=== PATIENT | male | born 1960 | race Caucasian/White ===

== ENCOUNTER 2016-10-15 00:08 | Emergency (ER) | payer MEDICARE ==
--- NOTE | 2016-10-15 01:37 | ED ---
Jay Jay Rodriguez Billy, scribed for Jr Moralez MD on 10/15/16 at 0027 . Substance Abuse/Use - HPI Summary HPI Summary: Patient is a 56 y/o male BIBA to [facility] for evaluation of EtOH intoxication after he was found asleep on the sidewalk today. Here in the ED, patient states that "they made me come in," and that he "only had a few beers." He is unwilling to divulge much more information. - History Of Current Complaint Chief Complaint: EDSubstanceAbuse Stated Complaint: INTOXICATION Time Seen by Provider: 10/15/16 00:14 Hx Obtained From: Patient Onset/Duration of Drug/ETOH Abuse: Hours Ingestion History: Type/Name Of Drug - EtOH, Amount Ingested - "a few beers" Overdose Characteristics: Oral Timing Of Abuse: Binge Use Severity Initially: Moderate Severity Currently: Moderate Character: Stuporous Aggravating Factor(s): Nothing Alleviating Factor(s): Nothing - Allergies/Home Medications Allergies/Adverse Reactions: Allergies Allergy/AdvReac Type Severity Reaction Status Date / Time Penicillins AdvReac Unknown Unknown Verified 01/31/16 13:33 Reaction Details PMH/Surg Hx/FS Hx/Imm Hx Endocrine/Hematology History: Reports: Hx Anticoagulant Therapy - 325MG PO ASPIRIN DAILY, Hx Diabetes, Other Endocrine/Hematological Disorders - obesity Denies: Hx Blood Disorders, Hx Blood Transfusions, Hx Thyroid Disease, Hx Anemia, Hx Unexplained Bleeding Cardiovascular History: Reports: Hx Angina, Hx Congestive Heart Failure, Hx Coronary Artery Disease, Hx Hypercholesterolemia, Hx Hypertension, Hx Myocardial Infarction, Other Cardiovascular Problems/Disorders - cardiac cath w / stents Denies: Hx Pacemaker/ICD, Hx Peripheral Vascular Disease, Hx Syncope, Hx Valvular Heart Disease Respiratory History: Reports: Hx Pulmonary Edema, Hx Sleep Apnea, Other Respiratory Problems/Disorders - CURRENT SMOKER Denies: Hx Asthma, Hx Chronic Obstructive Pulmonary Disease (COPD), Hx Pneumonia GI History: Reports: Other GI Disorders - esophegal ulcers History: Reports: Hx Kidney Infection, Other Problems/Disorders - Prostate CA, TURP in 2011 Denies: Hx Renal Disease Musculoskeletal History: Reports: Hx Back Problems, Other Musculoskeletal History - ACL repair L knee Denies: Hx Arthritis, Hx Osteoporosis Sensory History: Denies: Hx Hearing Aid, Other Sensory Impairments Opthamlomology History: Denies: Other Sensory Impairments Neurological History: Reports: Hx Migraine, Other Neuro Impairments/Disorders - 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 Denies: Hx Dementia, Hx Headaches, Hx Seizures, Hx Transient Ischemic Attacks (TIA) Psychiatric History: Reports: Hx Anxiety, Hx Depression, Hx Community Mental Health Tx, Other Psychiatric Issues/Disorders Denies: Hx Eating Disorder, Hx Panic Disorder, Hx of Violent Episodes Against Others, Hx Substance Abuse - Cancer History Cancer Type, Location and Year: prostate cancer Hx Chemotherapy: No Hx Radiation Therapy: No Hx Palliative Cancer Treatment: No - Surgical History Surgery Procedure, Year, and Place: caridac stents x3 PREV [place], ACL repair, MASTOID AND TUBES IN EARS(SEE CARD FROM 2012 STUDY [facility]) Hx Anesthesia Reactions: No - Immunization History Date of Tetanus Vaccine: Unknown Date of Influenza Vaccine: 2013 Infectious Disease History: No Infectious Disease History: Denies: Hx Hepatitis, Hx Human Immunodeficiency Virus (HIV), Hx Shingles, Hx Tuberculosis, Traveled Outside the [place] in Last 30 Days - Family History Known Family History: Positive: Unknown - PT WAS ADOPTED - Social History Alcohol Use: Weekly Alcohol Amount: 2-3 drinks/day Hx Substance Use: Yes Substance Use Type: Reports: Cocaine, Marijuana Substance Use Comment - Amount & Last Used: p[t reports last use of cocaine and marijuana was several months ago Hx Tobacco Use: Yes Smoking Status (MU): Heavy Every Day Tobacco Smoker Type: Cigarettes Amount Used/How Often: 1 pack/day Length of Time of Smoking/Using Tobacco: 42 years Have You Smoked in the Last Year: Yes Review of Systems Negative: Fever Neurological: Other - EtOH intox All Other Systems Reviewed And Are Negative: Yes Physical Exam Triage Information Reviewed: Yes Vital Signs On Initial Exam: Initial Vitals Temp Pulse Resp BP Pulse Ox 97.6 F 90 20 181/93 97 10/15/16 00:17 10/15/16 00:17 10/15/16 00:17 10/15/16 00:17 10/15/16 00:17 Vital Signs Reviewed: Yes Appearance: Positive: Well-Appearing, No Pain Distress Skin: Positive: Warm Head/Face: Positive: Normal Head/Face Inspection Eyes: Positive: KAY ENT: Positive: Hearing grossly normal Neck: Positive: Supple Respiratory/Lung Sounds: Positive: Breath Sounds Present Cardiovascular: Positive: RRR Abdomen Description: Positive: Nontender, Soft Bowel Sounds: Positive: Present Musculoskeletal: Positive: Strength/ROM Intact Neurological: Positive: Alert, Oriented to Person Place, Time Psychiatric: Positive: Affect/Mood Appropriate - [place] Coma Scale Coma Scale Total: 15 Diagnostics - Vital Signs Vital Signs Temp Pulse Resp BP Pulse Ox 10/15/16 00:17 97.6 F 90 20 181/93 97 - Laboratory Lab Results: Lab Results 10/15/16 Range/Units 00:47 Serum Alcohol 215 H (<10) mg/dL Lab Statement: Any lab studies that have been ordered have been reviewed, and results considered in the medical decision making process. Re-Evaluation - Re-Evaluation First Eval Change: Improved Course/Dx - Diagnoses Provider Diagnoses: Alcohol intoxication Discharge - Discharge Plan Condition: Stable Disposition: HOME Patient Education Materials: Alcohol Intoxication (ED) Referrals: [facility] [place] REFERR[facility] [Outside] The documentation as recorded by the Jay Jay breaux Billy accurately reflects the service I personally performed and the decisions made by me, Jr Moralez MD.
[2016-10-15 05:23] VITALS: BP 173/98
== END 2016-10-15 05:23 | disposition home or self-care (01) ==
LOC: ED 00:08
DX: F10.129 Alcohol abuse with intoxication, unspecified (principal); F17.210 Nicotine dependence, cigarettes, uncomplicated
CPT/HCPCS: 36415; 80320; 99283; G0480

== ENCOUNTER 2017-03-30 22:11 | Emergency (ER) | payer MEDICARE ==
[2017-03-30] MEDS ORDERED: Aspirin Low Dose CHEW TAB* 81 MG PO ONE (22:48)
[2017-03-30] MEDS ORDERED: NS 0.9% 1000 ML* 1,000 ML IV ONE (22:48)
[2017-03-30 23:23] LABS: Hematocrit 51 % (42-52); Hemoglobin 17.6 g/dl (14.0-18.0); Mean Corpuscular HGB Conc 34 g/dl (31-36); Mean Corpuscular Hemoglobin 33 pg (27-31); Mean Corpuscular Volume 97 fL (80-94); Mean Platelet Volume 7 um3 (7.4-10.4); Red Blood Count 5.27 10^6/ul (4.0-5.4); Red Cell Distribution Width 13 % (10.5-15); White Blood Count 9.2 10^3/ul (3.5-10.8)
[2017-03-30 23:38] LABS: ALT 78 U/L (7-52); Albumin 3.7 g/dL (3.2-5.2); Alkaline Phosphatase 81 U/L (34-104); Blood Urea Nitrogen 9 mg/dL (6-24); CO2 Carbon Dioxide 24 mmol/L (22-32); Calcium 9.3 mg/dL (8.6-10.3); Chloride 100 mmol/L (101-111); EGFR African American 138.5 (>60); EGFR Non-African American 107.7 (>60); Globulin 4.2 g/dL (2-4); Glucose 307 mg/dL (70-100); Sodium 132 mmol/L (133-145); Total Protein 7.9 g/dL (6.4-8.9)
[2017-03-30 23:40] LABS: Troponin I 0.01 ng/mL (<0.04)
[2017-03-30 23:41] LABS: Anion Gap 8 mmol/L (2-11)
[2017-03-30] MEDS ORDERED: Albuterol/Ipratropium NEB.SOL* Albuterol 2.5 MG/Ipratropium 0.5 MG 3 ML INH ONE (23:52)
[2017-03-30] MEDS ORDERED: methylPREDNISolone 125 MG* 2 ML VIAL IV ONE (23:53)
[2017-03-30] MEDS ORDERED: Morphine INJ* 4 MG/ML 1 ML SYRINGE IV ONE (23:53)
[2017-03-30] MEDS ORDERED: NS 0.9% 1000 ML* 2,000 ML IV ONE (23:53)
[2017-03-31] MEDS ORDERED: Azithromycin TAB* 250 MG PO ONE (03:02)
[2017-03-31] MEDS ORDERED: Albuterol HFA INHALER* 8 gm MDI INH ONE (03:02)
[2017-03-31] MEDS ORDERED: oxyCODONE/Acetamin 5/325 MG* TAB PO ONE (03:03)
[2017-03-31 03:40] VITALS: BP 165/79
--- NOTE | 2017-03-31 06:48 | ED ---
Igor Rodriguez Rebecca, scribed for Mando Harrington MD on 03/31/17 at 0000 . Respiratory - HPI Summary HPI Summary: Pt is a 56 y/o M BIBA who presents to ED c/o productive cough, SOB and abdominal pain. Though triage notes chest pain, pt denies any chest pain, c/o abdominal pain secondary to coughing. Pain is currently moderate, ranked 5/10. Cough produces yellow sputum. Has been treating pain with ASA and Ibuprofen which is not improved pain. Sx aggravated by laying down, alleviated by nothing. Additionally c/o wheezing, intermittent fever and nasal congestion. Denies any edema or calf pain. No recent sick contact. No recent travel. SHx current smoker. - History of Current Complaint Chief Complaint: EDChestPainROMI Stated Complaint: CHEST PAIN/SOB Time Seen by Provider: 03/30/17 23:29 Hx Obtained From: Patient Onset/Duration: Still Present Current Severity: Moderate Pain Intensity: 5 Character: Wheezing, Cough (Productive) Sputum Color: Yellow Aggravating Factor(s): Other - Laying down Alleviating Factor(s): Nothing Associated Signs and Symptoms: Fever - intermittent, SOB, Wheezing - Allergy/Home Medications Allergies/Adverse Reactions: Allergies Allergy/AdvReac Type Severity Reaction Status Date / Time Penicillins AdvReac Unknown Unknown Verified 01/31/16 13:33 Reaction Details PMH/Surg Hx/FS Hx/Imm Hx Endocrine/Hematology History: Reports: Hx Anticoagulant Therapy - 325MG PO ASPIRIN DAILY, Hx Diabetes, Other Endocrine/Hematological Disorders - obesity Denies: Hx Blood Disorders, Hx Blood Transfusions, Hx Thyroid Disease, Hx Anemia, Hx Unexplained Bleeding Cardiovascular History: Reports: Hx Angina, Hx Congestive Heart Failure, Hx Coronary Artery Disease, Hx Hypercholesterolemia, Hx Hypertension, Hx Myocardial Infarction, Other Cardiovascular Problems/Disorders - cardiac cath w / stents Denies: Hx Pacemaker/ICD, Hx Peripheral Vascular Disease, Hx Syncope, Hx Valvular Heart Disease Respiratory History: Reports: Hx Pulmonary Edema, Hx Sleep Apnea, Other Respiratory Problems/Disorders - CURRENT SMOKER Denies: Hx Asthma, Hx Chronic Obstructive Pulmonary Disease (COPD), Hx Pneumonia GI History: Reports: Other GI Disorders - esophegal ulcers History: Reports: Hx Kidney Infection, Other Problems/Disorders - Prostate CA, TURP in 2011 Denies: Hx Renal Disease Musculoskeletal History: Reports: Hx Back Problems, Other Musculoskeletal History - ACL repair L knee Denies: Hx Arthritis, Hx Osteoporosis Sensory History: Denies: Hx Hearing Aid, Other Sensory Impairments Opthamlomology History: Denies: Other Sensory Impairments Neurological History: Reports: Hx Migraine, Other Neuro Impairments/Disorders - 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 Denies: Hx Dementia, Hx Headaches, Hx Seizures, Hx Transient Ischemic Attacks (TIA) Psychiatric History: Reports: Hx Anxiety, Hx Depression, Hx Community Mental Health Tx, Other Psychiatric Issues/Disorders Denies: Hx Eating Disorder, Hx Panic Disorder, Hx of Violent Episodes Against Others, Hx Substance Abuse - Cancer History Cancer Type, Location and Year: prostate cancer Hx Chemotherapy: No Hx Radiation Therapy: No Hx Palliative Cancer Treatment: No - Surgical History Surgery Procedure, Year, and Place: caridac stents x3 [place]V [place], ACL repair, MASTOID AND TUBES IN EARS(SEE CARD FROM 2012 STUDY [facility]) Hx Anesthesia Reactions: No - Immunization History Date of Tetanus Vaccine: Unknown Date of Influenza Vaccine: 2013 Infectious Disease History: No Infectious Disease History: Denies: Hx Hepatitis, Hx Human Immunodeficiency Virus (HIV), Hx Shingles, Hx Tuberculosis, Traveled Outside the [place] in Last 30 Days - Family History Known Family History: Positive: Unknown - PT WAS ADOPTED - Social History Alcohol Use: Rare Alcohol Amount: 2-3 drinks/day Hx Substance Use: Yes Substance Use Type: Reports: None Substance Use Comment - Amount & Last Used: p[t reports last use of cocaine and marijuana was several months ago Hx Tobacco Use: Yes Smoking Status (MU): Heavy Every Day Tobacco Smoker Type: Cigarettes Amount Used/How Often: 1 pack/day Length of Time of Smoking/Using Tobacco: 42 years Have You Smoked in the Last Year: Yes Review of Systems Positive: Fever - intermittent Positive: Other - Nasal congestion Negative: Chest Pain Positive: Shortness Of Breath, Cough - [rpductive, Other - Wheezing Positive: Abdominal Pain Positive: Other - NEGATIVE: calf pain. Negative: Edema All Other Systems Reviewed And Are Negative: Yes Physical Exam - Summary Physical Exam Summary: The patient is well-nourished in no acute distress and in no acute pain. The skin is warm and dry and skin color reflects adequate perfusion. HEENT: The head is normocephalic and atraumatic. The pupils are equal and reactive. The conjunctivae are clear and without drainage. Nares are patent and without drainage. Mouth reveals moist mucous membranes and the throat is without erythema and exudate. The external ears are intact. The ear canals are patent and without drainage. The tympanic membranes are intact. NO sinus tenderness. Neck is supple with full range of motion and non-tender. There are no carotid bruits. There is no neck vein distension. NO hepatojugular reflex. Respiratory: Chest is non-tender. Decreased air movement with diffuse wheezing. Cardiovascular: Hear is regular rate and rhythm. There is no murmur or rub auscultated. There is no peripheral edema and pulses are symmetrical and equal. Abdomen: The abdomen is soft and non-tender. There are normal bowel sounds heard in all four quadrants and there is no organomegaly palpated. Musculoskeletal: There is no back pain noted. Extremities are non-tender with full range of motion. There is good capillary refill of 2 seconds. There is no peripheral edema or calf tenderness elicited. Neurological: Patient is alert and oriented to person, place and time. The patient has symmetrical motor strength in all four extremities. Psychiatric: The patient has an appropriate affect and does not exhibit any anxiety or depression. Triage Information Reviewed: Yes Vital Signs On Initial Exam: Initial Vitals Temp Pulse Resp BP Pulse Ox 97.8 F 78 14 141/83 94 03/30/17 22:15 03/30/17 22:15 03/30/17 22:15 03/30/17 22:15 03/30/17 22:15 Vital Signs Reviewed: Yes - [place] Coma Scale Coma Scale Total: 15 Diagnostics - Vital Signs Vital Signs Temp Pulse Resp BP Pulse Ox 03/30/17 22:15 97.8 F 78 14 141/83 94 - Laboratory Lab Results: Lab Results 03/30/17 Range/Units 23:12 WBC 9.2 (3.5-10.8) 10^3/ul RBC 5.27 (4.0-5.4) 10^6/ul Hgb 17.6 (14.0-18.0) g/dl Hct 51 (42-52) % MCV 97 H (80-94) fL MCH 33 H (27-31) pg MCHC 34 (31-36) g/dl RDW 13 (10.5-15) % Plt Count 314 (150-450) 10^3/ul MPV 7 L (7.4-10.4) um3 Neut % (Auto) 55.4 (38-83) % Lymph % (Auto) 31.7 (25-47) % [place] % (Auto) 8.7 (1-9) % Eos % (Auto) 2.9 (0-6) % Baso % (Auto) 1.3 (0-2) % Absolute Neuts (auto) 5.1 (1.5-7.7) 10^3/ul Absolute Lymphs (auto) 2.9 (1.0-4.8) 10^3/ul Absolute Monos (auto) 0.8 (0-0.8) 10^3/ul Absolute Eos (auto) 0.3 (0-0.6) 10^3/ul Absolute Basos (auto) 0.1 (0-0.2) 10^3/ul Absolute Nucleated RBC 0.01 10^3/ul Nucleated RBC % 0.1 Result Diagrams: 03/30/17 23:12 03/31/17 00:40 Lab Statement: Any lab studies that have been ordered have been reviewed, and results considered in the medical decision making process. - Radiology CXR Xray Interpretation: No Acute Changes - Cardiomegaly. No infiltrate, no evidence of vascular congestion, no PNA. ASCVD. Prominent aorta. Radiology Interpretation Completed By: ED Physician - EKG 2258 Cardiac Rate: NL - 68 bpm EKG Rhythm: Sinus Rhythm EKG Interpretation: Old anteroir inferior wall VT, T wave inversions in lead 1, aVF and V6. Disposition - Course Assessment/Plan: Pt is a 56 y/o M BIBA who presents to ED c/o productive cough, SOB and abdominal pain. Though triage notes chest pain, pt denies any chest pain , c/o abdominal pain secondary to coughing. Pain is currently moderate, ranked 5/10. Cough produces yellow sputum. Has been treating pain with ASA and Ibuprofen which is not improved pain. Sx aggravated by laying down, alleviated by nothing. Additionally c/o wheezing, intermittent fever and nasal congestion. Denies any edema or calf pain. No recent sick contact. No recent travel. SHx current smoker. CXR reveals no acute findings. EKG is sinus rhythm showing old anterior inferior wall VT and T wave inversions in leads 1, aVF and V6. In the ED course, pt received Ventolin inhaler, Duoneb, ASA, Zithromax, morphine, Solu- Medrol and Percocet 5/325. Pt will be D/C to home with Dx of asthmatic bronchtis , allergies and a follow up appointmet. He understands and agrees. Elevated BP noted and advised to f/u with PCP. - Differential Dx - Cardiopulmonary Differential Diagnoses - Cardiopulmonary: Bronchitis, CAD, Exacerbation Of COPD , Lower Resp Infection - Diagnoses Provider Diagnoses: Asthmatic bronchitis, Chest pain Discharge - Discharge Plan Condition: Stable Disposition: HOME Prescriptions: Azithromycin TAB* [Zithromax TAB (Z-URIEL) 250 mg #6 tabs] 2 tab PO .TODAY, THEN 1 DAILY #1 uriel oxyCODONE/Acetamin 5/325 MG* [Percocet 5/325 TAB*] 1 tab PO Q6H PRN #16 tab MDD 4 PRN Reason: pain predniSONE TAB* [Deltasone TAB*] 60 mg PO DAILY #15 tab Patient Education Materials: Acute Bronchitis (ED) Referrals: [facility] [place] [facility] [Outside] The documentation as recorded by the Igor breaux Rebecca accurately reflects the service I personally performed and the decisions made by me, Mando Harrington MD.
--- NOTE | 2017-03-31 07:43 | RAD ---
INDICATION: Chest pain, pneumonia. COMPARISON: Comparison is made with a prior chest x-ray study from July 17, 2016. TECHNIQUE: A portable view of the chest was obtained. FINDINGS: Cardiac and mediastinal contours appear to be within normal limits. The lungs are hyperinflated and clear. No pleural effusion is seen. IMPRESSION: NO EVIDENCE FOR ACUTE DISEASE.
--- NOTE | 2017-03-31 07:50 | RAD ---
INDICATION: Chest pain. COMPARISON: Comparison is made with a prior study from March 30, 2017. TECHNIQUE: Dual-energy PA and lateral views of the chest were obtained. FINDINGS: The heart is within normal limits in size. Mediastinal and hilar contours appear within normal limits. The lungs appear hyperinflated and clear. No pleural effusion is seen. IMPRESSION: FINDINGS SUGGESTIVE OF COPD, NO EVIDENCE FOR ACUTE FINDING.
== END 2017-03-31 04:12 | disposition home or self-care (01) ==
LOC: ED 22:11
DX: J45.998 Other asthma (principal); R07.9 Chest pain, unspecified; R05 Cough; R50.9 Fever, unspecified; R10.9 Unspecified abdominal pain; R09.81 Nasal congestion; R06.02 Shortness of breath; F17.210 Nicotine dependence, cigarettes, uncomplicated
CPT/HCPCS: 36415; 71010; 71020; 80053; 83605; 83880; 84484; 85025; 87040; 93005; 94640; 99285; A9270-GY; J2270; J2930

== ENCOUNTER 2017-04-06 13:37 | Inpatient (IN) | payer MEDICARE ==
--- NOTE | 2017-04-06 17:24 | RAD ---
INDICATION: Short of breath COMPARISON: March 31, 2017 TECHNIQUE: PA and lateral dual-energy views were obtained. FINDINGS: Bones/Soft Tissues: There are no acute bony findings. Cardiomediastinal: The cardiomediastinal silhouette is normal. Lungs: There are no infiltrates. There is mild hyperinflation. Pleura: There are no pleural effusions. Other: None IMPRESSION: NO ACTIVE DISEASE.
[2017-04-06 17:36] LABS: Hematocrit 54 % (42-52); Mean Corpuscular HGB Conc 34 g/dl (31-36); Mean Corpuscular Hemoglobin 33 pg (27-31); Mean Corpuscular Volume 97 fL (80-94); Mean Platelet Volume 7 um3 (7.4-10.4); Red Blood Count 5.57 10^6/ul (4.0-5.4); Red Cell Distribution Width 13 % (10.5-15); White Blood Count 12.1 10^3/ul (3.5-10.8)
[2017-04-06 17:39] LABS: Comments Flag Yes; Hemoglobin 18.5 g/dl (14.0-18.0)
[2017-04-06 17:51] LABS: Troponin I 0.01 ng/mL (<0.04)
--- NOTE | 2017-04-06 18:00 | UC ---
Cardiac HPI - HPI Summary HPI Summary: Sob / chest pain has been non-adherent with meds for years---seems to be related to taking deep breaths - History of Current Complaint Chief Complaint: EDShortnessOfBreath Stated Complaint: DIFF BREATHING Time Seen by Provider: 04/06/17 17:22 Hx Obtained From: Patient Onset/Duration: Gradual Onset, Lasting Weeks Timing: Constant Initial Severity: Moderate Current Severity: Moderate Pain Intensity: 4 - began as difuse pleurtic pain Chest Pain Location: Mid Sternal - after neb to diffuse chest tightness has resolved and has remaining sternal pain Character: Tightness, Pressure/Squeezing Aggravating: Deep Breaths Alleviating: Nothing Associated Signs & Symptoms: Positive: Chest Pain, SOB - Allergy/Home Medications Allergies/Adverse Reactions: Allergies Allergy/AdvReac Type Severity Reaction Status Date / Time Penicillins AdvReac Unknown Unknown Verified 01/31/16 13:33 Reaction Details Home Medications: Home Medications Aspirin TAB* [Aspirin 325 MG TAB*] 325 mg PO DAILY 04/06/17 [History Confirmed 04/06/17] Ibuprofen [Advil] 800 mg PO BID PRN 04/06/17 [History Confirmed 04/06/17] PMH/Surg Hx/FS Hx/Imm Hx Previously Healthy: No Endocrine History: Diabetes Cardiovascular History: Cardiac Disease, Hypertension, Myocardial Infarction Respiratory History: COPD Other History Of: Anticoagulant Therapy - 325MG PO ASPIRIN DAILY - Surgical History Surgical History: Yes Surgery Procedure, Year, and Place: caridac stents x3 PREV [place], ACL repair, MASTOID AND TUBES IN EARS(SEE CARD FROM 2012 STUDY [facility]) - Family History Known Family History: Positive: Unknown - PT WAS ADOPTED - Social History Occupation: Unemployed, Disabled Lives: With Family Alcohol Use: Rare Alcohol Amount: 2-3 drinks/day Substance Use Type: None Substance Use Comment - Amount & Last Used: p[t reports last use of cocaine and marijuana was several months ago Smoking Status (MU): Heavy Every Day Tobacco Smoker Type: Cigarettes Amount Used/How Often: 1 pack/day Length of Time of Smoking/Using Tobacco: 42 years Have You Smoked in the Last Year: Yes Household Exposure Type: Cigarettes Cessation Counseling: Counseled 3+Min - 10 Min - Immunization History Most Recent Influenza Vaccination: May 2013 Most Recent Tetanus Shot: within 10 years Most Recent Pneumonia Vaccination: 2012 Review of Systems Constitutional: Negative Skin: Negative Eyes: Negative ENT: Negative Respiratory: Shortness Of Breath Cardiovascular: Chest Pain Gastrointestinal: Negative Genitourinary: Negative Motor: Negative Neurovascular: Negative Musculoskeletal: Negative Neurological: Negative Psychological: Negative Is Patient Immunocompromised?: No All Other Systems Reviewed And Are Negative: Yes Physical Exam Triage Information Reviewed: Yes Appearance: No Pain Distress, Ill-Appearing - chronic, Obese Vital Signs: Initial Vital Signs Temp 98.3 F 04/06/17 13:42 Pulse 89 04/06/17 13:42 Resp 19 04/06/17 13:42 BP 174/109 04/06/17 13:42 Pulse Ox 96 04/06/17 13:42 Vital Signs Reviewed: Yes Eye Exam: Normal Eyes: Positive: Conjunctiva Inflamed ENT Exam: Normal ENT: Positive: Normal ENT inspection, Hearing grossly normal, Pharynx normal, TMs normal. Negative: Nasal congestion, Nasal drainage, Tonsillar swelling, Tonsillar exudate, Trismus, Muffled/hoarse voice Dental Exam: Normal Dental: Positive: Gross Decay/Caries @ Neck exam: Normal Neck: Positive: Supple, Nontender, No Lymphadenopathy Respiratory Exam: Normal Respiratory: Positive: No respiratory distress, No accessory muscle use, Decreased breath sounds Cardiovascular Exam: Normal Cardiovascular: Positive: RRR, No Murmur, Pulses Normal, Brisk Capillary Refill Abdominal Exam: Normal Abdomen Description: Positive: Nontender, No Organomegaly, Soft Musculoskeletal Exam: Normal Musculoskeletal: Positive: Strength Intact, ROM Intact, No Edema Neurological Exam: Normal Neurological: Positive: Alert, Muscle Tone Normal Psychological Exam: Normal Skin Exam: Normal Diagnostics - Radiology No standard instances Xray Interpretation: No Acute Changes Radiology Interpretation Completed By: ED Physician - EKG Cardiac Rate: NL Cardiac Rhythm: Sinus: Normal Ectopy: None ST Segment: Non-Specific Re-Evaluation - Re-Evaluation First Eval Change: Improved - increase airmovement and some decrease sob after neb--now c/ o remaining sternal chest pain, no nausea, vomiting or sweating BP remains 196 /91 Second Eval Change: Unchanged - no change in chest pain after ntg and asprin--- - Assessment/Plan Course Of Treatment: Asprin, admit to hospital - Differential Diagnoses - Chest Pain Differential Diagnosis/HQI/PQRI: ACS, Angina - Differential Diagnoses - Hypertension Differential Diagnosis/HQI PQRI: Hypertension, Hypertensive Crisis, Hypertensive Urgency - Clinical Impression Provider Diagnoses: Chest pain, Hypertension, nicotine dependent, - Physician Notifications Discussed Patient Care With: Karin Lugo Instructed by Provider To: Admit As Observation Discharge - Discharge Plan Condition: Good Disposition: ADMITTED TO [facility]
[2017-04-06] MEDS ORDERED: Lisinopril TAB* 10 MG PO ONE (18:13)
[2017-04-06] MEDS ORDERED: Metoprolol Succinate XL TAB* 50 MG PO ONE (18:14)
[2017-04-06] MEDS ORDERED: Albuterol/Ipratropium NEB.SOL* Albuterol 2.5 MG/Ipratropium 0.5 MG 3 ML INH ONE (18:15)
[2017-04-06 19:21] LABS: ALT 71 U/L (7-52); Albumin 3.9 g/dL (3.2-5.2); Alkaline Phosphatase 73 U/L (34-104); BUN/Creatinine Ratio 16.7 (8-20); Blood Urea Nitrogen 14 mg/dL (6-24); CO2 Carbon Dioxide 21 mmol/L (22-32); Calcium 9.3 mg/dL (8.6-10.3); Chloride 102 mmol/L (101-111); EGFR African American 121.6 (>60); EGFR Non-African American 94.5 (>60); Globulin 3.8 g/dL (2-4); Glucose 294 mg/dL (70-100); Sodium 133 mmol/L (133-145); Total Protein 7.7 g/dL (6.4-8.9)
[2017-04-06 19:23] LABS: Anion Gap 10 mmol/L (2-11)
[2017-04-06] MEDS ORDERED: Nitroglycerin TAB 0.4 MG* 0.4 MG TAB SL ONE (19:36)
[2017-04-06] MEDS ORDERED: Aspirin Low Dose CHEW TAB* 81 MG PO ONE (20:18)
[2017-04-06] MEDS ORDERED: Albuterol/Ipratropium NEB.SOL* Albuterol 2.5 MG/Ipratropium 0.5 MG 3 ML INH PRN (20:27)
[2017-04-06] MEDS ORDERED: Albuterol 2.5 MG/3 ML NEB.SOL* (0.083%) INH PRN (20:28)
[2017-04-06] MEDS ORDERED: Nitroglycerin 2% OINT* 1 GM PAK TOPICAL ONE (20:57)
[2017-04-06] MEDS ORDERED: Dextrose 50% Syringe 50 ML* 25 GM/50 ML SYRINGE IV PUSH PRN (21:07)
[2017-04-06 22:08] LABS: Magnesium 1.8 mg/dL (1.9-2.7)
[2017-04-06] MEDS ORDERED: Magnesium Sulfate 2 GM IV* 2 GM/50 ML BAG IVPB ONE (22:17)
[2017-04-06 22:23] LABS: Folate > 20.00 ng/mL (>3.99)
[2017-04-06 22:24] LABS: Vitamin B12 696 pg/mL (180-914)
[2017-04-06] MEDS: ceFUROXime TAB(*) 250 MG PO SCH (22:24)
[2017-04-06] MEDS: Heparin VIAL(*) 5000 UNITS/ML VIAL (FIVE THOUSAND) SUBCUT SCH (22:25)
[2017-04-06] MEDS: guaiFENesin ER TAB 600 MG PO SCH (22:25)
--- NOTE | 2017-04-07 02:05 | HP ---
MEDICINE HISTORY AND PHYSICAL: DATE OF ADMISSION: 04/06/17 PROVIDER: Eugene Penaloza NP ATTENDING PHYSICIAN: Dr. Fortino Mckenzie * (as dictated by Eugene Penaloza NP ). PRIMARY CARE PROVIDER: None. CHIEF COMPLAINT: Chest pain. HISTORY OF PRESENT ILLNESS: This is a 56-year-old male patient, who presents today with concerns for chest pain and shortness of breath. The patient was previously seen here in the emergency room on 03/30/17 with complaint of productive cough, shortness of breath, and abdominal pain. At that time, it was felt that he had bronchitis and COPD exacerbation and was given azithromycin , Percocet, and prednisone to treat the exacerbation. The patient states that he finished all of his medications and notes no acute change. He continues to endorse productive cough of green sputum as well as persistent postnasal drainage and rhinorrhea up until today. This morning, he reports he woke up and felt that his sinusitis was getting better, but then it was noted that he felt suddenly very stuffy and felt he could not breathe. He reported chest tightness and came to the ER for further evaluation. The patient received nebulizer treatment as well as aspirin and he states that his breathing felt better, but his chest tightness persisted. He reports sternal chest pain that extends across his chest, does not radiate to his neck, jaw, back, or arms. He rates the pain currently at 8/10 and feels as if the pain is similar to when he had his [place] previously and had stents placement. He also reports subjective fevers at home as well as cough that wake him up at night. He denies any headache currently or dizziness. Of note, here in the ER, the patient has had elevated blood pressure, the highest 207/110. In my review of old medical records, I have noted that the patient has been here previously secondary to chest pain complaints and was noted noncompliance to medications. The patient was last here in June of 2016, where he presented with chest pain. It was evaluated with stress test and echocardiogram. At that time, he had a Cardiology consult with Dr. Miquel Carrillo , who recommended medical management given the patient's history of medication nonadherence. Per the patient, he never followed up with Dr. Carrillo or any primary care doctor. He has no primary care doctor. He never filled his medications. He has not taken any medications. The only medication that he endorses taking is full-dose aspirin 325 mg and ibuprofen. The patient did have a chest x-ray here in the ER, which shows no active disease. His EKG shows sinus rhythm with nonspecific ST changes and left ventricular hypertrophy. His first troponin here in the ER was 0.01. PAST MEDICAL HISTORY: Includes: 1. Hypertension. 2. History of polysubstance abuse, specifically cocaine. 3. The patient states that he has not used cocaine or marijuana times several months. 4. History of coronary artery disease, status post stenting x2 in the right coronary artery territory in 2013. 5. History of medication not adherence and noncompliance. 6. Type 2 diabetes, not on medication. 7. Dyslipidemia. 8. History of esophageal ulcer. 9. Obstructive sleep apnea, does not use CPAP. 10. Depression. 11. Anxiety. 12. History of reconstructive left knee surgery, the patient is on chronic disability secondary to knee issues. HOME MEDICATIONS: Again, the patient is only on aspirin 325 mg and p.r.n. ibuprofen, which he takes on a daily basis. ALLERGIES: Include PENICILLIN. FAMILY HISTORY: Unobtainable. The patient is adopted. SOCIAL HISTORY: The patient reports smoking a pack per day and has a 42-year history of smoking. He reports he drinks 1 or 2 beers or mixed drinks on a daily basis. He denies any marijuana, cocaine, or other illicit drug use stating that he has not used in several months. He is . His ex- __ ___ Eleanor Navarro is his surrogate decision maker. REVIEW OF SYSTEMS: As per HPI. All pertinent positives and negatives are included in the HPI. All others not mentioned are negative. All 14 systems were reviewed. PHYSICAL EXAMINATION GENERAL: This is a pleasant, 56-year-old male patient, who is sitting up in the ED stretcher, in no acute distress. VITAL SIGNS: Temperature 97.6, heart rate 88, respiratory rate 18, blood pressure 178/94, and O2 saturation is 100% on room air. HEENT: Head is atraumatic and normocephalic. Face is symmetrical. Pupils are equal, round, and reactive to light. The patient has somewhat dry oral mucosa. NECK: Supple. No lymphadenopathy appreciated. No JVD noted. LUNGS: Clear to auscultation, but diminished throughout. HEART: S1 and S2 heart sounds. Regular rate and rhythm. No murmurs, rubs, or gallops. The patient has no peripheral edema. Distal pulses are 2+ and equal. ABDOMEN: Soft, nontender, nondistended. Bowel sounds are present times all four quadrants. MUSCULOSKELETAL: There is no clubbing or cyanosis. The patient moves all extremities. Appears to have full range of motion. NEUROLOGIC: Cranial nerves II through XII are grossly intact. The patient moves all extremities. No focal deficits noted. PSYCH: He is alert and oriented x3. Affect is appropriate. SKIN: Limited to assessment, but appears warm dry and grossly intact. DIAGNOSTIC STUDIES/LAB DATA: CBC: WBC 12.1, hemoglobin 18.5, hematocrit 54, MCV 97, platelet count 260. CMP: Sodium 133, potassium 3.7, chloride 102, carbon dioxide 21, BUN 14, creatinine 0.84, glucose 294, lactic acid 0.8, calcium 9.3. Total bilirubin 0.9, AST 74, ALT 71, alk phos 73. Troponin 0.01. BNP 153. Albumin 3.9. Chest x-ray and EKG as per above. Old medical records were reviewed. ASSESSMENT AND PLAN: This is a 56-year-old male patient with a history significant for coronary artery disease, diabetes, hypertension, hyperlipidemia , and status post percutaneous coronary intervention as well as history of medication noncompliance, who presents today with concern for chest pain and persistent sinusitis. He will be admitted as observation patient through the telemetry floor. The plans are as follows. 1. Chest pain. We will continue to monitor the patient on telemetry, repeat his troponins. If he continues to have negative troponins, we will have the patient undergo a pharmacological stress test tomorrow morning. He is unable to perform an exercise stress test secondary to his chronic knee issues. The patient's pain seems pretty localized to his chest. So, I have low suspicion for dissection; however, CT angiogram of the chest, abdomen, and pelvis to evaluate for aneurysm and pulmonary embolism could be considered if the pain changes or the patient continues with tachycardia or pleuritic chest pain. I think that his hypertension and chest pain are mostly secondary to medication nonadherence and chronic disease. I also will be checking the patient for an echocardiogram to evaluate the patient's ejection fraction with systolic function. 2. Hypertension. The patient received lisinopril and metoprolol XL here in the ER. In reviewing the records it appeared that while the patient was discharged back in June, but has never actually been filled. I have gone ahead and restarted the metoprolol XL as well as the lisinopril here for the patient to continue. Additionally for his chest pain and for the hypertension, the patient is ordered a half inch of nitro paste. I have discussed with the patient the importance of not utilizing ibuprofen as that contributes to his hypertension, which the patient verbalized understanding of. 3. Complaint of persistent sinusitis. Start the patient on Flonase and cefuroxime x10 days. 4. History of hyperlipidemia. We will recheck a fasting lipid profile in the morning, resume, and reinitiate the patient's atorvastatin. 5. Type 2 diabetes. The patient has a random glucose of 294. We will check a hemoglobin A1c. The patient is ordered lispro sliding scale insulin to start. I have also requested a fraud representative to see the patient here in the hospital as he is likely not going to follow up with him as an outpatient at this point in time. 6. History of esophageal ulcer. I will put the patient on omeprazole. 7. History of depression and anxiety. The patient is not on any chronic medications. 8. FEN: The patient is ordered a heart-healthy diet. No caffeine. He will be n.p.o. in the morning. 9. DVT prophylaxis. Subcu heparin. TIME SPENT: Time spent on this admission was approximately 60 minutes, more than half the time was spent [id number] with the patient obtaining history and physical, performing the physical examination, and reviewing the plan of care. Plan of care was also reviewed with my attending, Dr. Mckenzie, who is in agreement. EUGENE PENALOZA, SARBJIT [id number]/[facility] #: [id number] JODIE
[2017-04-07 02:07] LABS: Benzodiazepine Urine Screen None Detected (None Detect)
[2017-04-07] MEDS: Insulin LISPRO* 1 UNITS UNIT SUBCUT SCH ×5 (06:19→21:23)
[2017-04-07] MEDS: Heparin VIAL(*) 5000 UNITS/ML VIAL (FIVE THOUSAND) SUBCUT SCH ×3 (06:19→21:33)
[2017-04-07] MEDS ORDERED: Insulin LISPRO* 1 UNITS UNIT SUBCUT SCH (07:30)
[2017-04-07] MEDS: Acetaminophen TAB* 325 MG PO PRN ×2 (08:48→16:56)
[2017-04-07] MEDS: Aspirin Low Dose CHEW TAB* 81 MG PO SCH (08:48)
[2017-04-07] MEDS: ceFUROXime TAB(*) 250 MG PO SCH ×2 (08:48→21:32)
[2017-04-07] MEDS: guaiFENesin ER TAB 600 MG PO SCH ×2 (08:48→21:32)
[2017-04-07] MEDS ORDERED: Regadenoson* 0.4 MG/5 ML SYRINGE ONE (09:22)
[2017-04-07] MEDS ORDERED: Aminophylline IV* 25 MG/ML 10 ML VIAL ONE (09:22)
[2017-04-07] MEDS: Metoprolol Succinate XL TAB* 50 MG PO SCH (10:35)
[2017-04-07] MEDS: Lisinopril TAB* 10 MG PO SCH (10:38)
[2017-04-07] MEDS: Fluticasone NASAL SPRAY 50MCG* 16 gm SPRAY BTL BOTH NARES SCH (10:38)
--- NOTE | 2017-04-07 11:04 | ECHO ---
Patient: UTE PANG [facility] Rec#: [id number] : 1960 Date: 04/07/2017 Age: 56y Height: 162.6 cm / 64.0 in Weight: 99.3 kg / 218.9 lbs Sex: M BSA: 2 Room#: [facility] Admit Date#: 04/06/2017 Type: Inpatient Referring: Karin Lugo Reading: Jersey Saldana MD Tetryl Blender Operator: Mckenna Green RN RDCS Transthoracic Echocardiogram Indication: Chest pain, SOB BP: 154/78 HR: 53 Rhythm: Bradycardia Findings History: CAD, PCI to RCA in 2012, HTN, DM, HLD, FINESSE, obesity, polysubstance abuse including cocaine, medication noncompliance Technical Comments: The study quality is fair. The study is technically limited due to patient body habitus. The study is technically limited due to the patient's smoking history. Completed at 0900. Left Ventricle: The left ventricular chamber size is normal. Mild to moderate concentric left ventricular hypertrophy is observed. There is global hypokinesis of the left ventricle with minor regional variation.There appears to be more pronounced posterior and posterolatral and inferior hypokinesis. There is mild to moderately decreased left ventricular systolic function. The estimated ejection fraction is 40-45%. There is an E to A reversal in the mitral valve flow pattern suggestive of diastolic dysfunction. The basal inferoseptal, mid anterolateral, mid inferolateral, mid inferior, and apical lateral wall segments are hypokinetic (score 2). Overall wallmotion score index is 1.31 Left Atrium: The left atrial chamber size is normal. Right Ventricle: The right ventricle wall thickness is mildly increased. The right ventricular cavity size is normal. The right ventricular global systolic function is low normal. Right Atrium: The right atrium is mildly dilated. Aortic Valve: The aortic valve is trileaflet. The aortic valve leaflets are mildly thickened. There is mild aortic regurgitation. There is no evidence of aortic stenosis. The measured aortic regurgitation pressure half-time is 622 msec. Mitral Valve: Moderate mitral annular calcification present.especially posteriorly. The mitral valve leaflets are mildly thickened. There is trace to mild mitral regurgitation. There is no evidence of mitral stenosis. Tricuspid Valve: The tricuspid valve leaflets are normal. There is trace tricuspid regurgitation. Unable to estimate the right ventricular systolic pressure. Pulmonic Valve: The pulmonic valve structure is not well visualized. There is a trace pulmonic regurgitation. There is no pulmonic stenosis. Pericardium: There is no significant pericardial effusion. A pericardial fat pad is visualized. Aorta: There is no dilatation of the ascending aorta. There is no dilatation of the aortic arch. There is no dilation of the aortic root. Pulmonary Artery: The main pulmonary artery is not well visualized. Venous: The inferior vena cava is dilated. There is an approximate 50% respiratory change in the inferior vena cava dimension. Conclusions The study is technically limited due to the patient's smoking history. Completed at 0900. Mild to moderate concentric left ventricular hypertrophy is observed. There is global hypokinesis of the left ventricle with minor regional variation. There appears to be more pronounced posterior and posterolatral and inferior hypokinesis. There is mild to moderately decreased left ventricular systolic function. The estimated ejection fraction is 40-45%. There is an E to A reversal in the mitral valve flow pattern suggestive of diastolic dysfunction. The right ventricle wall thickness is mildly increased. The right ventricular global systolic function is low normal. The aortic valve leaflets are mildly thickened. There is mild aortic regurgitation. There is trace to mild mitral regurgitation. Moderate mitral annular calcification present. There is trace tricuspid regurgitation. Compared to 06/2016, there appears to be more pronounced inferior posterior lateral hypokinesis. Measurements Name Value Normal Range RVDdMajor (2D) 3.1 cm (2.2 - 4.4) RAd ISD 4CH 5.1 cm (3.4 - 4.9) RA (A4C)W 3.7 cm (2.9 - 4.6) IVSd (2D) 1.3 cm (0.6 - 1) LVPWd (2D) 1.3 cm (0.6 - 1) LVIDd (2D) 4.4 cm (3.6 - 5.4) LVIDs (2D) 3.8 cm - LV FS (2D) 14 % (25 - 45) Aortic Annulus 2.2 cm (1.4 - 2.6) Ao root diameter (2D) 3 cm (2.1 - 3.5) Ascending Ao 3.2 cm (2.1 - 3.4) Aortic arch 2.4 cm (1.8 - 3.4) LA dimension (AP) 2D 3.8 cm (2.3 - 3.8) LAd ISD 4CH 5.1 cm (2.9 - 5.3) LA ISD 4CH W 4.3 cm (2.5 - 4.5) Name Value Normal Range LA ESV SP 4CH (A/L) 52 ml - LA ESV SP 2CH (A/L) 67 ml - LA ESV BP (A/L) 59 ml - LA ESV BP (A/L) index 29.2 ml/m2 - LA ESV SP 4CH (MOD) 48 ml - LA ESV SP 2CH (MOD) 62 ml - Name Value Normal Range MV E-wave Vmax 0.84 m/sec - MV deceleration time 285 msec - MV A-wave Vmax 1.1 m/sec - MV E:A ratio 0.75 ratio - LV septal e' Vmax 0.05 m/sec - LV lateral e' Vmax 0.04 m/sec - LV E:e' septal ratio 16.8 ratio - LV E:e' lateral ratio 21 ratio - Name Value Normal Range AV Vmax 1.5 m/sec - AV VTI 34.5 cm - AV peak gradient 9.5 mmHg - AV mean gradient 6 mmHg - LVOT Vmax 1.1 m/sec - LVOT VTI 26.4 cm - LVOT mean gradient 3.1 mmHg - AR PHT 622 msec - KALIA Vmax 0.54 m/sec - Name Value Normal Range IVC diameter 2.2 cm - Name Value Normal Range PV Vmax 0.82 m/sec - Wallmotion BAS Normal BA Normal BAL Normal MIKI Normal BI Normal BIS Hypokinetic MAS Normal MA Normal MAL Hypokinetic MIL Hypokinetic DC Hypokinetic MIS Normal Normal AA Normal AL Hypokinetic AI Normal APEX Normal
--- NOTE | 2017-04-07 11:10 | RAD ---
HISTORY: Chest pain, previous [place], diabetes, hypertension, hyperlipidemia, obesity, tobacco use, history of angioplasty. COMPARISONS: July 18, 2016 TECHNIQUE: A 1 day stress/rest myocardial perfusion study was performed, with pharmacologic stress. The stress portion was monitored by Dr. Singh. Gated SPECT imaging was performed, with CT-based attenuation correction DOSE: Stress: Technetium 99m tetrofosmin, 25.05 millicuries, injected at 9:35 AM on April 07, 2017 Rest: Technetium 99m tetrofosmin, 10.6 millicuries, injected at 7:27 AM on April 07, 2017 Pharmacologic agent: Lexiscan FINDINGS: CARDIAC MONITORING: No EKG evidence of ischemia with stress EF: 40 % TID: 0.99 MOTION: There is diffuse hypokinesia PERFUSION: There is patchy reversible hypoperfusion of the anterior wall and inferior wall towards the apex OTHER: None IMPRESSION: DECREASED EJECTION FRACTION. PATCHY REVERSIBLE HYPOPERFUSION OF THE DISTAL ANTERIOR WALL AND INFERIOR WALL SUGGESTIVE OF ISCHEMIA ASSESSMENT: INTERMEDIATE RISK. Based on imaging criteria from ACC/AHA 2002. Guideline Update for the Management of Patient's with Chronic Stable Angina, table 23. Noninvasive Risk Stratification.
[2017-04-07] MEDS ORDERED: Insulin GLARGINE(*) 1 UNITS UNIT SUBCUT SCH (13:00)
--- NOTE | 2017-04-07 13:06 | PN ---
Subjective Date of Service: 04/07/17 Interval History: This is a 56 yo gentleman with poorly controlled HTN, DM and HLD with a h/o medical non-compliance who presents with c/o CP. He was severely hypertensive in the ER. Trop was neg and EKG benign. He underwent stress test and echo this am. BP better controlled overnight. He presented with similar complaints ~10 months ago. Stress testing and echo at that time were essentially normal. Patient was prescribed antihypertensive medications at that time and given information on appropriate follow up, none of which he was complaint with. He cites monetary barriers to compliance. Objective Active Medications: Acetaminophen (Tylenol Tab*) 975 mg PO Q8H PRN PRN Reason: FEVER/PAIN Last Admin: 04/07/17 08:48 Dose: 975 mg Albuterol (Ventolin 2.5 Mg/3 Ml Neb.Fifi*) 2.5 mg INH Q2H PRN PRN Reason: SOB/WHEEZING Albuterol/Ipratropium (Duoneb (Albuterol 2.5 Mg/Ipratropium 0.5 Mg)) 1 neb INH Q4H PRN PRN Reason: SOB/WHEEZING Aspirin (Aspirin Low Dose Tab*) 81 mg PO DAILY [facility] Last Admin: 04/07/17 08:48 Dose: 81 mg Atorvastatin Calcium (Lipitor*) 40 mg PO 1700 [facility] Cefuroxime Axetil (Ceftin Tab(*)) 250 mg PO BID [facility] Stop: 04/16/17 09:01 Last Admin: 04/07/17 08:48 Dose: 250 mg Dextrose (D50w Syringe 50 Ml*) 12.5 gm IV PUSH .FOR FS < 60 - SS PRN PRN Reason: FS < 60 Fluticasone Propionate (Flonase Nasal [place] 50mcg*) 2 spray BOTH NARES DAILY [facility] Last Admin: 04/07/17 10:38 Dose: 2 spray Guaifenesin (Mucinex*) 1,200 mg PO BID [facility] Last Admin: 04/07/17 08:48 Dose: 1,200 mg Heparin Sodium (Porcine) (Heparin Vial(*)) 5,000 units SUBCUT Q8HR [facility] Last Admin: 04/07/17 12:49 Dose: 5,000 units Insulin Glargine (Lantus(*)) 15 units SUBCUT Q24H [facility] Last Admin: 04/07/17 13:00 Dose: 15 units Insulin Human Lispro (Humalog*) 0 units SUBCUT Q4H [facility] PRN Reason: Protocol Last Admin: 04/07/17 12:48 Dose: 15 unit Lisinopril (Prinivil Tab*) 10 mg PO DAILY [facility] Last Admin: 04/07/17 10:38 Dose: 10 mg Metoprolol Succinate (Toprol Xl Tab*) 50 mg PO DAILY [facility] Last Admin: 04/07/17 10:35 Dose: 50 mg Vital Signs: Temp Pulse Resp BP Pulse Ox 97.5 F 56 18 154/96 100 04/07/17 07:25 04/07/17 07:25 04/07/17 07:25 04/07/17 07:25 04/07/17 07:25 Oxygen Devices in Use Now: None Appearance: Well appearing middle aged gentleman in NAD Respiratory: Symmetrical Chest Expansion and Respiratory Effort, Clear to Auscultation Cardiovascular: NL Sounds; No Murmurs; No JVD, RRR Abdominal: NL Sounds; No Tenderness; No Distention Extremities: No Edema Skin: No Rash or Ulcers Neurological: Alert and Oriented x 3 Result Diagrams: 04/06/17 17:26 04/06/17 19:50 Diagnostic Imaging: Stress test - area of reversible ischemia along distal anterior wall, EF 40% Echo - global hypokinesis with some wall motion changes most notable at lateral and inferior weber with EF 40-45% which is different when compared to 06/2016 Assess/Plan/Problems-Billing Assessment: This is a 56 yo male with untreated DM, HTN and HLD who presents with c/o CP. - Patient Problems (1) Chest pain Comment: Asx overnight Trop neg No EKG changes Stress test shows area of reversible ischemia and new WMA on echo Patient is stable and asx at this time Requested cardiology consult for possible cardiac catherterization (2) Sinusitis Comment: sinus c/os No response to prior use of azithromycin Started on Ceftin and Flonase nasal spray (3) Hypertension Comment: sBP >200mmHg at admission Non-compliant with use of home antihypertensives Good response to metoprolol and lisinopril (4) Dyslipidemia Comment: LDL 84 mg/dl Atorvastatin started (5) CAD (coronary artery disease) Comment: Cardiac cath 2012 with stents to RCA and 2nd diagonal branches Poor medical compliance (6) DNR (do not resuscitate) (7) DVT prophylaxis Status and Disposition: Observation, pending cardiology consultation.
[2017-04-07] MEDS ORDERED: Nitroglycerin 0.2 MG/HR PATCH* (5 MG) TRANSDERM SCH (17:00)
[2017-04-07] MEDS ORDERED: Atorvastatin* 40 MG TAB PO SCH (17:00)
[2017-04-07] MEDS ORDERED: Morphine INJ* 2 MG/ML 1 ML SYRINGE (TWO MG - NEW SYRINGE VERSION) IV PRN (18:23)
[2017-04-07] MEDS ORDERED: Zolpidem TAB* 5 MG PO PRN (20:32)
--- NOTE | 2017-04-08 00:23 | CONS ---
CC: Dr. Hathaway CARDIOLOGY CONSULTATION: DATE OF CONSULT: 04/07/17 REASON FOR EVALUATION: Chest pain, abnormal echo, abnormal stress test. CONSULTING PROVIDER: TITO Peguero HISTORY OF PRESENT ILLNESS: This is a 56-year-old gentleman who has a history of coronary artery disease dating back to 2012 when he underwent stent placement by Dr. Fatima. At that time, his cath revealed double vessel disease involving branches, the second diagonal and the right posterior descending, left main was stable. The LAD large caliber, D2 was completely occluded, circumflex was large caliber and gave rise to a large high first obtuse marginal branch, ramus branch, right coronary artery was large caliber dominant vessel, its mid section that was a 30% plaque distally gave rise to a small to moderate PDA, which does have 2 lesions at 70% and 90%. A 2.5 x 16 mm Promus element plus stent was deployed. The anterior end of the diagonal branch was treated, apparently had two overlapping 2.5 x 16 and 2.5 x 8 Promus element stents and it was felt it could be considered at a later date for the PDA intervention versus medical therapy. He apparently had a stress test in June 2016. At that time, he had a nuclear stress test. Unfortunately, I cannot find the report of the nuclear scan. The reports from June 2016 revealed dilated left ventricle with global hypokinesis, mild to moderately decreased left ventricle function at 44%. No stress induced ischemia or infarct , intermediate risk. He also had a stress test in February 2013, which revealed small to moderate size ischemia of the inferior wall. The patient reports he was in his usual state of health about a month ago. He was limited by left knee discomfort due to osteoarthritis. He only walks about 8 to 10 minutes before he stops because of knee pain. He developed cough productive of green sputum, which was foul smelling about a month ago; but 2 weeks ago, he was in the ER and was given antibiotics, but because of an episode of worsening shortness of breath yesterday associated with chest pressure, he came to the ER. His troponins have been negative. However, his EKG from yesterday afternoon revealed sinus rhythm with possible LVH and QRS widening, poor R-wave progression and possible old inferior ME. EKG from today showed more prominent T-wave inversions anterolaterally. EKG from June 2016 also showed sinus bradycardia with anterolateral T-wave inversions, old inferior ME and poor R-wave progression. The patient was treated with antibiotics and nitroglycerin. He states he thinks he has had some improvement in his pain, he states it is still there and it lasts for hours at a time. Sometimes, a cough will make it worse, but it has not changed in character. No associated shortness of breath or gas or diaphoresis, does not change with eating. He has a history of hypertension and diabetes. He smokes tobacco 1 pack per day. He has been noncompliant with medications due to social and financial issues. PAST MEDICAL HISTORY: Includes coronary artery disease, status post stenting in 2013 as above, hypertension, diabetes, tobacco use 1 pack per day, osteoarthritis of the knees, obesity. He has a history of polysubstance abuse, specifically cocaine. He had not used cocaine or marijuana for several months. He has hyperlipidemia, esophageal ulcer in the past. Obstructive sleep apnea , does not use CPAP. Depression, anxiety. PAST SURGICAL HISTORY: Includes ear surgeries as a child, reconstructive left knee surgery. MEDICATIONS: At home, he only takes aspirin and ibuprofen. INPATIENT MEDICATIONS: As an inpatient, his medications include: 1. Acetaminophen. 2. Ventolin. 3. Albuterol. 4. Aspirin 81 mg a day. 5. Atorvastatin 40 mg a day. 6. Ceftin 250 b.i.d. 7. Insulin. 8. Lisinopril 10 mg a day. 9. Metoprolol 50 mg a day. ALLERGIES: Include PENICILLIN. 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 He used to work at [employer]. FAMILY HISTORY: He was adopted, there is no family history to obtain. REVIEW OF SYSTEMS: Review of systems x10 was negative except as above. CODE STATUS: The patient has requested do not resuscitate status because of his chronic medical problems and his concerns about his quality of life. PHYSICAL EXAM: He is a well-developed, well-nourished gentleman, obese, in no apparent distress. Blood pressure 152/77, temperature is 98, heart rate of 59, O2 sats 100% on room air. Of note, his blood pressure was 174/109 when he was admitted. No significant JVD. Cardiac Exam: S1, S2 with no murmurs, gallops, or rubs. Chest was clear. No CVAT. Abdomen: Obese. Bowel sounds present and nontender. Femoral pulses are intact without bruits. Distal pulses intact. No edema. Motor strength 5/5 bilaterally. Deep tendon reflexes 2/4. Alert and oriented x3. DIAGNOSTIC STUDIES/LAB DATA: Include a white count of 12.1, hematocrit of 54, platelet count of 260. Urine screen positive for cannabinoids. Troponin x3 was 0.01. Cholesterol 174, HDL 40, triglycerides 252. Chest x-ray, no active disease. Echocardiogram from today revealed mild to moderate LVH, global hypokinesis with minor regional variation, more pronounced posterolateral and inferior hypokinesis, mild to moderately decreased LV systolic function, EF of 40% to 45%, low normal RV function, mild aortic leaflet thickening, mild AI, trace to mild MR, trace TR. Compared to June of 2016, there appeared to be more pronounced inferior, posterolateral hypokinesis and EF was 40% to 45% this time, it was felt to be higher last time at 50% to 55%, I believe. IMPRESSION: My impression is that Mr. Navarro has chest pain of unclear etiology. His troponins have been negative despite hours of chest pain and there are some elements that make it sound like it might be musculoskeletal. Certainly, there is a risk for recurrent ischemia and for ischemia on the basis of his revascularized PDA. He has also been noncompliant with lifestyle modifications without control of his blood pressure, diabetes or cholesterol and he has also continued to smoke. His LV dysfunction could in fact be due to his chronic elevated blood pressures. I did discuss the findings with the patient. At this point, I have recommended that we continue medical therapy with beta-blockers, statins, and possible nitrates and lisinopril. Would continue aspirin. We will check another troponin and EKG tomorrow given the nonspecific EKG changes. If he continues to have symptoms suggestive of ischemia, we could consider catheterization. He is a DNR. He has been willing to reverse his DNR for catheterization if necessary. II am hoping that we will be able to manage him medically if he is compliant with medical treatment. I did explain to him the importance of tobacco cessation and taking his medications to improve his symptoms and his prognosis. [id number]/[facility] #: [id number] JODIE
[2017-04-08] MEDS: Insulin LISPRO* 1 UNITS UNIT SUBCUT SCH ×3 (01:10→09:01)
[2017-04-08] MEDS ORDERED: Nitro Patch/OINT Remove PATCH OFF SCH ×2 (06:00→07:00)
[2017-04-08] MEDS: Heparin VIAL(*) 5000 UNITS/ML VIAL (FIVE THOUSAND) SUBCUT SCH (06:11)
[2017-04-08 09:00] VITALS: BP 142/87
[2017-04-08] MEDS: guaiFENesin ER TAB 600 MG PO SCH (09:00)
[2017-04-08] MEDS: Lisinopril TAB* 10 MG PO SCH (09:00)
[2017-04-08] MEDS: Aspirin Low Dose CHEW TAB* 81 MG PO SCH (09:01)
[2017-04-08] MEDS: ceFUROXime TAB(*) 250 MG PO SCH (09:01)
[2017-04-08] MEDS: Metoprolol Succinate XL TAB* 50 MG PO SCH (09:15)
[2017-04-08] MEDS: Fluticasone NASAL SPRAY 50MCG* 16 gm SPRAY BTL BOTH NARES SCH (12:48)
--- NOTE | 2017-04-09 02:47 | DS ---
CC: Public Policy Manager, Dr. Hathaway DISCHARGE SUMMARY: DATE OF ADMISSION: 04/06/17 DATE OF DISCHARGE: 04/08/17 PRIMARY CARE PHYSICIAN: The patient has no primary care provider at this time but will be arranged. DISCHARGE DIAGNOSES: 1. Chest pain, acute coronary syndrome ruled out. 2. Noncompliance. 3. Uncontrolled hypertension secondary to the above. 4. Sinusitis. SECONDARY DIAGNOSES: 1. Hypertension. 2. History of polysubstance abuse, including cocaine. 3. Coronary artery disease, status post stent x2. 4. Type 2 diabetes. 5. Hyperlipidemia. 6. History of esophageal ulcer. 7. Obstructive sleep apnea, not compliant with CPAP. 8. Depression. 9. Anxiety. 10. Obesity with a BMI of 37. 11. Tobacco abuse. MEDICATION LIST: 1. Albuterol HFA two puffs inhale q.6h. p.r.n. shortness of breath. 2. Aspirin 81 mg p.o. daily. 3. Atorvastatin 40 mg p.o. daily. 4. Ceftin 250 mg p.o. b.i.d. for 5 more days. 5. Guaifenesin ER 1200 mg p.o. b.i.d. 6. Ibuprofen 800 mg p.o. b.i.d. p.r.n. pain. 7. Lisinopril 10 mg p.o. daily. 8. Metformin 500 mg p.o. b.i.d. 9. Metoprolol succinate 25 mg p.o. daily. 10. Nitroglycerin patch 0.2 mg p.o. at bedtime, remove in the morning. HOSPITAL COURSE: Mr. Navarro is a 56-year-old male with a past medical history as stated above that p resented to the emergency room with complaints of chest pain. 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 On admission, he was taking only aspirin and ibuprofen. He had complaints of ches t pain and chest tightness associated with nasal congestion, persistent postnasal drainage. For mor e details about his presentation, I refer you to his history and physical. Of note, in the emergency room, the patient was found to have a blood pressure of 207/110. He was admitted to the telemetry floor for further evaluation. Serial troponins were negative and h is EKG showed some T-wave inversions in the lateral leads perhaps a little changed from his prior EK G from 2016. The patient underwent a transthoracic echocardiogram that showed [id number] concentric LVH wit h global hypokinesis of the left ventricle with minor regional variation. There appears to be more pronounced posterior and posterolateral and inferior hypokinesis. Ejection fraction is 40% to 45%. Compared to June 2016, there appears to be more pronounced inferior posterior lateral hypokines is. The patient underwent a nuclear medicine stress test, and it showed decreased ejection fraction of 40% with patchy reversible hyperperfusion of the distal anterior wall and inferior wall suggesti ve of ischemia. The patient was seen in consultation by Cardiology (Dr. Saldana) and his impression is that Mr. Navarro presented with chest pain of unclear etiology. Troponins have been negative despite hours of chest pain, and there are some elements that make it sound like it could be musculoskeletal. Certainly, there is a risk for recurrent ischemia and for ischemia on the basis of his revascularized PDA. The patient has also been noncompliant with lifestyle modifications without control of his blood pressu re, diabetes, or cholesterol and he has also continued to smoke. Dr. Saldana felt that his LV dysfun ction could in fact be due to his chronic elevated blood pressure. His recommendation was to contin ue medical therapy with beta blockers, statins, nitrates, lisinopril, and aspirin. If he continues to have symptoms suggestive of ischemia, he would consider catheterization. With that regimen the patient has significant improvement of his symptoms. His blood pressure is co ntrolled at 140/80. He had resolution of his chest pain and overall feels much improved. He was seen in followup by Cardiology (Dr. Saldana) and he felt that the patient was stable for disch arge as long as he becomes compliant with medications. I had a long conversation with the patient and I explained that I think his symptoms were probably s econdary to his noncompliance and especially his uncontrolled hypertension. The patient verbalized understanding and states that he will take his medications. At this point, he does not have a prima ry care provider but this will be arranged and he was encouraged to resume his follow up with Cardio logy. He was educated about symptoms that should prompt his return to the emergency room and that c an also cause his or permanent sequelae. Considering all his comorbidities and his diabetes, the patient was also referred to the [facility] for healthy living. At this point, he states that he is not inclined to quit smoking as he has " a lot on his plate." He was educated about the risks of continued smoking including but not limited to progression of heart disease, lung disease, cancer, and . He understands. The patient was also diagnosed with sinusitis and he was started on Ceftin with symptomatic improvem ent. He is medically stable to be discharged home today and arrangements will be made for him to follow u p with my new primary care provider, and he was advised to schedule an appointment to resume follow up with Dr. Hathaway. The patient was educated about the importance of compliance and he understands that if he does not t mac his medications, if he does not stop smoking, and if he does not follow the diet recommended, he will have symptoms again that will end up prompting his return to the hospital. The patient has a history of polysubstance abuse, but he states that he has not used cocaine for mon. His urine toxicology on admission was positive for cannabinoids. His was interested in i nformation about drug rehab, but the patient states that he is not interested in it at this point. He was advised about resources in the community that he could search for, if in the future he decide s that rehab is the way he wants to proceed. He was advised to continue to avoid drugs, especially cocaine specially but not only cocaine. PHYSICAL EXAMINATION: Vital Signs: Temperature 97.8, heart rate is 68, respiratory rate is 16, oxy gen saturation is 96% on room air, blood pressure 142/87. General: The patient is obese, middle-ag ed male, sitting up in bed in no acute distress. CVS: Normal S1 and S2. Regular rate and rhythm. Chest: Breath sounds heard bilaterally with no added sounds. Neuro: He is alert and oriented x3, able to move all 4 extremities. DIET: Heart-healthy consistent carb diet. ACTIVITY: As tolerated. DISPOSITION: To home. STATUS WHILE IN THE HOSPITAL: Inpatient. Please keep in mind this is a summarized version of this patient's hospital stay. If you need more i nformation, please feel free to call me at [phone] or please obtain the full medical records. TIME SPENT: Approximately 45 minutes was spent to complete the discharge. [id number]/[facility] #: [id number]
== END 2017-04-08 12:40 | disposition home or self-care (01) | DRG 313 ==
LOC: ED 13:37 → MEDTELE 20:29 → OBSVTOIN 04-08 07:27
PROVIDERS: ADMIT Hospitalist; ATTEND Internal Medicine
PROC: 4A12XM4 Monitoring of Cardiac Stress, External Approach (ICD-10-PCS; principal; 2017-04-07)
DX: R07.9 Chest pain, unspecified (principal); I25.2 Old myocardial infarction; I42.9 Cardiomyopathy, unspecified; J32.9 Chronic sinusitis, unspecified; I10 Essential (primary) hypertension; E11.9 Type 2 diabetes mellitus without complications; F32.9 Major depressive disorder, single episode, unspecified; Z95.5 Presence of coronary angioplasty implant and graft; Z91.14 Patient's other noncompliance with medication regimen; I25.10 Atherosclerotic heart disease of native coronary artery without angina pectoris; E78.5 Hyperlipidemia, unspecified; G47.33 Obstructive sleep apnea (adult) (pediatric); F41.9 Anxiety disorder, unspecified; Z88.0 Allergy status to penicillin; F17.200 Nicotine dependence, unspecified, uncomplicated; Z66 Do not resuscitate; M17.0 Bilateral primary osteoarthritis of knee; E66.9 Obesity, unspecified; Z68.37 Body mass index [BMI] 37.0-37.9, adult; Z79.82 Long term (current) use of aspirin; Z79.84 Long term (current) use of oral hypoglycemic drugs
CPT/HCPCS: 36415; 71020; 78452; 80053; 80061; 80307; 82607; 82746; 83036; 83605; 83735; 83880; 84484; 85025; 93005; 93017; 93306; 94640; A9270-GY; A9502; G0378; J0280; J1644; J2785; J3475

== ENCOUNTER 2017-05-12 09:30 | Emergency (ER) | payer MEDICARE ==
[2017-05-12] MEDS ORDERED: Labetalol IV* 5 MG/ML 20 ML VIAL IV PUSH ONE (10:17)
--- NOTE | 2017-05-12 10:43 | RAD ---
Indication: Negative for chest pain or shortness of breath. Elevated blood pressure. Comparison: April 06, 2017 Technique: Upright AP 1020 hours Report: Elevated lung volumes and mild prominence of interstitial markings. No pulmonary infiltrate, focal pulmonary lesion, pleural effusion, pneumothorax. Negative for cardiomegaly. Unremarkable central pulmonary vasculature. Mildly tortuous thoracic aorta without significant interval change accounting for positional rightward rotation on the current exam. IMPRESSION: 1. Stigmata of obstructive lung disease. No acute pulmonary or cardiac process evident. 2. Unchanged mildly tortuous thoracic aorta.
[2017-05-12 10:48] LABS: Hematocrit 46 % (42-52); Hemoglobin 16.1 g/dl (14.0-18.0); Mean Corpuscular HGB Conc 35 g/dl (31-36); Mean Corpuscular Hemoglobin 33 pg (27-31); Mean Corpuscular Volume 93 fL (80-94); Mean Platelet Volume 7 um3 (7.4-10.4); Red Blood Count 4.94 10^6/ul (4.0-5.4); Red Cell Distribution Width 12 % (10.5-15); White Blood Count 8.3 10^3/ul (3.5-10.8)
[2017-05-12 11:04] LABS: Albumin 3.8 g/dL (3.2-5.2); BUN/Creatinine Ratio 17.5 (8-20); Calcium 9.5 mg/dL (8.6-10.3); EGFR African American 128.6 (>60); Globulin 3.8 g/dL (2-4); Magnesium 1.9 mg/dL (1.9-2.7); Potassium 4.2 mmol/L (3.5-5.0); Total Bilirubin 0.6 mg/dL (0.2-1.0); Total Protein 7.6 g/dL (6.4-8.9)
[2017-05-12 11:43] LABS: TSH (Thyroid Stimulating Horm) 2.17 mcIU/mL (0.34-5.60)
[2017-05-12 11:56] LABS: Urine Bacteria Absent (Absent); Urine Bilirubin Negative (Negative); Urine Glucose 3+(>=500 mg/dL) (Negative); Urine Nitrite Negative (Negative); Urine Sperm Present (Absent)
[2017-05-12] MEDS ORDERED: Hydrochlorothiazide TAB* 25 MG PO ONE (12:39)
[2017-05-12] MEDS ORDERED: Lisinopril TAB* 10 MG PO ONE (12:39)
[2017-05-12 14:28] VITALS: BP 130/88
--- NOTE | 2017-05-14 08:09 | ED ---
Poncho Rodriguez Angela scribed for Jd Casey MD on 05/12/17 at 1016 . Hypertension - HPI Summary HPI Summary: This pt is a 56 y/o male presenting to [facility] after being referred by his PCP for hypertension. Pt reports he was last seen in the ED about a month ago for hypertension and was given anti-hypertensive medications. Today, pt states he went to his PCP's office today for blood pressure medications but was told to come to the ED. He denies chest pain, SOB, headache, diplopia, abd pain. Blood pressure in the ED manually is 218/116. PMHx includes diabetes, HTN. - History of Current Complaint Chief Complaint: EDGeneral Stated Complaint: HIGH BP Time Seen by Provider: 05/12/17 10:10 Hx Obtained From: Patient Onset/Duration: Atraumatic, Still Present Timing: Lasting Hours Aggravating Factor(s): Nothing Alleviating Factor(s): Nothing Associated Signs & Symptoms: Negative - Pt is asymptomatic - Allergies/Home Medications Allergies/Adverse Reactions: Allergies Allergy/AdvReac Type Severity Reaction Status Date / Time Penicillins AdvReac Unknown Unknown Verified 05/12/17 10:19 Reaction Details Home Medications: Home Medications Aspirin TAB* [Aspirin 325 MG TAB*] 1 tab PO .QOD 05/12/17 [History Confirmed ] PMH/Surg Hx/FS Hx/Imm Hx Endocrine/Hematology History: Reports: Hx Anticoagulant Therapy - 325MG PO ASPIRIN DAILY, Hx Diabetes, Other Endocrine/Hematological Disorders - obesity Denies: Hx Blood Disorders, Hx Blood Transfusions, Hx Thyroid Disease, Hx Anemia, Hx Unexplained Bleeding Cardiovascular History: Reports: Hx Angina, Hx Congestive Heart Failure, Hx Coronary Artery Disease, Hx Hypercholesterolemia, Hx Hypertension, Hx Myocardial Infarction, Other Cardiovascular Problems/Disorders - cardiac cath w / stents Denies: Hx Pacemaker/ICD, Hx Peripheral Vascular Disease, Hx Syncope, Hx Valvular Heart Disease Respiratory History: Reports: Hx Pulmonary Edema, Hx Sleep Apnea, Other Respiratory Problems/Disorders - CURRENT SMOKER Denies: Hx Asthma, Hx Chronic Obstructive Pulmonary Disease (COPD), Hx Pneumonia GI History: Reports: Other GI Disorders - esophegal ulcers History: Reports: Hx Kidney Infection, Other Problems/Disorders - Prostate CA, TURP in 2011 Denies: Hx Renal Disease Musculoskeletal History: Reports: Hx Back Problems, Other Musculoskeletal History - ACL repair L knee Denies: Hx Arthritis, Hx Osteoporosis Sensory History: Denies: Hx Contacts or Glasses, Hx Hearing Aid, Other Sensory Impairments Opthamlomology History: Denies: Hx Contacts or Glasses, Other Sensory Impairments Neurological History: Reports: Hx Migraine, Other Neuro Impairments/Disorders - 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 Denies: Hx Dementia, Hx Headaches, Hx Seizures, Hx Transient Ischemic Attacks (TIA) Psychiatric History: Reports: Hx Anxiety, Hx Depression, Hx Community Mental Health Tx, Other Psychiatric Issues/Disorders Denies: Hx Eating Disorder, Hx Panic Disorder, Hx of Violent Episodes Against Others, Hx Substance Abuse - Cancer History Cancer Type, Location and Year: prostate cancer Hx Chemotherapy: No Hx Radiation Therapy: No Hx Palliative Cancer Treatment: No - Surgical History Surgery Procedure, Year, and Place: caridac stents x3 PREV [place], ACL repair, MASTOID AND TUBES IN EARS(SEE CARD FROM 2012 STUDY [facility]) Hx Anesthesia Reactions: No - Immunization History Date of Tetanus Vaccine: Unknown Date of Influenza Vaccine: 2013 Infectious Disease History: No Infectious Disease History: Denies: Hx Hepatitis, Hx Human Immunodeficiency Virus (HIV), Hx Shingles, Hx Tuberculosis, Traveled Outside the [place] in Last 30 Days - Family History Known Family History: Positive: Unknown - PT WAS ADOPTED - Social History Alcohol Use: Rare Alcohol Amount: 2-3 drinks/day Hx Substance Use: Yes Substance Use Type: Reports: None Substance Use Comment - Amount & Last Used: p[t reports last use of cocaine and marijuana was several months ago Hx Tobacco Use: Yes Smoking Status (MU): Heavy Every Day Tobacco Smoker Type: Cigarettes Amount Used/How Often: 1 pack/day Length of Time of Smoking/Using Tobacco: 42 years Have You Smoked in the Last Year: Yes Review of Systems Negative: Fever, Chills Negative: Diplopia ENT: Negative Negative: Chest Pain Negative: Shortness Of Breath Negative: Abdominal Pain Genitourinary: Negative Negative: Headache All Other Systems Reviewed And Are Negative: Yes Physical Exam - Summary Physical Exam Summary: VITAL SIGNS: Reviewed. GENERAL: Patient is a well-developed and nourished male who is lying comfortable in the stretcher. Patient is not in any acute respiratory distress. HEAD AND FACE: No signs of trauma. No ecchymosis, hematomas or skull depressions. No sinus tenderness. EYES: PERRLA, EOMI x 2, No injected conjunctiva, no nystagmus. EARS: Hearing grossly intact. Ear canals and tympanic membranes are within normal limits. MOUTH: Oropharynx within normal limits. NECK: Supple, trachea is midline, no adenopathy, no JVD, no carotid bruit, no c- spine tenderness, neck with full ROM. CHEST: Symmetric, no tenderness at palpation LUNGS: Clear to auscultation bilaterally. No wheezing or crackles. CVS: Regular rate and rhythm, S1 and S2 present, no murmurs or gallops appreciated. ABDOMEN: Soft, non-tender. No signs of distention. No rebound no guarding, and no masses palpated. Bowel sounds are normal. EXTREMITIES: FROM in all major joints, no edema, no cyanosis or clubbing. NEURO: Alert and oriented x 3. No acute neurological deficits. Speech is normal and follows commands. SKIN: Dry and warm Triage Information Reviewed: Yes Vital Signs On Initial Exam: Initial Vitals Temp Pulse Resp BP Pulse Ox 97.4 F 72 20 232/91 98 05/12/17 09:52 05/12/17 09:52 05/12/17 09:52 05/12/17 09:52 05/12/17 09:52 Vital Signs Reviewed: Yes Diagnostics - Vital Signs Vital Signs Temp Pulse Resp BP Pulse Ox 05/12/17 09:52 97.4 F 72 20 232/91 98 - Laboratory Lab Results: Lab Results 05/12/17 05/12/17 05/12/17 Range/Units 10:32 10:32 10:32 WBC 8.3 (3.5-10.8) 10^3/ul RBC 4.94 (4.0-5.4) 10^6/ul Hgb 16.1 (14.0-18.0) g/dl Hct 46 (42-52) % MCV 93 (80-94) fL MCH 33 H (27-31) pg MCHC 35 (31-36) g/dl RDW 12 (10.5-15) % Plt Count 267 (150-450) 10^3/ul MPV 7 L (7.4-10.4) um3 Neut % (Auto) 53.7 (38-83) % Lymph % (Auto) 35.6 (25-47) % [place] % (Auto) 8.3 (1-9) % Eos % (Auto) 1.6 (0-6) % Baso % (Auto) 0.8 (0-2) % Absolute Neuts (auto) 4.5 (1.5-7.7) 10^3/ul Absolute Lymphs (auto) 3.0 (1.0-4.8) 10^3/ul Absolute Monos (auto) 0.7 (0-0.8) 10^3/ul Absolute Eos (auto) 0.1 (0-0.6) 10^3/ul Absolute Basos (auto) 0.1 (0-0.2) 10^3/ul Absolute Nucleated RBC 0.01 10^3/ul Nucleated RBC % 0.1 Sodium 131 L (133-145) mmol/L Potassium 4.2 (3.5-5.0) mmol/L Chloride 102 (101-111) mmol/L Carbon Dioxide 24 (22-32) mmol/L Anion Gap 5 (2-11) mmol/L BUN 14 (6-24) mg/dL Creatinine 0.80 (0.67-1.17) mg/dL Est GFR ( Amer) 128.6 (>60) Est GFR (Non-Af Amer) 100.0 (>60) BUN/Creatinine Ratio 17.5 (8-20) Glucose 208 H (70-100) mg/dL Calcium 9.5 (8.6-10.3) mg/dL Magnesium 1.9 (1.9-2.7) mg/dL Total Bilirubin 0.60 (0.2-1.0) mg/dL AST 72 H (13-39) U/L ALT 81 H (7-52) U/L Alkaline Phosphatase 96 (34-104) U/L Total Creatine Kinase 28 (10-223) U/L Troponin I 0.00 (<0.04) ng/mL B-Natriuretic Peptide 80 ( - 100) pg/mL Total Protein 7.6 (6.4-8.9) g/dL Albumin 3.8 (3.2-5.2) g/dL Globulin 3.8 (2-4) g/dL Albumin/Globulin Ratio 1.0 (1-3) TSH 2.17 (0.34-5.60) mcIU/mL Urine Color Urine Appearance Urine pH (5-9) Ur Specific [place] (1.010-1.030) Urine Protein (Negative) Urine Ketones (Negative) Urine Blood (Negative) Urine Nitrate (Negative) Urine Bilirubin (Negative) Urine Urobilinogen (Negative) Ur Leukocyte Esterase (Negative) Urine WBC (Auto) (Absent) Urine RBC (Auto) (Absent) Urine Bacteria (Absent) Urine Sperm (Absent) Urine Glucose (Negative) 05/12/17 Range/Units 11:29 WBC (3.5-10.8) 10^3/ul RBC (4.0-5.4) 10^6/ul Hgb (14.0-18.0) g/dl Hct (42-52) % MCV (80-94) fL MCH (27-31) pg MCHC (31-36) g/dl RDW (10.5-15) % Plt Count (150-450) 10^3/ul MPV (7.4-10.4) um3 Neut % (Auto) (38-83) % Lymph % (Auto) (25-47) % [place] % (Auto) (1-9) % Eos % (Auto) (0-6) % Baso % (Auto) (0-2) % Absolute Neuts (auto) (1.5-7.7) 10^3/ul Absolute Lymphs (auto) (1.0-4.8) 10^3/ul Absolute Monos (auto) (0-0.8) 10^3/ul Absolute Eos (auto) (0-0.6) 10^3/ul Absolute Basos (auto) (0-0.2) 10^3/ul Absolute Nucleated RBC 10^3/ul Nucleated RBC % Sodium (133-145) mmol/L Potassium (3.5-5.0) mmol/L Chloride (101-111) mmol/L Carbon Dioxide (22-32) mmol/L Anion Gap (2-11) mmol/L BUN (6-24) mg/dL Creatinine (0.67-1.17) mg/dL Est GFR ( Amer) (>60) Est GFR (Non-Af Amer) (>60) BUN/Creatinine Ratio (8-20) Glucose (70-100) mg/dL Calcium (8.6-10.3) mg/dL Magnesium (1.9-2.7) mg/dL Total Bilirubin (0.2-1.0) mg/dL AST (13-39) U/L ALT (7-52) U/L Alkaline Phosphatase (34-104) U/L Total Creatine Kinase (10-223) U/L Troponin I (<0.04) ng/mL B-Natriuretic Peptide ( - 100) pg/mL Total Protein (6.4-8.9) g/dL Albumin (3.2-5.2) g/dL Globulin (2-4) g/dL Albumin/Globulin Ratio (1-3) TSH (0.34-5.60) mcIU/mL Urine Color Yellow Urine Appearance Clear Urine pH 6.0 (5-9) Ur Specific [place] 1.022 (1.010-1.030) Urine Protein 2+(100 mg/dl) H (Negative) Urine Ketones Negative (Negative) Urine Blood Negative (Negative) Urine Nitrate Negative (Negative) Urine Bilirubin Negative (Negative) Urine Urobilinogen Negative (Negative) Ur Leukocyte Esterase Negative (Negative) Urine WBC (Auto) Trace(0-5/hpf) (Absent) Urine RBC (Auto) Trace(0-2/hpf) (Absent) Urine Bacteria Absent (Absent) Urine Sperm Present H (Absent) Urine Glucose 3+(>=500 mg/dl) H (Negative) Result Diagrams: 05/12/17 10:32 05/12/17 10:32 Lab Statement: Any lab studies that have been ordered have been reviewed, and results considered in the medical decision making process. - Radiology Chest XR Xray Interpretation: Positive (See Comments) - IMPRESSION: 1. Stigmata of obstructive lung disease. No acute pulmonary or cardiac process evident. 2. Unchanged mildly tortuous thoracic aorta. ED physician has reviewed this radiology report and agrees. Radiology Interpretation Completed By: Radiologist - EKG 1058 Cardiac Rate: NL - 61 bpm EKG Rhythm: Sinus Rhythm EKG Comparison: No Significant Change - to prior EKG in 04/08/17. Hypertension Course/Dx - Course Assessment/Plan: This pt is a 56 y/o male presenting to [facility] after being referred by his PCP for hypertension. Pt reports he was last seen in the ED about a month ago for hypertension and was given anti-hypertensive medications. Today, pt states he went to his PCP's office today for blood pressure medications but was told to come to the ED. He denies chest pain, SOB, headache , diplopia, abd pain. Blood pressure in the ED manually is 218/116. PMHx includes diabetes, HTN. Test results without any significant abnormalities except glucose of 208, AST of 72, ALT of 81. In the ED course the pt was given Labetalol and his hypertension improved to 130/88. Pt was given a prescription for lisinopri. Pt will be discharged with follow up from his PCP. - Diagnoses Differential Diagnosis/HQI PQRI: Hypertension, Hypertensive Crisis, Hypertensive Urgency Provider Diagnoses: Hypertension Discharge - Discharge Plan Condition: Stable Disposition: HOME Prescriptions: Lisinopril/HCTZ 05/04.5(NF) [Zestoretic /.5(NF)] 1 tab PO DAILY #30 tab Patient Education Materials: Hypertension (ED) Referrals: Zion Cosme MD [Primary Care Provider] - Additional Instructions: Please follow up with your primary care provider. The documentation as recorded by the Poncho breaux Angela accurately reflects the service I personally performed and the decisions made by , Jd Casey MD.
== END 2017-05-12 14:28 | disposition home or self-care (01) ==
LOC: ED 09:30
DX: I10 Essential (primary) hypertension (principal)
CPT/HCPCS: 36415; 71010; 80053; 81003; 81015; 82550; 83735; 83880; 84443; 84484; 85025; 93005; 96374; 99285; A9270-GY

== ENCOUNTER 2018-03-16 08:43 | Observation (INO) | payer MEDICARE ==
[2018-03-16 09:48] LABS: ABS Basophils 0.1 10^3/ul (0-0.2); ABS Eosinophils 0 10^3/ul (0-0.6); ABS Lymphocytes 1.8 10^3/ul (1.0-4.8); ABS Neutrophils 9.4 10^3/ul (1.5-7.7); ABS Nucleated RBC 0 10^3/ul; Eosinophil % 0.1 % (0-6); Hematocrit 50 % (42-52); Hemoglobin 17.1 g/dl (14.0-18.0); Lymphocyte % 14.6 % (25-47); Mean Corpuscular HGB Conc 35 g/dl (31-36); Mean Corpuscular Hemoglobin 32 pg (27-31); Mean Corpuscular Volume 93 fL (80-94); Mean Platelet Volume 7.5 um3 (7.4-10.4); Nucleated Red Blood Cells % 0.1; Platelet Count 332 10^3/ul (150-450); Red Blood Count 5.31 10^6/ul (4.00-5.40); Red Cell Distribution Width 14 % (10.5-15); White Blood Count 12.2 10^3/ul (3.5-10.8)
--- NOTE | 2018-03-16 09:54 | RAD ---
INDICATION: Chest pain COMPARISON: June 03, 2017 TECHNIQUE: An AP portable view obtained at 0938 hours is submitted. FINDINGS: Bones/Soft Tissues: There are no acute bony findings. Cardiomediastinal: The cardiomediastinal silhouette is normal. Lungs: There are no infiltrates. Pleura: There are no pleural effusions. Other: None IMPRESSION: NO ACTIVE DISEASE.
[2018-03-16 10:05] LABS: EGFR Non-African American 75.3 (>60)
[2018-03-16] MEDS ORDERED: Albuterol/Ipratropium NEB.SOL* Albuterol 2.5 MG/Ipratropium 0.5 MG 3 ML INH ONE (10:23)
[2018-03-16] MEDS ORDERED: Metoclopramide IV* 5 MG/ML 2 ML VIAL IV ONE (10:24)
[2018-03-16] MEDS ORDERED: NS 0.9% 1000 ML* 1,000 ML IV ONE (10:24)
[2018-03-16] MEDS ORDERED: Ketorolac INJ* 30 MG/ML 1 ML VIAL IV PUSH ONE (10:25)
--- NOTE | 2018-03-16 11:08 | ED ---
HPI Chest Pain - HPI Summary HPI Summary: Patient is a 57 y/o M w/ c/o chest pain, nausea, abdominal pain, and vomiting for past four days. He reports pain started at chest and slowly progressed downwards towards abdominal region. In the room, he describes pain as diffuse across frontal region. Pain is rated 8/10 and pain is described as constant and "crushing". Last episode of vomiting was this morning while driving to ED and no blood is reported to have been in vomit. He notes he has not taken any medication nor had a bowel movement recently as he cannot keep anything down. Patient states he has been passing gas. On triage, nothing is noted to aggravate /alleviate Sx. Patient reports the presence of cardiac stents and notes Dr. Hathaway is his ticket writer. He denies PSHx of abdominal surgery, Hx of bowel blockages. He still has gallbladder. Allergy to Penicillin reported. Drinks alcohol regularly. - History of Current Complaint Chief Complaint: EDChestPainROMI Time Seen by Provider: 03/16/18 09:04 Hx Obtained From: Patient Onset/Duration: Started Days Ago - Sx onset 4 days ago, Still Present Timing: Constant Current Severity: Severe Pain Intensity: 8 Pain Scale Used: 0-10 Numeric - in room, rated 8/10 Chest Pain Location: Diffuse Chest Pain Radiates: Yes Chest Pain Radiates To:: Other - abdominal region Character: Crushing Aggravating Factor(s): Nothing Alleviating Factor(s): Nothing Associated Signs and Symptoms: Positive: Chest Pain, Nausea, Abdominal Pain, Vomiting - Additional Pertinent History Primary Care Physician: [id number] - Allergy/Home Medications Allergies/Adverse Reactions: Allergies Allergy/AdvReac Type Severity Reaction Status Date / Time Penicillins Allergy Unknown Unknown Verified 03/16/18 08:50 Reaction Details PMH/Surg Hx/FS Hx/Imm Hx Endocrine/Hematology History: Reports: Hx Anticoagulant Therapy - 325MG PO ASPIRIN DAILY, Hx Diabetes, Other Endocrine/Hematological Disorders - obesity Denies: Hx Blood Disorders, Hx Blood Transfusions, Hx Thyroid Disease, Hx Anemia, Hx Unexplained Bleeding Cardiovascular History: Reports: Hx Angina, Hx Congestive Heart Failure, Hx Coronary Artery Disease, Hx Hypercholesterolemia, Hx Hypertension, Hx Myocardial Infarction, Other Cardiovascular Problems/Disorders - cardiac cath w / stents Denies: Hx Pacemaker/ICD, Hx Peripheral Vascular Disease, Hx Syncope, Hx Valvular Heart Disease Respiratory History: Reports: Hx Pulmonary Edema, Hx Sleep Apnea, Other Respiratory Problems/Disorders - CURRENT SMOKER Denies: Hx Asthma, Hx Chronic Obstructive Pulmonary Disease (COPD), Hx Pneumonia GI History: Reports: Other GI Disorders - esophegal ulcers History: Reports: Hx Kidney Infection, Other Problems/Disorders - Prostate CA, TURP in 2012 Denies: Hx Renal Disease Musculoskeletal History: Reports: Hx Back Problems, Other Musculoskeletal History - ACL repair L knee Denies: Hx Arthritis, Hx Osteoporosis Sensory History: Denies: Hx Contacts or Glasses, Hx Hearing Aid, Other Sensory Impairments Opthamlomology History: Denies: Hx Contacts or Glasses, Other Sensory Impairments Neurological History: Reports: Hx Migraine, Other Neuro Impairments/Disorders - 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 Denies: Hx Dementia, Hx Headaches, Hx Seizures, Hx Transient Ischemic Attacks (TIA) Psychiatric History: Reports: Hx Anxiety, Hx Depression, Hx Community Mental Health Tx, Other Psychiatric Issues/Disorders Denies: Hx Eating Disorder, Hx Panic Disorder, Hx of Violent Episodes Against Others, Hx Substance Abuse - Cancer History Cancer Type, Location and Year: prostate cancer Hx Chemotherapy: No Hx Radiation Therapy: No Hx Palliative Cancer Treatment: No - Surgical History Surgery Procedure, Year, and Place: caridac stents x3 PREV [place], ACL repair, MASTOID AND TUBES IN EARS(SEE CARD FROM 2012 STUDY [facility]) Hx Anesthesia Reactions: No - Immunization History Date of Tetanus Vaccine: Unknown Date of Influenza Vaccine: 2013 Infectious Disease History: No Infectious Disease History: Denies: Hx Hepatitis, Hx Human Immunodeficiency Virus (HIV), Hx Shingles, Hx Tuberculosis, Traveled Outside the [place] in Last 30 Days - Family History Known Family History: Positive: Unknown - PT WAS ADOPTED - Social History Alcohol Use: Rare Alcohol Amount: 2-3 drinks/day Hx Substance Use: Yes Substance Use Type: Reports: None Substance Use Comment - Amount & Last Used: p[t reports last use of cocaine and marijuana was several months ago Hx Tobacco Use: Yes Smoking Status (MU): Heavy Every Day Tobacco Smoker Type: Cigarettes Amount Used/How Often: 1 pack/day Length of Time of Smoking/Using Tobacco: 42 years Have You Smoked in the Last Year: Yes Review of Systems Positive: Chest Pain Positive: Abdominal Pain, Vomiting, Nausea All Other Systems Reviewed And Are Negative: Yes Physical Exam - Summary Physical Exam Summary: GENERAL: Patient is a well developed and nourished male who is lying comfortable in the stretcher. Patient is not in any acute respiratory distress. HEAD AND FACE: Normocephalic EYES: PERRLA, EOMI x 2. EARS: Hearing grossly intact. MOUTH: Oropharynx within normal limits. NECK: Supple, trachea is midline, no adenopathy, no JVD, no carotid bruit. CHEST: Symmetric, no tenderness at palpation LUNGS: Wheezes are noted at the anterior of lungs, decreased breath sounds at the posterior. No other abnormal findings noted. CVS: Regular rate and rhythm, S1 and S2 present, no murmurs or gallops appreciated. ABDOMEN: Soft, non-tender. Bowel sounds are normal. No abdominal abnormal pulsations. EXTREMITIES: Full ROM in all major joints, no edema, no cyanosis or clubbing. NEURO: Alert and oriented x 3. No acute neurological deficits. Speech is normal and follows commands. SKIN: Dry and warm Triage Information Reviewed: Yes Vital Signs On Initial Exam: Initial Vitals Temp Pulse Resp BP Pulse Ox 98.5 F 100 16 154/106 98 03/16/18 08:45 03/16/18 08:45 03/16/18 08:45 03/16/18 08:45 03/16/18 08:45 Vital Signs Reviewed: Yes Diagnostics - Vital Signs Vital Signs Temp Pulse Resp BP Pulse Ox 03/16/18 09:28 95 95 03/16/18 08:45 98.5 F 100 16 154/106 98 - Laboratory Lab Results: Lab Results 03/16/18 03/16/18 03/16/18 Range/Units 09:35 09:35 09:35 WBC 12.2 H (3.5-10.8) 10^3/ul RBC 5.31 (4.00-5.40) 10^6/ul Hgb 17.1 (14.0-18.0) g/dl Hct 50 (42-52) % MCV 93 (80-94) fL MCH 32 H (27-31) pg MCHC 35 (31-36) g/dl RDW 14 (10.5-15) % Plt Count 332 (150-450) 10^3/ul MPV 7.5 (7.4-10.4) um3 Neut % (Auto) 76.5 (38-83) % Lymph % (Auto) 14.6 L (25-47) % Newton % (Auto) 8.2 H (0-7) % Eos % (Auto) 0.1 (0-6) % Baso % (Auto) 0.6 (0-2) % Absolute Neuts (auto) 9.4 H (1.5-7.7) 10^3/ul Absolute Lymphs (auto) 1.8 (1.0-4.8) 10^3/ul Absolute Monos (auto) 1.0 H (0-0.8) 10^3/ul Absolute Eos (auto) 0 (0-0.6) 10^3/ul Absolute Basos (auto) 0.1 (0-0.2) 10^3/ul Absolute Nucleated RBC 0 10^3/ul Nucleated RBC % 0.1 APTT (26.0-36.3) seconds Sodium 132 L (135-145) mmol/L Potassium 4.2 (3.5-5.0) mmol/L Chloride 98 L (101-111) mmol/L Carbon Dioxide 24 (22-32) mmol/L Anion Gap 10 (2-11) mmol/L BUN 18 (6-24) mg/dL Creatinine 1.02 (0.67-1.17) mg/dL Est GFR ( Amer) 91.1 (>60) Est GFR (Non-Af Amer) 75.3 (>60) BUN/Creatinine Ratio 17.6 (8-20) Glucose 433 H (70-100) mg/dL Lactic Acid 1.3 (0.5-2.0) mmol/L Calcium 9.6 (8.6-10.3) mg/dL Magnesium 1.9 (1.9-2.7) mg/dL Total Bilirubin 0.60 (0.2-1.0) mg/dL AST 50 H (13-39) U/L ALT 56 H (7-52) U/L Alkaline Phosphatase 101 (34-104) U/L Troponin I 0.03 (<0.04) ng/mL B-Natriuretic Peptide ( - 100) pg/mL Total Protein 8.1 (6.4-8.9) g/dL Albumin 4.1 (3.2-5.2) g/dL Globulin 4.0 (2-4) g/dL Albumin/Globulin Ratio 1.0 (1-3) 03/16/18 03/16/18 Range/Units 09:35 09:35 WBC (3.5-10.8) 10^3/ul RBC (4.00-5.40) 10^6/ul Hgb (14.0-18.0) g/dl Hct (42-52) % MCV (80-94) fL MCH (27-31) pg MCHC (31-36) g/dl RDW (10.5-15) % Plt Count (150-450) 10^3/ul MPV (7.4-10.4) um3 Neut % (Auto) (38-83) % Lymph % (Auto) (25-47) % Newton % (Auto) (0-7) % Eos % (Auto) (0-6) % Baso % (Auto) (0-2) % Absolute Neuts (auto) (1.5-7.7) 10^3/ul Absolute Lymphs (auto) (1.0-4.8) 10^3/ul Absolute Monos (auto) (0-0.8) 10^3/ul Absolute Eos (auto) (0-0.6) 10^3/ul Absolute Basos (auto) (0-0.2) 10^3/ul Absolute Nucleated RBC 10^3/ul Nucleated RBC % APTT 31.5 (26.0-36.3) seconds Sodium (135-145) mmol/L Potassium (3.5-5.0) mmol/L Chloride (101-111) mmol/L Carbon Dioxide (22-32) mmol/L Anion Gap (2-11) mmol/L BUN (6-24) mg/dL Creatinine (0.67-1.17) mg/dL Est GFR ( Amer) (>60) Est GFR (Non-Af Amer) (>60) BUN/Creatinine Ratio (8-20) Glucose (70-100) mg/dL Lactic Acid (0.5-2.0) mmol/L Calcium (8.6-10.3) mg/dL Magnesium (1.9-2.7) mg/dL Total Bilirubin (0.2-1.0) mg/dL AST (13-39) U/L ALT (7-52) U/L Alkaline Phosphatase (34-104) U/L Troponin I (<0.04) ng/mL B-Natriuretic Peptide 100 ( - 100) pg/mL Total Protein (6.4-8.9) g/dL Albumin (3.2-5.2) g/dL Globulin (2-4) g/dL Albumin/Globulin Ratio (1-3) Result Diagrams: 03/16/18 09:35 03/17/18 04:47 Lab Statement: Any lab studies that have been ordered have been reviewed, and results considered in the medical decision making process. - Radiology CXR Xray Interpretation: No Acute Changes Radiology Interpretation Completed By: Radiologist - No active disease. This report was reviewed by ED physician. - CT CT Head/Abdomen/Pelvis CT Interpretation: Positive (See Comments) CT Interpretation Completed By: Radiologist - Cholelithiasis without evidence of biliary duct dilatation. No abnormal masses or fluid collections are noted. No evidence of bowel obstruction is noted. This report was reviewed by ED physician. Cortical cysts are noted in the kidneys. Tiny nonobstructing calculi is noted in both kidneys. No significant change is noted since July 12, 2016. - Ultrasound No standard instances Ultrasound Interpretation: Positive (See Comments) Ultrasound Interpretation Completed By: Radiologist - Abdomen US: Cholelithiasis without biliary duct dilatation. This report was reviewed ED physician. - EKG 0925 Cardiac Rate: NL - rate of 94 BPM. EKG Rhythm: Sinus Rhythm EKG Interpretation: LVH, Q waves in inferior+anterior leads, inverted T-waves in lat leads EKG Comparison: No Significant Change - similar to EKG from 06/03/2017 Re-Evaluation - Re-Evaluation First Eval Re-Evaluation Time: 12:15 Comment: Patient requested more pain medication. Dr. Huitron discussed need for pain medication. Pain medication will not be given presently, waiting on CT results. Second Eval Re-Evaluation Time: 14:06 Comment: Patient states abdominal pain is resolved but is still experiencing chest pain. Discussed admission of patient. Patient is agreeable with plan for admission to [facility] for further workup. Chest Pain Course/Dx - Course Assessment/Plan: Patient is a 57 y/o M w/ c/o chest pain, nausea, abdominal pain , and vomiting for past four days. He reports pain started at chest and slowly progressed downwards towards abdominal region. In the room, he describes pain as diffuse across frontal region. Pain is rated 8/10 and pain is described as constant and "crushing". Last episode of vomiting was this morning while driving to ED and no blood is reported to have been in vomit. He notes he has not taken any medication nor had a bowel movement recently as he cannot keep anything down. Patient states he has been passing gas. Patient reports the presence of cardiac stents and notes Dr. Hathaway is his ticket writer. He denies PSHx of abdominal surgery, Hx of bowel blockages. He still has gallbladder. Drinks alcohol regularly. Wheezes are noted at the anterior of lungs, decreased breath sounds at the posterior. No other abnormal findings noted. No other abnormal findings on physical exam. CXR was normal. CT Head/Abd/Pel impressions are as follows: Cholelithiasis without evidence of biliary duct dilatation. No abnormal masses or fluid collections are noted. No evidence of bowel obstruction is noted. This report was reviewed by ED physician. Cortical cysts are noted in the kidneys. Tiny nonobstructing calculi is noted in both kidneys. No significant change is noted since July 12, 2016. Abdomen US showed cholelithiasis without biliary duct dilatation. EKG showed NSR 94 BPM, LVH, Q waves in inferior+anterior leads, inverted T-waves in lat leads, similar to EKG from 06/03/2017. During ED course, patient was given fluids, Zofran 4 mg IV ONCE ONE, nitroglycerin tab 0.4 mg SL ONCE ONE, morphine 5 mg IV ED ONCE ONE, Reglan 10 mg IV ED ONCE ONE, Lisinopril 10 mg PO ED ONCE ONE, Toradol 30 mg IV PUSH ED ONCE ONE, Lovenox 90 mg SUBCUT ED ONCE ONE, Aspirin 324 mg PO ED ONCE ONE, albuterol 1 neb INH ED ONCE ONE. UA showed urine glucose 3+(>=500 mg/ dl), urine RBC 1+(3-5/hpf), trace urine WBC, urine blood 1+, urine ketones 1+, urine protein 3+, urine specific gravity 1.043. Labs showed 100 BNP, glucose 433 , lactic acid 1.3, WBC 12.2, sodium 132, chloride 98. First trop was .03, second was .04. At 14:06, patient states abdominal pain has resolved, but notes chest pain is still present. Patients case was discussed with Dr. Suárez at 14: 09. She agrees to accept patient for admission to [facility]. Patient is agreeable with this plan. Patient was diagnosed with chest pain and gallstones. - Diagnoses Provider Diagnoses: Chest pain, Gallstones - Provider Notifications Discussed Care Of Patient With: Deanne Suárez Time Discussed With Above Provider: 14:09 Instructed by Provider To: Other - Dr. Suárez was consulted at 14:09 on patient' s case. Dr. Suárez agrees to accept patient for admission to [facility] for further workup Discharge - Sign-Out/Discharge Documenting (check all that apply): Patient Departure - admit - Discharge Plan Condition: Good Disposition: ADMITTED TO [facility] - Billing Disposition and Condition Condition: GOOD Disposition: Admitted to [facility] - Attestation Statements Document Initiated by Filipe: Yes Documenting Scribe: Jarek Ordoenz Provider For Whom Filipe is Documenting (Include Credential): Rony Huitron M.D. Scribe Attestation: Jarek Rodriguez, scribed for Rony Huitron M.D. on 03/17/18 at 1736. Scribe Documentation Reviewed: Yes Provider Attestation: The documentation as recorded by the Jarek breaux accurately reflects the service I personally performed and the decisions made by Rony salazar M.D.
[2018-03-16] MEDS ORDERED: Iodixanol* (CONTRAST) 320 MG/ML 100 ML SDV IV ONE (11:34)
--- NOTE | 2018-03-16 12:38 | RAD ---
Indication: Chest and abdomen pain. Contrast: Administered 121.0 ml of VISAPAQUE 320 mg/ml. CT of the chest, abdomen and pelvis was performed after oral and IV contrast administration. Coronal and sagittal reconstructed images were obtained. Inferior thyroid lobes are unremarkable. No mediastinal or hilar adenopathy is noted. The heart demonstrates no pericardial effusion. There is no mediastinal or hilar adenopathy. The trachea and major bronchi appear patent. The lung carcamo demonstrate no evidence of alveolar consolidation. No pleural fluid is identified. Axilla demonstrates no evidence of abnormal adenopathy. The liver is normal in size. No focal lesions or intrahepatic duct dilatation is noted. The gallbladder demonstrates high density material in the dependent portion of the gallbladder consistent with cholelithiasis. No pericholecystic fluid or wall thickening is noted. The spleen is normal in size. The pancreas demonstrates no mass or pancreatic duct dilatation. Common duct is not dilated. No adrenal masses are noted. The kidneys demonstrate symmetric nephrograms. Cortical cysts are noted in both kidneys. Tiny nonobstructing calculi are noted in both kidneys. No retroperitoneal lymphadenopathy is noted. No dilated loops of bowel are noted. The urinary bladder is unremarkable. CT of the pelvis demonstrates no retroperitoneal or pelvic lymphadenopathy. Urinary bladder is unremarkable. No hernias are noted. The prostate and seminal vesicles are unremarkable. IMPRESSION: Cholelithiasis without evidence of biliary duct dilatation. No abnormal masses or fluid collections are noted. No evidence of bowel obstruction is noted. Cortical cysts are noted in the kidneys. Tiny nonobstructing calculi is noted in both kidneys. No significant change is noted since July 12, 2016.
[2018-03-16 13:05] LABS: Urine Appearance Clear; Urine Blood 1+ (Negative); Urine Color Yellow; Urine Ketones 1+ (Negative); Urine Protein 3+(>=500 mg/dL) (Negative); Urine Red Blood Cell 1+(3-5/hpf) (Absent); Urine Specific Gravity 1.043 (1.010-1.030); Urine Urobilinogen Negative (Negative); Urine White Blood Cell Trace(0-5/hpf) (Absent)
[2018-03-16] MEDS ORDERED: Morphine VIAL* 10 MG/ML 1 ML VIAL IV ONE (13:12)
[2018-03-16] MEDS ORDERED: Ondansetron INJ* 2 MG/ML VIAL IV ONE (13:13)
--- NOTE | 2018-03-16 14:00 | RAD ---
Indication: Cholecystectomy. Real-time sonography of the right upper quadrant was performed. The liver is normal in size. No focal lesions or intrahepatic duct dilatation is noted. The gallbladder demonstrates multiple echogenic foci in the dependent portion consistent with cholelithiasis. No pericholecystic fluid or wall thickening is noted. The right kidney measures 12.2 x 4.9 x 5.7 cm with no hydronephrosis. The pancreas head, neck and proximal body demonstrate no mass or pancreatic duct dilatation. Aorta and inferior vena cava are unremarkable. IMPRESSION: Cholelithiasis without biliary duct dilatation.
[2018-03-16] MEDS ORDERED: Nitroglycerin TAB 0.4 MG* 0.4 MG TAB SL ONE (14:06)
[2018-03-16] MEDS ORDERED: Aspirin 81 mg CHEW TAB* 81 MG TAB.CHEW PO ONE (14:06)
[2018-03-16] MEDS ORDERED: Enoxaparin(*) 100 MG/ML SYR SUBCUT ONE (14:20)
[2018-03-16] MEDS ORDERED: PROCHLORPERAZINE INJ 5 MG/ML 2 ML VIAL IV PRN (14:45)
[2018-03-16] MEDS ORDERED: hydrALAZINE IV* 20 MG/ML VIAL IV SLOW PU PRN (14:45)
[2018-03-16] MEDS ORDERED: Lisinopril TAB* 10 MG PO ONE (14:45)
[2018-03-16] MEDS ORDERED: Insulin GLARGINE(*) 1 UNITS UNIT SUBCUT SCH (15:00)
[2018-03-16] MEDS: Sucralfate TAB* 1 GM PO SCH (16:47)
[2018-03-16] MEDS: Pantoprazole IV* 40 MG IV SCH (16:48)
[2018-03-16] MEDS ORDERED: Atorvastatin* 40 MG TAB PO SCH (17:00)
--- NOTE | 2018-03-16 17:53 | HP ---
CC: Dr. Cosme; Dr. Hathaway HISTORY AND PHYSICAL: DATE OF ADMISSION: 03/16/18 TIME OF EVALUATION: 2:30 p.m. PRIMARY CARE PROVIDER: Dr. Cosme VALVE SETTER: Dr. Hathaway CHIEF COMPLAINT: Vomiting. HISTORY OF PRESENT ILLNESS: Mr. Navarro is a 57-year-old male with past medical history of hypertensio n, polysubstance abuse, coronary artery disease, type 2 diabetes, hyperlipidemia, esophageal ulcer, o bstructive sleep apnea, depression, anxiety, obesity, tobacco abuse, noncompliance that presents to [facility] emergency room with complaints of chest pain. The patient was last admitted to [facility] on March 2007 with chest pain and uncontrolled hypertension. At that point in time, he was discharged on multiple medications to follow up with primary care pro vider. The patient states that he has not followed with anyone and stopped taking his medications be cause he felt he was doing well. He states that 4 days ago he started to have nausea followed by multiple episodes of vomiting. He st ates that he was not able to keep anything down. This was followed by episodes of retrosternal chest pain, 5/10 intensity with no radiation. He denies shortness of breath. The pain has no relationship with exercise. He states that he is able to walk around and go up a flight of stairs with no sympto ms. He denies fever, chills, urinary complaints, or cough. PAST MEDICAL HISTORY: 1. Hypertension. 2. History of polysubstance abuse including cocaine. 3. Coronary artery disease status post stents x2. 4. Type 2 diabetes. 5. Hyperlipidemia. 6. History of esophageal ulcer. 7. Obstructive sleep apnea noncompliant with CPAP. 8. Depression. 9. Anxiety. 10. Obesity with BMI of 32. 11. Tobacco abuse. 12. Noncompliance. MEDICATIONS: The patient states that he is takin. Aspirin. 2. Ibuprofen [id number] as needed. ALLERGIES: PENICILLIN. The patient has known reaction. FAMILY HISTORY: The patient is adopted. SOCIAL HISTORY: The patient has [id number] history of smoking. He states that now he has cut down to half a pack a day. He drinks 1 to 2 beers a day. He states that he has not used any "heavy drug s" in a while and now he just smokes marijuana every now and then. Surrogate decision maker is his w sal, Eleanor Navarro, phone number is [phone]. REVIEW OF SYSTEMS: A 14-point review of systems was performed and all the pertinent negative and pos itive findings are in the HPI. PHYSICAL EXAMINATION GENERAL: The patient is an obese gentleman, sitting up on the ED stretcher, in no acute distress. VITAL SIGNS: Temperature 98.5, heart rate is 93, respiratory rate 16, oxygen saturation is 97% on ro om air, blood pressure is 203/109. CHEST: Breath sounds present bilaterally with no added sounds. CVS: Normal S1 and S2. Regular rate and rhythm. ABDOMEN: Obese, soft, nontender. No guarding. No rebound. Bowel sounds are present. EXTREMITIES: No edema. NEUROLOGIC: He is alert and oriented x3. Able to move all 4 extremities. LABORATORY AND IMAGING DATA: The patient had a CBC that showed WBC of 12.2, hemoglobin of 17.1, hem atocrit of 50, platelets of 332 with 76% neutrophils. APTT was 31.5. Chemistry: Sodium is 132, pot assium 4.2, chloride 99, bicarb 24, BUN of 18, creatinine of 1.02, glucose of 133, lactic acid of 1.3 , calcium 9.6, magnesium 1.9. LFTs showed total bilirubin of 0.6, AST of 50, ALT of 56, alk phos of 101. First troponin was 0.03, second troponin 0.04. BNP is 100. Urinalysis showed 3+ protein, 1+ ketones, 1+ blood, 1+ rbc's, and 3+ glucose. EKG done 03/16/18 at 9 :25 a.m. shows sinus rhythm at 94 beats per minute with criteria for LVH and widening of the QRS sugg estive of left anterior fascicular block. No significant change when compared to his prior EKG from May,. Chest x-ray shows no active disease. CT of the chest, abdomen, and pelvis showed cholelithiasis with out evidence of biliary duct dilatation. No abnormal masses or fluid collections. No evidence of sp wel obstruction. Tiny nonobstructing calculi noted in both kidneys. No significant changes noted. This is the same from 2016. Abdominal ultrasound showed cholelithiasis without biliary duct dilatation. There is no pericholecys tic fluid or wall thickening. ASSESSMENT AND PLAN: Mr. Navarro is a 57-year-old male with multiple medical problems including hypert ension, type 2 diabetes, coronary artery disease status post stent, polysubstance abuse, hyperlipidem ia, esophageal ulcer, obstructive sleep apnea, obesity, tobacco abuse, noncompliant who presents to [facility] emergency room with complaints of multiple episodes of nausea and vomiting and also chest pain. 1. Chest pain, rule out acute coronary syndrome. I suspect the patient's chest pain is likely GI in nature associated with multiple episodes of nausea and vomiting, likely emetogenic esophagitis. The patient has known history of an esophageal ulcer in the past. I am going to start him on Protonix a nd Carafate and monitor his symptoms. Although I think the pain is GI in nature, the patient does leong ve significant risk factors for coronary artery disease and already has known coronary artery disease status post 2 stents. He will be monitor in telemetry. I am going to check serial troponins and he will be on aspirin, metoprolol, and atorvastatin as he was supposed to be as outpatient. I suspect the patient has diabetic gastroparesis secondary to his chronically uncontrolled diabetes. Looking b ack at his records the patient's A1c are usually higher than 10 at least since 2010. 2. Uncontrolled hypertension, secondary to noncompliance. This is likely playing a role on his ches t pain also. I am going to start him back on lisinopril and metoprolol and monitor his blood pressur e. 3. Type 2 diabetes, uncontrolled at this time due to noncompliance. The patient will be started on Lantus and lispro sliding scale and then we will make adjustments to his medications to decide what m edications he should be discharged on. 4. Hyperlipidemia. We will check fasting lipid profile and continue atorvastatin. 5. DVT prophylaxis. The patient has a score of 2 on a DVT Prophylaxis Risk Assessment Guide and he will be started on subcutaneous heparin. 6. Code status. Full. TIME SPENT: Approximately 50 minutes were spent with the patient interview, medical records review, physical examination to complete this admission, more than half of this time was spent [id number] w ith the patient and coordination of care. [id number]/[facility] #: [id number]
[2018-03-16] MEDS: Metoprolol Succinate XL TAB* 25 MG PO SCH (18:13)
[2018-03-16] MEDS: Acetaminophen TAB* 325 MG PO PRN (18:14)
[2018-03-16] MEDS: Insulin LISPRO* 1 UNITS UNIT SUBCUT SCH ×3 (18:15→21:23)
[2018-03-16] MEDS: NS 0.9% 1000 ML* 1,000 ML IV SCH (20:48)
[2018-03-16] MEDS: oxyCODONE/Acetamin 5/325 MG* TAB PO PRN (21:12)
[2018-03-16] MEDS: Heparin VIAL(*) 5000 UNITS/ML VIAL (FIVE THOUSAND) SUBCUT SCH (21:22)
[2018-03-16] MEDS ORDERED: Morphine INJ* 2 MG/ML 1 ML SYRINGE (TWO MG - NEW SYRINGE VERSION) IV ONE (23:34)
[2018-03-17 05:26] LABS: EGFR Non-African American 73.6 (>60)
[2018-03-17] MEDS: Heparin VIAL(*) 5000 UNITS/ML VIAL (FIVE THOUSAND) SUBCUT SCH (05:57)
[2018-03-17] MEDS: oxyCODONE/Acetamin 5/325 MG* TAB PO PRN (06:35)
[2018-03-17] MEDS: NS 0.9% 1000 ML* 1,000 ML IV SCH (07:11)
[2018-03-17 08:44] VITALS: BP 146/86
[2018-03-17] MEDS: Acetaminophen TAB* 325 MG PO PRN (08:51)
[2018-03-17] MEDS: Metoprolol Succinate XL TAB* 25 MG PO SCH (08:52)
[2018-03-17] MEDS: Sucralfate TAB* 1 GM PO SCH ×2 (08:52→11:37)
[2018-03-17] MEDS: Pantoprazole IV* 40 MG IV SCH (08:53)
[2018-03-17] MEDS ORDERED: Lisinopril TAB* 10 MG PO SCH (09:00)
[2018-03-17] MEDS ORDERED: Aspirin EC TAB* 81 MG TAB.EC PO SCH (09:00)
[2018-03-17] MEDS ORDERED: CMC:Glimepiride (NF) 2 MG TAB PO SCH (09:00)
[2018-03-17] MEDS ORDERED: Omeprazole CAP* 20 MG PO SCH (09:00)
--- NOTE | 2018-03-17 09:02 | PN ---
Progress Note - Progress Note Date of Service: 03/17/18 Note: Discharge Progress Note Primary Diagnosis: chest pain due to esophagitis Secondary Diagnoses: coronary artery disease s/p stenting in past type 2 diabetes w/ proteinuria hypertension FINESSE not using CPAP polysubstance abuse including cocaine tobacco abuse depression cholelithiasis Consultations: none Procedures: none Pertinent lab/radiology testing: Laboratory Tests 03/16/18 03/16/18 03/16/18 09:35 09:35 13:18 WBC 12.2 H Neut % (Auto) 76.5 Lymph % (Auto) 14.6 L [place] % (Auto) 8.2 H Glucose 433 H POC Glucose (mg/dL) AST 50 H ALT 56 H Troponin I 0.03 0.04 H* 03/16/18 03/16/18 03/16/18 16:30 17:04 19:59 WBC Neut % (Auto) Lymph % (Auto) [place] % (Auto) Glucose POC Glucose (mg/dL) 296 H 223 H AST ALT Troponin I 0.04 H* 03/17/18 07:32 WBC Neut % (Auto) Lymph % (Auto) [place] % (Auto) Glucose POC Glucose (mg/dL) 158 H AST ALT Troponin I CT abdo/pelvis: gallstones, no bile duct obstruction, bilat mild nephrolithiasis Tests pending upon discharge: Hemoglobin A1c Physical exam on discharge: Selected Entries 03/17/18 03/17/18 03:50 07:14 Temperature 36.7 C 36.7 C Pulse Rate 61 63 Respiratory 20 16 Rate Blood Pressure 136/66 146/86 (mmHg) O2 Sat by Pulse 97 99 Oximetry Alert, no distress Lungs: scattered wheezes Heart: RRR, no murmur Abdo: soft, tender epigastric Disposition: home, follow-up with [facility]
[2018-03-17] MEDS: Insulin LISPRO* 1 UNITS UNIT SUBCUT SCH ×4 (09:35→11:37)
[2018-03-17] MEDS ORDERED: metFORMIN* 850 MG TAB PO SCH (17:00)
--- NOTE | 2018-03-18 00:10 | DS ---
CC: Dr. Gail Day, [facility] * DISCHARGE SUMMARY: DATE OF ADMISSION: 03/16/18 DATE OF DISCHARGE: 03/17/18 PRIMARY DIAGNOSIS: Chest pain due to esophagitis. SECONDARY DIAGNOSES: 1. Coronary artery disease, status post stents x2 in the past. 2. Type 2 diabetes with significant proteinuria. 3. Hypertension. 4. Obstructive sleep apnea, noncompliant with CPAP. 5. History of polysubstance abuse including cocaine abuse. 6. Tobacco abuse. 7. Depression. 8. Cholelithiasis. MEDICATIONS ON DISCHARGE: 1. Acetaminophen 650 mg p.o. q.6 hours p.r.n. pain. 2. Aspirin 81 mg p.o. q. day. 3. Atorvastatin 10 mg p.o. q.p.m. 4. Glimepiride 2 mg p.o. b.i.d. 5. Lisinopril 10 mg p.o. q. day. 6. Metformin 850 mg p.o. b.i.d. 7. Toprol-XL 25 mg p.o. q. day. 8. Omeprazole 20 mg p.o. b.i.d. 9. Ondansetron 4 mg p.o. q.6 hours p.r.n. nausea. 10. Sucralfate 1 g tab p.o. before each meal 3 times a day. (The patient was given a 5-day supply of all these medications from the inpatient pharmacy due to lack of insurance coverage). HOSPITAL COURSE: The patient was admitted with chest pain that did not radiate to his neck or arms and was not exertional. He also had significant episodes of vomiting and nausea for 4 days prior to admission. The concern was for esophagitis and reflux versus coronary artery disease with angina. The chest x- ray taken on admission showed no active disease. CT of the chest, abdomen, and pelvis on admission showed no particular lung abnormality. There are gallstones in the gallbladder, but no pericholecystic fluid or bile duct dilatation. There are no other significant findings on abdominal pelvis CT other than some small non- obstructing calculi in both kidneys. Ultrasound of the gallbladder was also obtained which confirmed the diagnosis of cholelithiasis without any biliary duct dilatation. The patient's initial white cell count was 12.2. Sodium was 132, glucose 433, AST and ALT were 50 and 56 respectively. Initial troponin was 0.03; it missy to 0.04 on 2 occasions. The patient continued to have chest pain during the 24-hour hospital stay and it was worsened by eating and relieved by belching and probably relieved by Carafate. The patient's repeat sodium on the day of discharge was 136 and his elevated glucose was treated with sliding scale insulin and Lantus, which brought the blood sugars down to reasonable range of 158 on discharge. The patient overall has several medical problems for which he has sought no care and had no treatment in the last year or two. He requires after discharge a followup with Gastroenterology to have endoscopy to assess for esophageal or gastric ulcers, esophageal stricture or scarring or hiatal hernia. He also should reconnect with his customer resolution specialist, who appears to be Dr. Saldana, who last saw him in March of last year. The patient should also restart medications for diabetes and he was sent home on a combination of metformin and glimepiride , which should be affordable if he has no insurance. The patient should have an outpatient stress test, but he did not have acute coronary syndrome during this hospital stay and does not require inpatient stress testing or cardiac cath. DISPOSITION: To home. ACTIVITY: Should be as tolerated. DIET: Should be diabetic and low salt and low cholesterol. DISPOSITION: To [facility] and he has been given this information and the [facility] has been notified and will schedule an appointment within the next week. [id number]/CPS #: [id number] JODIE
== END 2018-03-17 11:20 | disposition home or self-care (01) ==
LOC: ED 08:43 → MEDTELE 14:31
PROVIDERS: ADMIT Internal Medicine; ATTEND Internal Medicine
DX: K20.9 Esophagitis, unspecified (principal); R07.9 Chest pain, unspecified; I25.10 Atherosclerotic heart disease of native coronary artery without angina pectoris; E11.9 Type 2 diabetes mellitus without complications; I10 Essential (primary) hypertension; G47.33 Obstructive sleep apnea (adult) (pediatric); F19.10 Other psychoactive substance abuse, uncomplicated; F32.9 Major depressive disorder, single episode, unspecified; F17.210 Nicotine dependence, cigarettes, uncomplicated; Z79.82 Long term (current) use of aspirin; Z79.899 Other long term (current) drug therapy; Z79.84 Long term (current) use of oral hypoglycemic drugs; Z88.0 Allergy status to penicillin; Z95.5 Presence of coronary angioplasty implant and graft; I51.7 Cardiomegaly; I25.2 Old myocardial infarction
CPT/HCPCS: 36415; 71045; 71260; 74177; 76705; 80053; 80061; 81003; 81015; 83036; 83605; 83735; 83880; 84484; 85025; 85730; 87086; 93005; 96361; 96372; 96374; 96375; 96376; 99283; A9270-GY; G0378; J1644; J1650; J1885; J2270; J2405; J2765

== ENCOUNTER → 2018-03-17 17:45 | Emergency (ER) | payer SELFPAY ==
[~2018-03-17 17:45] MED LIST: Al Hydrox/Mg Hydrox/Simet LIQ* 30 ML UDC PO ONE; Lidocaine 2% VISCOUS* 15 ML UDC PO ONE
--- NOTE | 2018-03-17 18:06 | UC ---
Psychiatric Complaint HPI - History Of Current Complaint Chief Complaint: EDMentalHealth Stated Complaint: MHE Time Seen by Provider: 03/17/18 18:02 - Allergies/Home Medications Allergies/Adverse Reactions: Allergies Allergy/AdvReac Type Severity Reaction Status Date / Time Penicillins Allergy Unknown Unknown Verified 03/17/18 18:03 Reaction Details PMH/Surg Hx/FS Hx/Imm Hx Other History Of: Anticoagulant Therapy - 325MG PO ASPIRIN DAILY - Surgical History Surgical History: Yes Surgery Procedure, Year, and Place: caridac stents x3 PREV [place], ACL repair, MASTOID AND TUBES IN EARS(SEE CARD FROM 2012 STUDY [facility]) - Family History Known Family History: Positive: Unknown - PT WAS ADOPTED - Social History Alcohol Use: Rare Alcohol Amount: 2-3 drinks/day Substance Use Type: None Substance Use Comment - Amount & Last Used: p[t reports last use of cocaine and marijuana was several months ago Smoking Status (MU): Heavy Every Day Tobacco Smoker Type: Cigarettes Amount Used/How Often: 1 pack/day Length of Time of Smoking/Using Tobacco: 42 years Have You Smoked in the Last Year: Yes Household Exposure Type: Cigarettes - Immunization History Most Recent Influenza Vaccination: May 2013 Most Recent Tetanus Shot: within 10 years Most Recent Pneumonia Vaccination: 2012 Physical Exam Vital Signs: Initial Vital Signs Temp 98 F 03/17/18 17:59 Pulse 73 03/17/18 17:59 Resp 18 03/17/18 17:59 BP 194/115 03/17/18 17:59 Pulse Ox 96 03/17/18 17:59 Discharge - Discharge Plan Referrals: No Primary Care Phys,NOPCP [Primary Care Provider] - - Attestation Statements Document Initiated by Scribe: Yes
--- NOTE | 2018-03-17 19:25 | ED ---
Psychiatric Complaint - HPI Summary HPI Summary: This patient is a 57 year old M presenting to [facility] with SI. He denies a current plan. Denies history of suicidal gestures. Denies HI, visual and auditory hallucinations. He reports recent stress about living situation. Patient was admitted last night and discharged this morning with medication for his DM. He states his previous symptoms of epigastirc burning has returned. Previous pysch admissions. - History Of Current Complaint Chief Complaint: EDMentalHealth Time Seen by Provider: 03/17/18 18:02 Hx Obtained From: Patient Onset/Duration: Lasting Hours Timing: Constant Character: Depressed Aggravating Factor(s): Recent Stress Alleviating Factor(s): Nothing Associated Signs And Symptoms: Positive: Negative Related History: Positive For: Prior Psychiatric Issues Has Suicidal: Reports: Thoughts. Denies: With A Plan Has Homicidal: Denies: Thoughts, With A Plan - Allergies/Home Medications Allergies/Adverse Reactions: Allergies Allergy/AdvReac Type Severity Reaction Status Date / Time Penicillins Allergy Unknown Unknown Verified 03/17/18 18:03 Reaction Details PMH/Surg Hx/FS Hx/Imm Hx Endocrine/Hematology History: Reports: Hx Anticoagulant Therapy - 325MG PO ASPIRIN DAILY, Hx Diabetes, Other Endocrine/Hematological Disorders - obesity Denies: Hx Blood Disorders, Hx Blood Transfusions, Hx Thyroid Disease, Hx Anemia, Hx Unexplained Bleeding Cardiovascular History: Reports: Hx Angina, Hx Congestive Heart Failure, Hx Coronary Artery Disease, Hx Hypercholesterolemia, Hx Hypertension, Hx Myocardial Infarction, Other Cardiovascular Problems/Disorders - cardiac cath w / stents Denies: Hx Pacemaker/ICD, Hx Peripheral Vascular Disease, Hx Syncope, Hx Valvular Heart Disease Respiratory History: Reports: Hx Pulmonary Edema, Hx Sleep Apnea, Other Respiratory Problems/Disorders - CURRENT SMOKER Denies: Hx Asthma, Hx Chronic Obstructive Pulmonary Disease (COPD), Hx Pneumonia GI History: Reports: Other GI Disorders - esophegal ulcers History: Reports: Hx Kidney Infection, Other Problems/Disorders - Prostate CA, TURP in 2011 Denies: Hx Renal Disease Musculoskeletal History: Reports: Hx Back Problems, Other Musculoskeletal History - ACL repair L knee Denies: Hx Arthritis, Hx Osteoporosis Sensory History: Denies: Hx Contacts or Glasses, Hx Hearing Aid, Other Sensory Impairments Opthamlomology History: Denies: Hx Contacts or Glasses, Other Sensory Impairments Neurological History: Reports: Hx Migraine, Other Neuro Impairments/Disorders - 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 Denies: Hx Dementia, Hx Headaches, Hx Seizures, Hx Transient Ischemic Attacks (TIA) Psychiatric History: Reports: Hx Anxiety, Hx Depression, Hx Community Mental Health Tx, Other Psychiatric Issues/Disorders Denies: Hx Eating Disorder, Hx Panic Disorder, Hx of Violent Episodes Against Others, Hx Substance Abuse - Cancer History Cancer Type, Location and Year: prostate cancer Hx Chemotherapy: No Hx Radiation Therapy: No Hx Palliative Cancer Treatment: No - Surgical History Surgery Procedure, Year, and Place: caridac stents x3 PREV [place], ACL repair, MASTOID AND TUBES IN EARS(SEE CARD FROM 2012 STUDY [facility]) Hx Anesthesia Reactions: No - Immunization History Date of Tetanus Vaccine: Unknown Date of Influenza Vaccine: 2013 Infectious Disease History: No Infectious Disease History: Denies: Hx Hepatitis, Hx Human Immunodeficiency Virus (HIV), Hx Shingles, Hx Tuberculosis, Traveled Outside the [place] in Last 30 Days - Family History Known Family History: Positive: Unknown - PT WAS ADOPTED - Social History Alcohol Use: Rare Alcohol Amount: 2-3 drinks/day Hx Substance Use: Yes Substance Use Type: Reports: Prescribed Substance Use Comment - Amount & Last Used: p[t reports last use of cocaine and marijuana was several months ago Hx Tobacco Use: Yes Smoking Status (MU): Heavy Every Day Tobacco Smoker Type: Cigarettes Amount Used/How Often: 1 pack/day Length of Time of Smoking/Using Tobacco: 42 years Have You Smoked in the Last Year: Yes Review of Systems Negative: Fever Positive: Depressed All Other Systems Reviewed And Are Negative: Yes Physical Exam - Summary Physical Exam Summary: GENERAL: Patient is a well developed and nourished male who is lying comfortable in the stretcher. Patient is not in any acute respiratory distress. HEAD AND FACE: Normocephalic EYES: PERRLA, EOMI x 2. EARS: Hearing grossly intact. MOUTH: Oropharynx within normal limits. NECK: Supple, trachea is midline, no adenopathy, no JVD, no carotid bruit. CHEST: Symmetric, no tenderness at palpation LUNGS: Clear to auscultation bilaterally. No wheezing or crackles. CVS: Regular rate and rhythm, S1 and S2 present, no murmurs or gallops appreciated. ABDOMEN: Soft, non-tender. Bowel sounds are normal. No abdominal abnormal pulsations. EXTREMITIES: Full ROM in all major joints, no edema, no cyanosis or clubbing. NEURO: Alert and oriented x 3. No acute neurological deficits. Speech is normal and follows commands. SKIN: Dry and warm Triage Information Reviewed: Yes Vital Signs On Initial Exam: Initial Vitals Temp Pulse Resp BP Pulse Ox 98 F 73 18 194/115 96 03/17/18 17:59 03/17/18 17:59 03/17/18 17:59 03/17/18 17:59 03/17/18 17:59 Vital Signs Reviewed: Yes Diagnostics - Vital Signs Vital Signs Temp Pulse Resp BP Pulse Ox 03/17/18 17:59 98 F 73 18 194/115 96 - Laboratory Result Diagrams: 03/17/18 20:02 03/17/18 20:02 Lab Statement: Any lab studies that have been ordered have been reviewed, and results considered in the medical decision making process. - EKG 1855 Cardiac Rate: NL - 70 BPM EKG Rhythm: Sinus Rhythm EKG Interpretation: occasional PVCs, LVH, old inferior and anterior infarct EKG Comparison: No Significant Change - from 03/16/18 Course/Dx - Course Course Of Treatment: 57 y/o M presents with SI. Patient was admitted last night and discharged this morning. An EKG is obtained and lab work is ordered. Patient is given vicous lidocaine and Maalox. Patient will be signed out to Dr. Chaidez awaiting mental health clearance and mental health evaluation. - Differential Dx/Clinical Impression Provider Diagnosis: Suicidal ideation Discharge - Sign-Out/Discharge Documenting (check all that apply): Sign-Out Patient Signing out patient TO: Devyn Chaidez - [facility] - Discharge Plan Patient Education Materials: Anxiety (ED) Referrals: DSS,TC [Other] No Primary Care Phys,NOPCP [Primary Care Provider] - - Attestation Statements Document Initiated by Scribe: Yes Documenting Scribe: Linda Reddy Provider For Whom Scribe is Documenting (Include Credential): Rony Huitron MD Scribe Attestation: Linda Rodriguez, scribed for Rony Huitron MD on 03/19/18 at 1044. Scribe Documentation Reviewed: Yes Provider Attestation: The documentation as recorded by the scribe, Linda Reddy accurately reflects the service I personally performed and the decisions made by me, Rony Huitron MD
[2018-03-17 20:09] LABS: ABS Basophils 0.2 10^3/ul (0-0.2); ABS Eosinophils 0.2 10^3/ul (0-0.6); ABS Lymphocytes 4.7 10^3/ul (1.0-4.8); ABS Nucleated RBC 0 10^3/ul; Eosinophil % 1.9 % (0-6); Hematocrit 44 % (42-52); Hemoglobin 15.3 g/dl (14.0-18.0); Lymphocyte % 38.9 % (25-47); Mean Corpuscular HGB Conc 35 g/dl (31-36); Mean Corpuscular Hemoglobin 33 pg (27-31); Mean Corpuscular Volume 93 fL (80-94); Nucleated Red Blood Cells % 0.1; Platelet Count 285 10^3/ul (150-450); Red Cell Distribution Width 14 % (10.5-15)
[2018-03-17 20:28] LABS: EGFR Non-African American 85.9 (>60)
[2018-03-18 00:44] VITALS: BP 175/85
== END | disposition home or self-care (01) ==
LOC: ED 17:45
DX: R45.851 Suicidal ideations (principal); F32.9 Major depressive disorder, single episode, unspecified; F17.210 Nicotine dependence, cigarettes, uncomplicated
CPT/HCPCS: 36415; 80053; 80320; 80329; 84443; 84484; 85025; 93005; 99284; A9270-GY; G0480

== ENCOUNTER 2018-04-04 17:46 | Emergency (ER) | payer MEDICARE ==
[2018-04-04 19:28] LABS: ABS Basophils 0.1 10^3/ul (0-0.2); ABS Eosinophils 0.4 10^3/ul (0-0.6); ABS Lymphocytes 3.9 10^3/ul (1.0-4.8); ABS Monocytes 0.9 10^3/ul (0-0.8); ABS Neutrophils 5.3 10^3/ul (1.5-7.7); ABS Nucleated RBC 0 10^3/ul; Eosinophil % 3.9 % (0-6); Hematocrit 42 % (42-52); Hemoglobin 14.8 g/dl (14.0-18.0); Lymphocyte % 36.7 % (25-47); Mean Corpuscular HGB Conc 35 g/dl (31-36); Mean Corpuscular Hemoglobin 33 pg (27-31); Mean Corpuscular Volume 94 fL (80-94); Mean Platelet Volume 6.5 um3 (7.4-10.4); Nucleated Red Blood Cells % 0.1; Platelet Count 323 10^3/ul (150-450); Red Cell Distribution Width 14 % (10.5-15); White Blood Count 10.5 10^3/ul (3.5-10.8)
[2018-04-04] MEDS ORDERED: Iodixanol* (CONTRAST) 320 MG/ML 100 ML SDV IV ONE (23:36)
--- NOTE | 2018-04-05 00:24 | RAD ---
EXAM: CT Head Without Intravenous Contrast CLINICAL HISTORY: 57 years old, male; Signs and symptoms; Dizziness; Additional info: New onset imbalance issues TECHNIQUE: Axial computed tomography images of the head/brain without intravenous contrast. All CT scans at this facility use at least one of these dose optimization techniques: automated exposure control; mA and/or kV adjustment per patient size (includes targeted exams where dose is matched to clinical indication); or iterative reconstruction. COMPARISON: BRAIN WO CT BRAIN WO 06/30/2015 6:52 PM FINDINGS: Brain: There is stable age-related diffuse cerebral volume loss and chronic microvascular ischemic disease. No hemorrhage. Ventricles: Unremarkable. No ventriculomegaly. Bones/joints: Unremarkable. No acute fracture. Soft tissues: Stable metallic foreign bodies in the right temporal scalp. Sinuses: Unremarkable as visualized. No acute sinusitis. Mastoid air cells: Stable likely postoperative changes of partial right mastoidectomy. IMPRESSION: 1. There is stable age-related diffuse cerebral volume loss and chronic microvascular ischemic disease. 2. Stable likely postoperative changes of partial right mastoidectomy. 3. No acute intracranial pathology.
--- NOTE | 2018-04-05 00:46 | RAD ---
EXAM: CT Abdomen and Pelvis With Intravenous Contrast CLINICAL HISTORY: 57 years old, male; Signs and symptoms; Bloating and constipation; Additional info: Rlq pain TECHNIQUE: Axial computed tomography images of the abdomen and pelvis with intravenous contrast. All CT scans at this facility use at least one of these dose optimization techniques: automated exposure control; mA and/or kV adjustment per patient size (includes targeted exams where dose is matched to clinical indication); or iterative reconstruction. Coronal and sagittal reformatted images were created and reviewed. CONTRAST: 128 mL of VISI administered intravenously. COMPARISON: A/P WO CT ABD/PEL W/O 06/03/2017 3:36 PM FINDINGS: Lung bases: There is bibasilar atelectatic change or scarring. ABDOMEN: Liver: Unremarkable. No mass. Gallbladder and bile ducts: Stable cholelithiasis without pericholecystic inflammatory change. No ductal dilation. Pancreas: Unremarkable. No mass. No ductal dilation. Spleen: Stable calcified splenic granuloma. Adrenals: Unremarkable. No mass. Kidneys and ureters: Stable punctate nonobstructive bilateral nephrolithiasis. Stable 13 mm left renal cyst. Stomach and bowel: Unremarkable. No obstruction. No mucosal thickening. PELVIS: Appendix: The appendix is unremarkable. The appendix is seen best on axial image 56 of series 2. Bladder: Unremarkable. No mass. Reproductive: Unremarkable as visualized. ABDOMEN and PELVIS: Intraperitoneal space: Unremarkable. No free air. No significant fluid collection. Bones/joints: No acute fracture. No dislocation. Soft tissues: Unremarkable. Vasculature: Stable atherosclerotic aortic and iliac and femoral artery calcifications. No abdominal aortic aneurysm. Lymph nodes: Unremarkable. No enlarged lymph nodes. IMPRESSION: 1. Stable cholelithiasis without pericholecystic inflammatory change. 2. The appendix is unremarkable. 3. Stable punctate nonobstructive bilateral nephrolithiasis. 4. No other acute CT pathology of the abdomen or pelvis.
[2018-04-05] MEDS ORDERED: Ketorolac INJ* 30 MG/ML 1 ML VIAL IV ONE (00:53)
[2018-04-05] MEDS ORDERED: Ketorolac INJ* 30 MG/ML 1 ML VIAL ONE (00:56)
--- NOTE | 2018-04-05 01:14 | ED ---
Abdominal Pain/Male - HPI Summary HPI Summary: Patient complains of no bowel movement for 1.5 months, and associated abdominal cramping, nausea. Also complains of imbalance with standing x years, worse over the past week. Denies MCKNIGHT, neck stiffness, focal deficits, vision change, dizziness, fever, cough, sore throat, CP, SOB, V/D, change in urine. Medical history is HTN, DM, GERD, HDL, vertigo. Abdominal/pelvic surgical history is none. Is a smoker. Patient states history of hypertension but has not taken hypertension meds for at least 2 months. Patient has no PCP, was given hypertension meds on prior visit to ED. - History of Current Complaint Chief Complaint: EDGeneral Stated Complaint: CONSTIPATED/DIZZY Time Seen by Provider: 04/04/18 21:23 Hx Obtained From: Patient Onset/Duration: Gradual Onset Timing: Intermittent Severity Initially: Moderate Severity Currently: Moderate Pain Intensity: 8 Pain Scale Used: 0-10 Numeric Location: Epigastric, Umbilical Radiates: No Character: Cramping Aggravating Factor(s): Nothing Alleviating Factor(s): Nothing Associated Signs And Symptoms: Positive: Nausea - Allergies/Home Medications Allergies/Adverse Reactions: Allergies Allergy/AdvReac Type Severity Reaction Status Date / Time Penicillins Allergy Unknown Unknown Verified 03/29/18 19:47 Reaction Details PMH/Surg Hx/FS Hx/Imm Hx Endocrine/Hematology History: Reports: Hx Anticoagulant Therapy - 325MG PO ASPIRIN DAILY, Hx Diabetes, Other Endocrine/Hematological Disorders - obesity Denies: Hx Blood Disorders, Hx Blood Transfusions, Hx Thyroid Disease, Hx Anemia, Hx Unexplained Bleeding Cardiovascular History: Reports: Hx Angina, Hx Congestive Heart Failure, Hx Coronary Artery Disease, Hx Hypercholesterolemia, Hx Hypertension - does not take meds d/t cost, Hx Myocardial Infarction, Other Cardiovascular Problems/ Disorders - cardiac cath w/ stents Denies: Hx Pacemaker/ICD, Hx Peripheral Vascular Disease, Hx Syncope, Hx Valvular Heart Disease Respiratory History: Reports: Hx Pulmonary Edema, Hx Sleep Apnea, Other Respiratory Problems/Disorders - CURRENT SMOKER Denies: Hx Asthma, Hx Chronic Obstructive Pulmonary Disease (COPD), Hx Pneumonia GI History: Reports: Other GI Disorders - esophegal ulcers History: Reports: Hx Kidney Infection, Other Problems/Disorders - Prostate CA, TURP in 2011 Denies: Hx Renal Disease Musculoskeletal History: Reports: Hx Back Problems, Other Musculoskeletal History - ACL repair L knee Denies: Hx Arthritis, Hx Osteoporosis Sensory History: Denies: Hx Contacts or Glasses, Hx Hearing Aid, Other Sensory Impairments Opthamlomology History: Denies: Hx Contacts or Glasses, Other Sensory Impairments Neurological History: Reports: Hx Migraine, Other Neuro Impairments/Disorders - 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 Denies: Hx Dementia, Hx Headaches, Hx Seizures, Hx Transient Ischemic Attacks (TIA) Psychiatric History: Reports: Hx Anxiety, Hx Depression, Hx Community Mental Health Tx, Other Psychiatric Issues/Disorders Denies: Hx Eating Disorder, Hx Panic Disorder, Hx of Violent Episodes Against Others, Hx Substance Abuse - Cancer History Cancer Type, Location and Year: prostate cancer Hx Chemotherapy: No Hx Radiation Therapy: No Hx Palliative Cancer Treatment: No - Surgical History Surgery Procedure, Year, and Place: caridac stents x3 PREV [place], ACL repair, MASTOID AND TUBES IN EARS(SEE CARD FROM 2012 STUDY [facility]) Hx Anesthesia Reactions: No - Immunization History Date of Tetanus Vaccine: Unknown Date of Influenza Vaccine: 2013 Infectious Disease History: No Infectious Disease History: Denies: Hx Hepatitis, Hx Human Immunodeficiency Virus (HIV), Hx Shingles, Hx Tuberculosis, Traveled Outside the [place] in Last 30 Days - Family History Known Family History: Positive: Unknown - PT WAS ADOPTED - Social History Alcohol Use: Rare Alcohol Amount: 2-3 drinks/day Hx Substance Use: Yes Substance Use Type: Reports: Prescribed Substance Use Comment - Amount & Last Used: p[t reports last use of cocaine and marijuana was several months ago Hx Tobacco Use: Yes Smoking Status (MU): Current Every Day Smoker Type: Cigarettes Amount Used/How Often: 1 pack/day Length of Time of Smoking/Using Tobacco: 42 years Have You Smoked in the Last Year: Yes Review of Systems Constitutional: Negative Eyes: Negative ENT: Negative Cardiovascular: Negative Respiratory: Negative Positive: Abdominal Pain, Nausea Genitourinary: Negative Musculoskeletal: Negative Skin: Negative Neurological: Other Psychological: Normal All Other Systems Reviewed And Are Negative: Yes Physical Exam - Summary Physical Exam Summary: patient states mild discomfort with palpation of abdomen diffusely Triage Information Reviewed: Yes Vital Signs On Initial Exam: Initial Vitals Temp Pulse Resp BP Pulse Ox 99.1 F 89 16 210/97 97 04/04/18 17:51 04/04/18 17:51 04/04/18 17:51 04/04/18 17:51 04/04/18 17:51 Vital Signs Reviewed: Yes Appearance: Positive: Well-Appearing Skin: Positive: Warm Head/Face: Positive: Normal Head/Face Inspection Eyes: Positive: Normal Neck: Positive: Supple Respiratory/Lung Sounds: Positive: Clear to Auscultation Cardiovascular: Positive: Normal Abdomen Description: Positive: Nontender Musculoskeletal: Positive: Normal Neurological: Positive: Normal Psychiatric: Positive: Normal AVPU Assessment: Alert - Frederica Coma Scale Best Eye Response: 4 - Spontaneous Best Motor Response: 6 - Obeys Commands Best Verbal Response: 5 - Oriented Coma Scale Total: 15 Diagnostics - Vital Signs Vital Signs Temp Pulse Resp BP Pulse Ox 04/04/18 19:53 97.8 F 82 18 208/98 98 04/04/18 17:51 99.1 F 89 16 210/97 97 - Laboratory Lab Results: Lab Results 04/04/18 04/04/18 Range/Units 19:19 22:11 WBC 10.5 (3.5-10.8) 10^3/ul RBC 4.50 (4.00-5.40) 10^6/ul Hgb 14.8 (14.0-18.0) g/dl Hct 42 (42-52) % MCV 94 (80-94) fL MCH 33 H (27-31) pg MCHC 35 (31-36) g/dl RDW 14 (10.5-15) % Plt Count 323 (150-450) 10^3/ul MPV 6.5 L (7.4-10.4) um3 Neut % (Auto) 50.0 (38-83) % Lymph % (Auto) 36.7 (25-47) % Johnston % (Auto) 8.9 H (0-7) % Eos % (Auto) 3.9 (0-6) % Baso % (Auto) 0.5 (0-2) % Absolute Neuts (auto) 5.3 (1.5-7.7) 10^3/ul Absolute Lymphs (auto) 3.9 (1.0-4.8) 10^3/ul Absolute Monos (auto) 0.9 H (0-0.8) 10^3/ul Absolute Eos (auto) 0.4 (0-0.6) 10^3/ul Absolute Basos (auto) 0.1 (0-0.2) 10^3/ul Absolute Nucleated RBC 0 10^3/ul Nucleated RBC % 0.1 Sodium 142 (135-145) mmol/L Potassium 3.8 (3.5-5.0) mmol/L Chloride 108 (101-111) mmol/L Carbon Dioxide 25 (22-32) mmol/L Anion Gap 9 (2-11) mmol/L BUN 18 (6-24) mg/dL Creatinine 1.00 (0.67-1.17) mg/dL Est GFR ( Amer) 93.2 (>60) Est GFR (Non-Af Amer) 77.0 (>60) BUN/Creatinine Ratio 18.0 (8-20) Glucose 172 H (70-100) mg/dL Calcium 9.0 (8.6-10.3) mg/dL Total Bilirubin 0.30 (0.2-1.0) mg/dL AST 100 H (13-39) U/L ALT 109 H (7-52) U/L Alkaline Phosphatase 71 (34-104) U/L C-Reactive Protein < 1.00 (<8.01) mg/L Total Protein 7.3 (6.4-8.9) g/dL Albumin 3.8 (3.2-5.2) g/dL Globulin 3.5 (2-4) g/dL Albumin/Globulin Ratio 1.1 (1-3) Result Diagrams: 04/04/18 19:19 04/04/18 22:11 Lab Statement: Any lab studies that have been ordered have been reviewed, and results considered in the medical decision making process. - Radiology kub Xray Interpretation: Positive (See Comments) - Stool burden Radiology Interpretation Completed By: ED Physician - CT ab/pel CT Interpretation: No Acute Changes CT Interpretation Completed By: Radiologist brain CT Interpretation: No Acute Changes CT Interpretation Completed By: Radiologist Abdominal Pain Fem Course/Dx - Course Course Of Treatment: Patient complains of no bowel movement for 1.5 months, and associated abdominal cramping, nausea. Also complains of imbalance with standing x years, worse over the past week. Denies MCKNIGHT, neck stiffness, focal deficits, vision change, dizziness, fever, cough, sore throat, CP, SOB, V/D, change in urine. Medical history is HTN, DM, GERD, HDL, vertigo. Abdominal/ pelvic surgical history is none. Is a smoker. Physical exam: patient states mild discomfort with palpation of abdomen diffusely. Neuro exam normal. Patient ambulates normally shortly after standing. Vital signs normal. Labs unremarkable. CT brain negative. CT abdomen and pelvis negative. KUB positive for stool burden. Patient has frequent enemas at home which she has used before. Prefers to use enemas at home. Patient was hypertensive. Given lisinopril 10 mg by mouth here in the ED and Rx for same. Follow-up with primary care, or [facility] [place]. - Diagnoses Provider Diagnoses: Constipation, Hypertension Discharge - Sign-Out/Discharge Documenting (check all that apply): Patient Departure - Discharge Plan Condition: Stable Disposition: HOME Prescriptions: Lisinopril 10 mg PO DAILY 30 Days #30 tablet Patient Education Materials: Constipation (ED), Hypertension (ED) Referrals: No Primary Care Phys,NOPCP [Primary Care Provider] - [facility] [Outside] Additional Instructions: Follow-up with primary care for evaluation of hypertension and constipation. Return to the ED for any new or worsening symptoms - Billing Disposition and Condition Condition: STABLE Disposition: Home
[2018-04-05] MEDS ORDERED: Lisinopril TAB* 10 MG PO ONE (01:19)
[2018-04-05 01:29] VITALS: BP 178/88
--- NOTE | 2018-04-05 07:48 | RAD ---
HISTORY: constipation COMPARISONS: November 04, 2011 VIEWS: Frontal views of the abdomen. FINDINGS: BOWEL: There is a nonobstructive bowel gas pattern. There is a large amount of stool within the colon. CALCULI: There are no abnormal calculi. BONES AND SOFT TISSUES: Mild degenerative changes are noted. OTHER FINDINGS: The lung bases are clear. There is no subphrenic gas. IMPRESSION: NONOBSTRUCTIVE BOWEL GAS PATTERN. LARGE AMOUNT OF STOOL THROUGHOUT THE COLON. R1
== END 2018-04-05 01:28 | disposition home or self-care (01) ==
LOC: ED 17:46
DX: K59.00 Constipation, unspecified (principal); I10 Essential (primary) hypertension; R11.0 Nausea; Z88.0 Allergy status to penicillin; R10.9 Unspecified abdominal pain; F17.210 Nicotine dependence, cigarettes, uncomplicated; Z79.01 Long term (current) use of anticoagulants
CPT/HCPCS: 36415; 70450; 74018; 74177; 80053; 85025; 86140; 96374; 96375; 99284; A9270-GY; J1885; Q9967

== ENCOUNTER → 2018-04-27 08:39 | Emergency (ER) | payer MEDICARE ==
[2018-04-27 09:42] VITALS: BP 168/90
--- NOTE | 2018-04-27 11:44 | ED ---
Lower Extremity - HPI Summary HPI Summary: Patient is a 57-year-old male with a history of left meniscal knee tear with repair several years ago presenting to the ED with left knee swelling after standing for long periods of time on concrete yesterday. He states the knee intermittently will cause him pain, but usually does not swell. He denies any ecchymosis, warmth or erythema to the area. He remains ambulatory, but with this mild amount of pain. He states he has been taking Tylenol and ibuprofen since yesterday, with minimal relief. He has not iced the area at this time. He denies any known trauma. - History of Current Complaint Chief Complaint: EDExtremityLower Stated Complaint: LT KNEE PAIN Time Seen by Provider: 04/27/18 08:53 Hx Obtained From: Patient Mechanism Of Injury: Unknown Onset of Pain: Hours, Days Onset/Duration: Days Severity Initially: Moderate Severity Currently: Moderate Pain Intensity: 8 Pain Scale Used: 0-10 Numeric Timing: Constant Location: Is Discrete @ - left knee pain Character Of Pain: Aching Associated Signs And Symptoms: Positive: Swelling, Knee Pain. Negative: Redness , Bruising, Weakness Aggravating Factor(s): Standing, Ambulation Alleviating Factor(s): Rest Able to Bear Weight: Yes - Risk Factors Gout Risk Factors: Age Over 40, Male DVT Risk Factors: Negative Septic Arthritis Risk Factor: Negative - Allergies/Home Medications Allergies/Adverse Reactions: Allergies Allergy/AdvReac Type Severity Reaction Status Date / Time Penicillins Allergy Unknown Unknown Verified 04/27/18 08:45 Reaction Details PMH/Surg Hx/FS Hx/Imm Hx Previously Healthy: Yes Endocrine/Hematology History: Reports: Hx Anticoagulant Therapy - 325MG PO ASPIRIN DAILY, Hx Diabetes, Other Endocrine/Hematological Disorders - obesity Denies: Hx Blood Disorders, Hx Blood Transfusions, Hx Thyroid Disease, Hx Anemia, Hx Unexplained Bleeding Cardiovascular History: Reports: Hx Angina, Hx Congestive Heart Failure, Hx Coronary Artery Disease, Hx Hypercholesterolemia, Hx Hypertension - does not take meds d/t cost, Hx Myocardial Infarction, Other Cardiovascular Problems/ Disorders - cardiac cath w/ stents Denies: Hx Pacemaker/ICD, Hx Peripheral Vascular Disease, Hx Syncope, Hx Valvular Heart Disease Respiratory History: Reports: Hx Pulmonary Edema, Hx Sleep Apnea, Other Respiratory Problems/Disorders - CURRENT SMOKER Denies: Hx Asthma, Hx Chronic Obstructive Pulmonary Disease (COPD), Hx Pneumonia GI History: Reports: Other GI Disorders - esophegal ulcers History: Reports: Hx Kidney Infection, Other Problems/Disorders - Prostate CA, TURP in 2012 Denies: Hx Renal Disease Musculoskeletal History: Reports: Hx Back Problems, Other Musculoskeletal History - ACL repair L knee Denies: Hx Arthritis, Hx Osteoporosis Sensory History: Denies: Hx Contacts or Glasses, Hx Hearing Aid, Other Sensory Impairments Opthamlomology History: Denies: Hx Contacts or Glasses, Other Sensory Impairments Neurological History: Reports: Hx Migraine, Other Neuro Impairments/Disorders - 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 Denies: Hx Dementia, Hx Headaches, Hx Seizures, Hx Transient Ischemic Attacks (TIA) Psychiatric History: Reports: Hx Anxiety, Hx Depression, Hx Community Mental Health Tx, Other Psychiatric Issues/Disorders Denies: Hx Eating Disorder, Hx Panic Disorder, Hx of Violent Episodes Against Others, Hx Substance Abuse - Cancer History Cancer Type, Location and Year: prostate cancer Hx Chemotherapy: No Hx Radiation Therapy: No Hx Palliative Cancer Treatment: No - Surgical History Surgery Procedure, Year, and Place: caridac stents x3 PREV [place], ACL repair, MASTOID AND TUBES IN EARS(SEE CARD FROM 2012 STUDY [facility]) Hx Anesthesia Reactions: No - Immunization History Date of Tetanus Vaccine: Unknown Date of Influenza Vaccine: 2013 Hx Pertussis Vaccination: No Immunizations Up to Date: Yes Infectious Disease History: No Infectious Disease History: Denies: Hx Hepatitis, Hx Human Immunodeficiency Virus (HIV), Hx Shingles, Hx Tuberculosis, Traveled Outside the [place] in Last 30 Days - Family History Known Family History: Positive: Unknown - PT WAS ADOPTED - Social History Occupation: Unemployed Lives: Alone Alcohol Use: Rare Alcohol Amount: 2-3 drinks/day Hx Substance Use: Yes Substance Use Type: Reports: Prescribed Substance Use Comment - Amount & Last Used: p[t reports last use of cocaine and marijuana was several months ago Hx Tobacco Use: Yes Smoking Status (MU): Current Every Day Smoker Type: Cigarettes Amount Used/How Often: 1 pack/day Length of Time of Smoking/Using Tobacco: 42 years Have You Smoked in the Last Year: Yes Review of Systems Negative: Fever, Chills, Skin Diaphoresis Negative: Palpitations, Chest Pain Negative: Shortness Of Breath, Cough Genitourinary: Negative Positive: no symptoms reported, see HPI Positive: Arthralgia - left knee pain Negative: Rash, Bruising Neurological: Negative All Other Systems Reviewed And Are Negative: Yes Physical Exam Triage Information Reviewed: Yes Vital Signs On Initial Exam: Initial Vitals Temp Pulse Resp BP Pulse Ox 97.7 F 86 16 202/98 99 04/27/18 08:41 04/27/18 08:41 04/27/18 08:41 04/27/18 08:41 04/27/18 08:41 Vital Signs Reviewed: Yes Appearance: Positive: Well-Appearing, Well-Nourished Skin: Positive: Warm, Skin Color Reflects Adequate Perfusion, Other - No erythema or ecchymosis is noted Head/Face: Positive: Normal Head/Face Inspection Eyes: Positive: EOMI, KAY, Conjunctiva Clear Neck: Positive: Supple, No Lymphadenopathy Respiratory/Lung Sounds: Positive: Clear to Auscultation, Breath Sounds Present Cardiovascular: Positive: RRR, Pulses are Symmetrical in both Upper and Lower Extremities Musculoskeletal: Positive: Pain @ - left knee pain; able to flex and extend but with a mild amount of pain. Neurological: Positive: Speech Normal Psychiatric: Positive: Normal, Affect/Mood Appropriate AVPU Assessment: Alert Diagnostics - Vital Signs Vital Signs Temp Pulse Resp BP Pulse Ox 04/27/18 09:41 97.7 F 86 16 168/90 99 04/27/18 08:41 97.7 F 86 16 202/98 99 - Laboratory Lab Statement: Any lab studies that have been ordered have been reviewed, and results considered in the medical decision making process. Lower Extremity Course/Dx - Course Course Of Treatment: Patient is evaluated for left knee pain and effusion. On physical examination, there is swelling noted to the left suprapatellar region of the knee which is mild to moderate. No ecchymosis, erythema or warmth to the area. No streaking. No pain to the hip or to the ankle. Patient remains ambulatory. He has been taking ibuprofen with mild relief. X-ray not obtained as there was no trauma and likely nothing will show on x-ray except for a suprapatellar effusion. Due to mild to moderate amount of effusion, joint aspiration did not appear to be necessary at this time. He is given orthopedic follow-up, Angelo wrapped and is given a short course of steroids as well as encouraged ibuprofen, ice and rest. He is okay with this plan and discharg and will follow-up with orthopedics if symptoms persist or worsen. - Diagnoses Differential Diagnosis/HQI/PQRI: Positive: Bursitis, Contusion, Gout, Sprain, Strain Provider Diagnoses: Suprapatellar effusion of knee Discharge - Sign-Out/Discharge Documenting (check all that apply): Patient Departure - Discharge Plan Condition: Stable Disposition: HOME Prescriptions: traMADol TAB* [Ultram*] 50 mg PO Q8H PRN #12 tab MDD 3 PRN Reason: Pain Patient Education Materials: Swollen Knee Joint (ED) Referrals: No Primary Care Phys,NOPCP [Primary Care Provider] - Nabeel Brannon MD [Medical Doctor] - Additional Instructions: Please follow up with orthopedics Keep the knee angelo wrapped Ibuprofen 600mg four times daily x 5 days - do not exceed 5 days Continue with tramadol as needed for discomfort If you develop redness, worsening swelling or fevers - return to the ED - Billing Disposition and Condition Condition: STABLE Disposition: Home
== END | disposition home or self-care (01) ==
LOC: ED 08:39
DX: M25.462 Effusion, left knee (principal); M25.562 Pain in left knee; Z88.0 Allergy status to penicillin; F17.210 Nicotine dependence, cigarettes, uncomplicated; Z79.82 Long term (current) use of aspirin; I11.0 Hypertensive heart disease with heart failure; I50.9 Heart failure, unspecified; I25.10 Atherosclerotic heart disease of native coronary artery without angina pectoris; E78.00 Pure hypercholesterolemia, unspecified; J81.1 Chronic pulmonary edema; Z85.46 Personal history of malignant neoplasm of prostate
CPT/HCPCS: 99282

== ENCOUNTER 2018-04-29 15:54 | Emergency (ER) | payer MEDICARE ==
--- NOTE | 2018-04-29 16:41 | ED ---
Lower Extremity - HPI Summary HPI Summary: Patient is a 57 y/o M w/ c/o left knee pain and edema. Pain is reported to have started 4 days ago. He was seen at [facility] two days ago for this issue. Patient reports that pain and edema had resolved after treatment initially but has since returned. He rates the pain 10/10 in the room and characterizes pain as throbbing. Warmness at his left knee is noted as well. Pain radiates down to his left foot. Numbness and tingling are denied. No injury reported. Patient reports has been "walking" and "living on" concrete for the past thirteen days. He has been taking aspirin, ibuprofen and Rx pain killer with no relief. No recent tick bites or going outdoors is reported. On triage, nothing is noted to aggravate/alleviate Sx. Home medications and allergies are reviewed. - History of Current Complaint Chief Complaint: EDExtremityLower Stated Complaint: LT KNEE ISSUE Time Seen by Provider: 04/29/18 16:19 Hx Obtained From: Patient Mechanism Of Injury: Other - denies injury Onset of Pain: Days - 4 days ago Onset/Duration: Days - 4 days ago Severity Currently: Severe - 10/10 Pain Intensity: 10 Pain Scale Used: 0-10 Numeric - 10/10 Timing: Constant, Lasting Days - 4 days Location: Is Discrete @ - left knee Character Of Pain: Throbbing Associated Signs And Symptoms: Positive: Swelling, Knee Pain, Other - POSITIVE: warmness at knee NEGATIVE: numbness/tingling Aggravating Factor(s): Nothing Alleviating Factor(s): Nothing - Allergies/Home Medications Allergies/Adverse Reactions: Allergies Allergy/AdvReac Type Severity Reaction Status Date / Time Penicillins Allergy Unknown Unknown Verified 04/29/18 16:01 Reaction Details PMH/Surg Hx/FS Hx/Imm Hx Endocrine/Hematology History: Reports: Hx Anticoagulant Therapy - 325MG PO ASPIRIN DAILY, Hx Diabetes, Other Endocrine/Hematological Disorders - obesity Denies: Hx Blood Disorders, Hx Blood Transfusions, Hx Thyroid Disease, Hx Anemia, Hx Unexplained Bleeding Cardiovascular History: Reports: Hx Angina, Hx Congestive Heart Failure, Hx Coronary Artery Disease, Hx Hypercholesterolemia, Hx Hypertension - does not take meds d/t cost, Hx Myocardial Infarction, Other Cardiovascular Problems/ Disorders - cardiac cath w/ stents Denies: Hx Pacemaker/ICD, Hx Peripheral Vascular Disease, Hx Syncope, Hx Valvular Heart Disease Respiratory History: Reports: Hx Pulmonary Edema, Hx Sleep Apnea, Other Respiratory Problems/Disorders - CURRENT SMOKER Denies: Hx Asthma, Hx Chronic Obstructive Pulmonary Disease (COPD), Hx Pneumonia GI History: Reports: Other GI Disorders - esophegal ulcers History: Reports: Hx Kidney Infection, Other Problems/Disorders - Prostate CA, TURP in 2012 Denies: Hx Renal Disease Musculoskeletal History: Reports: Hx Back Problems, Other Musculoskeletal History - ACL repair L knee Denies: Hx Arthritis, Hx Osteoporosis Sensory History: Denies: Hx Contacts or Glasses, Other Sensory Impairments Opthamlomology History: Denies: Hx Contacts or Glasses, Other Sensory Impairments Neurological History: Reports: Hx Migraine, Other Neuro Impairments/Disorders - 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 Denies: Hx Dementia, Hx Headaches, Hx Seizures, Hx Transient Ischemic Attacks (TIA) Psychiatric History: Reports: Hx Anxiety, Hx Depression, Hx Community Mental Health Tx, Other Psychiatric Issues/Disorders Denies: Hx Eating Disorder, Hx Panic Disorder, Hx of Violent Episodes Against Others, Hx Substance Abuse - Cancer History Cancer Type, Location and Year: prostate cancer Hx Chemotherapy: No Hx Radiation Therapy: No Hx Palliative Cancer Treatment: No - Surgical History Surgery Procedure, Year, and Place: caridac stents x3 PREV [place], ACL repair, MASTOID AND TUBES IN EARS(SEE CARD FROM 2012 STUDY [facility]) Hx Anesthesia Reactions: No - Immunization History Date of Tetanus Vaccine: Unknown Date of Influenza Vaccine: 2013 Infectious Disease History: No Infectious Disease History: Denies: Hx Hepatitis, Hx Human Immunodeficiency Virus (HIV), Hx Shingles, Hx Tuberculosis, Traveled Outside the [place] in Last 30 Days - Family History Known Family History: Positive: Unknown - PT WAS ADOPTED - Social History Alcohol Use: Rare Alcohol Amount: 2-3 drinks/day Hx Substance Use: Yes Substance Use Type: Reports: Prescribed Substance Use Comment - Amount & Last Used: p[t reports last use of cocaine and marijuana was several months ago Hx Tobacco Use: Yes Smoking Status (MU): Heavy Every Day Tobacco Smoker Type: Cigarettes Amount Used/How Often: 1 pack/day Length of Time of Smoking/Using Tobacco: 42 years Have You Smoked in the Last Year: Yes Review of Systems Positive: Edema - left knee , Other - left knee pain, warmness Neurological: Other - NEGATIVE: tingling Negative: Numbness All Other Systems Reviewed And Are Negative: Yes Physical Exam - Summary Physical Exam Summary: Appearance: Well appearing, no pain distress Skin: warm, dry, reflects adequate perfusion Head/face: normal Eyes: EOMI, KAY ENT: mucous membranes moist Neck: supple, non-tender Respiratory: CTA, breath sounds present Cardiovascular: RRR, pulses symmetrical Abdomen: non-tender, soft Bowel Sounds: present Musculoskeletal: strength/ROM intact; effusion of the left knee; edema at left knee; some warmness at this area is noted Neuro: normal, sensory motor intact, A&Ox3 Triage Information Reviewed: Yes Vital Signs On Initial Exam: Initial Vitals Temp Pulse Resp BP Pulse Ox 97.5 F 86 16 193/92 97 04/29/18 16:01 04/29/18 16:01 04/29/18 16:01 04/29/18 16:01 04/29/18 16:01 Vital Signs Reviewed: Yes Diagnostics - Vital Signs Vital Signs Temp Pulse Resp BP Pulse Ox 04/29/18 16:01 97.5 F 86 16 193/92 97 - Laboratory Lab Statement: Any lab studies that have been ordered have been reviewed, and results considered in the medical decision making process. - Radiology left knee x-ray Xray Interpretation: No Acute Changes Radiology Interpretation Completed By: Radiologist - IMPRESSION: #. Advanced osteoarthritis. Associated joint effusion and loose bodies. #. Postsurgical change of anterior cruciate ligament repair. This report was reviewed by ed physician. Re-Evaluation - Re-Evaluation First Eval Re-Evaluation Time: 17:00 Comment: arthrocentesis of left knee performed; 15 cc of yellow fluid was collected. Second Eval Re-Evaluation Time: 18:50 Comment: Discussed results of labs and tests with patient. He will be discharged to home. Follow up treatment was discussed as well. Lower Extremity Course/Dx - Course Course Of Treatment: Patient with chronic osteoarthritis and postsurgical knee. His effusion was tapped here in the ER and there is no crystal seen in the WBC was only 1555. Gram stain was negative. He was treated as likely flare of osteoarthritis. He is referred to ortho and was placed in an Angelo wrap. He was started on Mobic here. - Diagnoses Differential Diagnosis/HQI/PQRI: Positive: Other - Gout, osteoarthritis, septic arthritis, Lyme arthritis Provider Diagnoses: Effusion, left knee, Osteoarthritis Discharge - Sign-Out/Discharge Documenting (check all that apply): Patient Departure - discharge - Discharge Plan Condition: Stable Disposition: HOME Prescriptions: Meloxicam(NF) [Mobic(NF)] 7.5 mg PO DAILY #30 tab Patient Education Materials: Osteoarthritis (ED) Referrals: Estelita Wyatt MD [Medical Doctor] - Additional Instructions: Angelo wrap, ice, range of motion exercises. Call first thing in the morning to schedule follow-up with orthopedist. Call to follow up with your doctor. Return if worse, fever, new symptoms or other concerns as discussed. - Billing Disposition and Condition Condition: STABLE Disposition: Home - Attestation Statements Document Initiated by Altheaibe: Yes Documenting Scribe: Jarek Ordonez Provider For Whom Filipe is Documenting (Include Credential): Santana Villarreal MD Scribe Attestation: Jarek Rodriguez , scribed for Santana Villarreal MD on 04/30/18 at 0902. Scribe Documentation Reviewed: Yes Provider Attestation: The documentation as recorded by the Jarek breaux accurately reflects the service I personally performed and the decisions made by me, Santana Villarreal MD
[2018-04-29] MEDS ORDERED: Bupivacaine 0.5% SDV PF* 30ML VIAL INJ ONE (16:54)
[2018-04-29] MEDS ORDERED: Bupivacaine 0.5% W/EPI SDV* 30 ML VIAL ONE (16:56)
--- NOTE | 2018-04-29 17:01 | RAD ---
Indication: LEFT knee pain, swelling, limited range of motion. Comparison: No relevant prior exams available on the [facility] PACS for comparison. Technique: LEFT knee: AP, crosstable lateral views. Report: Postsurgical change of anterior cruciate ligament repair. Osteoarthritis with severe medial joint compartment joint space loss. There is also significant osteoarthritis at the lateral joint compartment and patellofemoral joint. Joint effusion with osseous loose bodies at the superior joint recess. Larger loose body at the posterior joint recess. Negative for fracture or malalignment. Unremarkable soft tissue contours. IMPRESSION: #. Advanced osteoarthritis. Associated joint effusion and loose bodies. #. Postsurgical change of anterior cruciate ligament repair.
[2018-04-29] MEDS ORDERED: CMCS:Meloxicam(NF) 7.5 MG TAB PO SCH (18:00)
[2018-04-29 19:04] VITALS: BP 172/84
[2018-05-01 23:56] LABS: Lyme Disease Source SYNOVIAL
== END 2018-04-29 19:03 | disposition home or self-care (01) ==
LOC: ED 15:54
DX: M25.462 Effusion, left knee (principal); M19.90 Unspecified osteoarthritis, unspecified site; M25.562 Pain in left knee; R60.9 Edema, unspecified; Z79.01 Long term (current) use of anticoagulants; F17.210 Nicotine dependence, cigarettes, uncomplicated
CPT/HCPCS: 36415; 87070; 87205; 87476; 87640; 87641; 87798; 89051; 89060; 96374; 99282

== ENCOUNTER 2018-05-12 15:43 | Emergency (ER) | payer MEDICARE ==
[2018-05-12] MEDS ORDERED: oxyCODONE/Acetamin 5/325 MG* TAB PO ONE (16:07)
[2018-05-12] MEDS ORDERED: Triamcinolone Acetonide* 40 MG/ML 1 ML VIAL INTRAARTIC ONE (16:07)
--- NOTE | 2018-05-12 16:39 | ED ---
Lower Extremity - HPI Summary HPI Summary: Pt is 57 y/o M who presents to ED c/o chronic left knee pain which returned 4 days ago. He has seen orthopedic surgeon, Dr. Wyatt, and will be having a knee replacement in the future. Pt has been taking aspirin and ibuprofen for pain management, but the pain has become too severe, which led him to come to the ED. Rates his pain 5/10 in severity at triage. Denies fever. PMHx of osteoarthritis. - History of Current Complaint Chief Complaint: EDExtremityLower Stated Complaint: LT KNEE PAIN Time Seen by Provider: 05/12/18 16:01 Hx Obtained From: Patient Mechanism Of Injury: Other - Chronic osteoarthritis Onset/Duration: Days Severity Currently: Moderate Pain Intensity: 5 Pain Scale Used: 0-10 Numeric Location: Is Discrete @ - left knee Associated Signs And Symptoms: Negative: Fever Alleviating Factor(s): Nothing - Allergies/Home Medications Allergies/Adverse Reactions: Allergies Allergy/AdvReac Type Severity Reaction Status Date / Time Penicillins Allergy Unknown Unknown Verified 04/29/18 16:01 Reaction Details PMH/Surg Hx/FS Hx/Imm Hx Endocrine/Hematology History: Reports: Hx Anticoagulant Therapy - 325MG PO ASPIRIN DAILY, Hx Diabetes, Other Endocrine/Hematological Disorders - obesity Denies: Hx Blood Disorders, Hx Blood Transfusions, Hx Thyroid Disease, Hx Anemia, Hx Unexplained Bleeding Cardiovascular History: Reports: Hx Angina, Hx Congestive Heart Failure, Hx Coronary Artery Disease, Hx Hypercholesterolemia, Hx Hypertension - does not take meds d/t cost, Hx Myocardial Infarction, Other Cardiovascular Problems/ Disorders - cardiac cath w/ stents Denies: Hx Pacemaker/ICD, Hx Peripheral Vascular Disease, Hx Syncope, Hx Valvular Heart Disease Respiratory History: Reports: Hx Pulmonary Edema, Hx Sleep Apnea, Other Respiratory Problems/Disorders - CURRENT SMOKER Denies: Hx Asthma, Hx Chronic Obstructive Pulmonary Disease (COPD), Hx Pneumonia GI History: Reports: Other GI Disorders - esophegal ulcers History: Reports: Hx Kidney Infection, Other Problems/Disorders - Prostate CA, TURP in 2011 Denies: Hx Renal Disease Musculoskeletal History: Reports: Hx Back Problems, Other Musculoskeletal History - ACL repair L knee Denies: Hx Arthritis, Hx Osteoporosis Sensory History: Denies: Hx Contacts or Glasses, Other Sensory Impairments Opthamlomology History: Denies: Hx Contacts or Glasses, Other Sensory Impairments Neurological History: Reports: Hx Migraine, Other Neuro Impairments/Disorders - 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 Denies: Hx Dementia, Hx Headaches, Hx Seizures, Hx Transient Ischemic Attacks (TIA) Psychiatric History: Reports: Hx Anxiety, Hx Depression, Hx Community Mental Health Tx, Other Psychiatric Issues/Disorders Denies: Hx Eating Disorder, Hx Panic Disorder, Hx of Violent Episodes Against Others, Hx Substance Abuse - Cancer History Cancer Type, Location and Year: prostate cancer Hx Chemotherapy: No Hx Radiation Therapy: No Hx Palliative Cancer Treatment: No - Surgical History Surgery Procedure, Year, and Place: caridac stents x3 PREV [place], ACL repair, MASTOID AND TUBES IN EARS(SEE CARD FROM 2012 STUDY [facility]) Hx Anesthesia Reactions: No - Immunization History Date of Tetanus Vaccine: Unknown Date of Influenza Vaccine: 2013 Infectious Disease History: No Infectious Disease History: Denies: Hx Hepatitis, Hx Human Immunodeficiency Virus (HIV), Hx Shingles, Hx Tuberculosis, Traveled Outside the [place] in Last 30 Days - Family History Known Family History: Positive: Unknown - PT WAS ADOPTED - Social History Alcohol Use: Rare Alcohol Amount: 2-3 drinks/day Hx Substance Use: Yes Substance Use Type: Reports: Prescribed Substance Use Comment - Amount & Last Used: p[t reports last use of cocaine and marijuana was several months ago Hx Tobacco Use: Yes Smoking Status (MU): Heavy Every Day Tobacco Smoker Type: Cigarettes Amount Used/How Often: 1 pack/day Length of Time of Smoking/Using Tobacco: 42 years Have You Smoked in the Last Year: Yes Review of Systems Negative: Fever Positive: Arthralgia - left knee All Other Systems Reviewed And Are Negative: Yes Physical Exam - Summary Physical Exam Summary: Appearance: Well appearing, no pain distress Skin: warm, dry, reflects adequate perfusion Head/face: normal Eyes: EOMI, KAY ENT: mucous membranes moist Neck: supple, non-tender Respiratory: occasional wheeze in chest, breath sounds present Cardiovascular: RRR, pulses symmetrical Abdomen: non-tender, soft Bowel Sounds: present Musculoskeletal: normal, strength/ROM intact Neuro: normal, sensory motor intact, A&Ox3 Triage Information Reviewed: Yes Vital Signs On Initial Exam: Initial Vitals Temp Pulse Resp BP Pulse Ox 97.5 F 83 17 215/89 98 05/12/18 15:45 05/12/18 15:45 05/12/18 15:45 05/12/18 15:45 05/12/18 15:45 Vital Signs Reviewed: Yes Procedures - Procedure Summary Procedure Summary: Left knee injection Reason: Pain, chronic osteoarthritis Description: The patient was verbally consented. He has not had any steroids in the past. The left lateral knee was cleansed extensively with alcohol. A single puncture was used to enter the that synovial space and a total of 40 mg of Kenalog was injected along with 1 cc of 2% lidocaine. This provided quick relief. He tolerated this well without complication. The knee was wrapped with an Angelo wrap. Diagnostics - Vital Signs Vital Signs Temp Pulse Resp BP Pulse Ox 05/12/18 15:45 97.5 F 83 17 215/89 98 - Laboratory Lab Statement: Any lab studies that have been ordered have been reviewed, and results considered in the medical decision making process. Lower Extremity Course/Dx - Course Course Of Treatment: Chronic osteoarthritis last seen by me with a joint tap being done. This was not consistent for sepsis or gouty arthritis. He is due to have his left knee replaced shortly by Dr. Wyatt. The knee was injected with Kenalog here and he will be placed on Celebrex. - Diagnoses Provider Diagnoses: Chronic knee pain, Osteoarthritis Discharge - Sign-Out/Discharge Documenting (check all that apply): Patient Departure - Discharge - Discharge Plan Condition: Improved Disposition: HOME Prescriptions: celeCOXIB CAP* [CeleBREX CAP*] 200 mg PO DAILY #30 cap Patient Education Materials: Osteoarthritis (ED) Referrals: Estelita Wyatt MD [Medical Doctor] - Additional Instructions: Ice, elevate, Angelo wrap for comfort. Follow-up with orthopedist as scheduled. Return if worse, new symptoms or other concerns. - Billing Disposition and Condition Condition: IMPROVED Disposition: Home - Attestation Statements Document Initiated by Scribe: Yes Documenting Scribe: Martir Hernandez Provider For Whom Altheaibkandis is Documenting (Include Credential): Dr. Santana Villarreal MD Scribe Attestation: Martir Rodriguez scribed for Dr. Santana Villarreal MD on 05/12/18 at 1740. Scribe Documentation Reviewed: Yes Provider Attestation: The documentation as recorded by the scribMartir marquis accurately reflects the service I personally performed and the decisions made by me, Dr. Santana Villarreal MD
[2018-05-12 17:28] VITALS: BP 203/90
== END 2018-05-12 17:15 | disposition home or self-care (01) ==
LOC: ED 15:43
DX: M25.562 Pain in left knee (principal); M17.12 Unilateral primary osteoarthritis, left knee; Z88.0 Allergy status to penicillin; Z79.82 Long term (current) use of aspirin; Z95.5 Presence of coronary angioplasty implant and graft; F17.210 Nicotine dependence, cigarettes, uncomplicated
CPT/HCPCS: 99282; A9270-GY; J3301

== ENCOUNTER 2018-07-27 11:09 | Emergency (ER) | payer MEDICARE ==
--- NOTE | 2018-07-27 11:57 | ED ---
Throat Pain/Nasal Congestion - HPI Summary HPI Summary: Patient is a 57 y/o M presenting to ED with complaints of right ear infection advancing to sinus infection over the past month. He reports dizziness as well. Fevers are denied. Patient reports he is scheduled for cardiac bypass with [employer]. He claims that he does not have PCP despite having multiple health complications. On triage, pain is rated 4/10, nothing is noted to aggravate/alleviate Sx. Home medications, allergies, and nurses note reviewed. - History of Current Complaint Chief Complaint: EDEarPain Time Seen by Provider: 07/27/18 11:39 Hx Obtained From: Patient Onset/Duration: Lasting Weeks, Still Present Severity: Moderate - 4/10 Associated Signs And Symptoms: Positive: Sinus Discomfort Cough: None - Allergies/Home Medications Allergies/Adverse Reactions: Allergies Allergy/AdvReac Type Severity Reaction Status Date / Time Penicillins Allergy Unknown Unknown Verified 07/27/18 11:57 Reaction Details PMH/Surg Hx/FS Hx/Imm Hx Endocrine/Hematology History: Reports: Hx Anticoagulant Therapy - 325MG PO ASPIRIN DAILY, Hx Diabetes, Other Endocrine/Hematological Disorders - obesity Denies: Hx Blood Disorders, Hx Blood Transfusions, Hx Thyroid Disease, Hx Anemia, Hx Unexplained Bleeding Cardiovascular History: Reports: Hx Angina, Hx Congestive Heart Failure, Hx Coronary Artery Disease, Hx Hypercholesterolemia, Hx Hypertension - does not take meds d/t cost, Hx Myocardial Infarction, Other Cardiovascular Problems/ Disorders - cardiac cath w/ stents Denies: Hx Pacemaker/ICD, Hx Peripheral Vascular Disease, Hx Syncope, Hx Valvular Heart Disease Respiratory History: Reports: Hx Pulmonary Edema, Hx Sleep Apnea, Other Respiratory Problems/Disorders - CURRENT SMOKER Denies: Hx Asthma, Hx Chronic Obstructive Pulmonary Disease (COPD), Hx Pneumonia GI History: Reports: Other GI Disorders - esophegal ulcers History: Reports: Hx Kidney Infection, Other Problems/Disorders - Prostate CA, TURP in 2011 Denies: Hx Renal Disease Musculoskeletal History: Reports: Hx Back Problems, Other Musculoskeletal History - ACL repair L knee Denies: Hx Arthritis, Hx Osteoporosis Sensory History: Denies: Hx Contacts or Glasses, Other Sensory Impairments Opthamlomology History: Denies: Hx Contacts or Glasses, Other Sensory Impairments Neurological History: Reports: Hx Migraine, Other Neuro Impairments/Disorders - 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 Denies: Hx Dementia, Hx Headaches, Hx Seizures, Hx Transient Ischemic Attacks (TIA) Psychiatric History: Reports: Hx Anxiety, Hx Depression, Hx Community Mental Health Tx, Other Psychiatric Issues/Disorders Denies: Hx Eating Disorder, Hx Panic Disorder, Hx of Violent Episodes Against Others, Hx Substance Abuse - Cancer History Cancer Type, Location and Year: prostate cancer Hx Chemotherapy: No Hx Radiation Therapy: No Hx Palliative Cancer Treatment: No - Surgical History Surgery Procedure, Year, and Place: caridac stents x3 PREV [place], ACL repair, MASTOID AND TUBES IN EARS(SEE CARD FROM 2012 STUDY [facility]) Hx Anesthesia Reactions: No - Immunization History Date of Tetanus Vaccine: Unknown Date of Influenza Vaccine: 2013 Infectious Disease History: No Infectious Disease History: Denies: Hx Hepatitis, Hx Human Immunodeficiency Virus (HIV), Hx Shingles, Hx Tuberculosis, Traveled Outside the [place] in Last 30 Days - Family History Known Family History: Positive: Unknown - PT WAS ADOPTED - Social History Alcohol Use: Rare Alcohol Amount: 2-3 drinks/day Hx Substance Use: Yes Substance Use Type: Reports: Prescribed Substance Use Comment - Amount & Last Used: p[t reports last use of cocaine and marijuana was several months ago Hx Tobacco Use: Yes Smoking Status (MU): Heavy Every Day Tobacco Smoker Type: Cigarettes Amount Used/How Often: 1 pack/day Length of Time of Smoking/Using Tobacco: 42 years Have You Smoked in the Last Year: Yes Review of Systems Negative: Fever ENT: Other - POSITIVE - SINUS DISCOMFORT Positive: Ear Ache Neurological: Other - POSITIVE - DIZZINESS All Other Systems Reviewed And Are Negative: Yes Physical Exam - Summary Physical Exam Summary: Appearance: Well appearing, no pain distress Skin: warm, dry, reflects adequate perfusion Head/face: normal Eyes: EOMI, KAY ENT: mucous membranes moist; scarring on TMs bilaterally, serous effusions, otherwise normal. Neck: supple, non-tender Respiratory: CTA, breath sounds present Cardiovascular: RRR, pulses symmetrical Abdomen: non-tender, soft Bowel Sounds: present Musculoskeletal: normal, strength/ROM intact Neuro: normal, sensory motor intact, A&Ox3 Triage Information Reviewed: Yes Vital Signs On Initial Exam: Initial Vitals Temp Pulse Resp BP Pulse Ox 97.9 F 73 15 204/100 100 07/27/18 11:10 07/27/18 11:10 07/27/18 11:10 07/27/18 11:10 07/27/18 11:10 Vital Signs Reviewed: Yes Diagnostics - Vital Signs Vital Signs Temp Pulse Resp BP Pulse Ox 07/27/18 11:10 97.9 F 73 15 204/100 100 - Laboratory Lab Statement: Any lab studies that have been ordered have been reviewed, and results considered in the medical decision making process. EENT Course/Dx - Course Course Of Treatment: Nurse's notes reviewed. Patient is well-known to us. Prescribed antibiotics and will have him follow-up with [facility]. - Differential Diagnoses Differential Diagnoses: Other - Otitis media, otitis externa, malignant otitis externa, serous otitis - Diagnoses Provider Diagnoses: Otitis media, chronic serous Discharge - Sign-Out/Discharge Documenting (check all that apply): Patient Departure - discharge - Discharge Plan Condition: Improved Disposition: HOME Prescriptions: Azithromyxin SACHA (NF) [Z-Sacha (Zithromax) 250 mg tabs #6] 2 tab PO .TODAY, THEN 1 DAILY #6 tab Guaifenesin/Pseudo 600/60(NF) [Mucinex D 600/60 (NF)] 1 tab PO BID #10 tab Patient Education Materials: Serous Otitis Media (ED) Referrals: [facility] [Outside] [facility] [Outside] No Primary Care Phys,NOPCP [Primary Care Provider] - Additional Instructions: Call the [facility] today for prompt follow-up. Primary care referral has been given to you. If you do still have a primary care follow-up with them. Return if worse, fever, new symptoms or other concerns. - Billing Disposition and Condition Condition: IMPROVED Disposition: Home - Attestation Statements Document Initiated by Filipe: Yes Documenting Scribe: MT MOHAN Provider For Whom Filipe is Documenting (Include Credential): EDGARD JOHNSON MD Scribe Attestation: IMT , scribed for EDGARD JOHNSON MD on 07/27/18 at 1308. Scribe Documentation Reviewed: Yes Provider Attestation: The documentation as recorded by the MT breaux accurately reflects the service I personally performed and the decisions made by me, EDGARD JOHNSON MD Status of Scribe Document: Viewed
[2018-07-27 12:08] VITALS: BP 165/89
== END 2018-07-27 12:07 | disposition home or self-care (01) ==
LOC: ED 11:09
DX: H66.91 Otitis media, unspecified, right ear (principal); H65.20 Chronic serous otitis media, unspecified ear
CPT/HCPCS: 99282

== ENCOUNTER 2019-01-05 15:45 | Inpatient (IN) | payer MEDICARE ==
[2019-01-05 16:11] LABS: ABS Basophils 0.1 10^3/ul (0-0.2); ABS Eosinophils 0.2 10^3/ul (0-0.6); ABS Lymphocytes 2.9 10^3/ul (1.0-4.8); ABS Monocytes 0.7 10^3/ul (0-0.8); ABS Neutrophils 5.5 10^3/ul (1.5-7.7); Eosinophil % 2.2 %; Hematocrit 46 % (42-52); Hemoglobin 15.7 g/dL (14.0-18.0); Lymphocyte % 30.7 %; Mean Corpuscular HGB Conc 34 g/dL (31-36); Mean Corpuscular Hemoglobin 31 pg (27-31); Mean Corpuscular Volume 92 fL (80-94); Mean Platelet Volume 7.4 fL (7.4-10.4); Nucleated Red Blood Cells % 0.1; Platelet Count 329 10^3/uL (150-450); Red Blood Count 5.04 10^6 /uL (4.18-5.48); Red Cell Distribution Width 13 % (10-15); White Blood Count 9.4 10^3/uL (3.5-10.8)
[2019-01-05 16:17] LABS: INR 0.97 (0.82-1.09)
[2019-01-05] MEDS ORDERED: Aspirin 81 mg CHEW TAB* 81 MG TAB.CHEW PO ONE (16:21)
[2019-01-05 16:26] LABS: ALT 26 U/L (7-52); AST 34 U/L (13-39); Albumin 3.9 g/dL (3.2-5.2); Albumin/Globulin Ratio 1.1 (1-3); Alkaline Phosphatase 85 U/L (34-104); Anion Gap 7 mmol/L (2-11); BUN/Creatinine Ratio 15.7 (8-20); Blood Urea Nitrogen 16 mg/dL (6-24); CO2 Carbon Dioxide 24 mmol/L (22-32); Calcium 9.1 mg/dL (8.6-10.3); Chloride 105 mmol/L (101-111); EGFR African American 90.8 (>60); Globulin 3.5 g/dL (2-4); Glucose 316 mg/dL (70-100); Potassium 3.9 mmol/L (3.5-5.0); Sodium 136 mmol/L (135-145); Total Protein 7.4 g/dL (6.4-8.9)
[2019-01-05] MEDS ORDERED: Albuterol/Ipratropium NEB.SOL* Albuterol 2.5 MG/Ipratropium 0.5 MG 3 ML INH ONE (16:27)
[2019-01-05] MEDS ORDERED: methylPREDNISolone 125 MG* 2 ML VIAL IV ONE (16:27)
[2019-01-05 16:28] LABS: Troponin I 0.01 ng/mL (<0.04)
--- NOTE | 2019-01-05 16:28 | ED ---
HPI Chest Pain - HPI Summary HPI Summary: The patient is a 58 y/o M presenting to [facility] with a chief complaint of sudden onset diffuse CP, generalized weakness, and intermittent episodes of numbness of the lower extremities starting 3 days ago. His symptoms additionally include SOB and occasional cough. He denies fever. His current pain is rated 8/10 in severity. Hx of DM, CHF, CAD, HLD, HTN, SD, PE, kidney infection, back problems , migraines. Current smoker, rare EtOH, occasional substance use. - History of Current Complaint Chief Complaint: EDChestPainROMI Time Seen by Provider: 01/05/19 16:20 Hx Obtained From: Patient Onset/Duration: Started Days Ago - three, Still Present Timing: Intermittent Initial Severity: Moderate Current Severity: Severe Pain Intensity: 8 Pain Scale Used: 0-10 Numeric Chest Pain Location: Diffuse Chest Pain Radiates: No Character: Heaviness Aggravating Factor(s): Nothing Alleviating Factor(s): Nothing Associated Signs and Symptoms: Positive: Chest Pain, Numbness - BLE, Weakness - generalized, Shortness of Breath. Negative: Fever - Additional Pertinent History Primary Care Physician: [id number] - Allergy/Home Medications Allergies/Adverse Reactions: Allergies Allergy/AdvReac Type Severity Reaction Status Date / Time Penicillins Allergy Unknown Unknown Verified 01/05/19 15:54 Reaction Details PMH/Surg Hx/FS Hx/Imm Hx Endocrine/Hematology History: Reports: Hx Anticoagulant Therapy - 325MG PO ASPIRIN DAILY, Hx Diabetes, Other Endocrine/Hematological Disorders - obesity Denies: Hx Blood Disorders, Hx Blood Transfusions, Hx Thyroid Disease, Hx Anemia, Hx Unexplained Bleeding Cardiovascular History: Reports: Hx Angina, Hx Congestive Heart Failure, Hx Coronary Artery Disease, Hx Hypercholesterolemia, Hx Hypertension - does not take meds d/t cost, Hx Myocardial Infarction, Other Cardiovascular Problems/ Disorders - cardiac cath w/ stents Denies: Hx Pacemaker/ICD, Hx Peripheral Vascular Disease, Hx Syncope, Hx Valvular Heart Disease Respiratory History: Reports: Hx Pulmonary Edema, Hx Sleep Apnea, Other Respiratory Problems/Disorders - CURRENT SMOKER Denies: Hx Asthma, Hx Chronic Obstructive Pulmonary Disease (COPD), Hx Pneumonia GI History: Reports: Other GI Disorders - esophegal ulcers History: Reports: Hx Kidney Infection, Other Problems/Disorders - Prostate CA, TURP in 2011 Denies: Hx Renal Disease Musculoskeletal History: Reports: Hx Back Problems, Other Musculoskeletal History - ACL repair L knee Denies: Hx Arthritis, Hx Osteoporosis Sensory History: Denies: Hx Contacts or Glasses, Other Sensory Impairments Opthamlomology History: Denies: Hx Contacts or Glasses, Other Sensory Impairments Neurological History: Reports: Hx Migraine, Other Neuro Impairments/Disorders - 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 Denies: Hx Dementia, Hx Headaches, Hx Seizures, Hx Transient Ischemic Attacks (TIA) Psychiatric History: Reports: Hx Anxiety, Hx Depression, Hx Community Mental Health Tx, Other Psychiatric Issues/Disorders Denies: Hx Eating Disorder, Hx Panic Disorder, Hx of Violent Episodes Against Others, Hx Substance Abuse - Cancer History Cancer Type, Location and Year: prostate cancer Hx Chemotherapy: No Hx Radiation Therapy: No Hx Palliative Cancer Treatment: No - Surgical History Surgery Procedure, Year, and Place: caridac stents x3 PREV [place], ACL repair, MASTOID AND TUBES IN EARS(SEE CARD FROM 2012 STUDY [facility]) Hx Anesthesia Reactions: No - Immunization History Date of Tetanus Vaccine: Unknown Date of Influenza Vaccine: 2013 Infectious Disease History: No Infectious Disease History: Denies: Hx Hepatitis, Hx Human Immunodeficiency Virus (HIV), Hx Shingles, Hx Tuberculosis, Traveled Outside the [place] in Last 30 Days - Family History Known Family History: Positive: Unknown - PT WAS ADOPTED - Social History Alcohol Use: Rare Alcohol Amount: 2-3 drinks/day Hx Substance Use: Yes Substance Use Type: Reports: Prescribed Substance Use Comment - Amount & Last Used: p[t reports last use of cocaine and marijuana was several months ago Hx Tobacco Use: Yes Smoking Status (MU): Heavy Every Day Tobacco Smoker Type: Cigarettes Amount Used/How Often: 1 pack/day Length of Time of Smoking/Using Tobacco: 42 years Have You Smoked in the Last Year: Yes Review of Systems Negative: Fever Positive: Chest Pain Positive: Shortness Of Breath, Cough Positive: Weakness - generalized, Numbness - from waist down All Other Systems Reviewed And Are Negative: Yes Physical Exam - Summary Physical Exam Summary: VITAL SIGNS: Reviewed. GENERAL: Patient is a well-developed and nourished male who is lying comfortable in the stretcher but appears to be tired and fatigued. Patient is not in any acute respiratory distress. HEAD AND FACE: No signs of trauma. No ecchymosis, hematomas or skull depressions. No sinus tenderness. EYES: PERRLA, EOMI x 2, No injected conjunctiva, no nystagmus. No photophobia. EARS: Hearing grossly intact. Ear canals and tympanic membranes are within normal limits. MOUTH: Dry oral mucosa but oropharynx is otherwise within normal limits. NECK: Supple, trachea is midline, no adenopathy, no JVD, no carotid bruit, no c- spine tenderness, neck with full ROM. No meningeal signs, no Kernig's or brudzinskis signs. CHEST: Symmetric, no tenderness at palpation LUNGS: Bilateral crackles and wheezing. CVS: Regular rate and rhythm, S1 and S2 present, no murmurs or gallops appreciated. ABDOMEN: Soft, non-tender. No signs of distention. No rebound no guarding, and no masses palpated. Bowel sounds are normal. EXTREMITIES: FROM in all major joints, no edema, no cyanosis or clubbing. NEURO: Alert and oriented x 3. Diffuse weakness Speech is normal and follows commands. SKIN: Dry and warm. GCS: 15. Triage Information Reviewed: Yes Vital Signs On Initial Exam: Initial Vitals Temp Pulse Resp BP Pulse Ox 98.2 F 98 20 217/109 95 01/05/19 15:51 01/05/19 15:51 01/05/19 15:51 01/05/19 15:51 01/05/19 15:51 Vital Signs Reviewed: Yes - Bora Coma Scale Best Eye Response: 4 - Spontaneous Best Motor Response: 6 - Obeys Commands Best Verbal Response: 5 - Oriented Coma Scale Total: 15 Diagnostics - Vital Signs Vital Signs Temp Pulse Resp BP Pulse Ox 01/05/19 15:51 98.2 F 98 20 217/109 95 - Laboratory Lab Results: Lab Results 01/05/19 01/05/19 Range/Units 15:59 15:59 WBC 9.4 (3.5-10.8) 10^3/uL RBC 5.04 (4.18-5.48) 10^6 /uL Hgb 15.7 (14.0-18.0) g/dL Hct 46 (42-52) % MCV 92 (80-94) fL MCH 31 (27-31) pg MCHC 34 (31-36) g/dL RDW 13 (10-15) % Plt Count 329 (150-450) 10^3/uL MPV 7.4 (7.4-10.4) fL Neut % (Auto) 58.2 % Lymph % (Auto) 30.7 % [place] % (Auto) 7.7 % Eos % (Auto) 2.2 % Baso % (Auto) 1.2 % Absolute Neuts (auto) 5.5 (1.5-7.7) 10^3/ul Absolute Lymphs (auto) 2.9 (1.0-4.8) 10^3/ul Absolute Monos (auto) 0.7 (0-0.8) 10^3/ul Absolute Eos (auto) 0.2 (0-0.6) 10^3/ul Absolute Basos (auto) 0.1 (0-0.2) 10^3/ul Absolute Nucleated RBC 0.0 10^3/ul Nucleated RBC % 0.1 INR (Anticoag Therapy) 0.97 (0.82-1.09) Result Diagrams: 01/06/19 07:08 01/06/19 07:08 Lab Statement: Any lab studies that have been ordered have been reviewed, and results considered in the medical decision making process. - Radiology CXR Radiology Interpretation Completed By: Radiologist Summary of Radiographic Findings: Hyperinflation, consistent with COPD. No active cardiopulmonary disease. ED physician has reviewed this radiology report. - CT Brain CT CT Interpretation Completed By: Radiologist Summary of CT Findings: No acute intracranial pathology. Chronic small vessel ischemic change. ED physician has reviewed this radiology report. - EKG 1550 Cardiac Rate: NL - 92 BPM EKG Rhythm: Sinus Rhythm EKG Comparison: No Significant Change - Similar to previous EKG taken on 2018. Summary of EKG Findings: No ST elevations. Re-Evaluation - Re-Evaluation First Eval Re-Evaluation Time: 17:30 Comment: The patient's CP has increased. We will administer more medication. Third Eval Re-Evaluation Time: 18:00 Comment: I discussed the results with the patient and admission to [facility] [place]. Chest Pain Course/Dx - Course Assessment/Plan: The patient is a 58 y/o M presenting to [facility] with a chief complaint of sudden onset diffuse CP, generalized weakness, and intermittent episodes of numbness of the lower extremities starting 3 days ago. His symptoms additionally include SOB and occasional cough. He denies fever. His current pain is rated 8/10 in severity. Hx of DM, CHF, CAD, HLD, HTN, SD, PE, kidney infection, back problems, migraines. Current smoker, rare EtOH, occasional substance use. Blood test results without any significant abnormalities except for glucose of 216. Troponin of 0.00. EKG is a normal sinus rhythm without any ST elevations similar to previous EKG done on 09/11. Chest x-ray impression: Hyperinflation, consistent with COPD. No active cardiopulmonary disease. Head CT impression: No acute interconnected pathology. Chronic small vessel ischemic changes. In the ED course, the patient was given DuoNeb and Solu-Medrol since the patient has difficult wheezing. Patient also was given labetalol since the blood pressure was increased to 220/119. The patient continues to have chest pain, therefore, the patient was given nitroglycerin and he already had aspirin. Because the blood pressure was still elevated, I ordered hydralazine. I discussed my physical exam findings and test results with Dr. Lyn from the hospitalist services, and he agrees to admit patient to his services. Patient is hemodynamically stable alert and oriented x 3. - Diagnoses Provider Diagnoses: Hypertensive urgency, Chest pain - Provider Notifications Discussed Care Of Patient With: Jose Lyn - hospitalist Time Discussed With Above Provider: 17:48 Instructed by Provider To: Other - I discussed the patient's case with Dr. Lyn , and he accepts the patient for admission. - Critical Care Time Critical Care Time: 30-74 min Discharge - Sign-Out/Discharge Documenting (check all that apply): Patient Departure - Patient is accepted for admission by Dr. Lyn. Patient Received Moderate/Deep Sedation with Procedure: No - Discharge Plan Condition: Stable Disposition: ADMITTED TO [facility] - Billing Disposition and Condition Condition: STABLE Disposition: Admitted to [facility] - Attestation Statements Document Initiated by Scribe: Yes Documenting Scribe: Jackie Poole Provider For Whom Filipe is Documenting (Include Credential): Dr. Jd Casey MD Scribe Attestation: Jackie Rodriguez, scribed for Dr. Jd Casey MD on 01/06/19 at 1756. Scribe Documentation Reviewed: Yes Provider Attestation: The documentation as recorded by the Jackie breaux accurately reflects the service I personally performed and the decisions made by me, Dr. Jd Casey MD Status of Scribe Document: Viewed
[2019-01-05] MEDS ORDERED: Labetalol IV* 5 MG/ML 20 ML VIAL IV PUSH ONE (16:35)
[2019-01-05 16:40] LABS: C Reactive Protein < 1.00 mg/L (<8.01)
[2019-01-05 16:45] LABS: CKMB ng/mL 1.9 ng/mL (0.6-6.3)
[2019-01-05 16:59] LABS: TSH (Thyroid Stimulating Horm) 2.57 mcIU/mL (0.34-5.60)
[2019-01-05] MEDS ORDERED: Nitroglycerin TAB 0.4 MG* 0.4 MG TAB SL ONE (17:40)
[2019-01-05] MEDS ORDERED: hydrALAZINE IV* 20 MG/ML VIAL IV SLOW PU ONE ×2 (17:41→17:45)
[2019-01-05] MEDS: Nitroglycerin TAB 0.4 MG* 0.4 MG TAB SL ONE ×2 (17:55→18:19)
[2019-01-05] MEDS ORDERED: Atorvastatin* 40 MG TAB PO ONE (18:58)
[2019-01-05] MEDS ORDERED: Nitro 2% OINT* (Nitroglycerin) 1 INCH/PAK PAK TOPICAL ONE (19:09)
[2019-01-05] MEDS ORDERED: Dextrose 50% Syringe 50 ML* 25 GM/50 ML SYRINGE IV PUSH PRN (19:09)
[2019-01-05] MEDS ORDERED: Heparin DRIP 25,000 UNITS(*) 25,000 UNITS/500 ML BAG IV SCH (19:15)
[2019-01-05] MEDS: Metoprolol Tartrate TAB* 25 MG PO SCH ×2 (19:15→23:55)
[2019-01-05 19:55] LABS: Activated Partial Thrombo Time 34.8 seconds (26.0-38.0)
[2019-01-05] MEDS ORDERED: Spiriva HANDIHALER DEVICE (NF) 1 EACH DEVICE INH SCH (20:00)
[2019-01-05] MEDS ORDERED: Heparin VIAL(*) 5000 UNITS/ML VIAL (FIVE THOUSAND) IV SCH (20:00)
[2019-01-05] MEDS: Tiotropium CAPSULE (NF) 1 CAP/18 MCG CAP.INH INH SCH (20:44)
[2019-01-05] MEDS: Nicotine PATCH 14 MG/24 HR* PATCH TRANSDERM SCH (21:16)
[2019-01-05] MEDS: Insulin LISPRO* 1 UNITS UNIT SUBCUT SCH (21:17)
[2019-01-05] MEDS: traZODone TAB* 50 MG TAB PO SCH (23:55)
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
[2019-01-06] MEDS: Metoprolol Tartrate TAB* 25 MG PO SCH ×3 (05:53→17:42)
[2019-01-06 07:22] LABS: ABS Basophils 0.1 10^3/ul (0-0.2); ABS Lymphocytes 1.8 10^3/ul (1.0-4.8); ABS Monocytes 0.3 10^3/ul (0-0.8); ABS Neutrophils 8.6 10^3/ul (1.5-7.7); Hematocrit 44 % (42-52); Hemoglobin 15.3 g/dL (14.0-18.0); Lymphocyte % 16.5 %; Mean Corpuscular HGB Conc 34 g/dL (31-36); Mean Corpuscular Hemoglobin 32 pg (27-31); Mean Corpuscular Volume 92 fL (80-94); Mean Platelet Volume 7.6 fL (7.4-10.4); Platelet Count 300 10^3/uL (150-450); Red Blood Count 4.85 10^6 /uL (4.18-5.48); Red Cell Distribution Width 13 % (10-15); White Blood Count 10.7 10^3/uL (3.5-10.8)
[2019-01-06 07:45] LABS: BUN/Creatinine Ratio 21.2 (8-20); Calcium 8.9 mg/dL (8.6-10.3); EGFR African American 88.8 (>60); EGFR Non-African American 73.4 (>60); HDL Cholesterol 44.1 mg/dL; Potassium 4.5 mmol/L (3.5-5.0)
[2019-01-06] MEDS: Tiotropium CAPSULE (NF) 1 CAP/18 MCG CAP.INH INH SCH (08:06)
[2019-01-06] MEDS: Insulin LISPRO* 1 UNITS UNIT SUBCUT SCH ×4 (08:43→22:45)
[2019-01-06] MEDS: Insulin GLARGINE(*) 1 UNITS UNIT SUBCUT SCH ×2 (08:44→17:42)
[2019-01-06] MEDS: Aspirin 81 mg CHEW TAB* 81 MG TAB.CHEW PO SCH (09:21)
[2019-01-06] MEDS: Nicotine PATCH 14 MG/24 HR* PATCH TRANSDERM SCH (09:21)
[2019-01-06] MEDS: Mometasone/Formoter 200/5 MDI INH SCH ×2 (09:34→19:36)
--- NOTE | 2019-01-06 10:45 | PN ---
Subjective Date of Service: 01/06/19 Interval History: His crushing chest pain resolved sometime after getting to the floor (while on new BB, heparin gtt and nitro ointment). He is frankly a poor historian about it. Pain in his left hand near the heparin IV gtt that woke him up. No f/c/n/v/d/c. No abdominal pain. was restarted on diet. MOLST form signed: DNR/DNI Objective Active Medications: Aspirin (Aspirin 81 Mg Chew Tab*) 81 mg PO DAILY [facility] Last Admin: 01/06/19 09:21 Dose: 81 mg Device (Tiotropium Inhaler Device*) 1 each INH .USE w/ SPIRIVA CAPS [facility] Dextrose (D50w Syringe 50 Ml*) 12.5 gm IV PUSH .FOR FS < 60 - SS PRN PRN Reason: FS < 60 Heparin Sodium (Porcine) (Heparin Vial(*)) 0 units IV .PER PROTOCOL [facility] Last Admin: 01/05/19 21:19 Dose: 4,000 units Insulin Glargine (Lantus(*)) 10 units SUBCUT Q12H [facility] Last Admin: 01/06/19 08:44 Dose: 10 units Insulin Human Lispro (Humalog*) 0 units SUBCUT ACHS [facility]; Protocol Last Admin: 01/06/19 08:43 Dose: 10 units Metoprolol Tartrate (Lopressor Tab*) 25 mg PO Q6HR [facility] Last Admin: 01/06/19 05:53 Dose: 25 mg Mometasone Furoate/Formoterol Fumar (Dulera 200/5 Mdi*) 2 puff INH BID [facility] Last Admin: 01/06/19 09:34 Dose: Not Given Nicotine (Nicotine Patch 14 Mg/24 Hr*) 1 patch TRANSDERM DAILY [facility] Last Admin: 01/06/19 09:21 Dose: 1 patch Pharmacy Profile Note (Nicotine Patch Removal Note*) 1 note PATCH OFF 2100 [facility] Tiotropium [place] (Spiriva Cap.Inh*) 1 cap INH DAILY [facility] Last Admin: 01/06/19 08:06 Dose: 1 cap Trazodone HCl (Desyrel Tab*) 50 mg PO BEDTIME [facility] Last Admin: 01/05/19 23:55 Dose: 50 mg Vital Signs - 8 hr 01/06/19 01/06/19 01/06/19 03:32 06:00 08:05 Temperature 97.4 F Pulse Rate 64 67 64 Respiratory 20 18 Rate Blood Pressure 132/59 142/83 (mmHg) O2 Sat by Pulse 95 96 Oximetry Oxygen Devices in Use Now: None Appearance: NAD Eyes: No Scleral Icterus Ears/Nose/Mouth/Throat: NL Teeth, Lips, Gums Neck: NL Appearance and Movements; NL JVP Respiratory: - - expiratory wheezing. no rhonchi or rales. Cardiovascular: NL Sounds; No Murmurs; No JVD, RRR Abdominal: NL Sounds; No Tenderness; No Distention Extremities: No Edema Skin: No Rash or Ulcers Neurological: Alert and Oriented x 3, - - possible slight right nasolabial fold droop. atleast 4+ in b/l LE. 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 perhaps slight dysarthria. Nutrition: Taking PO's Result Diagrams: 01/06/19 07:08 01/06/19 07:08 Additional Lab and Data: Laboratory Results - last 24 hr 01/05/19 01/05/19 01/05/19 15:59 15:59 15:59 WBC 9.4 RBC 5.04 Hgb 15.7 Hct 46 MCV 92 MCH 31 MCHC 34 RDW 13 Plt Count 329 MPV 7.4 Neut % (Auto) 58.2 Lymph % (Auto) 30.7 [place] % (Auto) 7.7 Eos % (Auto) 2.2 Baso % (Auto) 1.2 Absolute Neuts (auto) 5.5 Absolute Lymphs (auto) 2.9 Absolute Monos (auto) 0.7 Absolute Eos (auto) 0.2 Absolute Basos (auto) 0.1 Absolute Nucleated RBC 0.0 Nucleated RBC % 0.1 INR (Anticoag Therapy) 0.97 APTT 34.8 D-Dimer, Quantitative < 200 Sodium 136 Potassium 3.9 Chloride 105 Carbon Dioxide 24 Anion Gap 7 BUN 16 Creatinine 1.02 Est GFR ( Amer) 90.8 Est GFR (Non-Af Amer) 75.0 BUN/Creatinine Ratio 15.7 Glucose 316 H POC Glucose (mg/dL) Hemoglobin A1c Calcium 9.1 Total Bilirubin 0.40 AST 34 ALT 26 Alkaline Phosphatase 85 CK-MB (CK-2) 1.9 Troponin I 0.01 C-Reactive Protein < 1.00 B-Natriuretic Peptide Total Protein 7.4 Albumin 3.9 Globulin 3.5 Albumin/Globulin Ratio 1.1 Triglycerides Cholesterol LDL Cholesterol HDL Cholesterol TSH 2.57 01/05/19 01/05/19 01/05/19 15:59 19:02 19:02 WBC RBC Hgb Hct MCV MCH MCHC RDW Plt Count MPV Neut % (Auto) Lymph % (Auto) [place] % (Auto) Eos % (Auto) Baso % (Auto) Absolute Neuts (auto) Absolute Lymphs (auto) Absolute Monos (auto) Absolute Eos (auto) Absolute Basos (auto) Absolute Nucleated RBC Nucleated RBC % INR (Anticoag Therapy) APTT D-Dimer, Quantitative Sodium Potassium Chloride Carbon Dioxide Anion Gap BUN Creatinine Est GFR ( Amer) Est GFR (Non-Af Amer) BUN/Creatinine Ratio Glucose POC Glucose (mg/dL) Hemoglobin A1c 8.8 H Calcium Total Bilirubin AST ALT Alkaline Phosphatase CK-MB (CK-2) Troponin I 0.01 C-Reactive Protein B-Natriuretic Peptide 112 H Total Protein Albumin Globulin Albumin/Globulin Ratio Triglycerides Cholesterol LDL Cholesterol HDL Cholesterol TSH 01/05/19 01/05/19 01/06/19 20:46 22:41 00:56 WBC RBC Hgb Hct MCV MCH MCHC RDW Plt Count MPV Neut % (Auto) Lymph % (Auto) [place] % (Auto) Eos % (Auto) Baso % (Auto) Absolute Neuts (auto) Absolute Lymphs (auto) Absolute Monos (auto) Absolute Eos (auto) Absolute Basos (auto) Absolute Nucleated RBC Nucleated RBC % INR (Anticoag Therapy) APTT 80.6 H D-Dimer, Quantitative Sodium Potassium Chloride Carbon Dioxide Anion Gap BUN Creatinine Est GFR ( Amer) Est GFR (Non-Af Amer) BUN/Creatinine Ratio Glucose POC Glucose (mg/dL) 305 H Hemoglobin A1c Calcium Total Bilirubin AST ALT Alkaline Phosphatase CK-MB (CK-2) Troponin I 0.00 C-Reactive Protein B-Natriuretic Peptide Total Protein Albumin Globulin Albumin/Globulin Ratio Triglycerides Cholesterol LDL Cholesterol HDL Cholesterol TSH 01/06/19 01/06/19 01/06/19 07:08 07:08 07:08 WBC 10.7 RBC 4.85 Hgb 15.3 Hct 44 MCV 92 MCH 32 H MCHC 34 RDW 13 Plt Count 300 MPV 7.6 Neut % (Auto) 80.0 Lymph % (Auto) 16.5 [place] % (Auto) 2.6 Eos % (Auto) 0.0 Baso % (Auto) 0.9 Absolute Neuts (auto) 8.6 H Absolute Lymphs (auto) 1.8 Absolute Monos (auto) 0.3 Absolute Eos (auto) 0.0 Absolute Basos (auto) 0.1 Absolute Nucleated RBC 0.0 Nucleated RBC % 0.0 INR (Anticoag Therapy) APTT 67.3 H D-Dimer, Quantitative Sodium 132 L Potassium 4.5 Chloride 102 Carbon Dioxide 23 Anion Gap 7 BUN 22 Creatinine 1.04 Est GFR ( Amer) 88.8 Est GFR (Non-Af Amer) 73.4 BUN/Creatinine Ratio 21.2 H Glucose 393 H POC Glucose (mg/dL) Hemoglobin A1c Calcium 8.9 Total Bilirubin AST ALT Alkaline Phosphatase CK-MB (CK-2) Troponin I C-Reactive Protein B-Natriuretic Peptide Total Protein Albumin Globulin Albumin/Globulin Ratio Triglycerides 80 Cholesterol 187 LDL Cholesterol 127 HDL Cholesterol 44.1 TSH Assess/Plan/Problems-Billing Assessment: 58 yo male PMH CAD (RCA, 2nd diag), current smoker, PTSD, severe depression worse after his passed Jun 2018, medication noncompliance, presenting with 1 week of progressive gait instabiliy, multiple falls (to buttock) and then in ED crushing 9/10 chest pain resolved on BB, nitro paste and heparin gtt. - Patient Problems (1) Chest pain Current Visit: No Status: Acute Priority: High Onset Date: 10/09/14 Code (s): R07.9 - CHEST PAIN, UNSPECIFIED SNOMED Code(s): 98004202 Comment: Complaint of 9/10 crushing chest pain substernally radiating to the right. Troponins negative and EKG on admission with old infarction inferiorly and anteriorly. f/u repeat EKG today (ordered for AM but not yet done) chest pain resolved on BB (metoprolol 25mg po q6), nitro paste and heparin gtt. ECHO ordered, may need nuclear stress test stopping heparin gtt for now, had some pain near infusion site. atorvastatin 80mg aspirin 81mg (2) Major depression Current Visit: Yes Status: Acute Code(s): F32.9 - MAJOR DEPRESSIVE DISORDER , SINGLE EPISODE, UNSPECIFIED SNOMED Code(s): 961045122 Comment: Psych consulted. passive but not active wish effecting his medication compliance He had been trialed on Paroxetine in Apr or May 2018 and then Celexa Aug 2018 but stopped taking/did not refill (3) Gait instability Current Visit: Yes Status: Acute Code(s): R26.81 - UNSTEADINESS ON FEET SNOMED Code(s): 760182327 Comment: has felt like his legs bilaterally from hips down are "asleep" but not numb. Has fallen on buttocks a few times. CTH with chronic small vessel ischemic changes. MRI Brain and MRI Lumbar spine ordered on admission, still pending. Given perhaps some slight dyarthria and nasolabial fold droop on right this AM have consulted Dr. Argueta who will evaluate the patient and recommended CTA of head and neck for now. PT ordered (pt no longer on bed rest for the chest pain) (4) CAD (coronary artery disease) Current Visit: No Status: Acute Code(s): I25.10 - ATHSCL HEART DISEASE OF [place] CORONARY ARTERY W/O ANG PCTRS SNOMED Code(s): 78584229 Comment: Cardiac cath 2012 with stents to RCA and 2nd diagonal branches Poor medical compliance plan as above. (5) Diabetes Current Visit: No Status: Acute Code(s): E11.9 - TYPE 2 DIABETES MELLITUS WITHOUT COMPLICATIONS SNOMED Code(s): 32617261 Comment: BG 300s, not compliant with any meds at home. Adding A1C add lantus 10U now. SSI, poc qachs (6) Hypertension Current Visit: No Status: Acute Priority: High Onset Date: 10/09/14 Code (s): I10 - ESSENTIAL (PRIMARY) HYPERTENSION SNOMED Code(s): 99752750 Comment: sBP >200mmHg at admission Non-compliant with use of home antihypertensives Good response to metoprolol (7) Tobacco abuse Current Visit: No Status: Acute Code(s): Z72.0 - TOBACCO USE SNOMED Code(s ): 389920645 Comment: Continue Nicotine patch. has wheezing so will add spiriva and dulera. (8) Dyslipidemia Current Visit: No Status: Chronic Priority: High Code(s): E78.5 - HYPERLIPIDEMIA, UNSPECIFIED SNOMED Code(s): 372594481 Comment: LDL 127, HDL 44 Atorvastatin started (9) DNR (do not resuscitate) Current Visit: No Status: Acute Comment: MOLST updated. Status and Disposition: medicine inpatient.
[2019-01-06] MEDS ORDERED: Iodixanol* (CONTRAST) 320 MG/ML 100 ML SDV IV ONE (11:43)
[2019-01-06] MEDS: Cyanocobalamin TAB* 500 MCG PO SCH (12:40)
[2019-01-06 15:01] LABS: Urine Benzodiazepine Screen None Detected (None Detect); Urine Opiates Screen None Detected (None Detect)
[2019-01-06] MEDS: Nicotine* 2MG (FRUIT FLAVOR) GUM PO PRN ×2 (16:29→17:43)
--- NOTE | 2019-01-06 17:48 | CONSULT ---
Identification - Patient Identification Reason for Psychiatric Consultation: Suicidal Ideation -: Patient is a 58 year old, M admitted on 01/05/19. - MHU Identification Employment Status: Unemployed Hx Psychiatric Hospitalization: Yes Arrived to Hospital Via: Ambulatory History - Objective HPI: This 58 y/o male with h/o at least 4 prior psychiatric admissions is currently on the medical floor due to acute chest pain and appears to treated appropriately. A psychiatric consult was requested due to his passive wish as he is unwilling to get help for his cardiac problems and wants to a DNAR. His reasoning for refusing help doesn't make any logical sense. 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 More over he stopped taking all his medical meds. for multiple life threatening physical health conditions including CAD, HTN, DM and hyperlipidemia and so on. In other words he is passively suicidal despite a logical explanation of risk, benefits and alternatives. At the time of evaluation there was no evidence of mood, thoughts or perceptual disturbances and he was cognitively intact. Hence, at this time he lacks mental capacity to make an informed and logical medical decision as he is acting on his suicidal instinct. Exam Appearance: Well Developed/Nourished Hygiene: Normal Grooming: Well Kept Psychomotor Activities: Normal Exhibits Abnormal Movement: No Attitude and Relatedness: Appropriate Eye Contact: Good - Speech Quality: Unpressured Latencies: Normal Quantity: Appropriate Patient's Decription of Mood: "Great" Observed Affect: Non-labile Patient's Thought Process: Coherent, Goal Directed Thought Content: Yes Passive Wish, No Suicidal Planning, No Homicidal Ideation, No Paranoid Ideation Experiencing Hallucinations: No, Sensorium is Clear Type of Hallucinations: Visual: No, Auditory: No, Command: No Level of Consciousness: Alert Orientation: Yes Intact, Yes Orientated to Time, Yes Orientated to Place, Yes Orientated to Person Impulse Control: Intact Insight and Judgement: Impaired Impression - Impression Merits Inpatient Hospitalization: Yes Plan - Treatment Plan Medications: Current Medications Aspirin (Aspirin 81 Mg Chew Tab*) 81 mg PO DAILY [facility] Last Admin: 01/06/19 09:21 Dose: 81 mg Cyanocobalamin (Vitamin B12 Tab*) 1,000 mcg PO DAILY [facility] Last Admin: 01/06/19 12:40 Dose: 1,000 mcg Device (Tiotropium Inhaler Device*) 1 each INH .USE w/ SPIRIVA CAPS [facility] Dextrose (D50w Syringe 50 Ml*) 12.5 gm IV PUSH .FOR FS < 60 - SS PRN PRN Reason: FS < 60 Heparin Sodium (Porcine) (Heparin Vial(*)) 0 units IV .PER PROTOCOL [facility] Last Admin: 01/05/19 21:19 Dose: 4,000 units Insulin Glargine (Lantus(*)) 10 units SUBCUT Q12H [facility] Last Admin: 01/06/19 08:44 Dose: 10 units Insulin Human Lispro (Humalog*) 0 units SUBCUT ACHS [facility]; Protocol Last Admin: 01/06/19 12:39 Dose: 4 units Metoprolol Tartrate (Lopressor Tab*) 25 mg PO Q6HR [facility] Last Admin: 01/06/19 12:40 Dose: 25 mg Mometasone Furoate/Formoterol Fumar (Dulera 200/5 Mdi*) 2 puff INH BID [facility] Last Admin: 01/06/19 09:34 Dose: Not Given Nicotine (Nicotine Patch 14 Mg/24 Hr*) 1 patch TRANSDERM DAILY [facility] Last Admin: 01/06/19 09:21 Dose: 1 patch Nicotine Polacrilex (Nicotine Gum*) 2 mg PO Q2H PRN PRN Reason: CRAVING Last Admin: 01/06/19 16:29 Dose: 2 mg Pharmacy Profile Note (Nicotine Patch Removal Note*) 1 note PATCH OFF 2100 [facility] Tiotropium [place] (Spiriva Cap.Inh*) 1 cap INH DAILY [facility] Last Admin: 01/06/19 08:06 Dose: 1 cap Trazodone HCl (Desyrel Tab*) 50 mg PO BEDTIME [facility] Last Admin: 01/05/19 23:55 Dose: 50 mg - Discharge Plan Discharge Plan: Inpatient Hospitalization - Transfer to [facility] after medical clearence.
[2019-01-06] MEDS: Nicotine Patch Removal NOTE PATCH OFF SCH (22:19)
[2019-01-06] MEDS: traZODone TAB* 50 MG TAB PO SCH (22:19)
[2019-01-07] MEDS: Metoprolol Tartrate TAB* 25 MG PO SCH ×4 (00:19→22:43)
[2019-01-07] MEDS ORDERED: Metoprolol Tartrate TAB* 25 MG PO SCH (06:00)
[2019-01-07 07:26] LABS: BUN/Creatinine Ratio 25.2 (8-20); Calcium 8.9 mg/dL (8.6-10.3); EGFR African American 85.9 (>60); Potassium 4.1 mmol/L (3.5-5.0)
[2019-01-07 08:06] LABS: ABS Eosinophils 0.2 10^3/ul (0-0.6); ABS Lymphocytes 4.7 10^3/ul (1.0-4.8); ABS Monocytes 0.7 10^3/ul (0-0.8); ABS Neutrophils 5.3 10^3/ul (1.5-7.7); Eosinophil % 1.6 %; Hematocrit 45 % (42-52); Hemoglobin 15.4 g/dL (14.0-18.0); Lymphocyte % 43.2 %; Mean Corpuscular HGB Conc 34 g/dL (31-36); Mean Corpuscular Hemoglobin 32 pg (27-31); Mean Corpuscular Volume 93 fL (80-94); Nucleated Red Blood Cells % 0.1; Platelet Count 287 10^3/uL (150-450); Red Blood Count 4.83 10^6 /uL (4.18-5.48); Red Cell Distribution Width 13 % (10-15); White Blood Count 10.9 10^3/uL (3.5-10.8)
[2019-01-07] MEDS: Mometasone/Formoter 200/5 MDI INH SCH ×2 (08:17→20:19)
[2019-01-07] MEDS: Tiotropium CAPSULE (NF) 1 CAP/18 MCG CAP.INH INH SCH (08:17)
[2019-01-07] MEDS: Insulin LISPRO* 1 UNITS UNIT SUBCUT SCH ×4 (11:41→20:51)
[2019-01-07] MEDS: Cyanocobalamin TAB* 500 MCG PO SCH (11:48)
[2019-01-07] MEDS: Aspirin 81 mg CHEW TAB* 81 MG TAB.CHEW PO SCH (11:48)
[2019-01-07] MEDS: Nicotine PATCH 14 MG/24 HR* PATCH TRANSDERM SCH (11:48)
[2019-01-07] MEDS ORDERED: Regadenoson* 0.4 MG/5 ML SYRINGE ONE (12:26)
--- NOTE | 2019-01-07 13:25 | ECHO ---
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 SOB. TIA. History: Coronary artery disease. Risk factors: Current tobacco use. Hypertension. Diabetes mellitus. Dyslipidemia. Labs, prior tests, procedures, and surgery: Catheterization. There was a stenosis which was treated with a stent. Conclusions Summary: 1. Left ventricle: The cavity size is normal. Wall thickness is mildly to moderately increased. Systolic function is moderately reduced. The estimated ejection fraction is 35-40%. Moderate diffuse hypokinesis. 2. Atrial septum: A PFO is not demonstrated by color Doppler or agitated saline contrast. 3. Mitral valve: There is trivial regurgitation. 4. Aortic valve: There is mild regurgitation. 5. Tricuspid valve: There is no significant regurgitation. 6. Pericardium, extracardiac: There is no significant pericardial effusion. 7. Compared to study of 04/07/17, the left ventricle function is slightly lower. Valve structures are the same. Study data: Transthoracic echocardiogram. Procedure: Transthoracic echocardiography was performed. Image quality was fair. The study was technically limited due to Smoking history. A bubble study was performed. Images 1 and 2. Complete 2D, spectral Doppler, and color flow Doppler. Location: Bedside. Patient status: Inpatient. Patient room number: 449 01. Rhythm: Bradycardia. Findings Left ventricle: The cavity size is normal. Wall thickness is mildly to moderately increased. Systolic function is moderately reduced. The estimated ejection fraction is 35-40%. Moderate diffuse hypokinesis. Doppler parameters are consistent with abnormal left ventricular relaxation (grade 1 diastolic dysfunction). Right ventricle: The cavity size is normal. Systolic function is normal. Left atrium: The atrium is moderately to severely dilated. Right atrium: The atrium is normal in size. Atrial septum: A PFO is not demonstrated by color Doppler or agitated saline contrast. Mitral valve: The annulus is mildly to moderately calcified. The leaflets are normal thickness. There is no evidence of stenosis. There is trivial regurgitation. Aortic valve: The valve is trileaflet. The leaflets are mildly thickened. There is no evidence of stenosis. There is mild regurgitation. Tricuspid valve: The leaflets are normal thickness. There is no evidence of stenosis. There is no significant regurgitation. Pulmonic valve: Not well visualized. There is no significant regurgitation. Aorta: Aortic root: The aortic root is appears normal. Ascending aorta: The ascending aorta is poorly visualized. Aortic arch: The aortic arch is mildly dilated. Pericardium: There is no significant pericardial effusion. Pulmonary arteries: Not well visualized. Systolic pressure can not be accurately estimated. Systemic veins: Inferior vena cava: The vessel is dilated. The respirophasic diameter changes are in the normal range (>= 50%). Measurements Left ventricle Value Ref Aortic valve continued Value Ref RACHEL, LAX 5.2 cm 4.2 - 5.8 Peak v, S 1.47 m/sec ---- ESD, LAX 3.9 cm 2.5 - 4.0 VTI, S 30.9 cm ---- FS, LAX 25 % 25 - 43 Mean grad, S 5.0 mm Hg ---- PW, ED, LAX (H) 1.5 cm 0.6 - 1.0 Peak grad, S 9.0 mm Hg ---- EF (L) 49 % 52 - 72 E', lat regina, TDI (L) 4.4 cm/sec >=10.0 Mitral valve Value Re f E/e', lat regina, 19 Peak E 0.84 m/sec ---- TDI Peak A 1.1 m/sec ---- E', med regina, TDI (L) 5.5 cm/sec >=7.0 Decel time 216 ms -- -- E/e', med regina, 15 PHT 141 ms ---- TDI Mean grad, D 2.0 mm Hg ---- E', avg, TDI 5.0 cm/sec Peak grad, D 4.0 mm Hg ---- E/e', avg, TDI (H) 17 <=14 Peak E/A ratio 0.8 -- -- MVA, PHT 1.6 cm^2 ---- LVOT Value Ref Peak wilmer, S 0.94 m/sec Pulmonic valve Value Ref Mean grad, S 2 mm Hg Peak v, S 0.76 m/sec ---- Peak grad, S 2.0 mm Hg ---- Ventricular septum Value Ref IVS, ED (H) 1.3 cm 0.6 - 1.0 Aortic root Value Ref Root diam 3.0 cm <4.0 Right ventricle Value Ref RACHEL, LAX 2.0 cm Aortic arch Value Ref RACHEL minor ax, A4C 2.3 cm 1.9 - 3.5 Arch diam 3.8 cm ---- mid Decending aorta Value Ref Left atrium Value Ref Onur peak wilmer 0.49 m/sec ---- AP dim, ES (H) 4.10 cm 3.00 - 4.00 Inferior vena cava Value Ref ML dim, A4C 4.4 cm Diam 2.4 cm ---- SI dim, A4C 6.1 cm Vol/bsa, ES, A/L (H) 49 ml/m^2 16 - 34 Pulmonary veins Value Ref Peak v, S 0.42 m/sec ---- Right atrium Value Ref Peak v, D 0.31 m/sec ---- SI dim, ES 4.9 cm 3.4 - 5.3 Peak S/D ratio 1.4 ---- ML dim, ES, A4C 4.3 cm 2.6 - 4.4 A rev duration 121 ms ---- Estimated RAP 3 mm Hg Aortic valve Value Ref Regina diam, ED 2.1 cm Legend: (L) and (H) michell values outside specified reference range. Prepared and electronically signed by Eugene Mayers MD 01/07/2019 13:24
[2019-01-07] MEDS ORDERED: Lisinopril TAB* 10 MG PO SCH (14:00)
[2019-01-07] MEDS: Insulin GLARGINE(*) 1 UNITS UNIT SUBCUT SCH ×2 (14:37→20:51)
--- NOTE | 2019-01-07 15:13 | CONS ---
NEUROLOGY CONSULTATION: DATE OF CONSULT: 01/07/19 REFERRING PROVIDER: Jose Lyn MD. LOCATION: He is an inpatient, room 449. CHIEF COMPLAINT: Left leg weakness, falling. HISTORY OF PRESENT ILLNESS: Jr Navarro is a 58-year-old man who was admitted with generalized weakness and gait instability on 01/05/19. He says he was going to have a left total knee replacement last year, but his and he gave up all medical care. He says that his left knee and also his left hip will hurt when he is on it for very long. His leg will buckle and he will fall. He sometimes feels like the leg tico at the knee without necessarily any increasing pain. He feels his right leg is fine. He does not feel there is any numbness or weakness in his arms. He notes a little bit of numbness in his feet, but no pain. He does have poorly controlled diabetes. Because of the leg pain, he does not walk much. Sometimes, he uses a walker or a cane at home. PAST MEDICAL HISTORY: Notable for severe depression since his last June, former alcohol abuse, posttraumatic stress disorder, hypertension, coronary artery disease with stenting, hyperlipidemia. When he was admitted, he was only taking ibuprofen as needed and aspirin. MEDICATIONS: Current medications consist of: 1. Vitamin B12 1000 mcg p.o. daily. 2. Aspirin 81 mg p.o. daily. 3. Spiriva inhaler daily. 4. Heparin subcutaneous 5000 units q. 8. 5. Sliding scale insulin. 6. Lisinopril 10 mg p.o. daily. 7. Metoprolol 25 mg p.o. t.i.d. 8. Dulera inhaler. 9. Nicotine patch. 10. Trazodone 50 mg p.o. q.h.s. FAMILY HISTORY: Family history is that he is adopted and does not know his biological family. SOCIAL HISTORY: He has been smoking a pack of cigarettes per day up to admission. He drinks a beer about every other week. He has a prior history of alcohol abuse and cocaine use. 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 He gets short of breath with little exertion. He has had recurrent chest pain. REVIEW OF SYSTEMS: Notable for poor sleep. He has been gaining weight. He does not follow his blood sugars at home. He has been hospitalized for depression before. PHYSICAL EXAMINATION: He is morbidly obese. Temperature most recently 97.3, blood pressure 152/82, heart rate 52 and regular, respiratory rate is 18, and oxygen saturation is 99% on room air. Heart tones are normal. I do not hear any murmurs. Carotid pulses are poorly felt, but there are no bruits auscultated. Oral mucosa is moist and atraumatic. Neurological Exam: Pupils react equally to light from 3.5 down to 2.5 mm. Eye movements are normal. Visual carcamo are full to confrontation. Facial musculature is symmetric. Facial sensation to light touch is symmetric. On sensory exam, there is intact pin discrimination to light touch in upper and lower extremities distally. There is mildly diminished vibratory sense in the toes. Reflexes are intact and symmetric in knees and ankles. Plantar responses are flexor bilaterally. Strength is normal in the right leg proximally and distally. There is pain with calf strength about the left knee. There is less than full extension at the left knee. Gait is with a limp. He does ambulate independently. I do not really see any back kneeing. He is alert, oriented, and cooperative. He seems to be a reasonably good historian. Language is fluent. DIAGNOSTIC STUDIES/LAB DATA: Laboratory data includes a CBC with a slightly elevated white blood cell count yesterday at 10.9. Chemistries notable for sodium of 134 yesterday, glucose 236, hemoglobin A1c on 01/05/19 of 8.8%. The rest of the chemistry profile is fairly unremarkable. Vitamin B12 level on was 267, TSH normal at 2.57. IMPRESSION: My impression is Mr. Navarro's falls and leg weakness are probably secondary to his degenerative knee arthritis and subsequent diffuse atrophy. He does not show any long tract signs and his reflexes are intact in the lower extremities. He has a mild sensory loss in his feet probably from diabetes, but I do not think that is why his leg gives out. I recommend consideration of orthopedic consultation. I will check a CPK, but his symptoms do not suggest a primary myopathy. [id number]/[facility] #: [id number] [facility]
[2019-01-07] MEDS ORDERED: Gadoteridol* (CONTRAST) 279.3 MG/ML 10 ML IV ONE (16:26)
--- NOTE | 2019-01-07 16:29 | PN ---
Subjective Interval History: no acute events overnight, afebrile some mild chronic chest discomfort. nuc scan was high risk (due to EF reduction) but only a small area of lateral wall reversible ischemia walked with walker and seemed more steady on feet but with intermittent discomfort in left knee/buckling. MRIs pending for this afternoon. Objective Active Medications: Aspirin (Aspirin 81 Mg Chew Tab*) 81 mg PO DAILY [facility] Last Admin: 01/07/19 11:48 Dose: 81 mg Cyanocobalamin (Vitamin B12 Tab*) 1,000 mcg PO DAILY [facility] Last Admin: 01/07/19 11:48 Dose: 1,000 mcg Device (Tiotropium Inhaler Device*) 1 each INH .USE w/ SPIRIVA CAPS [facility] Dextrose (D50w Syringe 50 Ml*) 12.5 gm IV PUSH .FOR FS < 60 - SS PRN PRN Reason: FS < 60 Gadoteridol (Prohance* (Contrast)) 20 ml IV ONCE ONE Stop: 01/07/19 16:27 Heparin Sodium (Porcine) (Heparin Vial(*)) 0 units IV .PER PROTOCOL [facility] Last Admin: 01/05/19 21:19 Dose: 4,000 units Insulin Glargine (Lantus(*)) 5 units SUBCUT Q12H [facility] Last Admin: 01/07/19 14:37 Dose: 5 unit Insulin Human Lispro (Humalog*) 0 units SUBCUT ACHS [facility]; Protocol Last Admin: 01/07/19 14:37 Dose: 2 units Lisinopril (Prinivil Tab*) 10 mg PO DAILY [facility] Last Admin: 01/07/19 14:36 Dose: 10 mg Metoprolol Tartrate (Lopressor Tab*) 25 mg PO 0600,1400,2200 [facility] Last Admin: 01/07/19 14:36 Dose: 25 mg Mometasone Furoate/Formoterol Fumar (Dulera 200/5 Mdi*) 2 puff INH BID [facility] Last Admin: 01/07/19 08:17 Dose: Not Given Nicotine (Nicotine Patch 14 Mg/24 Hr*) 1 patch TRANSDERM DAILY [facility] Last Admin: 01/07/19 11:48 Dose: 1 patch Nicotine Polacrilex (Nicotine Gum*) 2 mg PO Q2H PRN PRN Reason: CRAVING Last Admin: 01/06/19 17:43 Dose: 2 mg Pharmacy Profile Note (Nicotine Patch Removal Note*) 1 note PATCH OFF 2100 [facility] Last Admin: 01/06/19 22:19 Dose: 1 note Tiotropium [place] (Spiriva Cap.Inh*) 1 cap INH DAILY [facility] Last Admin: 01/07/19 08:17 Dose: Not Given Trazodone HCl (Desyrel Tab*) 50 mg PO BEDTIME [facility] Last Admin: 01/06/19 22:19 Dose: 50 mg Vital Signs - 8 hr 01/07/19 01/07/19 01/07/19 10:25 11:17 14:35 Temperature 97.3 F 97.8 F Pulse Rate 52 51 Respiratory 14 19 Rate Blood Pressure 152/82 166/82 144/82 (mmHg) O2 Sat by Pulse 98 Oximetry Oxygen Devices in Use Now: None Appearance: NAD Eyes: No Scleral Icterus Ears/Nose/Mouth/Throat: NL Teeth, Lips, Gums Neck: NL Appearance and Movements; NL JVP Respiratory: Symmetrical Chest Expansion and Respiratory Effort, Clear to Auscultation, - Cardiovascular: NL Sounds; No Murmurs; No JVD, RRR Abdominal: NL Sounds; No Tenderness; No Distention Extremities: No Edema Skin: No Rash or Ulcers, No Nodules or Sclerosis Neurological: Alert and Oriented x 3, - - no dysarthria or nasolabial fold droop today. CNII-XII intact, still reduced hip flexion 4- on left even when not painful. Nutrition: Taking PO's Result Diagrams: 01/07/19 06:42 01/07/19 06:42 Additional Lab and Data: Laboratory Results - last 24 hr 01/07/19 01/07/19 01/07/19 06:42 06:42 06:42 WBC 10.9 H RBC 4.83 Hgb 15.4 Hct 45 MCV 93 MCH 32 H MCHC 34 RDW 13 Plt Count 287 MPV 8.0 Neut % (Auto) 48.3 Lymph % (Auto) 43.2 [place] % (Auto) 6.5 Eos % (Auto) 1.6 Baso % (Auto) 0.4 Absolute Neuts (auto) 5.3 Absolute Lymphs (auto) 4.7 Absolute Monos (auto) 0.7 Absolute Eos (auto) 0.2 Absolute Basos (auto) 0.0 Absolute Nucleated RBC 0.0 Nucleated RBC % 0.1 APTT 32.1 Sodium 134 L Potassium 4.1 Chloride 104 Carbon Dioxide 24 Anion Gap 6 BUN 27 H Creatinine 1.07 Est GFR ( Amer) 85.9 Est GFR (Non-Af Amer) 71.0 BUN/Creatinine Ratio 25.2 H Glucose 236 H POC Glucose (mg/dL) Calcium 8.9 01/07/19 01/07/19 01/07/19 07:19 11:52 18:08 WBC RBC Hgb Hct MCV MCH MCHC RDW Plt Count MPV Neut % (Auto) Lymph % (Auto) [place] % (Auto) Eos % (Auto) Baso % (Auto) Absolute Neuts (auto) Absolute Lymphs (auto) Absolute Monos (auto) Absolute Eos (auto) Absolute Basos (auto) Absolute Nucleated RBC Nucleated RBC % APTT Sodium Potassium Chloride Carbon Dioxide Anion Gap BUN Creatinine Est GFR ( Amer) Est GFR (Non-Af Amer) BUN/Creatinine Ratio Glucose POC Glucose (mg/dL) 224 H 179 H 147 H Calcium 01/07/19 19:56 WBC RBC Hgb Hct MCV MCH MCHC RDW Plt Count MPV Neut % (Auto) Lymph % (Auto) [place] % (Auto) Eos % (Auto) Baso % (Auto) Absolute Neuts (auto) Absolute Lymphs (auto) Absolute Monos (auto) Absolute Eos (auto) Absolute Basos (auto) Absolute Nucleated RBC Nucleated RBC % APTT Sodium Potassium Chloride Carbon Dioxide Anion Gap BUN Creatinine Est GFR ( Amer) Est GFR (Non-Af Amer) BUN/Creatinine Ratio Glucose POC Glucose (mg/dL) 202 H Calcium Assess/Plan/Problems-Billing Assessment: 58 yo male PMH CAD (RCA, 2nd diag), current smoker, PTSD, severe depression worse after his passed Jun 2018 resulting in medication noncompliance, presenting with 1 week of progressive gait instabiliy, multiple falls (to buttock) and then in ED crushing 9/10 chest pain resolved on BB, nitro paste and heparin gtt. ACS ruled out. Nuc stress with small area of lateral wall reversible ischemia. MRI Brain with acute lacunar infarct right cerebellar lobe , medial to left ventricle. Additional small acute/subacute infarcts in right chantal and cerebellum. Suggestion of embolic source. ~70% stenosis in right ICA. moderate stenosis of left vertebral artery v4 segment. - Patient Problems (1) Chest pain Current Visit: No Status: Acute Priority: High Onset Date: 10/09/14 Code (s): R07.9 - CHEST PAIN, UNSPECIFIED SNOMED Code(s): 29249224 Comment: In ED had complaint of 9/10 crushing chest pain substernally radiating to the right. Troponins were negative and EKG on admission with old infarction inferiorly and anteriorly. f/u repeat EKG stable. chest pain resolved on metoprolol 25mg po q6, nitro paste (off) and heparin gtt (now off). ECHO with EF 35-40% somewhat reduced from prior. Nuclear stress test deemed high risk mostly for EF reduction. Small area of lateral wall reversible ischemia that corrects on attenuation studies. Appreaciate Dr. Mayers recs. continue high intensity statin: atorvastatin 80mg (s/p one dose in ED) continue aspirin 81mg (2) Major depression Current Visit: Yes Status: Acute Code(s): F32.9 - MAJOR DEPRESSIVE DISORDER , SINGLE EPISODE, UNSPECIFIED SNOMED Code(s): 599702236 Comment: Appreciate Psych consulted. passive but not active wish effecting his medication compliance He had been trialed on Paroxetine in Apr or May 2018 and then Celexa Aug 2018 but stopped taking/did not refill. Once stable medically would benefit from U admission. Planned trial of Wellbutrin 150mg and remeron 15mg per Dr. Martin plan (3) Gait instability Current Visit: Yes Status: Acute Code(s): R26.81 - UNSTEADINESS ON FEET SNOMED Code(s): 102593868 Comment: has felt like his legs bilaterally from hips down are "asleep" but not numb. Has fallen on buttocks a few times. CTH with chronic small vessel ischemic changes. MRI Brain showing multiple areas of acute lacunar or acute to subacute small CVAs with embolic source suspicion. No PFO was seen on ECHO, does have long segment of 70% R ICA stenosis that may be stuttering? left vertebral artery v4 stenosis. Appreciate Neurology recs. Continue aspirin. some hemosiderin on MRI, consider repeat CTH (4) CAD (coronary artery disease) Current Visit: No Status: Acute Code(s): I25.10 - ATHSCL HEART DISEASE OF [place] CORONARY ARTERY W/O ANG PCTRS SNOMED Code(s): 63683615 Comment: Cardiac cath 2012 with stents to RCA and 2nd diagonal branches Poor medical compliance plan as above. (5) Diabetes Current Visit: No Status: Acute Code(s): E11.9 - TYPE 2 DIABETES MELLITUS WITHOUT COMPLICATIONS SNOMED Code(s): 49391763 Comment: BG 200s, not compliant with any meds at home. A1c 8.8% Lantus 10U q12 -> 5U q12 while npo for study -> will start 20U qam tomorrow. SSI, poc qachs (6) Hypertension Current Visit: No Status: Acute Priority: High Onset Date: 10/09/14 Code (s): I10 - ESSENTIAL (PRIMARY) HYPERTENSION SNOMED Code(s): 64590626 Comment: sBP >200mmHg at admission Non-compliant with use of home antihypertensives Good response to metoprolol lisinopril 10mg added given CHF (7) Tobacco abuse Current Visit: No Status: Acute Code(s): Z72.0 - TOBACCO USE SNOMED Code(s ): 303560364 Comment: Continue Nicotine patch and gum continue spiriva and dulera.(these are new) (8) Dyslipidemia Current Visit: No Status: Chronic Priority: High Code(s): E78.5 - HYPERLIPIDEMIA, UNSPECIFIED SNOMED Code(s): 642124636 Comment: LDL 127, HDL 44 Atorvastatin restarted, high intensity (9) DNR (do not resuscitate) Current Visit: No Status: Acute Comment: MOLST updated. Status and Disposition: medicine inpatient.
[2019-01-07] MEDS ORDERED: Lorazepam PYXIS KEY PRN (16:39)
[2019-01-07] MEDS ORDERED: LORazepam INJ* 2 MG/ML 1 ML VIAL IV PUSH ONE (16:39)
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
--- NOTE | 2019-01-07 18:01 | CONS ---
CARDIOLOGY CONSULTATION: DATE OF CONSULT: 01/07/19 DICTATION ENDS HERE [id number]/CPS #: [id number] JODIE
--- NOTE | 2019-01-07 18:27 | CONS ---
CC: Dr. Saldana * CARDIOLOGY CONSULTATION: DATE OF CONSULT: 01/07/19 INDICATION FOR CONSULTATION: Leg pain, coronary artery disease. HISTORY OF PRESENT ILLNESS: The patient is a 58-year-old gentleman with a history of hypertension, coronary artery disease, sleep apnea, depression, who came to the emergency room because he had severe pain in his lower extremities and he was having difficulty with ambulation. The patient reported that he was having a "stuttering gait." The patient was in the emergency room when he was sitting up in bed to get a chest x-ray. At that time, he started having chest pain, he described it as a crushing nature of this chest pain, it was centered under his sternum and radiated to his right axilla. The patient was admitted to the hospital ruled out for a myocardial infarction and underwent a stress test today. I personally reviewed the images from the stress test with Dr. Jose Lyn. Images demonstrate normal perfusion throughout the myocardium, no evidence of ischemia or infarction on the attenuated corrected images. On the non- corrected images, there is a fixed defect in the inferior wall with some mild ischemia to his lateral wall. Again, his attenuation corrected images are completely normal. His TID is normal at 1.15. The patient did have an echocardiogram which demonstrated moderately reduced LV systolic function, ejection fraction of 35% to 40%. No significant valvular disease. Compared to an echocardiogram in 2017, his ejection fraction is slightly lower, the valvular issues are essentially the same. The patient has had no further chest pain overnight. He has been taking his medications appropriately. As an outpatient, the patient may have not been taking his medications appropriately. Again, he has been very depressed since his and has been neglecting his overall care. PAST MEDICAL HISTORY: Significant for coronary artery disease, hypertension, depression. OUTPATIENT MEDICATIONS: 1. Aspirin 81 mg a day. 2. Atorvastatin 40 mg a day. 3. Glimepiride 2 mg b.i.d. 4. Metformin 850 mg twice a day. 5. Metoprolol succinate 25 mg a day. 6. Omeprazole 20 mg b.i.d. 7. Sucralfate 1 g after meals. 8. Lisinopril 10 mg a day. 9. Meloxicam 7.5 mg daily. ALLERGIES: PENICILLIN. FAMILY HISTORY: Unknown, he is adopted. SOCIAL HISTORY: He is currently a one pack a day smoker. He drinks 1 to 2 beers per week. He has a history of cocaine use. REVIEW OF SYSTEMS: Negative for fevers and chills. Negative for changes in bowel or bladder habits. Negative for change in weight. Positive for weakness in the left lower extremity and change in gait. Other 12-point review is unremarkable. PHYSICAL EXAM: Height is 5 feet 4 inches, weight 217 pounds. Temperature 97.8 , heart rate is 51, blood pressure 166/82, respiratory rate is 19, oxygen saturation 98% on room air. Sclerae anicteric. Oropharynx is pink without erythema. Carotids are 2+ without bruits. JVD is normal. Thyroid is normal. Cardiac Exam: S1, S2 without any murmurs, rubs, or gallops. Lungs have severely decreased breath sounds. There is minimal rhonchi. There are no rales on exam. There is no dullness to percussion. Abdomen is soft, nontender , and nondistended with normoactive bowel sounds. Extremities show no edema. He has 2+ pulses throughout. The patient is awake, alert, and oriented. He moves all 4 extremities equally. DIAGNOSTIC STUDIES/LAB DATA: CBC within normal limits. Chemistries within normal limits. BUN 27, creatinine 1.07. Troponins are negative x3. TSH 2.57. IMPRESSION: This is a 58-year-old gentleman with a history of coronary artery disease, history of 2 stents to his diagonal vessel off of his LAD back in 2012. At that time, he had a 90% stenosis to his distal PDA. The patient comes into the hospital because of weakness and while he was in the emergency room, he had chest pain. The patient ruled out for a myocardial infarction. His cardiac evaluation is essentially unremarkable except for the moderately decreased LV systolic function. Overall, I think his decrease in his LV function is due to med noncompliance and hypertension. I do not see anything on the nuclear images that would suggest a high risk study. PLAN/RECOMMENDATIONS: At this point, my recommendation is that the patient restart all of his current medications. The patient will follow up with Dr. Saldana for his ongoing cardiac care and blood pressure control. I did talk to the patient about smoking cessation. At this point, he is not interested in discussing that. Case was discussed with Dr. Jose Lyn. [id number]/CPS #: [id number] JODIE
[2019-01-07] MEDS ORDERED: Acetaminophen TAB* 325 MG PO PRN (20:33)
[2019-01-07] MEDS ORDERED: Ibuprofen TAB* 600 MG PO PRN (20:33)
[2019-01-07] MEDS ORDERED: hydrOXYzine HCL TAB* 10 MG PO PRN (20:46)
[2019-01-07] MEDS: traZODone TAB* 50 MG TAB PO SCH (20:52)
--- NOTE | 2019-01-07 22:11 | CONS ---
ORTHOPEDIC CONSULTATION NOTE: DATE OF CONSULT: 01/07/19 Thank you for this orthopedic consultation. CHIEF COMPLAINT: Left knee pain. HISTORY OF PRESENT ILLNESS: Mr. Navarro is a 58-year-old gentleman who was admitted on 01/05/19, with generalized weakness and gait instability. He has had multiple falls. He has been worked up by Neurology, Cardiology, as well as psychiatric team. I am contacted by Dr. Lyn for management of his left knee arthritis. The patient did see me as an outpatient at some point and was scheduled for total knee arthroplasty, but did cancel this. Today the patient reports 8/10 left knee pain made worse with ambulating one block and stair climbing. PAST MEDICAL HISTORY: 1. Coronary artery disease. 2. Hypertension. 3. Severe depression. 4. Obstructive sleep apnea. 5. PTSD. 6. Former alcohol and cocaine abuse. 7. Anxiety. 8. Usb-iwajsmr-eocxrqdwh poorly controlled type 2 diabetes. 9. Esophageal ulcer. 10. Current tobacco use. 11. Mild obesity. 12. Medical noncompliance. PAST SURGICAL HISTORY: 1. Left knee ACL reconstruction. 2. Cardiac stent x2. 3. CABG. CURRENT MEDICATIONS: 1. Aspirin 325 mg p.o. daily. 2. Ibuprofen 200 mg p.r.n. for pain. ALLERGIES: PENICILLIN. FAMILY HISTORY: Unknown. He was adopted. SOCIAL HISTORY: The patient lives alone. His unexpectedly in June. He has a daughter, Sudha Haas, in [place] and son, Jr, in [place]. Smokes 1 pack of cigarettes per day. One beer every other week. History of cocaine and alcohol abuse. Normally, the patient is an independent ambulator and ambulates with a cane. REVIEW OF SYSTEMS: Fourteen systems reviewed with the patient today. Positive for left knee pain, some imbalance, lower extremity weakness, recurrent falls. The patient otherwise reports review of systems is negative or not relevant. PHYSICAL EXAM: General: The patient is a well-nourished male, in no apparent distress. Alert and oriented x3, pleasant mood and appropriate affect. Vitals : Temperature 97.8, pulse of 51, blood pressure 166/82. Left lower extremity: The patient's skin is intact. No abrasions or open wounds. No palpable masses or lymph nodes. Multiple scars around the knee. Moderate effusion. Tenderness along the medial joint line. 10 to 120 degrees of flexion. No varus /valgus instability. Distally, no edema, varicosities, or hyperreflexia. 5/5 ankle dorsiflexion and plantar flexion strength. Full sensation to light touch in the ulnar nerve distributions and 2+ palpable DP pulses. DIAGNOSTIC STUDIES/LAB DATA: Laboratory values from today show white blood cells 10.9, hematocrit 45, platelets 287. INR 0.97. Sodium 134, potassium 4.1 , chloride 104. CT of the brain: Chronic small vessel ischemic changes. Chest x-ray: COPD. EKG: Normal sinus rhythm. No evidence of new infarct. No ST elevation or depression. X-ray of the left knee obtained today shows significant tricompartmental arthritic changes, prior ACL reconstruction, metal screw in the femur and tibia. ASSESSMENT AND PLAN: Mr. Navarro is a 58-year-old male with severe depression, admitted on 01/05/19, with lower extremity weakness and gait instability. He had chest pain at the time of admission and was worked up by Cardiac while in the hospital this week. I am consulted for orthopedic care of his left knee. In the past, we had him scheduled for total knee arthroplasty. Today, the patient reports to me that he would like to go ahead with surgery while he is in the hospital currently. I explained to him that this is an outpatient procedure only to be pursued after he has complete resolution of his current symptoms. He has been admitted to the [facility] for severe depression and should be treated fully before we consider any kind of major elective surgery. This was explained to him in an empathetic manner. He understands and expresses his understanding. He was given my card and will call my office after he is discharged from the [facility]. He should be activities as tolerated, work on quadriceps strengthening exercises. He should have a cane or rolling walker if needed. Tylenol or ibuprofen p.r.n. for analgesia. Today, I offered him a steroid injection, but he declined. Thank you for this orthopedic consultation. Please call me with any questions or if you need me to follow him further while in the hospital. [id number]/[facility] #: [id number] MTDDione
[2019-01-07] MEDS: Nicotine Patch Removal NOTE PATCH OFF SCH (22:23)
--- NOTE | 2019-01-07 22:51 | PN ---
Hospitalist Progress Note Date of Service: 01/07/19 Regarding acute imaging: -MRI done that shows new Lacunar infarct, discussed with Dr Argueta, keep on Asa , no addition, is not on statin, will start one given his sig CAD hx and known DM -Hold on repeat CT scan with known hemosiderin deposition -No additional medical changes at this time
[2019-01-08 07:05] LABS: ABS Basophils 0.1 10^3/ul (0-0.2); ABS Eosinophils 0.2 10^3/ul (0-0.6); ABS Lymphocytes 3.6 10^3/ul (1.0-4.8); ABS Monocytes 0.7 10^3/ul (0-0.8); ABS Neutrophils 4.1 10^3/ul (1.5-7.7); Eosinophil % 2.6 %; Hematocrit 46 % (42-52); Hemoglobin 15.9 g/dL (14.0-18.0); Lymphocyte % 41.6 %; Mean Corpuscular HGB Conc 35 g/dL (31-36); Mean Corpuscular Hemoglobin 32 pg (27-31); Mean Corpuscular Volume 93 fL (80-94); Mean Platelet Volume 7.7 fL (7.4-10.4); Nucleated Red Blood Cells % 0.1; Platelet Count 273 10^3/uL (150-450); Red Blood Count 4.91 10^6 /uL (4.18-5.48); Red Cell Distribution Width 13 % (10-15); White Blood Count 8.7 10^3/uL (3.5-10.8)
[2019-01-08 07:21] LABS: BUN/Creatinine Ratio 27.8 (8-20); EGFR African American 96.2 (>60); EGFR Non-African American 79.5 (>60); Potassium 4.4 mmol/L (3.5-5.0)
[2019-01-08] MEDS: Metoprolol Tartrate TAB* 25 MG PO SCH (07:38)
[2019-01-08] MEDS: Tiotropium CAPSULE (NF) 1 CAP/18 MCG CAP.INH INH SCH (08:00)
[2019-01-08] MEDS ORDERED: Insulin GLARGINE(*) 1 UNITS UNIT SUBCUT SCH (08:00)
[2019-01-08] MEDS: Mometasone/Formoter 200/5 MDI INH SCH (08:03)
[2019-01-08 09:31] VITALS: BP 152/73
--- NOTE | 2019-01-08 15:53 | DS ---
CC: Dr. Lyn* DISCHARGE SUMMARY: DATE OF ADMISSION: 01/05/19 DATE OF ELOPEMENT: 01/08/19 This is an AMA discharge where the provider was unable to see the patient prior to him eloping. PRINCIPAL DIAGNOSES: 1. 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 2. Chest pain of unclear nature, but likely noncardiac. 3. Severe depression and severe lack of self-care. DISCHARGE MEDICATIONS: Given to the patient at the time of elopement: None, as the patient left before he could be seen. HOSPITAL COURSE: Mr. Navarro is a 58-year-old male who was admitted on 01/05/19 with complaints of weakness with ambulation, gait instability, and chest pain. He was ruled out for an acute coronary syndrome with serial troponins and EKGs. He underwent a nuclear stress test, which was read by the radiologist as being positive; however, upon review by Dr. Mayers from Cardiology, the reversible change corrected on attenuation images. It was recommended that the patient be resumed on his medication regimen that was previously prescribed though he had not been taking over the last several months. In terms of the severe depression, the patient was evaluated by Psychiatry. They had hoped that the patient would be willing to be admitted to the [facility] on a voluntary basis; however, the patient eloped on the morning of 01/08/19. The police were called and the patient has been since brought back to the emergency room. In terms of the gait instability and weakness, the patient was seen in consultation by Dr. Argueta who felt that much of his problems may have been orthopedic in nature; however, it was recommended to obtain a CTA of the head and neck and a brain MRI. The CTA of the head and neck revealed a long segment stenosis of the right internal carotid artery proximally measuring up to 70%. There was moderate stenosis of the V4 segment of the left vertebral artery. MRI of the brain revealed small foci of restricted diffusion identified within the right cerebellar lobe and medial to the atrium of the left lateral ventricle with involvement of the left hippocampus posteriorly. These findings are consistent with acute lacunar infarcts. Additional small acute/subacute lacunar infarcts are visualized within the cerebral white matter and right posterior chantal. Due to the distribution of the disease, embolic disease is considered. There are foci of magnetic susceptibility, hemosiderin noted. There is no acute hemorrhage visualized on the prior head CT. There is focal loss of a normal flow void centrally within the distal left vertebral artery. This is suggestive of decreased flow. This can be further evaluated by CTA or MRA. There are chronic lacunar infarcts identified within the bilateral arzola radiata and basal ganglia. There is a small focus of chronic ischemic changes visualized with left thalamus. Additional chronic lacunar infarcts and significant gliosis are visualized within the chantal. There are multiple additional foci of FLAIR hyperintensity within the cerebral white matter most significant in the periventricular regions. In a patient this age, this likely represents chronic small vessel ischemic disease, demyelination however is within the differential. There are also 2 tiny foci of enhancement within the left thalamus without significant mass effect. Followup MRI with and without contrast is recommended. Again, the patient eloped without being able to be informed of the results of his brain MRI. The patient is ultimately going to be readmitted to the medical service now that he has been brought back to the emergency room by the police. The patient also had an MRI of his lumbar spine due to the gait instability and weakness. This revealed mild edema is visualized within the bone adjacent to the endplates at T11-T12 with minimal disk edema. These findings are new compared to the prior study. This is likely reactive degenerative disk disease , although diskitis/osteomyelitis cannot be excluded. Degenerative changes are visualized from L3-4 through L5-S1. There is moderate progressive narrowing of the thecal sac and narrowing of both lateral recesses visualized at L4-5. Neural foraminal narrowing is identified from L3-4 through L5-S1. There is a new subcentimeter focus of enhancement in the region of the ligamentum flavum on the right side of L4- 5, this is likely secondary to facet arthropathy. Further recommendations and treatment will be made upon the patient's readmission. FOLLOWUP CONCERNS: The patient eloped the hospital without being seen by a provider and has subsequently been brought back to the emergency room by the police. TIME SPENT: 20 minutes was spent on the discharge of this patient. [id number]/[facility] #: [id number] JODIE
[2019-01-08] MEDS ORDERED: Atorvastatin* 40 MG TAB PO SCH (17:00)
[2019-01-08] MEDS ORDERED: Atorvastatin* 80 MG TAB PO SCH (17:00)
== END 2019-01-18 12:30 | disposition left against medical advice (07) | DRG 65 ==
LOC: ED 15:45 → MEDTELE 18:58 → UNDOADMIN 18:58 → UNDODISIN 01-08 09:35
PROVIDERS: ADMIT Internal Medicine; ATTEND Hospitalist
DX: I63.443 Cerebral infarction due to embolism of bilateral cerebellar arteries (principal); F33.2 Major depressive disorder, recurrent severe without psychotic features; R53.1 Weakness; I10 Essential (primary) hypertension; I25.10 Atherosclerotic heart disease of native coronary artery without angina pectoris; E11.9 Type 2 diabetes mellitus without complications; Z66 Do not resuscitate; E78.5 Hyperlipidemia, unspecified; G47.33 Obstructive sleep apnea (adult) (pediatric); F41.9 Anxiety disorder, unspecified; F43.10 Post-traumatic stress disorder, unspecified; F17.210 Nicotine dependence, cigarettes, uncomplicated; R26.81 Unsteadiness on feet; M17.12 Unilateral primary osteoarthritis, left knee; E66.01 Morbid (severe) obesity due to excess calories; M25.562 Pain in left knee; F10.21 Alcohol dependence, in remission; R07.89 Other chest pain; F12.21 Cannabis dependence, in remission; Z95.5 Presence of coronary angioplasty implant and graft; Z95.1 Presence of aortocoronary bypass graft; Z79.82 Long term (current) use of aspirin; Z79.84 Long term (current) use of oral hypoglycemic drugs; Z79.1 Long term (current) use of non-steroidal anti-inflammatories (NSAID); Z88.0 Allergy status to penicillin; Z68.37 Body mass index [BMI] 37.0-37.9, adult; Z91.14 Patient's other noncompliance with medication regimen; Z91.19 Patient's noncompliance with other medical treatment and regimen
CPT/HCPCS: 33285; 36415; 70450; 70496; 70498; 70553; 71046; 72158; 78452; 80048; 80053; 80061; 80307; 80320; 82550; 82553; 82607; 83036; 83735; 83880; 84100; 84443; 84484; 85025; 85379; 85610; 85652; 85730; 86140; 87040; 90853; 93005; 93017; 93306; 93312; 93325; 94640; 99156; 99157; 99222; 99231; 99238; 99283; 99284; A9270-GY; A9502; A9579; C1764; G0480; G8978-GP-CI; G8978-GP-CJ; G8979-GP-CI; G8980-GP-CI; J0360; J1200; J1644; J1650; J2060; J2250; J2310; J2785; J2930; J3010; Q9967

== ENCOUNTER 2019-01-08 11:04 | Inpatient (IN) | payer MEDICARE ==
--- NOTE | 2019-01-08 11:33 | ED ---
Psychiatric Complaint - HPI Summary HPI Summary: Patient is a 58-year-old male who comes in by way of police, 941 after elopement this morning around 9 AM from the fourth floor cardiac. He denies any SI or HI. Denies any CP or SOB. According to records, patient was to be discharged to the [facility] after medical clearance. As of this morning, patient was not medically cleared. - History Of Current Complaint Chief Complaint: EDMentalHealth Time Seen by Provider: 01/08/19 11:17 Hx Obtained From: Patient Onset/Duration: Sudden Onset Timing: Constant Severity Initially: Moderate Severity Currently: Moderate Aggravating Factor(s): Nothing Alleviating Factor(s): Nothing Associated Signs And Symptoms: Positive: Negative - Allergies/Home Medications Allergies/Adverse Reactions: Allergies Allergy/AdvReac Type Severity Reaction Status Date / Time Penicillins Allergy Unknown Unknown Verified 01/08/19 11:07 Reaction Details PMH/Surg Hx/FS Hx/Imm Hx Previously Healthy: No - recent lacunar infarct Endocrine/Hematology History: Reports: Hx Anticoagulant Therapy - 325MG PO ASPIRIN DAILY, Hx Diabetes, Other Endocrine/Hematological Disorders - obesity Denies: Hx Blood Disorders, Hx Blood Transfusions, Hx Thyroid Disease, Hx Anemia, Hx Unexplained Bleeding Cardiovascular History: Reports: Hx Angina, Hx Congestive Heart Failure, Hx Coronary Artery Disease, Hx Hypercholesterolemia, Hx Hypertension - does not take meds d/t cost, Hx Myocardial Infarction, Other Cardiovascular Problems/ Disorders - cardiac cath w/ stents Denies: Hx Pacemaker/ICD, Hx Peripheral Vascular Disease, Hx Syncope, Hx Valvular Heart Disease Respiratory History: Reports: Hx Pulmonary Edema, Hx Sleep Apnea, Other Respiratory Problems/Disorders - CURRENT SMOKER Denies: Hx Asthma, Hx Chronic Obstructive Pulmonary Disease (COPD), Hx Pneumonia GI History: Reports: Other GI Disorders - esophegal ulcers History: Reports: Hx Kidney Infection, Other Problems/Disorders - Prostate CA, TURP in 2011 Denies: Hx Renal Disease Musculoskeletal History: Reports: Hx Back Problems, Other Musculoskeletal History - ACL repair L knee Denies: Hx Arthritis, Hx Osteoporosis Sensory History: Denies: Hx Contacts or Glasses, Hx Hearing Aid, Other Sensory Impairments Opthamlomology History: Denies: Hx Contacts or Glasses, Other Sensory Impairments Neurological History: Reports: Hx Migraine, Other Neuro Impairments/Disorders - 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 Denies: Hx Dementia, Hx Headaches, Hx Seizures, Hx Transient Ischemic Attacks (TIA) Psychiatric History: Reports: Hx Anxiety, Hx Depression, Hx Community Mental Health Tx, Other Psychiatric Issues/Disorders Denies: Hx Eating Disorder, Hx Panic Disorder, Hx of Violent Episodes Against Others, Hx Substance Abuse - Cancer History Cancer Type, Location and Year: prostate cancer Hx Chemotherapy: No Hx Radiation Therapy: No Hx Palliative Cancer Treatment: No - Surgical History Surgery Procedure, Year, and Place: multiple tubes placed in ears. left knee scope. cardiac stents Hx Anesthesia Reactions: No - Immunization History Date of Tetanus Vaccine: Unknown Date of Influenza Vaccine: 2013 Hx Pertussis Vaccination: No Immunizations Up to Date: Yes Infectious Disease History: No Infectious Disease History: Denies: Hx Hepatitis, Hx Human Immunodeficiency Virus (HIV), Hx Shingles, Hx Tuberculosis, Traveled Outside the [place] in Last 30 Days - Family History Known Family History: Positive: Unknown - PT WAS ADOPTED - Social History Occupation: Unemployed Lives: With Family Alcohol Use: Rare Alcohol Amount: 2-3 drinks/day Hx Substance Use: Yes Substance Use Type: Reports: Prescribed Substance Use Comment - Amount & Last Used: p[t reports last use of cocaine and marijuana was several months ago Hx Tobacco Use: Yes Smoking Status (MU): Heavy Every Day Tobacco Smoker Type: Cigarettes Amount Used/How Often: 1 pack/day Length of Time of Smoking/Using Tobacco: 42 years Have You Smoked in the Last Year: Yes Review of Systems Constitutional: Negative Negative: Fever, Chills, Fatigue, Skin Diaphoresis Negative: Palpitations, Chest Pain Negative: Shortness Of Breath, Cough Genitourinary: Negative Positive: no symptoms reported, see HPI Negative: Arthralgia, Myalgia Skin: Negative Neurological: Negative All Other Systems Reviewed And Are Negative: Yes Physical Exam Vital Signs On Initial Exam: Initial Vitals Temp Pulse Resp BP Pulse Ox 98.2 F 58 16 189/87 97 01/08/19 11:07 01/08/19 11:07 01/08/19 11:07 01/08/19 11:07 01/08/19 11:07 Diagnostics - Vital Signs Vital Signs Temp Pulse Resp BP Pulse Ox 01/08/19 11:07 98.2 F 58 16 189/87 97 - Laboratory Result Diagrams: 01/10/19 05:13 01/10/19 05:13 Lab Statement: Any lab studies that have been ordered have been reviewed, and results considered in the medical decision making process. Course/Dx - Course Course Of Treatment: Patient is evaluated as a 941. Patient denies any symptoms. He stopped denies any SI or HI. He was elopement from fourth floor telemetry this morning at around 9 AM. He states he did not want to be here anymore, and no one was telling him how long he had to stay. He was unsure if he needed to be seen by mental health, however he denies any SI or HI. He does admit to stating at one point "I do not wish to be here anymore." And he states that is the reason they wanted to have an evaluation for him. Police picked him up at his home at around 10:45 AM. Discussed with hospitalist who agreest to admit and acquire neuro consult. - Differential Dx/Clinical Impression Differential Diagnosis/HQI/PQRI: Positive: Suicidal Ideation Provider Diagnosis: Depression, Suicide gesture Discharge - Sign-Out/Discharge Documenting (check all that apply): Patient Departure All imaging exams completed and their final reports reviewed: No Patient Received Moderate/Deep Sedation with Procedure: No - Discharge Plan Condition: Improved Disposition: ADMITTED TO [facility] - Billing Disposition and Condition Condition: IMPROVED Disposition: Admitted to [facility]
[2019-01-08 12:10] LABS: ABS Basophils 0.1 10^3/ul (0-0.2); ABS Eosinophils 0.1 10^3/ul (0-0.6); ABS Lymphocytes 2.6 10^3/ul (1.0-4.8); ABS Monocytes 0.8 10^3/ul (0-0.8); Eosinophil % 1.5 %; Hematocrit 45 % (42-52); Hemoglobin 15.6 g/dL (14.0-18.0); Lymphocyte % 30.4 %; Mean Corpuscular HGB Conc 34 g/dL (31-36); Mean Corpuscular Hemoglobin 31 pg (27-31); Mean Corpuscular Volume 92 fL (80-94); Mean Platelet Volume 7.6 fL (7.4-10.4); Nucleated Red Blood Cells % 0.1; Platelet Count 302 10^3/uL (150-450); Red Blood Count 4.96 10^6 /uL (4.18-5.48); Red Cell Distribution Width 13 % (10-15); White Blood Count 8.6 10^3/uL (3.5-10.8)
[2019-01-08 12:32] LABS: Troponin I 0.01 ng/mL (<0.04)
[2019-01-08 12:47] LABS: Alcohol < 10 mg/dL (<10)
[2019-01-08] MEDS ORDERED: Mirtazapine TAB* 15 MG PO PRN (14:12)
[2019-01-08] MEDS ORDERED: Nicotine* 2MG (FRUIT FLAVOR) GUM PO PRN (14:16)
[2019-01-08] MEDS ORDERED: Lidocaine 1% INJ* 10 MG/ML 30 ML SDV ONE (14:40)
[2019-01-08] MEDS ORDERED: hydrALAZINE IV* 20 MG/ML VIAL IV SLOW PU PRN (14:42)
[2019-01-08 14:56] LABS: Urine Benzodiazepine Screen None Detected (None Detect); Urine Opiates Screen None Detected (None Detect)
--- NOTE | 2019-01-08 16:10 | CARD ---
CC: Dr. Qi Alexis; Dr. Wagoner EVENT MONITOR IMPLANTATION: DATE OF PROCEDURE: 01/08/19 PROCEDURE: Event monitor implantation. INDICATION: Multiple embolic events, rule out occult atrial fibrillation. The patient is a 58-year-old gentleman who was recently in the hospital. I did a cardiac consultatio n at that time. His cardiac workup was essentially benign. He does have some mild cardiomyopathy. He is on appropriate medications. The patient was seen by neurology and a CAT scan was suggestive of multiple infarcts possibly due to a thromboembolic event. Event monitor implantation was recommende d for manager long term care cardiac monitoring. DESCRIPTION OF PROCEDURE: The patient was brought to the procedure room. His anterior chest was pre pped and draped in the usual fashion. A 1% lidocaine was used for local anesthesia. The event monit or was injected subcutaneously. The patient tolerated the procedure well with no complications. The event monitor is a [employer] LINQ, serial number [id number]. The R-wave sensitivity of 0.37 mill ivolts. The patient will be seen in follow up by Dr. Alexis. [id number]/[facility] #: [id number]
--- NOTE | 2019-01-08 16:44 | HP ---
CC: Dr. Lyn* HISTORY AND PHYSICAL: DATE OF ADMISSION: 01/08/19 PRIMARY CARE PROVIDER: Dr. Lyn. CHIEF COMPLAINT: The patient eloped acute hospitalization and brought back to the emergency room by police. HISTORY OF PRESENT ILLNESS: Mr. Navarro is a 58-year-old male who was hospitalized at [facility] from 01/05/19 through 01/08/19 until he eloped from the hospital. The patient was being treated for probable noncardiac chest pain. He was seen by Cardiology during the hospitalization and felt to have a normal stress test. He was also being evaluated and treated for severe depression and severe lack of self care with passive suicidality. The plan was to have the patient admitted to the MHU; however, he eloped from the hospital. Because of this, the police were contacted and the patient was brought back to the emergency room. Additionally, the patient had complained of gait instability and weakness in his legs during his first hospitalization. He was seen in consultation by Dr. Argueta who ultimately recommended some imaging. MRI of the brain revealed multiple acute and subacute lacunar infarcts scattered throughout both cerebral hemispheres. Because of the need to continue to work up the acute CVA, the patient is going to be readmitted to the hospital on the medical service for evaluation and treatment of the previously identified acute lacunar infarcts. PAST MEDICAL HISTORY: 1. Hypertension. 2. Coronary artery disease, status post CABG with 2 stents. 3. Type 2 diabetes - poorly controlled with hemoglobin A1c of 8.8% on 01/05/19. 4. Hyperlipidemia. 5. History of esophageal ulcer. 6. Obstructive sleep apnea noncompliant with CPAP. 7. Anxiety/depression/PTSD. 8. Former abuse of alcohol and cocaine. 9. Ongoing tobacco abuse. 10. Medication noncompliance. MEDICATIONS: Prior to the last hospitalization were aspirin and ibuprofen. The patient has subsequently been receiving Lipitor, metoprolol, and lisinopril during his prior hospitalization. New medication list will be reconciled upon patient's formal discharge from the hospital. ALLERGIES: PENICILLIN. FAMILY HISTORY: Unknown as he is adopted. SOCIAL HISTORY: The patient has a 43-pack year history of smoking. He currently smokes 1 pack per day. He reportedly drinks 1 beer every other week. He previously used cocaine and drunk heavily, though this is subsided. The patient's , Eleanor, unexpectedly in June 2018. He has had a difficult time since then. REVIEW OF SYSTEMS: A complete 11-system review of systems is obtained. Pertinent positives and negatives are as per HPI. PHYSICAL EXAMINATION GENERAL: The patient is a well-developed middle age male seen sitting in the chair in the emergency room, in no acute distress. VITAL SIGNS: Blood pressure 186/97, pulse 59, respirations 19, temperature 98.2 , O2 sat 95% on room air. HEENT: Pupils are equal and round. Extraocular muscles are intact. Oropharynx is clear. Oral mucosa is moist. The patient's dentition is in poor repair. There is no submandibular, cervical, or supraclavicular adenopathy. PULMONARY: Lungs are clear to auscultation bilaterally. CARDIAC: Normal S1, S2. Heart rate is bradycardic, but regular. There is no lower extremity edema. ABDOMEN: Bowel sounds present. Abdomen is soft, nontender, nondistended. MUSCULOSKELETAL: There is no cyanosis or clubbing of the digits. There is full active range of motion of all 4 extremities. SKIN: Warm and dry. There are no rashes. NEURO: Cranial nerves II through XII are grossly intact. Sensation is intact to light touch throughout. Strength is 5/5 and symmetric in both upper and lower extremities bilaterally. PSYCH: The patient is alert. He is oriented to x3. He has somewhat of a flat affect and appears to be passively suicidal. DIAGNOSTIC STUDIES/LAB DATA: WBC 8.6, hemoglobin 15.6, hematocrit 45, platelets 302. Troponin 0.01. Serum alcohol less than 10. ASSESSMENT AND PLAN: Mr. Navarro is a 58-year-old male who had been hospitalized from 01/05/19 through 01/08/19, when he suddenly eloped from the hospital and was brought back to the emergency room via police and now is being readmitted for continued evaluation and treatment of acute embolic cerebrovascular accident noted on MRI of the brain last evening. 1. Acute probable embolic cerebrovascular accident involving both cerebral hemispheres. At this point, the patient needs continued workup for these identified acute cerebrovascular accident. The patient was seen in the emergency room by Dr. Wagoner. He does recommend obtaining blood cultures to rule out bacteremia, possible endocarditis as an embolic source. The patient had a transthoracic echocardiogram obtained on 01/05/19 that revealed a low ejection fraction of 35% to 40% with moderate diffuse hypokinesis. No patent foramen ovale was identified. Dr. Wagoner has also recommended obtaining a implantable loop recorder. I spoke with Dr. Mayers who believed that he can insert this in the next 1 hour or so. The patient will be readmitted to the medical floor and resumed on aspirin and Lipitor, additionally Plavix 75 mg p.o. daily will be added at the recommendation of Dr. Wagoner. It seems unlikely that the internal carotid artery stenosis is the source of the embolic disease as it is so wide spread on MRI of the brain. It is felt that this is more likely from a cardiac source. Neuro checks will be ordered every 6 hours. The patient was previously seen by physical therapy on 01/07/19. He was noted to need minimum assistance x1 with a rolling walker and gait belt. His ambulation was limited secondary to fatigue and left hip pain. Physical therapy evaluation will be reordered. The patient does not have any occupational therapy or speech needs and therefore these therapy evaluations will not be ordered at this time. 2. Coronary artery disease. The patient will continue on aspirin and Plavix as above. Additionally, he was receiving metoprolol tartrate 25 mg 3 times a daily, I am going to change this to metoprolol succinate 25 mg once daily and we can increase this if his heart rate will allow. 3. Hypertension. The patient's blood pressure currently is quite elevated. He did not receive his medications prior to eloping this morning. He will have p.r.n. hydralazine for systolic blood pressures greater than 170. He can also receive his lisinopril and metoprolol. 4. Depression. The patient will be placed on a one-to-one to prevent elopement of this hospitalization. It was previously recommended the patient be started on Wellbutrin XL 150 mg daily and Remeron 15 mg at bedtime and these have been ordered. Psychiatry is aware that the patient is being readmitted and will continue to follow. 5. Deep vein thrombosis prophylaxis. According to the adult thrombosis prophylaxis risk factor assessment guide, the patient has a total risk factor score of 7 making him the highest risk. Lovenox 40 mg subcutaneous daily will be ordered as deep vein thrombosis prophylaxis. 6. Code status is full. TIME SPENT: Sixty five minutes was spent readmitting this patient, reviewing prior hospitalization records. [id number]/[facility] #: [id number] JODIE
[2019-01-08] MEDS: Clopidogrel TAB* 75 MG PO SCH (16:53)
--- NOTE | 2019-01-08 17:02 | CONS ---
CC: Dr. Argueta* CONSULTATION REPORT: DATE OF CONSULT: 01/08/19. PATIENT OF: Dr. Lewis. HISTORY OF PRESENT ILLNESS: This is a 58-year-old man, who I am asked to see in consultation in the emergency room who was recently hospitalized for left leg weakness and left the hospital and then he was brought back after leaving yesterday. Dr. Lewis consulted to me to see if he needs to be readmitted to the medical site since his workup is completed or be admitted to the psych floor for significant depression. This 58-year-old man who has had generalized weakness and gait instability and left knee replacement that was done last year. He has also had significant depression. He notes that the leg is better now than it had been when he presented a few days ago and he can walk. He has had some numbness in his feet. He denies any IV drug use. Dr. Argueta found that he walks with a limp without any knee buckling with less than full extension at the left knee. Dr. Argueta thought that this leg weakness is secondary to arthritis and did not think there was an underlying neurological problem. He had, following this, an MRI scan and CTA as below. He denies any other focal numbness or weakness or prior history of stroke. He has a history of severe depression since his and a past history of alcohol abuse, posttraumatic stress disorder, hypertension, coronary artery disease with stenting, hyperlipidemia. He was only taking aspirin, but was supposed to be on trazodone, metoprolol, lisinopril , insulin sliding scale, Spiriva, but is not taking any of these things. He is also on vitamin B12. He has been smoking a pack of cigarettes per day up to admission and drinks beer every other week. He denies any current drug use. He is adopted and does not know his biological family. He has been gaining weight, does not follow blood sugars and he has had prior hospitalizations for depression. PHYSICAL EXAM: On exam, temperature 98.2, pulse 59, respirations 19, blood pressure 186/97. He is alert and oriented. Normal speech and comprehension. Cranial nerves II through XII were intact. Fundi benign. Motor exam revealed normal tone and strength. He was able to walk, but was unsteady on his feet. He notes that this has been a chronic problem. Reflexes are trace to 1 with downgoing toes. He had decreased sensation in the feet. Chest: Clear. Cardiovascular: Regular rate and rhythm. Abdomen: Soft with positive bowel sounds. DIAGNOSTIC STUDIES/LAB DATA: A review of his MRI scan did show significant white matter disease and what appeared to be a small stroke in multiple vascular distributions including in his right cerebellum, left lateral ventricle and there may have been a small hemosiderin deposit. There is tiny foci enhancement in his left thalamus. His CTA showed significant vascular disease mainly in a right internal carotid artery up to 70% and moderate stenosis in the left vertebral. Labs include normal CBC, negative troponin, cannabinoids presumptively positive. Rest of the drug screen and alcohol were negative. Recent chemistries include glucose 152, BUN of 27. CMP, CPK was normal. BNP was elevated at 112. LDL was 127. B12 was 267, TSH 2.57. He has had a negative source of clot on his echo this prior hospitalization. I discussed this with Dr. Lewis that he appears on his MRI scan to have multiple acute strokes, so it is possible that it is from his extensive vacular disease, but it will be unlikely to have so much stroke of recent onset from atherosclerotic disease and it raises the possibility of cardioembolic. We are having Dr. Mayers take a look and probably put a loop recorder in to rule out atrial fibrillation. We are sending off 3 sets of blood cultures to make sure that he does not have a septic source given his history of drug use, although he denies any drug abuse at all. I also recommended that he be admitted to sort things out a little bit further to the medical floor before he goes to psych floor. With his extensive vascular disease, it is possible that his findings on MRI scan are all from the vascular disease, but I am concerned that this is not the case. Now we are putting him on aspirin and Plavix because of the significant vascular disease and the new significant stroke. He is at high risk for having further stroke. Given his old hemosiderin deposit, it is possible that he could have bleeding as well, but the risk of stroke is high obviously. After we sort things out further, we may be switching him to anticoagulation. It is not clear whether his leg weakness is secondary to stroke or not, but it has improved, particularly by his history and therefore, it is possible that it could be related, but it is not clear at all. The other concern is I think he may have a diabetic neuropathy given imbalance on his exam, which the pattern is more suggestive of the neuropathy rather than a small cerebellar stroke that was seen on MRI scan. He did reach for the things usually with either hand. Thank you for sharing his case. [id number]/[facility] #: [id number] JODIE
[2019-01-08] MEDS: Enoxaparin(*) 40 MG/0.4 ML SYR SUBCUT SCH (20:23)
[2019-01-08] MEDS: Mirtazapine TAB* 15 MG PO SCH (20:23)
[2019-01-08] MEDS: Lisinopril TAB* 10 MG PO SCH (20:46)
[2019-01-08] MEDS: Metoprolol Succinate XL TAB* 25 MG PO SCH (20:46)
[2019-01-08] MEDS ORDERED: Atorvastatin* 80 MG TAB PO ONE (21:00)
[2019-01-08] MEDS: Melatonin 3 MG TAB PO PRN (21:05)
[2019-01-08] MEDS: Acetaminophen TAB* 325 MG PO PRN (21:05)
[2019-01-09] MEDS: Nicotine PATCH 21 MG/24 HR* PATCH TRANSDERM SCH (09:10)
[2019-01-09] MEDS: Metoprolol Succinate XL TAB* 25 MG PO SCH (09:12)
[2019-01-09] MEDS: Aspirin EC TAB* 81 MG TAB.EC PO SCH (09:12)
[2019-01-09] MEDS: Lisinopril TAB* 10 MG PO SCH (09:12)
[2019-01-09] MEDS: Clopidogrel TAB* 75 MG PO SCH (09:12)
[2019-01-09] MEDS: Acetaminophen TAB* 325 MG PO PRN (09:26)
[2019-01-09] MEDS: BuPROPion XL* 150 MG TAB.XL PO SCH (09:29)
--- NOTE | 2019-01-09 14:14 | PN ---
Subjective Date of Service: 01/09/19 Interval History: Patient seen this morning still complaining of pain and knee pain. Neurology consult appreciated. S/p Loop recorder implant given his MRI brain finding of infarct. Still depressed on 1:1. Past Medical History: Unchanged from Admission Objective Active Medications: Acetaminophen (Tylenol Tab*) 650 mg PO Q6H PRN PRN Reason: HEADACHE/PAIN Last Admin: 01/09/19 09:26 Dose: 650 mg Aspirin (Aspirin Ec Tab*) 81 mg PO DAILY [facility] Last Admin: 01/09/19 09:12 Dose: 81 mg Bupropion HCl (Wellbutrin Xl *) 150 mg PO DAILY [facility] Last Admin: 01/09/19 09:29 Dose: 150 mg Clopidogrel Bisulfate (Plavix Tab*) 75 mg PO DAILY [facility] Last Admin: 01/09/19 09:12 Dose: 75 mg Enoxaparin Sodium (Lovenox(*)) 40 mg SUBCUT Q24H [facility] Last Admin: 01/08/19 20:23 Dose: 40 mg Hydralazine HCl (Apresoline Iv*) 10 mg IV SLOW PU Q6H PRN PRN Reason: SBP>170 Last Admin: 01/08/19 18:36 Dose: 10 mg Lisinopril (Prinivil Tab*) 10 mg PO DAILY [facility] Last Admin: 01/09/19 09:12 Dose: 10 mg Melatonin (Melatonin) 3 mg PO BEDTIME PRN PRN Reason: SLEEP Last Admin: 01/08/19 21:05 Dose: 3 mg Metoprolol Succinate (Toprol Xl Tab*) 25 mg PO DAILY [facility] Last Admin: 01/09/19 09:12 Dose: 25 mg Mirtazapine (Remeron Tab*) 15 mg PO BEDTIME [facility] Last Admin: 01/08/19 20:23 Dose: 15 mg Nicotine (Nicotine Patch 21 Mg/24 Hr*) 1 patch TRANSDERM DAILY@0800 [facility] Last Admin: 01/09/19 09:10 Dose: 1 patch Nicotine Polacrilex (Nicotine Gum*) 2 mg PO Q2H PRN PRN Reason: CRAVING Pharmacy Profile Note (Nicotine Patch Removal Note*) 1 note PATCH OFF 2100 [facility] Vital Signs - 8 hr 01/09/19 01/09/19 01/09/19 07:36 08:00 11:23 Temperature 98 F 98 F Pulse Rate 54 51 Respiratory 16 16 16 Rate Blood Pressure 139/66 151/73 (mmHg) O2 Sat by Pulse 100 99 Oximetry Oxygen Devices in Use Now: None Appearance: awake, flat affect. no acute events Eyes: No Scleral Icterus, PERRLA, - - EOMI Ears/Nose/Mouth/Throat: NL Teeth, Lips, Gums, Mucous Membranes Moist Neck: NL Appearance and Movements; NL JVP, Trachea Midline Respiratory: Symmetrical Chest Expansion and Respiratory Effort, Clear to Auscultation Cardiovascular: NL Sounds; No Murmurs; No JVD, No Edema, - Abdominal: NL Sounds; No Tenderness; No Distention, No Hepatosplenomegaly Extremities: No Edema Neurological: Alert and Oriented x 3, NL Muscle Strength and Tone Result Diagrams: 01/08/19 11:55 Assess/Plan/Problems-Billing Assessment: 58 y/o male presented to ER on 01/05/19 for reccurent fall and weakness, chest pain and shortness of breath. He was admitted to the medical service for evaluations and expressed suicidal ideations at that time. He was seen by psych and was cleared from suicidal threats and on 01/08/19 the patient was missing from his room. We was brought back under 9.39 and psych reconsulted. Currently he is under involuntary stay on the medical service until he is medically cleared at which time he will be trasferred to inpatient psych floor. His intial work up so far revealed: 1. MRI brain 01/07/19 reveals acute infarct both right and left hemisphere and chantal. 2. MRI Lumbar spine 01/07/19 revealed T11-T12 disc edema new finding suggestive of diskitis but could not rule out osteomyelitis DJD L3-L4 through L5-S1, progressive narrowing of the thecal sac and of both lateral recesses of L4-L5 . Neural foraminal narrowing from L3-L4 through L5-S1. Subcentimeter focus of enhancement in the region of the ligamentous flavum on the right side at L4-L5 3. Nuclear stress test 01/07/19 shows reversible ischemia of the lateral wall 4. CTA head and neck 01/05/19 reveals long segment stenosis of the right internal carotid artery proximally measuring up to 70% stenosis, moderate stenosis of the V4 segment of the left vertebral artery. Chronic small vessel ischemic changes 5. Echo 01/05/19 reveal EF 35%-40% no PFO 6. Cardiology consult 01/07/[address] Mayers and did not recommend further work and recommended to resume his previous cardiac meds 7. Orthopedic consult 01/08/19 for his left knee pain, recommeded LTA arthroplast electively once discharge on outpatient basis. He was offered steroid injections but he declined 8. Neurology consult 01/08/[address] Wagoner and the MRI brain reviewed. he Recommended Loop recorder, BC x 2, aspirin and plavix - Patient Problems (1) CVA (cerebral vascular accident) Current Visit: Yes Status: Acute Code(s): I63.9 - CEREBRAL INFARCTION, UNSPECIFIED SNOMED Code(s): 738444462 Comment: - He felt like his legs bilaterally from hips down are "asleep" s/p fallen - CT Head shows chronic small vessel ischemic changes. - MRI Brain showing multiple areas of acute lacunar or acute to subacute small CVAs with embolic source suspicion. No PFO was seen on ECHO, does have long segment of 70% R ICA stenosis that may be stuttering? left vertebral artery v4 stenosis. - Appreciate Neurology recs. Continue aspirin. added plavix. BC ordered, SERGE to rule out clots or vegetations. repeat MRI on monday as per neurology input. Discussed case with Dr Wagoner (2) Gait instability Current Visit: No Status: Acute Code(s): R26.81 - UNSTEADINESS ON FEET SNOMED Code(s): 741396366 Comment: - He felt like his legs bilaterally from hips down are "asleep" s/p fallen - CT Head shows chronic small vessel ischemic changes. - MRI Brain showing multiple areas of acute lacunar or acute to subacute small CVAs with embolic source suspicion. No PFO was seen on ECHO, does have long segment of 70% R ICA stenosis that may be stuttering? left vertebral artery v4 stenosis. - Appreciate Neurology recs. Continue aspirin. added plavix. BC ordered, SERGE to rule out clots or vegetations. repeat MRI on monday as per neurology input. Discussed case with Dr Wagoner (3) CAD (coronary artery disease) Current Visit: No Status: Acute Code(s): I25.10 - ATHSCL HEART DISEASE OF [place] CORONARY ARTERY W/O ANG PCTRS SNOMED Code(s): 05246704 Comment: - s/p Cardiac cath 2012 with stents to RCA and 2nd diagonal branches - Poor medical compliance - Nuclear stress test 01/07/19 shows reversible ischemia of the lateral wall artery - Echo 01/05/19 reveal EF 35%-40% no PFO - Seen by Cardiology consult 01/07/[address] Mayers and did not recommend further work and recommended to resume his previous cardiac meds - Loop recorder placed 01/09/19 given his acute and subacute infarct on his Brain MRI - Resumed his lopressor 25 mg daily and now on aspirin 81 mg and plavix 75 mg daily given his new acute and subacute CVA. Will add lipitor 80mg HS (4) Chest pain Current Visit: No Status: Acute Priority: High Onset Date: 10/09/14 Code (s): R07.9 - CHEST PAIN, UNSPECIFIED SNOMED Code(s): 78784146 Comment: - In ED had complaint of 9/10 crushing chest pain substernally radiating to the right. - Troponins were negative and EKG on admission with old infarction inferiorly and anteriorly. f/u repeat EKG stable. - Nuclear stress test 01/07/19 shows reversible ischemia of the lateral wall - Echo 01/05/19 reveal EF 35%-40% no PFO - Cardiology consult 01/07/[address] Mayers did not recommend further work and recommended to resume his previous cardiac meds - continue aspirin 81mg, plavix 75 mg and lopressor 25 mg daily. Will add lipitor 80 mg HS (5) Diabetes Current Visit: No Status: Acute Code(s): E11.9 - TYPE 2 DIABETES MELLITUS WITHOUT COMPLICATIONS SNOMED Code(s): 35610274 Comment: - not compliant with any meds at home. - A1c 8.8% - I will resume Lantus 8 units and start sliding scale with coverage qachs (6) Hypertension Current Visit: No Status: Acute Priority: High Onset Date: 10/09/14 Code (s): I10 - ESSENTIAL (PRIMARY) HYPERTENSION SNOMED Code(s): 80248657 Comment: - SBP >200mmHg at admission secondary to Non-compliant with use of home antihypertensives - Good response to metoprolol 25 mg daily and lisinopril 10 mg daily. Will allow permissive hypertension between 140-160 is ok (7) Major depression Current Visit: No Status: Acute Code(s): F32.9 - MAJOR DEPRESSIVE DISORDER, SINGLE EPISODE, UNSPECIFIED SNOMED Code(s): 931815495 Comment: - Appreciate Psych consulted. - He was on Paroxetine in Apr or May 2018 and then Celexa Aug 2018 but stopped taking/did not refill. - given his suicical ideation he is on 1:1 until he is transferred to [facility] admission. - Started trial of Wellbutrin 150mg and remeron 15mg per Dr. Martin plan (8) Dyslipidemia Current Visit: No Status: Chronic Priority: High Code(s): E78.5 - HYPERLIPIDEMIA, UNSPECIFIED SNOMED Code(s): 173919443 Comment: - LDL 127, HDL 44 - Atorvastatin 80 mg restarted, high intensity (9) History of obstructive sleep apnea Current Visit: No Status: Chronic Priority: Medium Code(s): G47.33 - OBSTRUCTIVE SLEEP APNEA (ADULT) (PEDIATRIC) SNOMED Code(s): 491543111 Comment: non compliant with CPAP (10) DVT prophylaxis Current Visit: No Status: Acute Priority: Medium Onset Date: 10/09/14 Code(s): [id number] - SNOMED Code(s): 027522679 Comment: - Lovenox 40 mh SQ daily
[2019-01-09] MEDS ORDERED: Dextrose 50% Syringe 50 ML* 25 GM/50 ML SYRINGE IV PUSH PRN (14:58)
--- NOTE | 2019-01-09 15:26 | PN ---
NEUROLOGICAL FOLLOWUP: DATE OF SERVICE: PATIENT OF: HISTORY: This is the neurological followup on this 58-year-old man who on MRI scan of his head had multiple recent small strokes in more than one vascular distribution. He has no complaints at this point. He remains somewhat depressed. His medications include his baby aspirin, his one-a-day Plavix 75 mg a day, Wellbutrin 150 daily, Lovenox subcu, lisinopril 10 mg daily, Toprol 25 mg daily, Remeron 15 mg at bedtime, nicotine patch transdermally. Temperature 98, pulse 51, respirations 16, blood pressure 151/73. He is alert and oriented to exam with speech comprehension. Cranial nerves II through XII were intact. Motor exam revealed normal tone and strength. Sensation is intact to light touch. Chest: Clear. Cardiovascular: Regular rate and rhythm. Abdomen: Soft with positive bowel sounds. He has had no further blood test. He has had a loop recorder electrode placed. Blood cultures were pending. I discussed with Jr and his hospitalist that he could either have a stroke from an embolic source as this is in more than one vascular distribution, but he has extensive vascular disease and it is possible that his vascular disease has caused his stroke. It perhaps is less likely, but it is not entirely clear , which possibility actually happened. He had a small bit of hemosiderin on his MRI scan, so there is probably an old TRAIN ENGINEER bleed before we anticoagulated and it would be good to try to be more sure that it is a cardiac source; therefore, we are getting a transesophageal echo looking for clots. We have run a loop recorder and will be repeating an MRI scan early next week to see if there is an interval change. If he is having more strokes, then there would be pressure to switch him to anticoagulation or if there is a clot on his echo or obviously if he has atrial fib documented. He has a history of sleep apnea, it is not being treated now. This should be treated when he goes home, especially since sleep deprivation or insufficient sleep can cause or exacerbate depression , there is also a cardiovascular risk factor. Thank you for sharing his case. [id number]/[facility] #: [id number] JODIE
--- NOTE | 2019-01-09 16:16 | CONSULT ---
Identification - Patient Identification Reason for Psychiatric Consultation: Suicidal Ideation -: Patient is a 58 year old, M admitted on 01/08/19. - MHU Identification Employment Status: Disabled Hx Psychiatric Hospitalization: Yes History - Objective HPI: Jr is seen for follow up one day after eloping and then being returned to the hospital by police. Please see my dictated consultation from January 07 for further history and information. Today, Jr continues to present with depressed mood and constricted affect. He reports that he was surprised by the findings of acute-appearing brain tissue pathology on his MRI and is willing to undergo treatment and evaluation for that. He is tolerating his newly initiated antidepressant therapies well and denies side effects. He is strongly denying SI and would prefer not to go to the [facility] following medical clearance but it is explained to him that we need to make sure that his depressive condition is better controlled before allowing him to leave. Exam Appearance: Obese Hygiene: Normal Grooming: Fairly Well Kept Psychomotor Activities: Abnormal-Decreased Exhibits Abnormal Movement: No Attitude and Relatedness: Cooperative Eye Contact: Good - Speech Quality: Unpressured Latencies: Normal Quantity: Appropriate Patient's Decription of Mood: "Sad" Observed Affect: Constricted Affect Consistent with: Dysphoria Patient's Thought Process: Coherent Thought Content: No Passive Wish, No Suicidal Planning, No Homicidal Ideation, No Paranoid Ideation Experiencing Hallucinations: No, Sensorium is Clear Type of Hallucinations: Visual: No, Auditory: No, Command: No Level of Consciousness: Alert Orientation: Yes Intact, Yes Orientated to Time, Yes Orientated to Place, Yes Orientated to Person Impulse Control: Poor Insight and Judgement: Impaired Impression - Impression Clinical Impression: 58 y.o. , white male with a history of major depression and previous substance misuse (alcohol, cocaine, opioids, cannabis) and multiple medical comorbidities who is admitted to the Hospitalist service for treatment and evaluation of chest pain, subsequently discovered to have acute-appearing brain lesions; suffering from depression and passive SI. Inpatient DSM-V Dx: F33.2 Merits Inpatient Hospitalization: Yes [facility]: Problem List - Patient Problems (1) MDD (major depressive disorder), recurrent episode, severe Current Visit: Yes Status: Acute Priority: High Code(s): F33.2 - MAJOR DEPRESSV DISORDER, RECURRENT SEVERE W/O PSYCH FEATURES SNOMED Code(s): 234550854556 Plan - Treatment Plan Treatment Plan: We have started trials of bupropion XL 150mg PO qam and mirtazapine 15mg PO qhs. The patient will remain on a 1:1 as he has proven himself to be a flight risk. Transfer to [facility] s/p medical clearance. Patient will be on 9.39 involuntary legal status. Psychiatry will continue to follow. Continued Medication Management: Start Medication Medications: Current Medications Acetaminophen (Tylenol Tab*) 650 mg PO Q6H PRN PRN Reason: HEADACHE/PAIN Last Admin: 01/09/19 09:26 Dose: 650 mg Aspirin (Aspirin Ec Tab*) 81 mg PO DAILY [facility] Last Admin: 01/09/19 09:12 Dose: 81 mg Atorvastatin Calcium (Lipitor*) 80 mg PO 2100 [facility] Bupropion HCl (Wellbutrin Xl *) 150 mg PO DAILY [facility] Last Admin: 01/09/19 09:29 Dose: 150 mg Clopidogrel Bisulfate (Plavix Tab*) 75 mg PO DAILY [facility] Last Admin: 01/09/19 09:12 Dose: 75 mg Dextrose (D50w Syringe 50 Ml*) 12.5 gm IV PUSH .FOR FS < 60 - SS PRN PRN Reason: FS < 60 Enoxaparin Sodium (Lovenox(*)) 40 mg SUBCUT Q24H [facility] Last Admin: 01/08/19 20:23 Dose: 40 mg Hydralazine HCl (Apresoline Iv*) 10 mg IV SLOW PU Q6H PRN PRN Reason: SBP>170 Last Admin: 01/08/19 18:36 Dose: 10 mg Insulin Glargine (Lantus(*)) 8 units SUBCUT Q24H [facility] Insulin Human Lispro (Humalog*) 0 units SUBCUT ACHS [facility]; Protocol Lisinopril (Prinivil Tab*) 10 mg PO DAILY [facility] Last Admin: 01/09/19 09:12 Dose: 10 mg Melatonin (Melatonin) 3 mg PO BEDTIME PRN PRN Reason: SLEEP Last Admin: 01/08/19 21:05 Dose: 3 mg Metoprolol Succinate (Toprol Xl Tab*) 25 mg PO DAILY [facility] Last Admin: 01/09/19 09:12 Dose: 25 mg Mirtazapine (Remeron Tab*) 15 mg PO BEDTIME [facility] Last Admin: 01/08/19 20:23 Dose: 15 mg Nicotine (Nicotine Patch 21 Mg/24 Hr*) 1 patch TRANSDERM DAILY@0800 [facility] Last Admin: 01/09/19 09:10 Dose: 1 patch Nicotine Polacrilex (Nicotine Gum*) 2 mg PO Q2H PRN PRN Reason: CRAVING Pharmacy Profile Note (Nicotine Patch Removal Note*) 1 note PATCH OFF 2100 [facility] - Discharge Plan Discharge Plan: Inpatient Hospitalization
[2019-01-09] MEDS: Insulin GLARGINE(*) 1 UNITS UNIT SUBCUT SCH (17:55)
[2019-01-09] MEDS: Insulin LISPRO* 1 UNITS UNIT SUBCUT SCH ×2 (17:55→19:52)
[2019-01-09] MEDS: Enoxaparin(*) 40 MG/0.4 ML SYR SUBCUT SCH (19:53)
[2019-01-09] MEDS: Atorvastatin* 80 MG TAB PO SCH (19:54)
[2019-01-09] MEDS: Mirtazapine TAB* 15 MG PO SCH (19:54)
[2019-01-09] MEDS: Melatonin 3 MG TAB PO PRN (19:54)
[2019-01-09] MEDS: Nicotine Patch Removal NOTE PATCH OFF SCH (20:19)
[2019-01-10 05:53] LABS: ABS Basophils 0.1 10^3/ul (0-0.2); ABS Eosinophils 0.3 10^3/ul (0-0.6); ABS Lymphocytes 3.4 10^3/ul (1.0-4.8); ABS Neutrophils 5.1 10^3/ul (1.5-7.7); Eosinophil % 2.9 %; Hematocrit 48 % (42-52); Hemoglobin 16.4 g/dL (14.0-18.0); Lymphocyte % 34.9 %; Mean Corpuscular HGB Conc 34 g/dL (31-36); Mean Corpuscular Hemoglobin 32 pg (27-31); Mean Corpuscular Volume 93 fL (80-94); Mean Platelet Volume 7.8 fL (7.4-10.4); Platelet Count 291 10^3/uL (150-450); Red Cell Distribution Width 13 % (10-15); White Blood Count 9.9 10^3/uL (3.5-10.8)
[2019-01-10 06:20] LABS: Anion Gap 6 mmol/L (2-11); BUN/Creatinine Ratio 22.5 (8-20); Blood Urea Nitrogen 25 mg/dL (6-24); C Reactive Protein < 1.00 mg/L (<8.01); CO2 Carbon Dioxide 24 mmol/L (22-32); Calcium 9.1 mg/dL (8.6-10.3); Chloride 106 mmol/L (101-111); EGFR African American 82.3 (>60); Glucose 182 mg/dL (70-100); Magnesium 2.1 mg/dL (1.9-2.7); Phosphorus 4.2 mg/dL (2.5-5.0); Potassium 4.3 mmol/L (3.5-5.0); Sodium 136 mmol/L (135-145)
[2019-01-10] MEDS ORDERED: fentaNYL* 50 MCG/ML 2 ML VIAL (100 MCG VIAL) ONE (09:04)
[2019-01-10] MEDS ORDERED: Naloxone* 0.4 MG/ML 1 ML VIAL ONE (09:04)
[2019-01-10] MEDS ORDERED: Midazolam* 1 MG/ML 5 ML VIAL (5 MG) ONE ×2 (09:04→09:05)
[2019-01-10] MEDS ORDERED: Flumazenil* 0.1 MG/ML 5 ML MDV ONE (09:05)
[2019-01-10] MEDS ORDERED: Lidocaine 2% VISCOUS* 15 ML UDC ONE (09:05)
[2019-01-10] MEDS ORDERED: diPHENhydraMINE IV* 50 MG/ML 1 ml VIAL (BENADRYL) ONE (09:20)
[2019-01-10 09:34] LABS: Erythrocyte Sed Rate 2 mm/Hr (0-19)
--- NOTE | 2019-01-10 11:15 | TEE ---
*[facility]* [place] [address] Fax #: [phone] Transesophageal Echocardiogram Patient: Jr Navarro Height: 64 in / P 162.6 cm : 1960 Weight: 210.6 lb / Study Date: 01/10/2019 95.7 kg Age: 58 BP: 171 / 95 Gender: M BMI/BSA: 36.2 kg/m^2 HR: 63 bpm / 2 m^2 *Quality Systems Engineer: * Nydia Mcguire [facility] *Referring Physician: * Kirk MartinReading Physician: * Miquel Carrillo MD Indications: CVA. History: Coronary artery disease. Functional status: Not following treatment plan for sleep apnea. Risk factors: Current tobacco use. Hypertension. Diabetes mellitus. Obese. Dyslipidemia. Former ETOH and cocaine abuse, esophageal ulcer. Labs, prior tests, procedures, and surgery: Catheterization. There was a stenosis which was treated with a stent. Conclusions Summary: 1. Left ventricle: There is concentric hypertrophy. Systolic function is mildly to moderately reduced by visual assessment. Diffuse hypokinesis with regional variations. 2. Left atrium: The atrium is moderately to severely dilated. There is no evidence of a thrombus in the atrial cavity or appendage. 3. Atrial septum: A PFO is not demonstrated by color Doppler or agitated saline contrast. 4. Aortic valve: There is mild to moderate regurgitation. 5. Aorta: There is mild to moderate intimal plaque visualized in the Transverse Aorta. There is mild intimal plaque visualized in the descending thoracic aorta. 6. There is no echocardiogram evidence of endocarditis. Recommendations: No prior SERGE's available for comparison at time of interpretation. Study data: Diagnostic Transesophageal Echocardiogram Consent: The risks and benefits of the procedure, including alternatives were discussed with the patient and/or their health care safety representative and written informed consent was obtained. Procedure: Initial setup: The patient was brought to the laboratory in the fasting state.Intravenous access was obtained. Surface ECG leads, heart rate, heart rhythm, blood pressure measurements, pulse oximetric signals, and mainstream end-tidal CO2 tracings were monitored throughout the procedure. Sedation. Moderate sedation was administered by nursing staff. History and physical as well as labs were reviewed. An oral bite block was inserted for protection of oral dentition. The patient was placed in the left lateral decubitus position. Topical anesthesia was obtained using viscous lidocaine. A transesophageal probe was inserted by the attending warehouse associate. without difficultyTransesophageal echocardiography was performed, image quality was good, and all standard views were attempted within the limitations of patient tolerance and safety. Multiple 2D, color flow Doppler and spectral Doppler images were obtained. The transesophageal probe was removed. A bubble study was performed. Image 72. Location: Procedure room. Patient status: Inpatient. Patient room number: 433. Study completion: The patient tolerated the procedure well. There were no complications. Administered medications: Midazolam, 7mg. Fentanyl, 75mcg. Benedryl, for a total dose of 25mg, IV. Findings Left ventricle: The cavity size is normal. There is concentric hypertrophy. Systolic function is mildly to moderately reduced by visual assessment. Diffuse hypokinesis with regional variations. There is no evidence of a thrombus. Doppler parameters are consistent with abnormal left ventricular relaxation (grade 1 diastolic dysfunction). Right ventricle: The cavity size is normal. Systolic function is normal. Left atrium: The atrium is moderately to severely dilated. Emptying velocity is normal. There is no evidence of a thrombus in the atrial cavity or appendage. Right atrium: The atrium is normal in size. There is no evidence of a thrombus in the atrial cavity or appendage. Atrial septum: No defect or patent foramen ovale is identified. A PFO is not demonstrated by color Doppler or agitated saline contrast. Mitral valve: The leaflets are mildly thickened. There is no evidence of stenosis. There is trace regurgitation. Aortic valve: The leaflets are mildly thickened. There is no evidence of stenosis. There is mild to moderate regurgitation. Tricuspid valve: There is no evidence of stenosis. There is physiologic regurgitation. Pulmonic valve: There is no evidence of stenosis. There is trace regurgitation. Aorta: There is mild to moderate intimal plaque visualized in the Transverse Aorta. There is mild intimal plaque visualized in the descending thoracic aorta. Ascending aorta: The ascending aorta is upper normal in size. The aortic root is not dilated. Pericardium: There is no significant pericardial effusion. Pulmonary arteries: Not well visualized. Systolic pressure can not be accurately estimated. Systemic veins: Superior vena cava: The vessel is appears normal. Bicaval view appears normal. Pulmonary veins: Well visualized. The Pulmonary veins appear normal. Measurements LVOT Value 01/07/2019 Ref Aortic root Value 01/07/2019 Ref Diam, S 2.10 cm ---- Root diam 3.2 cm 3.0 < 4.1 Area 3.5 cm^2 ---- Ascending aorta Value 01/07/2019 Ref Aortic valve Value 01/07/2019 Ref AAo AP diam, 3.7 cm ---- Adore diam, ED 2.1 cm 2.1 ---- S Adore diam/bsa, 1.0 cm/m^2 1.1 ---- ED Pulmonary veins Value 01/07/2019 Ref AR peak v 4.17 m/sec ---- Peak v, S 0.54 m/sec 0.42 ---- AR PHT 818 ms ---- Peak v, D 0.41 m/sec 0.31 ---- AR peak grad 70 mm Hg ---- Peak S/D 1.3 1.4 ---- ratio Mitral valve Value 01/07/2019 Ref Peak A rev v 0.2 m/sec 0.23 ---- Peak E 0.46 m/sec 0.84 ---- A rev 137 ms 121 ---- Peak A 0.96 m/sec 1.1 ---- duration Decel time 320 ms 216 ---- Peak E/A ratio 0.5 0.8 ---- Legend: (L) and (H) michell values outside specified reference range. Prepared and electronically signed by Miquel Carrillo MD 01/10/2019 11:14
[2019-01-10] MEDS: Insulin LISPRO* 1 UNITS UNIT SUBCUT SCH ×4 (11:26→19:58)
[2019-01-10] MEDS: Nicotine PATCH 21 MG/24 HR* PATCH TRANSDERM SCH (11:41)
[2019-01-10] MEDS: Lisinopril TAB* 10 MG PO SCH (11:43)
[2019-01-10] MEDS: BuPROPion XL* 150 MG TAB.XL PO SCH (11:43)
[2019-01-10] MEDS: Aspirin EC TAB* 81 MG TAB.EC PO SCH (11:44)
[2019-01-10] MEDS: Clopidogrel TAB* 75 MG PO SCH (11:44)
[2019-01-10] MEDS: Metoprolol Succinate XL TAB* 25 MG PO SCH (11:44)
[2019-01-10] MEDS: Acetaminophen TAB* 325 MG PO PRN ×2 (13:03→19:53)
--- NOTE | 2019-01-10 13:06 | CONSULT ---
Identification - Patient Identification Reason for Psychiatric Consultation: Suicidal Ideation -: Patient is a 58 year old, M admitted on 01/08/19. - MHU Identification Employment Status: Disabled Hx Psychiatric Hospitalization: Yes History - Objective HPI: Jr is seen for psychiatric follow up on where he appears depressed, mildly lethargic, hypokinetic and with constricted affect. He is tolerating antidepressant therapy well so far and is not aware of any untoward effects from the addition of bupropion and mirtazapine to his regimen. He admits that he does not have much to live for, although he has started to back off passive SI. He remains on 1:1 observation due to his recent history of eloping from the hospital. Exam Appearance: Obese Hygiene: Normal Grooming: Fairly Well Kept Psychomotor Activities: Abnormal-Decreased Exhibits Abnormal Movement: No Attitude and Relatedness: Cooperative Eye Contact: Good - Speech Quality: Unpressured Latencies: Normal Quantity: Appropriate Patient's Decription of Mood: "Sad" Observed Affect: Constricted Affect Consistent with: Dysphoria Patient's Thought Process: Coherent Thought Content: No Passive Wish, No Suicidal Planning, No Homicidal Ideation, No Paranoid Ideation Experiencing Hallucinations: No, Sensorium is Clear Type of Hallucinations: Visual: No, Auditory: No, Command: No Level of Consciousness: Alert Orientation: Yes Intact, Yes Orientated to Time, Yes Orientated to Place, Yes Orientated to Person Impulse Control: Poor Insight and Judgement: Impaired Impression - Impression Clinical Impression: 58 y.o. , white male with a history of major depression and previous substance misuse (alcohol, cocaine, opioids, cannabis) and multiple medical comorbidities who is admitted to the Hospitalist service for treatment and evaluation of chest pain, subsequently discovered to have acute-appearing brain lesions; suffering from depression and passive SI. Inpatient DSM-V Dx: F33.2 Merits Inpatient Hospitalization: Yes [facility]: Problem List - Patient Problems (1) MDD (major depressive disorder), recurrent episode, severe Current Visit: Yes Status: Acute Priority: High Code(s): F33.2 - MAJOR DEPRESSV DISORDER, RECURRENT SEVERE W/O PSYCH FEATURES SNOMED Code(s): 311108508849 Plan - Treatment Plan Treatment Plan: We have started trials of bupropion XL 150mg PO qam and mirtazapine 15mg PO qhs. The patient will remain on a 1:1 as he has proven himself to be a flight risk. Transfer to [facility] s/p medical clearance. Patient will be on 9.39 involuntary legal status. Psychiatry will continue to follow. Continued Medication Management: Start Medication Medications: Current Medications Acetaminophen (Tylenol Tab*) 650 mg PO Q6H PRN PRN Reason: HEADACHE/PAIN Last Admin: 01/09/19 09:26 Dose: 650 mg Aspirin (Aspirin Ec Tab*) 81 mg PO DAILY [facility] Last Admin: 01/10/19 11:44 Dose: 81 mg Atorvastatin Calcium (Lipitor*) 80 mg PO 2100 [facility] Last Admin: 01/09/19 19:54 Dose: 80 mg Bupropion HCl (Wellbutrin Xl *) 150 mg PO DAILY [facility] Last Admin: 01/10/19 11:43 Dose: 150 mg Clopidogrel Bisulfate (Plavix Tab*) 75 mg PO DAILY [facility] Last Admin: 01/10/19 11:44 Dose: 75 mg Dextrose (D50w Syringe 50 Ml*) 12.5 gm IV PUSH .FOR FS < 60 - SS PRN PRN Reason: FS < 60 Enoxaparin Sodium (Lovenox(*)) 40 mg SUBCUT Q24H [facility] Last Admin: 01/09/19 19:53 Dose: 40 mg Hydralazine HCl (Apresoline Iv*) 10 mg IV SLOW PU Q6H PRN PRN Reason: SBP>170 Last Admin: 01/08/19 18:36 Dose: 10 mg Insulin Glargine (Lantus(*)) 8 units SUBCUT Q24H [facility] Last Admin: 01/09/19 17:55 Dose: 8 units Insulin Human Lispro (Humalog*) 0 units SUBCUT ACHS [facility]; Protocol Last Admin: 01/10/19 12:29 Dose: 3 units Lisinopril (Prinivil Tab*) 10 mg PO DAILY [facility] Last Admin: 01/10/19 11:43 Dose: 10 mg Melatonin (Melatonin) 3 mg PO BEDTIME PRN PRN Reason: SLEEP Last Admin: 01/09/19 19:54 Dose: 3 mg Metoprolol Succinate (Toprol Xl Tab*) 25 mg PO DAILY [facility] Last Admin: 01/10/19 11:44 Dose: 25 mg Mirtazapine (Remeron Tab*) 15 mg PO BEDTIME [facility] Last Admin: 01/09/19 19:54 Dose: 15 mg Nicotine (Nicotine Patch 21 Mg/24 Hr*) 1 patch TRANSDERM DAILY@0800 [facility] Last Admin: 01/10/19 11:41 Dose: 1 patch Nicotine Polacrilex (Nicotine Gum*) 2 mg PO Q2H PRN PRN Reason: CRAVING Pharmacy Profile Note (Nicotine Patch Removal Note*) 1 note PATCH OFF 2100 [facility] Last Admin: 01/09/19 20:19 Dose: 1 note - Discharge Plan Discharge Plan: Inpatient Hospitalization
[2019-01-10] MEDS: Insulin GLARGINE(*) 1 UNITS UNIT SUBCUT SCH (14:48)
--- NOTE | 2019-01-10 16:12 | PN ---
Subjective Date of Service: 01/10/19 Interval History: Awake, alert. no distress. no fever or chills. He was getting frustrated because he has been here for long. S/p SERGE today and result shows dialated left atrium. Discussed case with neurology Dr. Wagoner and recommended to repeat CT head today to follow up on the MRI finding of hemosiderin. IF no bleed will need to anticoagulate him and then will be able to clear him to return to psych. Patient denies any chest pain occasional earache, and left knee pain treated with Tylenol Past Medical History: Unchanged from Admission Objective Active Medications: Acetaminophen (Tylenol Tab*) 650 mg PO Q6H PRN PRN Reason: HEADACHE/PAIN Last Admin: 01/10/19 13:03 Dose: 650 mg Aspirin (Aspirin Ec Tab*) 81 mg PO DAILY [facility] Last Admin: 01/10/19 11:44 Dose: 81 mg Atorvastatin Calcium (Lipitor*) 80 mg PO 2100 [facility] Last Admin: 01/09/19 19:54 Dose: 80 mg Bupropion HCl (Wellbutrin Xl *) 150 mg PO DAILY [facility] Last Admin: 01/10/19 11:43 Dose: 150 mg Clopidogrel Bisulfate (Plavix Tab*) 75 mg PO DAILY [facility] Last Admin: 01/10/19 11:44 Dose: 75 mg Dextrose (D50w Syringe 50 Ml*) 12.5 gm IV PUSH .FOR FS < 60 - SS PRN PRN Reason: FS < 60 Enoxaparin Sodium (Lovenox(*)) 40 mg SUBCUT Q24H [facility] Last Admin: 01/09/19 19:53 Dose: 40 mg Hydralazine HCl (Apresoline Iv*) 10 mg IV SLOW PU Q6H PRN PRN Reason: SBP>170 Last Admin: 01/08/19 18:36 Dose: 10 mg Insulin Glargine (Lantus(*)) 8 units SUBCUT Q24H [facility] Last Admin: 01/10/19 14:48 Dose: 8 units Insulin Human Lispro (Humalog*) 0 units SUBCUT [facility]GED WITH [facility]; Protocol Last Admin: 01/10/19 12:29 Dose: 3 units Lisinopril (Prinivil Tab*) 10 mg PO DAILY [facility] Last Admin: 01/10/19 11:43 Dose: 10 mg Melatonin (Melatonin) 3 mg PO BEDTIME PRN PRN Reason: SLEEP Last Admin: 01/09/19 19:54 Dose: 3 mg Metoprolol Succinate (Toprol Xl Tab*) 25 mg PO DAILY [facility] Last Admin: 01/10/19 11:44 Dose: 25 mg Mirtazapine (Remeron Tab*) 15 mg PO BEDTIME [facility] Last Admin: 01/09/19 19:54 Dose: 15 mg Nicotine (Nicotine Patch 21 Mg/24 Hr*) 1 patch TRANSDERM DAILY@0800 [facility] Last Admin: 01/10/19 11:41 Dose: 1 patch Nicotine Polacrilex (Nicotine Gum*) 2 mg PO Q2H PRN PRN Reason: CRAVING Pharmacy Profile Note (Nicotine Patch Removal Note*) 1 note PATCH OFF 2100 [facility] Last Admin: 01/09/19 20:19 Dose: 1 note Vital Signs - 8 hr 01/10/19 01/10/19 01/10/19 10:55 13:10 14:00 Temperature 97.6 F 97.8 F 97.8 F Pulse Rate 52 57 58 Respiratory 16 16 16 Rate Blood Pressure 135/68 151/87 146/76 (mmHg) O2 Sat by Pulse 100 100 98 Oximetry Oxygen Devices in Use Now: None Appearance: awake, alert no distress Eyes: No Scleral Icterus, - - EOMI Ears/Nose/Mouth/Throat: NL Teeth, Lips, Gums, Mucous Membranes Moist Neck: NL Appearance and Movements; NL JVP Respiratory: Symmetrical Chest Expansion and Respiratory Effort Cardiovascular: NL Sounds; No Murmurs; No JVD, No Edema Neurological: Alert and Oriented x 3 Result Diagrams: 01/10/19 05:13 01/10/19 05:13 Microbiology and Other Data: Microbiology 01/08/19 19:41 Aerobic Blood Culture - Preliminary Blood Venous No Growth Day 1 Anaerobic Blood Culture - Preliminary No Growth Day 1 01/08/19 19:41 Aerobic Blood Culture - Preliminary Blood Venous No Growth Day 1 Anaerobic Blood Culture - Preliminary No Growth Day 1 Assess/Plan/Problems-Billing Assessment: 58 y/o male presented to ER on 01/05/19 for reccurent fall and weakness, chest pain and shortness of breath. He was admitted to the medical service for evaluations and expressed suicidal ideations at that time. He was seen by psych and was cleared from suicidal threats and on 01/08/19 the patient was missing from his room. We was brought back under 9.39 and psych reconsulted. Currently he is under involuntary stay on the medical service until he is medically cleared at which time he will be trasferred to inpatient psych floor. His work up so far revealed: 1. MRI brain 01/07/19 reveals acute infarct both right and left hemisphere and chantal. 2. MRI Lumbar spine 01/07/19 revealed T11-T12 disc edema new finding suggestive of diskitis but could not rule out osteomyelitis DJD L3-L4 through L5-S1, progressive narrowing of the thecal sac and of both lateral recesses of L4-L5 . Neural foraminal narrowing from L3-L4 through L5-S1. Subcentimeter focus of enhancement in the region of the ligamentous flavum on the right side at L4-L5 3. Nuclear stress test 01/07/19 shows reversible ischemia of the lateral wall 4. CTA head and neck 01/05/19 reveals long segment stenosis of the right internal carotid artery proximally measuring up to 70% stenosis, moderate stenosis of the V4 segment of the left vertebral artery. Chronic small vessel ischemic changes 5. Echo 01/05/19 reveal EF 35%-40% no PFO 6. Cardiology consult 01/07/[address] Mayers and did not recommend further work and recommended to resume his previous cardiac meds 7. Orthopedic consult 01/08/19 for his left knee pain, recommeded LTA arthroplast electively once discharge on outpatient basis. He was offered steroid injections but he declined 8. Neurology consult 01/08/[address] Wagoner and the MRI brain reviewed. he Recommended Loop recorder, BC x 2, aspirin and plavix 9. SERGE 01/10/19 dialated left atrium no endocarditis and no thrombus - Patient Problems (1) CVA (cerebral vascular accident) Current Visit: Yes Status: Acute Code(s): I63.9 - CEREBRAL INFARCTION, UNSPECIFIED SNOMED Code(s): 936527939 Comment: - He felt like his legs bilaterally from hips down are "asleep" s/p fallen - CT Head shows chronic small vessel ischemic changes. - MRI Brain showing multiple areas of acute lacunar or acute to subacute small CVAs with embolic source suspicion. Also it did shows evidence of hemosiderin. - No PFO was seen on ECHO - He does have long segment of 70% R ICA stenosis on CTA. left vertebral artery v4 stenosis. - Appreciate Neurology recs. currently on aspirin and plavix. BC ordered so far negative x 1 day. - SERGE 01/10/19 negative for vegetations but it showed dialated left atrium. - Given the SERGE finding of dialated left atrium, Dr. Wagoner recommended to proceed with repeat head CT now to ensure there is no bleed. IF CT head negative for subacute bleed, I will start patient on anticoagulation and discontinue aspirin and plavix and we can cancel his brain MRI for monday - Potential transfer to [facility] in am if the above plan holds (2) Gait instability Current Visit: No Status: Acute Code(s): R26.81 - UNSTEADINESS ON FEET SNOMED Code(s): 672519272 Comment: - Combination of left knee arthritis and his multiple lacunar infarct. - Continue PT - Outpatient follow up with ortho Dr. Wyatt for elective TKA (3) CAD (coronary artery disease) Current Visit: No Status: Acute Code(s): I25.10 - ATHSCL HEART DISEASE OF [place] CORONARY ARTERY W/O ANG PCTRS SNOMED Code(s): 92751080 Comment: - s/p Cardiac cath 2012 with stents to RCA and 2nd diagonal branches - Poor medical compliance - Nuclear stress test 01/07/19 shows reversible ischemia of the lateral wall artery - Echo 01/05/19 reveal EF 35%-40% no PFO - Seen by Cardiology consult 01/07/[address] Mayers and did not recommend further work and recommended to resume his previous cardiac meds - Loop recorder placed 01/09/19 given his acute and subacute infarct on his Brain MRI - Resumed his lopressor 25 mg daily and now on aspirin 81 mg and plavix 75 mg daily given his new acute and subacute CVA. Will add lipitor 80mg HS. If he was to be placed on anticoagulation we may need to discontinue one of the antiplatelet (4) Chest pain Current Visit: No Status: Resolved Priority: High Onset Date: 10/09/14 Code(s): R07.9 - CHEST PAIN, UNSPECIFIED SNOMED Code(s): 09684514 Comment: - In ED had complaint of 9/10 crushing chest pain substernally radiating to the right. - Troponins were negative and EKG on admission with old infarction inferiorly and anteriorly. f/u repeat EKG stable. - Nuclear stress test 01/07/19 shows reversible ischemia of the lateral wall - Echo 01/05/19 reveal EF 35%-40% no PFO - Cardiology consult 01/07/[address] Mayers did not recommend further work and recommended to resume his previous cardiac meds - continue aspirin 81mg, plavix 75 mg and lopressor 25 mg daily. Will add lipitor 80 mg HS (5) Diabetes Current Visit: No Status: Acute Code(s): E11.9 - TYPE 2 DIABETES MELLITUS WITHOUT COMPLICATIONS SNOMED Code(s): 22764991 Comment: - not compliant with any meds at home. - A1c 8.8% - I will resume Lantus 8 units and start sliding scale with coverage qachs (6) Hypertension Current Visit: No Status: Acute Priority: High Onset Date: 10/09/14 Code (s): I10 - ESSENTIAL (PRIMARY) HYPERTENSION SNOMED Code(s): 05514471 Comment: - SBP >200mmHg at admission secondary to Non-compliant with use of home antihypertensives - Good response to metoprolol 25 mg daily and lisinopril 10 mg daily. Will allow permissive hypertension between 140-160 is ok (7) Major depression Current Visit: No Status: Acute Code(s): F32.9 - MAJOR DEPRESSIVE DISORDER, SINGLE EPISODE, UNSPECIFIED SNOMED Code(s): 746336051 Comment: - Appreciate Psych consulted. - He was on Paroxetine in Apr or May 2018 and then Celexa Aug 2018 but stopped taking/did not refill. - given his suicical ideation he is on 1:1 until he is transferred to [facility] admission. - Started trial of Wellbutrin 150mg and remeron 15mg per Dr. Martin plan (8) Dyslipidemia Current Visit: No Status: Chronic Priority: High Code(s): E78.5 - HYPERLIPIDEMIA, UNSPECIFIED SNOMED Code(s): 315017323 Comment: - LDL 127, HDL 44 - Atorvastatin 80 mg restarted, high intensity (9) History of obstructive sleep apnea Current Visit: No Status: Chronic Priority: Medium Code(s): G47.33 - OBSTRUCTIVE SLEEP APNEA (ADULT) (PEDIATRIC) SNOMED Code(s): 627746590 Comment: non compliant with CPAP (10) DVT prophylaxis Current Visit: No Status: Acute Priority: Medium Onset Date: 10/09/14 Code(s): CQE1609 - SNOMED Code(s): 902582365 Comment: - Lovenox 40 mh SQ daily
[2019-01-10] MEDS: Atorvastatin* 80 MG TAB PO SCH (19:53)
[2019-01-10] MEDS: Mirtazapine TAB* 15 MG PO SCH (19:54)
[2019-01-10] MEDS: Melatonin 3 MG TAB PO PRN (19:54)
[2019-01-10] MEDS: Enoxaparin(*) 40 MG/0.4 ML SYR SUBCUT SCH (19:54)
--- NOTE | 2019-01-10 20:34 | PN ---
PROGRESS NOTE: DATE OF VISIT: 01/10/19 PATIENT OF: Dr. Martin. HISTORY: This is a neurological followup on this 58-year-old man with multiple recent strokes in an embolic pattern. He has had no further numbness, weakness , visual symptoms. MEDICATIONS: 1. Aspirin. 2. Plavix. 3. Wellbutrin. 4. Lipitor. 5. Insulin sliding scale. 6. Lisinopril. 7. Toprol. PHYSICAL EXAMINATION: Temperature 97.8, pulse 58, respirations 16, blood pressure 146/76. He was alert and oriented with normal speech and comprehension. Cranial nerves II through XII are intact. Motor exam shows normal strength. Chest: Clear. Cardiovascular: Regular rate and rhythm. Abdomen is soft with positive bowel sounds. DIAGNOSTIC STUDIES/LAB DATA: Of note, his echo showed moderate to severely dilatedleft atrium, but without evidence of clear thrombus. No PFO was noted. His CBC is normal. His BMP showed a BUN of 25 today. Toxicology was done prior. IMPRESSION AND PLAN: I discussed with Dr. Martin that with his significantly dilated left atrium, this is probably the source of his embolic stroke and that he will need to be anticoagulated. I would check a CT scan of his head first given the fact that there was some past history of bleeding on his MRI scan but not seen on CT scan and repeat CT scan was recommended by the radiologist. If that shows no hemorrhage, then I would anticoagulate now. If it shows interval change and new hemorrhage, we would need to hold off the anticoagulation at this point and discontinue the aspirin and Plavix. If he gets anticoagulated, I would just have him on the anticoagulation and not aspirin and Plavix. At this point, there is some risk for him going on anticoagulation since his strokes have occurred sometime recently, but before 01/07/19. Given his appearance on MRI scan, given the number of strokes, he would be at risk for more stroke acutely. The strokes are also small, which make it less likely that he would bleed from them. Thank you for sharing his case. [id number]/[facility] #: [id number] JODIE
[2019-01-10] MEDS: Nicotine Patch Removal NOTE PATCH OFF SCH (21:18)
[2019-01-10] MEDS: Rivaroxaban TAB(*) 20 MG TAB PO SCH (21:54)
[2019-01-11] MEDS: Insulin LISPRO* 1 UNITS UNIT SUBCUT SCH ×4 (09:56→21:16)
[2019-01-11] MEDS: BuPROPion XL* 150 MG TAB.XL PO SCH (10:02)
[2019-01-11] MEDS: Metoprolol Succinate XL TAB* 25 MG PO SCH (10:03)
[2019-01-11] MEDS: Nicotine PATCH 21 MG/24 HR* PATCH TRANSDERM SCH (10:03)
[2019-01-11] MEDS: Lisinopril TAB* 10 MG PO SCH (10:03)
[2019-01-11] MEDS: hydrOXYzine HCL TAB* 50 MG PO PRN (12:04)
--- NOTE | 2019-01-11 13:52 | DS ---
CC: Dr. Wagoner; Dr. Mayers; Dr. Jung; Dr. Lyn DISCHARGE SUMMARY: DATE OF ADMISSION: 01/08/19 DATE OF DISCHARGE: 01/11/19 PILLAR WORKER: Dr. Mayers. PSYCHIATRIST: Dr. Jung. PRIMARY CARE PROVIDER: Dr. Lyn. FINAL DISCHARGE DIAGNOSES: 1. Cerebrovascular accident bilateral, subacute. 2. Gait instability and ataxia. 3. Coronary artery disease. 4. Chest pain. 5. Diabetes mellitus. 6. Hypertension. 7. Major depression with suicidal thoughts. 8. Hyperlipidemia. 9. Sleep apnea. 10. Noncompliance with medical therapy. HOSPITAL COURSE: The patient was admitted to the hospitalist service on 01/08/19, same day after he loped, left the hospital without notice despite being recommended to be admitted under voluntary cond ition to the psych unit for depression and suicidal thoughts. Therefore, the police were notified an d the patient was brought under 9.39 order to the hospitalist service. He was admitted to the medica l service to complete his medical workup and CVA rule out. He was admitted and he was placed on one- on-one watch. He was seen and evaluated by me for the initial encounter on 01/09/19. At that time, the patient was already on one-on-one. Neurology has evaluated again the patient and recommended to miriam virk with workup for his stroke with SERGE and blood culture. His blood culture so far were negative for 2 days. SERGE did show dilated left atrium. No intramural thrombi or vegetation. Results of the SERGE was discussed with the neurologist, Dr. Wagoner. Given the left atrial dilation, the patient was deemed to be higher risk for cardioembolic infarct and recommended anticoagulation, but before that, a repeat CT of the brain was done on 01/10/19 to ensure there was no progression of bleed or new inf arct or new hemorrhage, which was done and it was unchanged from his CT scan that was done on his pre vious admission and dated 01/05/19. With stable CT of the brain, the patient was deemed stable to in itiate anticoagulation and he was started on Xarelto 20 mg daily. Aspirin and Plavix were discontinu ed. I saw, evaluated the patient, reviewed the plan and at the present time, the patient is deemed m edically stable for discharge and transferred to [facility] for inpatient psych treatment His discharge assessment, plan, problem outlined below. For his depression and passive suicidal thoughts, he is under 9.39 order and at the present time, he is medically stable to be transferred to [facility]. We will continue his therapy with Wellbutrin 150 and R emeron 15. He remains on one-on-one until he is under the psych inpatient. For his CVA, which are multiple and bilateral, he is status post loop recorder implant by Dr. Mayers a nd status post SERGE, which shows left atrial enlargement with no endocarditis or thrombus. He was sta rted on anticoagulation with Xarelto. Aspirin and Plavix were discontinued. For his gait instability, he required physical therapy and outpatient followup with Dr. Wyatt for his left total knee arthroplasty, which is elective. For his coronary artery disease, he has known history of noncompliance with treatment and medication. He has had stent to his RCA in 2012. A repeat nuclear stress test was done this admission on 01/07, shows reversible ischemia of the lateral wall and his echocardiogram reveals ejection fraction o f 35%-40%, no PFO. He was seen by Dr. Mayers from cardiac point of view, recommended resumption of his medical therapy, Lopressor 25 daily, aspirin, and Plavix; however, in light of the new anticoagulati on right now, we elected to hold off on the aspirin and Plavix and proceed with Xarelto as per Neurol ogy recommendation and added Lipitor 80 at h.s. This need to be revisited with Neurology on when and if safe to place aspirin or Plavix in addition to Xarelto. For his diabetes, noncompliance with home meds, his A1c was 8.8. I resumed his Lantus 8 units and sl iding scale with coverage for now. For his hypertension, he had good response with the metoprolol 25 daily and lisinopril 10 daily. For his hyperlipidemia, continue his atorvastatin 80. For his sleep apnea, noncompliant with the CPAP. PHYSICAL EXAMINATION: Vital Signs: Temperature 97.3, pulse 53, respirations 16, satting 99, pressur e 136/74. General: He is awake, alert, flat affect, anxious, not pleased about being under 9.39 ord er. Head and Neck: Normocephalic, atraumatic; supple. Slight left-sided facial droop, chronic, not acute. Denies any numbness. Asymmetrically smile was probably due to his stroke, but this is not n ew as mentioned. Lungs: Clear to auscultation. Cardiovascular: S1, S2, regular rate and rhythm. I do not appreciate any murmur. Abdomen: Positive bowel sounds, soft, nontender, nondistended. Ext remities: Left knee crepitation. No pedal edema. Good peripheral pulse. [employer]: Motor and sensory g rossly intact, upper and lower extremities. He does have slightly unequal asymmetrical smile with a slight left-sided facial droop. DISCHARGE MEDICATIONS: At the present time, the patient to continue his medications: 1. Tylenol 650 q.6 p.r.n. 2. Lipitor 80. 3. Wellbutrin 150 daily. 4. Atarax 50 mg q.6 p.r.n. anxiety. 5. Lantus 8 units daily. 6. Sliding scale. 7. Lisinopril 10 daily. 8. Melatonin 3 at bedtime. 9. Toprol 25 daily. 10. Remeron 15 at bedtime. 11. Nicotine patch and gum. 12. Xarelto 20 mg daily. DISCHARGE RECOMMENDATION/TRANSFER RECOMMENDATION: The patient to continue his anticoagulation, cardi ac meds as ordered. The patient to be placed under the 9.39 and transferred to [facility] until he is cleared by Psych for inpat ient psych treatment. Recommend to follow up with Neurology in about 2 to 3 weeks for further recommendation regarding anti platelet, anticoagulation. Recommend to follow up with Cardiology as an outpatient in about 2 to 3 weeks regarding his coronary artery disease and chest pain. Follow up with Dr. Wyatt, Orthopedic, in about 1 month for outpatient elective surgical treatment for his left total knee if the patient is willing to pursue. INPATIENT DIAGNOSTIC STUDY: The patient had the following: MRI of the brain 01/07/19 reveals acute bilateral infarct including the right and left hemisphere and chantal. MRI of the lumbar spine 01/07/19 revealed T11 to T12 disk edema, suggestive of diskitis, could not ru le out osteomyelitis with progressive narrowing of the thecal sac of both lateral recesses and neural foraminal narrowing; however, with a normal CRP, no white count, no fever, negative blood cultures, makes it less likely. This can be deferred for his primary and further referral for outpatient with the spinal surgeon, nonacute. Nuclear stress test 01/07/19, reversible ischemia of the lateral wall, evaluated by Dr. Mayers. No ot her intervention recommended. Medical therapy. CTA of the head and neck 01/05/19 shows 70% stenosis with modest stenosis of the T4 segment of the le ft vertebral artery, maximize medical therapy. He is on statin and now Xarelto, this probably need t o be followed in 6 to 12 months with Vascular Surgery, SP done as outpatient. Echo 01/05/19, ejection fraction 35%-50%, no PFO. Loop recorder implanted in the left anterior chest wall with Dr. Mayers on 01/09/19, hence follow up w aleyda Mayers in 2 to 3 weeks. SERGE 01/10/19, dilated left atrium with no endocarditis, thrombus. Repeated CT brain on 01/10/19, no evidence for acute bleed, no changes when compared to 01/05/19 CT b rain. INPATIENT CONSULTATION: 1. Psychiatry with Dr. Jung. 2. Cardiology, Dr. Mayers. 3. Neurology, Dr. Wagoner. DISCHARGE DISPOSITION: To inpatient psych floor. DISCHARGE CONDITION: Stable. [id number]/[facility] #: [id number]
[2019-01-11] MEDS: Insulin GLARGINE(*) 1 UNITS UNIT SUBCUT SCH (15:12)
--- NOTE | 2019-01-11 15:38 | CONSULT ---
Identification - Patient Identification Reason for Psychiatric Consultation: Suicidal Ideation -: Patient is a 58 year old, M admitted on 01/08/19. - MHU Identification Employment Status: Disabled Hx Psychiatric Hospitalization: Yes History - Objective HPI: Jr is seen for psychiatric follow up on . He was complaining of anxiety this morning and apparently made demands to be discharged, feeling like he's been in the hospital too long at this point. I spoke with Dr. Martin who reports that the patient is medically cleared for treatment on the [facility], which will occur on an involuntary basis. The patient remains depressed although he is now denying passive or active SI. Exam Appearance: Obese Hygiene: Normal Grooming: Fairly Well Kept Psychomotor Activities: Abnormal-Decreased Exhibits Abnormal Movement: No Attitude and Relatedness: Cooperative Eye Contact: Good - Speech Quality: Unpressured Latencies: Normal Quantity: Appropriate Patient's Decription of Mood: "Sad" Observed Affect: Constricted Affect Consistent with: Dysphoria Patient's Thought Process: Coherent Thought Content: No Passive Wish, No Suicidal Planning, No Homicidal Ideation, No Paranoid Ideation Experiencing Hallucinations: No, Sensorium is Clear Type of Hallucinations: Visual: No, Auditory: No, Command: No Level of Consciousness: Alert Orientation: Yes Intact, Yes Orientated to Time, Yes Orientated to Place, Yes Orientated to Person Impulse Control: Poor Insight and Judgement: Impaired Impression - Impression Clinical Impression: 58 y.o. 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 Inpatient DSM-V Dx: F33.2 Merits Inpatient Hospitalization: Yes B[facility]: Problem List - Patient Problems (1) MDD (major depressive disorder), recurrent episode, severe Current Visit: Yes Status: Acute Priority: High Code(s): F33.2 - MAJOR DEPRESSV DISORDER, RECURRENT SEVERE W/O PSYCH FEATURES SNOMED Code(s): 453480980752 Plan - Treatment Plan Treatment Plan: We have started trials of bupropion XL 150mg PO qam and mirtazapine 15mg PO qhs. The patient will require re-enrollment in outpatient mental health services. Continued Medication Management: Start Medication Medications: Current Medications Acetaminophen (Tylenol Tab*) 650 mg PO Q6H PRN PRN Reason: HEADACHE/PAIN Last Admin: 01/10/19 19:53 Dose: 650 mg Atorvastatin Calcium (Lipitor*) 80 mg PO 2100 [facility] Last Admin: 01/10/19 19:53 Dose: 80 mg Bupropion HCl (Wellbutrin Xl *) 150 mg PO DAILY [facility] Last Admin: 01/11/19 10:02 Dose: 150 mg Hydroxyzine HCl (Atarax Tab*) 50 mg PO Q6H PRN PRN Reason: ANXIETY Last Admin: 01/11/19 12:04 Dose: 50 mg Insulin Glargine (Lantus(*)) 8 units SUBCUT Q24H [facility] Last Admin: 01/11/19 15:12 Dose: 8 units Insulin Human Lispro (Humalog*) 0 units SUBCUT [facility]; Protocol Last Admin: 01/11/19 12:50 Dose: 3 units Lisinopril (Prinivil Tab*) 10 mg PO DAILY [facility] Last Admin: 01/11/19 10:03 Dose: 10 mg Melatonin (Melatonin) 3 mg PO BEDTIME PRN PRN Reason: SLEEP Last Admin: 01/10/19 19:54 Dose: 3 mg Metoprolol Succinate (Toprol Xl Tab*) 25 mg PO DAILY [facility] Last Admin: 01/11/19 10:03 Dose: 25 mg Mirtazapine (Remeron Tab*) 15 mg PO BEDTIME [facility] Last Admin: 01/10/19 19:54 Dose: 15 mg Nicotine (Nicotine Patch 21 Mg/24 Hr*) 1 patch TRANSDERM DAILY@0800 [facility] Last Admin: 01/11/19 10:03 Dose: 1 patch Nicotine Polacrilex (Nicotine Gum*) 2 mg PO Q2H PRN PRN Reason: CRAVING Pharmacy Profile Note (Nicotine Patch Removal Note*) 1 note PATCH OFF 2100 [facility] Last Admin: 01/10/19 21:18 Dose: 1 note Rivaroxaban (Xarelto(*)) 20 mg PO 1800 [facility] Last Admin: 01/10/19 21:54 Dose: 20 mg - Discharge Plan Discharge Plan: Inpatient Hospitalization
[2019-01-11] MEDS: Rivaroxaban TAB(*) 20 MG TAB PO SCH (20:22)
[2019-01-11] MEDS: Mirtazapine TAB* 15 MG PO SCH (20:37)
[2019-01-11] MEDS: Atorvastatin* 80 MG TAB PO SCH (20:37)
[2019-01-11] MEDS: Nicotine Patch Removal NOTE PATCH OFF SCH (20:38)
[2019-01-12] MEDS: Insulin LISPRO* 1 UNITS UNIT SUBCUT SCH ×4 (08:00→20:02)
[2019-01-12] MEDS: Lisinopril TAB* 10 MG PO SCH (08:04)
[2019-01-12] MEDS: BuPROPion XL* 150 MG TAB.XL PO SCH (08:05)
[2019-01-12] MEDS: Metoprolol Succinate XL TAB* 25 MG PO SCH (08:05)
[2019-01-12] MEDS: Nicotine PATCH 21 MG/24 HR* PATCH TRANSDERM SCH (08:05)
[2019-01-12 08:47] LABS: HDL Cholesterol 35.9 mg/dL
[2019-01-12] MEDS: Acetaminophen TAB* 325 MG PO PRN (12:40)
[2019-01-12] MEDS: Insulin GLARGINE(*) 1 UNITS UNIT SUBCUT SCH (15:47)
[2019-01-12] MEDS: Rivaroxaban TAB(*) 20 MG TAB PO SCH (17:40)
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
[2019-01-12] MEDS: Atorvastatin* 80 MG TAB PO SCH (20:03)
[2019-01-12] MEDS: Prazosin CAP* 1 MG PO SCH (20:04)
[2019-01-12] MEDS: Mirtazapine TAB* 15 MG PO SCH (20:04)
[2019-01-12] MEDS: Melatonin 3 MG TAB PO PRN (20:05)
[2019-01-12] MEDS: Nicotine Patch Removal NOTE PATCH OFF SCH (20:05)
[2019-01-13] MEDS: Metoprolol Succinate XL TAB* 25 MG PO SCH (08:37)
[2019-01-13] MEDS: BuPROPion XL* 150 MG TAB.XL PO SCH (08:37)
[2019-01-13] MEDS: Lisinopril TAB* 10 MG PO SCH (08:37)
[2019-01-13] MEDS: Insulin LISPRO* 1 UNITS UNIT SUBCUT SCH ×4 (08:37→20:03)
[2019-01-13] MEDS: Acetaminophen TAB* 325 MG PO PRN ×2 (08:38→15:21)
[2019-01-13] MEDS: Nicotine PATCH 21 MG/24 HR* PATCH TRANSDERM SCH (08:38)
[2019-01-13] MEDS: Al Hydrox/Mg Hydrox/Simet LIQ* 30 ML UDC PO PRN ×2 (15:18→19:04)
[2019-01-13] MEDS: Insulin GLARGINE(*) 1 UNITS UNIT SUBCUT SCH (15:20)
[2019-01-13] MEDS: Rivaroxaban TAB(*) 20 MG TAB PO SCH (17:37)
[2019-01-13] MEDS: Prazosin CAP* 1 MG PO SCH (20:17)
[2019-01-13] MEDS: Atorvastatin* 80 MG TAB PO SCH (20:17)
[2019-01-13] MEDS: Mirtazapine TAB* 15 MG PO SCH (20:17)
[2019-01-13] MEDS: Nicotine Patch Removal NOTE PATCH OFF SCH (20:18)
[2019-01-13] MEDS: Melatonin 3 MG TAB PO PRN (21:50)
[2019-01-14] MEDS: Insulin LISPRO* 1 UNITS UNIT SUBCUT SCH ×4 (08:54→21:08)
[2019-01-14] MEDS: Acetaminophen TAB* 325 MG PO PRN (08:56)
[2019-01-14] MEDS: Nicotine PATCH 21 MG/24 HR* PATCH TRANSDERM SCH (08:56)
[2019-01-14] MEDS: Metoprolol Succinate XL TAB* 25 MG PO SCH (08:57)
[2019-01-14] MEDS: Lisinopril TAB* 10 MG PO SCH (08:57)
[2019-01-14] MEDS: BuPROPion XL* 150 MG TAB.XL PO SCH (08:57)
[2019-01-14] MEDS: Insulin GLARGINE(*) 1 UNITS UNIT SUBCUT SCH (16:15)
[2019-01-14] MEDS: Ibuprofen TAB* 800 MG PO PRN (16:34)
[2019-01-14] MEDS: Rivaroxaban TAB(*) 20 MG TAB PO SCH (17:30)
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
[2019-01-14] MEDS: Atorvastatin* 80 MG TAB PO SCH (20:13)
[2019-01-14] MEDS: Mirtazapine TAB* 15 MG PO SCH (20:50)
[2019-01-14] MEDS: Prazosin CAP* 1 MG PO SCH (20:50)
[2019-01-14] MEDS: Nicotine Patch Removal NOTE PATCH OFF SCH (20:50)
[2019-01-14] MEDS: Al Hydrox/Mg Hydrox/Simet LIQ* 30 ML UDC PO PRN (21:10)
[2019-01-15] MEDS: hydrOXYzine HCL TAB* 50 MG PO PRN ×2 (01:59→22:04)
[2019-01-15] MEDS: Melatonin 3 MG TAB PO PRN ×2 (01:59→22:03)
[2019-01-15] MEDS: Insulin LISPRO* 1 UNITS UNIT SUBCUT SCH ×4 (07:34→20:07)
[2019-01-15] MEDS: Nicotine PATCH 21 MG/24 HR* PATCH TRANSDERM SCH (10:00)
[2019-01-15] MEDS: BuPROPion XL* 150 MG TAB.XL PO SCH (10:00)
[2019-01-15] MEDS: Metoprolol Succinate XL TAB* 25 MG PO SCH (10:00)
[2019-01-15] MEDS: Lisinopril TAB* 10 MG PO SCH (10:00)
[2019-01-15] MEDS: Ibuprofen TAB* 800 MG PO PRN (12:38)
[2019-01-15] MEDS: Insulin GLARGINE(*) 1 UNITS UNIT SUBCUT SCH (15:02)
--- NOTE | 2019-01-15 16:37 | PN ---
Subjective - Subjective Date of Service: 01/15/19 Service Type: [id number] Hosp care 15 min low complexity Subjective: Jr is starting to feel better. He got some materials about the [employer], which is a drop-in social club run by the local mental health association. "This looks good to me. I'd like to get into some volunteering. I know what I need to do. I need to get myself out there. I need to socialize. I can't be alone all the time." He denies depressed mood or SI today and is tolerating his medications well. He continues to struggle to sleep and is OK using prn zolpidem if he needs to. Objective - General Observations Appearance: Well Groomed Appears Stated Age: No Stature: Overweight Posture: WNL Eye Contact: Average Behavior/Activity: Slowed - Interaction Observations Attitude Towards Examiner: Cooperative Stated Mood: Dysphoric Affect: Restricted Speech Pattern/Tone: Clear, Appropriate, Quiet Volume Perception: WNL Thought Content: WNL Hallucination Type: None Delusion Type: None - Cognitive Function Orientation: A&O x 4 Level of Consciousness: Awake Cognition: WNL Estimated Intelligence: Normal Insight: WNL Judgment Within Normal Limits: Yes - Medication Compliance Cooperative with Inpatient Medication Regimen: Yes - Group Participation Participates in Group Activities: Yes Assessment - Assessment Merits Inpatient Hospitalization: For Immediate Safety, For Stabilization Inpatient DSM-V Dx: F33.2 Clinical Impression: 58 y.o. 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 BSU: Problem List - Patient Problems (1) MDD (major depressive disorder), recurrent episode, severe Current Visit: Yes Status: Acute Priority: High Code(s): F33.2 - MAJOR DEPRESSV DISORDER, RECURRENT SEVERE W/O PSYCH FEATURES SNOMED Code(s): 527598891547 Plan - Plan Treatment Plan: We have started trials of bupropion XL 150mg PO qam, prazosin 2mg PO qhs and mirtazapine 15mg PO qhs. The patient will require re-enrollment in outpatient mental health services. Continue inpatient treatment. Continued Medication Management: Start Medication Medications: Current Medications Acetaminophen (Tylenol Tab*) 650 mg PO Q6H PRN PRN Reason: HEADACHE/PAIN Last Admin: 01/14/19 08:56 Dose: 650 mg Al Hydrox/Mg Hydrox/Simethicone (Maalox Plus*) 30 ml PO Q4H PRN PRN Reason: INDIGESTION Last Admin: 01/14/19 21:10 Dose: 30 ml Atorvastatin Calcium (Lipitor*) 80 mg PO 2100 [facility] Last Admin: 01/14/19 20:13 Dose: 80 mg Bupropion HCl (Wellbutrin Xl *) 150 mg PO DAILY [facility] Last Admin: 01/15/19 10:00 Dose: 150 mg Hydroxyzine HCl (Atarax Tab*) 50 mg PO Q6H PRN PRN Reason: ANXIETY Last Admin: 01/15/19 01:59 Dose: 50 mg Ibuprofen (Motrin Tab*) 800 mg PO Q8H PRN PRN Reason: PAIN Last Admin: 01/15/19 12:38 Dose: 800 mg Insulin Glargine (Lantus(*)) 8 units SUBCUT Q24H [facility] Last Admin: 01/15/19 15:02 Dose: 8 units Insulin Human Lispro (Humalog*) 0 units SUBCUT [facility]; Protocol Last Admin: 01/15/19 12:07 Dose: 2 units Lisinopril (Prinivil Tab*) 10 mg PO DAILY [facility] Last Admin: 01/15/19 10:00 Dose: 10 mg Melatonin (Melatonin) 3 mg PO BEDTIME PRN PRN Reason: SLEEP Last Admin: 01/15/19 01:59 Dose: 3 mg Metoprolol Succinate (Toprol Xl Tab*) 25 mg PO DAILY [facility] Last Admin: 01/15/19 10:00 Dose: 25 mg Mirtazapine (Remeron Tab*) 15 mg PO BEDTIME [facility] Last Admin: 01/14/19 20:50 Dose: 15 mg Nicotine (Nicotine Patch 21 Mg/24 Hr*) 1 patch TRANSDERM DAILY@0800 [facility] Last Admin: 01/15/19 10:00 Dose: 1 patch Nicotine Polacrilex (Nicotine Gum*) 2 mg PO Q2H PRN PRN Reason: CRAVING Pharmacy Profile Note (Nicotine Patch Removal Note*) 1 note PATCH OFF 2100 [facility] Last Admin: 01/14/19 20:50 Dose: 1 note Prazosin HCl (Minipress Cap*) 2 mg PO BEDTIME [facility] Rivaroxaban (Xarelto(*)) 20 mg PO 1800 [facility] Last Admin: 01/14/19 17:30 Dose: 20 mg Zolpidem Tartrate (Ambien Tab*) 5 mg PO BEDTIME PRN PRN Reason: INSOMNIA - Discharge Plan Discharge Plan: Inpatient Hospitalization
[2019-01-15] MEDS: Rivaroxaban TAB(*) 20 MG TAB PO SCH (17:44)
[2019-01-15] MEDS: Zolpidem TAB* 5 MG PO PRN (19:57)
[2019-01-15] MEDS: Atorvastatin* 80 MG TAB PO SCH (19:57)
[2019-01-15] MEDS: Mirtazapine TAB* 15 MG PO SCH (19:57)
[2019-01-15] MEDS: Prazosin CAP* 1 MG PO SCH (19:57)
[2019-01-15] MEDS: Nicotine Patch Removal NOTE PATCH OFF SCH (19:59)
[2019-01-15] MEDS: Al Hydrox/Mg Hydrox/Simet LIQ* 30 ML UDC PO PRN (21:18)
[2019-01-16] MEDS: Insulin LISPRO* 1 UNITS UNIT SUBCUT SCH ×4 (08:36→20:42)
[2019-01-16] MEDS: Nicotine PATCH 21 MG/24 HR* PATCH TRANSDERM SCH (08:36)
[2019-01-16] MEDS: Metoprolol Succinate XL TAB* 25 MG PO SCH (08:37)
[2019-01-16] MEDS: BuPROPion XL* 150 MG TAB.XL PO SCH (08:37)
[2019-01-16] MEDS: Lisinopril TAB* 10 MG PO SCH (08:37)
--- NOTE | 2019-01-16 10:12 | PN ---
Subjective - Subjective Date of Service: 01/16/19 Service Type: [id number] Hosp care 15 min low complexity Subjective: Jr reports happily that "I got the best night of sleep in my life last night. " He denies reliving or intrusive memories of trauma and has not had nightmares the past two nights. He is future-oriented, saying that he would like to attend social programming at the [facility] and perhaps volunteer somewhere in the community. He is tolerating his medications well and denies SI. Objective - General Observations Appearance: Well Groomed Appears Stated Age: Yes Stature: Overweight Posture: WNL Eye Contact: Average Behavior/Activity: WNL - Interaction Observations Attitude Towards Examiner: Cooperative Stated Mood: Euthymic Affect: Full Speech Pattern/Tone: Clear, Appropriate, Normal Volume Thought Process: Coherent Perception: WNL Thought Content: WNL Hallucination Type: None Delusion Type: None - Cognitive Function Orientation: A&O x 4 Level of Consciousness: Awake, Alert, Appropriate Cognition: WNL Estimated Intelligence: Normal Insight: WNL Judgment Within Normal Limits: Yes - Medication Compliance Cooperative with Inpatient Medication Regimen: Yes - Group Participation Participates in Group Activities: Yes Assessment - Assessment Merits Inpatient Hospitalization: Consolidate Improvements, Pending Safe DC Plan Inpatient DSM-V Dx: F33.2 Clinical Impression: 58 y.o. 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 BSU: Problem List - Patient Problems (1) MDD (major depressive disorder), recurrent episode, severe Current Visit: Yes Status: Acute Priority: High Code(s): F33.2 - MAJOR DEPRESSV DISORDER, RECURRENT SEVERE W/O PSYCH FEATURES SNOMED Code(s): 481009505166 Plan - Plan Treatment Plan: We have started trials of bupropion XL 150mg PO qam, prazosin 2mg PO qhs and mirtazapine 15mg PO qhs. He is being visited by a [facility] nurse today to discuss receiving case management services in the community. The patient will require re-enrollment in outpatient mental health services. Target January 18 for discharge home. Continued Medication Management: Start Medication Medications: Current Medications Acetaminophen (Tylenol Tab*) 650 mg PO Q6H PRN PRN Reason: HEADACHE/PAIN Last Admin: 01/14/19 08:56 Dose: 650 mg Al Hydrox/Mg Hydrox/Simethicone (Maalox Plus*) 30 ml PO Q4H PRN PRN Reason: INDIGESTION Last Admin: 01/15/19 21:18 Dose: 30 ml Atorvastatin Calcium (Lipitor*) 80 mg PO 2100 [facility] Last Admin: 01/15/19 19:57 Dose: 80 mg Bupropion HCl (Wellbutrin Xl *) 150 mg PO DAILY [facility] Last Admin: 01/16/19 08:37 Dose: 150 mg Hydroxyzine HCl (Atarax Tab*) 50 mg PO Q6H PRN PRN Reason: ANXIETY Last Admin: 01/15/19 22:04 Dose: 50 mg Ibuprofen (Motrin Tab*) 800 mg PO Q8H PRN PRN Reason: PAIN Last Admin: 01/15/19 12:38 Dose: 800 mg Insulin Glargine (Lantus(*)) 8 units SUBCUT Q24H [facility] Last Admin: 01/15/19 15:02 Dose: 8 units Insulin Human Lispro (Humalog*) 0 units SUBCUT [facility]; Protocol Last Admin: 01/16/19 08:36 Dose: 2 units Lisinopril (Prinivil Tab*) 10 mg PO DAILY [facility] Last Admin: 01/16/19 08:37 Dose: 10 mg Melatonin (Melatonin) 3 mg PO BEDTIME PRN PRN Reason: SLEEP Last Admin: 01/15/19 22:03 Dose: 3 mg Metoprolol Succinate (Toprol Xl Tab*) 25 mg PO DAILY [facility] Last Admin: 01/16/19 08:37 Dose: 25 mg Mirtazapine (Remeron Tab*) 15 mg PO BEDTIME [facility] Last Admin: 01/15/19 19:57 Dose: 15 mg Nicotine (Nicotine Patch 21 Mg/24 Hr*) 1 patch TRANSDERM DAILY@0800 [facility] Last Admin: 01/16/19 08:36 Dose: 1 patch Nicotine Polacrilex (Nicotine Gum*) 2 mg PO Q2H PRN PRN Reason: CRAVING Pharmacy Profile Note (Nicotine Patch Removal Note*) 1 note PATCH OFF 2100 [facility] Last Admin: 01/15/19 19:59 Dose: 1 note Prazosin HCl (Minipress Cap*) 2 mg PO BEDTIME [facility] Last Admin: 01/15/19 19:57 Dose: 2 mg Rivaroxaban (Xarelto(*)) 20 mg PO 1800 [facility] Last Admin: 01/15/19 17:44 Dose: 20 mg Zolpidem Tartrate (Ambien Tab*) 5 mg PO BEDTIME PRN PRN Reason: INSOMNIA Last Admin: 01/15/19 19:57 Dose: 5 mg - Discharge Plan Discharge Plan: Inpatient Hospitalization
[2019-01-16] MEDS: Ibuprofen TAB* 800 MG PO PRN (15:43)
[2019-01-16] MEDS: Insulin GLARGINE(*) 1 UNITS UNIT SUBCUT SCH (15:48)
[2019-01-16] MEDS: Rivaroxaban TAB(*) 20 MG TAB PO SCH (17:54)
[2019-01-16] MEDS: Prazosin CAP* 1 MG PO SCH (20:15)
[2019-01-16] MEDS: Atorvastatin* 80 MG TAB PO SCH (20:15)
[2019-01-16] MEDS: Mirtazapine TAB* 15 MG PO SCH (20:15)
[2019-01-16] MEDS: Nicotine Patch Removal NOTE PATCH OFF SCH (20:16)
[2019-01-16] MEDS: Zolpidem TAB* 5 MG PO PRN (20:19)
[2019-01-16] MEDS: Melatonin 3 MG TAB PO PRN (22:50)
[2019-01-16] MEDS: Acetaminophen TAB* 325 MG PO PRN (22:50)
[2019-01-17] MEDS: Insulin LISPRO* 1 UNITS UNIT SUBCUT SCH ×4 (08:39→20:14)
[2019-01-17] MEDS: Nicotine PATCH 21 MG/24 HR* PATCH TRANSDERM SCH (08:41)
[2019-01-17] MEDS: Metoprolol Succinate XL TAB* 25 MG PO SCH (08:42)
[2019-01-17] MEDS: Lisinopril TAB* 10 MG PO SCH (08:42)
[2019-01-17] MEDS: BuPROPion XL* 150 MG TAB.XL PO SCH (08:43)
--- NOTE | 2019-01-17 11:14 | PN ---
Subjective - Subjective Date of Service: 01/17/19 Service Type: 91776 Hosp care 15 min low complexity Subjective: Jr remains in good spirits and future-oriented. "I really need to take the bull by the horns when I get out of here. I've been living like a hermit. I need to find a new place around more people. I'm gonna be busy when I get out of here." He continues to deny SI and his mood is improving with treatment. Objective - General Observations Appearance: Well Groomed Appears Stated Age: Yes Stature: Overweight Posture: WNL Eye Contact: Average Behavior/Activity: WNL - Interaction Observations Attitude Towards Examiner: Cooperative Stated Mood: Euthymic Affect: Full Speech Pattern/Tone: Clear, Appropriate, Normal Volume Thought Process: Coherent Perception: WNL Thought Content: WNL Hallucination Type: None Delusion Type: None - Cognitive Function Orientation: A&O x 4 Level of Consciousness: Awake Cognition: WNL Estimated Intelligence: Normal Insight: WNL Judgment Within Normal Limits: Yes - Medication Compliance Cooperative with Inpatient Medication Regimen: Yes - Group Participation Participates in Group Activities: Yes Assessment - Assessment Merits Inpatient Hospitalization: Consolidate Improvements, Pending Safe DC Plan Inpatient DSM-V Dx: F33.2 Clinical Impression: 58 y.o. 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 BSU: Problem List - Patient Problems (1) MDD (major depressive disorder), recurrent episode, severe Current Visit: Yes Status: Acute Priority: High Code(s): F33.2 - MAJOR DEPRESSV DISORDER, RECURRENT SEVERE W/O PSYCH FEATURES SNOMED Code(s): 193391829673 Plan - Plan Treatment Plan: We have started trials of bupropion XL 150mg PO qam, prazosin 2mg PO qhs and mirtazapine 15mg PO qhs. He is set up for receiving case management services in the community from the [facility] organization and will get outpatient MH care from [facility]. [employer] tomorrow, [place], January 18 for discharge home. Continued Medication Management: Start Medication Medications: Current Medications Acetaminophen (Tylenol Tab*) 650 mg PO Q6H PRN PRN Reason: HEADACHE/PAIN Last Admin: 01/16/19 22:50 Dose: 650 mg Al Hydrox/Mg Hydrox/Simethicone (Maalox Plus*) 30 ml PO Q4H PRN PRN Reason: INDIGESTION Last Admin: 01/15/19 21:18 Dose: 30 ml Atorvastatin Calcium (Lipitor*) 80 mg PO 2100 [facility] Last Admin: 01/16/19 20:15 Dose: 80 mg Bupropion HCl (Wellbutrin Xl *) 150 mg PO DAILY [facility] Last Admin: 01/17/19 08:43 Dose: 150 mg Hydroxyzine HCl (Atarax Tab*) 50 mg PO Q6H PRN PRN Reason: ANXIETY Last Admin: 01/15/19 22:04 Dose: 50 mg Ibuprofen (Motrin Tab*) 800 mg PO Q8H PRN PRN Reason: PAIN Last Admin: 01/16/19 15:43 Dose: 800 mg Insulin Glargine (Lantus(*)) 8 units SUBCUT Q24H [facility] Last Admin: 01/16/19 15:48 Dose: 8 units Insulin Human Lispro (Humalog*) 0 units SUBCUT [facility]; Protocol Last Admin: 01/17/19 08:39 Dose: 2 units Lisinopril (Prinivil Tab*) 10 mg PO DAILY [facility] Last Admin: 01/17/19 08:42 Dose: 10 mg Melatonin (Melatonin) 3 mg PO BEDTIME PRN PRN Reason: SLEEP Last Admin: 01/16/19 22:50 Dose: 3 mg Metoprolol Succinate (Toprol Xl Tab*) 25 mg PO DAILY [facility] Last Admin: 01/17/19 08:42 Dose: 25 mg Mirtazapine (Remeron Tab*) 15 mg PO BEDTIME [facility] Last Admin: 01/16/19 20:15 Dose: 15 mg Nicotine (Nicotine Patch 21 Mg/24 Hr*) 1 patch TRANSDERM DAILY@0800 [facility] Last Admin: 01/17/19 08:41 Dose: 1 patch Nicotine Polacrilex (Nicotine Gum*) 2 mg PO Q2H PRN PRN Reason: CRAVING Pharmacy Profile Note (Nicotine Patch Removal Note*) 1 note PATCH OFF 2100 [facility] Last Admin: 01/16/19 20:16 Dose: 1 note Prazosin HCl (Minipress Cap*) 5 mg PO BEDTIME [facility] Rivaroxaban (Xarelto(*)) 20 mg PO 1800 [facility] Last Admin: 01/16/19 17:54 Dose: 20 mg Zolpidem Tartrate (Ambien Tab*) 5 mg PO BEDTIME PRN PRN Reason: INSOMNIA Last Admin: 01/16/19 20:19 Dose: 5 mg - Discharge Plan Discharge Plan: Outpatient Follow Up Outpatient Program: [facility]
--- NOTE | 2019-01-17 11:32 | PN ---
BSU: Group Therapy Note - Service Type Service Type: 38400 Group Psychotherapy - Cognitive Behavioral Group Therapy ( CBT):Patient was attentive and participatory in CBT programming this morning, and remained in good behavioral control. Patient expressed positive insights regarding relevant treatment interventions and goals.
[2019-01-17] MEDS: Ibuprofen TAB* 800 MG PO PRN (12:39)
--- NOTE | 2019-01-17 14:06 | PN ---
Subjective Date of Service: 01/17/19 Interval History: Pt is feeling well. He is anxious to go home. He feels that he can be compliant with his medication, and is motivated. He continues to have L knee pain and antalgic gait, due to L knee pain. He denies CP, SOB, fever/chills, cough, abd pain, n/v/d/c, pain in extremities, except L knee pain. Past Medical History: Unchanged from Admission Objective Active Medications: Acetaminophen (Tylenol Tab*) 650 mg PO Q6H PRN Al Hydrox/Mg Hydrox/Simethicone (Maalox Plus*) 30 ml PO Q4H PRN Atorvastatin Calcium (Lipitor*) 80 mg PO 2100 [facility] Bupropion HCl (Wellbutrin Xl *) 150 mg PO DAILY [facility] Hydroxyzine HCl (Atarax Tab*) 50 mg PO Q6H PRN Ibuprofen (Motrin Tab*) 800 mg PO Q8H PRN Insulin Glargine (Lantus(*)) 8 units SUBCUT Q24H [facility] Insulin Human Lispro (Humalog*) 0 units SUBCUT ACHS [facility]; Protocol Lisinopril (Prinivil Tab*) 10 mg PO DAILY [facility] Melatonin (Melatonin) 3 mg PO BEDTIME PRN Metoprolol Succinate (Toprol Xl Tab*) 25 mg PO DAILY [facility] Mirtazapine (Remeron Tab*) 15 mg PO BEDTIME [facility] Nicotine (Nicotine Patch 21 Mg/24 Hr*) 1 patch TRANSDERM DAILY@0800 [facility] Nicotine Polacrilex (Nicotine Gum*) 2 mg PO Q2H PRN Pharmacy Profile Note (Nicotine Patch Removal Note*) 1 note PATCH OFF 2100 [facility] Prazosin HCl (Minipress Cap*) 5 mg PO BEDTIME [facility] Rivaroxaban (Xarelto(*)) 20 mg PO 1800 [facility] Zolpidem Tartrate (Ambien Tab*) 5 mg PO BEDTIME PRN Vital Signs: Temp Pulse Resp BP Pulse Ox 97.4 F 56 16 148/83 100 01/17/19 08:00 01/17/19 08:00 01/17/19 13:30 01/17/19 08:00 01/17/19 08:00 Oxygen Devices in Use Now: None Appearance: Pt is sitting at edge of bed. He is pleasant, cooperative. He is in no acute distress. Eyes: No Scleral Icterus, PERRLA Ears/Nose/Mouth/Throat: NL Teeth, Lips, Gums, Clear Oropharnyx, Mucous Membranes Moist Neck: NL Appearance and Movements; NL JVP, Trachea Midline Respiratory: Symmetrical Chest Expansion and Respiratory Effort, Clear to Auscultation Cardiovascular: NL Sounds; No Murmurs; No JVD, RRR, No Edema Abdominal: NL Sounds; No Tenderness; No Distention, No Hepatosplenomegaly Extremities: No Edema, No Clubbing, Cyanosis Neurological: Alert and Oriented x 3, - - Stable, antalgic gait Result Diagrams: 01/10/19 05:13 01/10/19 05:13 Microbiology and Other Data: Microbiology 01/08/19 19:41 Aerobic Blood Culture - Preliminary Blood Venous No Growth Day 1 Anaerobic Blood Culture - Preliminary No Growth Day 1 01/08/19 19:41 Aerobic Blood Culture - Preliminary Blood Venous No Growth Day 1 Anaerobic Blood Culture - Preliminary No Growth Day 1 Assess/Plan/Problems-Billing Assessment: 58 y/o male presented to ER on 01/05/19 for reccurent fall and weakness, chest pain and shortness of breath. He was admitted to the medical service for evaluations and expressed suicidal ideations at that time. He was seen by psych and was cleared from suicidal threats and on 01/08/19 the patient was missing from his room. We was brought back under 9.39 and psych reconsulted. Currently he is under involuntary stay on the medical service until he is medically cleared at which time he will be trasferred to inpatient psych floor. His work up so far revealed: 1. MRI brain 01/07/19 reveals acute infarct both right and left hemisphere and chantal. 2. MRI Lumbar spine 01/07/19 revealed T11-T12 disc edema new finding suggestive of diskitis but could not rule out osteomyelitis DJD L3-L4 through L5-S1, progressive narrowing of the thecal sac and of both lateral recesses of L4-L5 . Neural foraminal narrowing from L3-L4 through L5-S1. Subcentimeter focus of enhancement in the region of the ligamentous flavum on the right side at L4-L5 3. Nuclear stress test 01/07/19 shows reversible ischemia of the lateral wall 4. CTA head and neck 01/05/19 reveals long segment stenosis of the right internal carotid artery proximally measuring up to 70% stenosis, moderate stenosis of the V4 segment of the left vertebral artery. Chronic small vessel ischemic changes 5. Echo 01/05/19 reveal EF 35%-40% no PFO 6. Cardiology consult 01/07/[address] Mayers and did not recommend further work and recommended to resume his previous cardiac meds 7. Orthopedic consult 01/08/19 for his left knee pain, recommeded LTA arthroplast electively once discharge on outpatient basis. He was offered steroid injections but he declined 8. Neurology consult 01/08/[address] Wagoner and the MRI brain reviewed. he Recommended Loop recorder, BC x 2, aspirin and plavix 9. SERGE 01/10/19 dialated left atrium no endocarditis and no thrombus - Patient Problems (1) CVA (cerebral vascular accident) Comment: - CT Head shows chronic small vessel ischemic changes. - MRI Brain showing multiple areas of acute lacunar or acute to subacute small CVAs with embolic source suspicion. Also it did shows evidence of hemosiderin. - No PFO was seen on ECHO - He does have long segment of 70% R ICA stenosis on CTA. left vertebral artery v4 stenosis. - Appreciate Neurology recs. currently on aspirin and plavix. BC ordered so far negative x 1 day. - SERGE 01/10/19 negative for vegetations but it showed dialated left atrium. - Repeat head CT with no blood - Pt has been started on anticoagulation, due to likely cardioembolic source - Discontinue aspirin and plavix, cancel brain MRI for monday - Follow up with neurology in 3-4 weeks (2) CAD (coronary artery disease) Comment: - s/p Cardiac cath 2012 with stents to RCA and 2nd diagonal branches - Poor medical compliance - Nuclear stress test 01/07/19 shows reversible ischemia of the lateral wall artery - Echo 01/05/19 reveal EF 35%-40% no PFO - Seen by Cardiology consult 01/07/[address] Mayers and did not recommend further work and recommended to resume his previous cardiac meds - Loop recorder placed 01/09/19 given his acute and subacute infarct on his Brain MRI - Resumed his lopressor 25 mg daily. - Added lipitor 80mg HS - Xarelto started; asa, plavix discontinued - Follow up with cardiology in 2-3 weeks after discharge (3) Diabetes Comment: - not compliant with any meds at home. - A1c 8.5% - Dr Potts recommends Metformin 750 ER nightly x2 weeks, then 1500 nightly plus Glipizide XL 5mg q a.m. Daily morning blood sugar monitoring and log. - Follow up with Dr. Potts in 1 month; bring blood sugar log (4) Gait instability Comment: - Combination of left knee arthritis and his multiple lacunar infarct. - Continue PT - Outpatient follow up with ortho Dr. Wyatt for elective TKA
[2019-01-17] MEDS: Insulin GLARGINE(*) 1 UNITS UNIT SUBCUT SCH (15:09)
[2019-01-17] MEDS: hydrOXYzine HCL TAB* 50 MG PO PRN (15:10)
[2019-01-17] MEDS: Rivaroxaban TAB(*) 20 MG TAB PO SCH (18:26)
[2019-01-17] MEDS ORDERED: Prazosin CAP* 5 MG PO SCH (21:00)
[2019-01-17] MEDS: Atorvastatin* 80 MG TAB PO SCH (21:19)
[2019-01-17] MEDS: Zolpidem TAB* 5 MG PO PRN (21:20)
[2019-01-17] MEDS: Melatonin 3 MG TAB PO PRN (21:20)
[2019-01-17] MEDS: Mirtazapine TAB* 15 MG PO SCH (21:20)
[2019-01-17] MEDS: Nicotine Patch Removal NOTE PATCH OFF SCH (21:24)
[2019-01-18] MEDS: Lisinopril TAB* 10 MG PO SCH (08:48)
[2019-01-18] MEDS: Insulin LISPRO* 1 UNITS UNIT SUBCUT SCH (08:48)
[2019-01-18] MEDS: Metoprolol Succinate XL TAB* 25 MG PO SCH (08:48)
[2019-01-18] MEDS: Nicotine PATCH 21 MG/24 HR* PATCH TRANSDERM SCH (08:48)
[2019-01-18] MEDS: BuPROPion XL* 150 MG TAB.XL PO SCH (08:48)
[2019-01-18] MEDS: Acetaminophen TAB* 325 MG PO PRN (08:50)
[2019-01-18 10:58] VITALS: BP 127/72
--- NOTE | 2019-01-18 15:41 | DS ---
DISCHARGE SUMMARY: DATE OF ADMISSION: 01/08/19 DATE OF DISCHARGE: 01/18/19 DISCHARGE DIAGNOSES: [place] I: Major depressive disorder, recurrent severe without psychotic features; PTSD; Cannabis use disorder. [place] II: Deferred. CONDITION AT THE TIME OF DISCHARGE: Improved. The patient is calm, cooperative, with a broad full a ffect. He has been safe on all checks. He has consistently denied suicidal ideations for the past w redding. He seems highly motivated to improve his medical as well as psychological situation. He has be en tolerating his medications both medically and psychiatrically without any significant side effects . He is agreeable to following up not only with medical, but also psychiatric services in the on license of [facility]. In addition, we have referred him to case management services through the [facility], [facility] should assist him in staying on track with community medical and mental health resources. Jr nuñez as done quite well here and his condition is significantly better than at the time of discharge. He is appropriately requesting discharge to a less restrictive environment and we see no barrier to him receiving the care that he needs in the community. MENTAL STATUS EXAM: At the time of discharge, the patient is an overweight white male with a mayers, who appears somewhat lavern and older than his stated age. He is clean and well groomed, calm, coop erative and making good eye contact. He is friendly and easy to establish rapport with. Speech is s low but fluent. Mood is euthymic with full affect. Thought process is linear and goal directed. Th ought content is significant for his desire to discharge from the hospital. He denies suicidal or ho micidal ideations. He denies auditory or visual hallucinations. Insight and judgment are fair given his willingness to follow up with outpatient treatment. Cognitively, he is awake and alert with what appear to be a low average intellect by virtue of his academic history. DISCHARGE INSTRUCTIONS TO THE PATIENT: Are as follows: Part A. Medications: The patient is taking; 1. Hydroxyzine 50 mg as needed for anxiety. 2. Glipizide ER 5 mg daily. 3. Xarelto 20 mg p.o. q.1800 hours. 4. Minipress 5 mg p.o. q.h.s. 5. Remeron 15 mg p.o. q.h.s. 6. Toprol-XL 25 mg p.o. daily. 7. Glucophage 750 mg p.o. daily. 8. Lisinopril 10 mg daily. 9. Wellbutrin XL 150 mg p.o. daily. 10. Lipitor 80 mg p.o. q.h.s. Part B: Diet. The patient is on a diabetic diet. Part C: Activities as tolerated. The patient is a smoker; however, he is declining the use of jayant nued nicotine replacement therapies. In the instance that he decides to quit smoking, he has been gr anted the [facility] Smoker's Quitline, which is toll free at [phone]. There are no laborato ry or diagnostic studies pending at the time of discharge. Part D: Followup care: The patient will be following up at the [facility] on 01/22/19 at 10:30 a.m. He also has medical follow up at the [facility] on Monday01/21/[address] Jose Lyn. Part E: Substance abuse followup is nonapplicable. Part F: Disposition: The patient is returning to his own home. HOSPITAL COURSE: Part A: Reason for admission: The patient is a 58-year-old white male with a history of alcohol and drug dependence as well as treatment-resistant depression and PTSD who was transferred from the medical service following medical stabilization of crushing chest pain and the d iscovery of acute stroke like findings on an MRI of his brain. Initially, he had been admitted on and discovered to have comorbid depression with passive suicidal ideations. He was seen by [facility] psychiatric consult service and we determined that he would benefit from psychiatric admission foll owing medical stabilization. Unfortunately, he was not placed on one-to-one observations, because he did not have active suicidality. The patient took advantage of that situation [facility] Police was called and went to his house and later that day he was brought back t o the emergency room, where he was readmitted to Medicine in order to complete his medical workup susanna atment. Psychiatry was reconsulted and we determined that he still required transfer to the B[facility]. Tr ansfer occurred on 01/11/19 when he came down from the fourth floor. He was endorsing depression wit h multiple neurovegetative symptoms including difficulty falling asleep, anhedonia, guilt, decreased energy, some decrease in appetite as well as psychomotor retardation. He denied concentration diffic ulties. He appeared to be a somewhat limited historian, but I gathered that he had very minimal supp ort from his children and his had in June 2018. Part B: Psychiatric treatment rendered: The patient was transferred from the medical service to the [facility] on 01/11/19 where he was placed on q.15 minute checks and was treated on involuntary status thro ugh a 9.39. Even prior to this we had initiated antidepressant therapy with Bupropion XL 150 mg ritika y, which he tolerated well. This was augmented with Remeron 15 mg nightly to improve mood as well as sleep. He also received melatonin for sleep induction and p.r.n. hydroxyzine for anxiety and insomn ia. Over that weekend, he was started on prazosin initially at 1 mg nightly because of nightmares an d this was gradually titrated to the effective dose of 5 mg nightly. Jr was an active participant in groups. He acknowledged that he had limited family support and limited social connectivity in [facility]. For this reason, we referred him to the [facility], which is a social club run by [facility] mental [facility]. In addition, we wanted to see him get case management services. So, he was referred to the [facility] and visited by nurse Maggi who agreed to help him stay on track both for mental health as well as medical followup. The hospitalist service continued to p elisavide consultation and in fact he was seen on 01/17/19 by Jessica Burnham, who switched his insuli n to oral diabetic medication. The patient is tolerating all of his medications well. He made sever al statements to the effect that he was now future oriented, wanted to take care of his health, and w anted to get better, volunteer in the community and have more of a social life. On the day of discha jens, it was discovered that his Medicaid and Medicare had likely due to failure to send in pa per work appropriately. For this issue, he was referred to the [facility] department of professor of social work, which can reactivate his insurance accounts. At this time, we see no further rationale for involuntary inpatient treatment. We think that the patient would do well as long as he stays on trac k with treatment provided in the community. [id number]/CPS #: [id number]
== END 2019-01-18 14:00 | disposition home or self-care (01) | DRG 41 ==
LOC: ED 11:04 → MEDTELE 14:12 → OBSVTOIN 14:12 → BSU 01-11 18:16
PROVIDERS: ADMIT Hospitalist; ATTEND Psychiatry & Neurology Psychiatry
PROC: 0JH632Z Insertion of Monitoring Device into Chest Subcutaneous Tissue and Fascia, Percutaneous Approach (ICD-10-PCS; principal; 2019-01-08 15:00)
PROC: B24BZZ4 Ultrasonography of Heart with Aorta, Transesophageal (ICD-10-PCS; 2019-01-10)
PROC: GZHZZZZ Group Psychotherapy (ICD-10-PCS; 2019-01-17)
DX: I63.89 Other cerebral infarction (principal); F33.2 Major depressive disorder, recurrent severe without psychotic features; R45.851 Suicidal ideations; I25.10 Atherosclerotic heart disease of native coronary artery without angina pectoris; E11.65 Type 2 diabetes mellitus with hyperglycemia; E78.5 Hyperlipidemia, unspecified; G47.33 Obstructive sleep apnea (adult) (pediatric); F41.9 Anxiety disorder, unspecified; F43.10 Post-traumatic stress disorder, unspecified; F17.210 Nicotine dependence, cigarettes, uncomplicated; E66.9 Obesity, unspecified; I50.9 Heart failure, unspecified; Z96.652 Presence of left artificial knee joint; E78.00 Pure hypercholesterolemia, unspecified; G43.909 Migraine, unspecified, not intractable, without status migrainosus; R27.0 Ataxia, unspecified; R07.9 Chest pain, unspecified; I11.0 Hypertensive heart disease with heart failure; Z86.711 Personal history of pulmonary embolism; Z85.01 Personal history of malignant neoplasm of esophagus; Z91.14 Patient's other noncompliance with medication regimen; Z95.1 Presence of aortocoronary bypass graft; Z88.0 Allergy status to penicillin; Z68.35 Body mass index [BMI] 35.0-35.9, adult; I25.2 Old myocardial infarction; Z85.46 Personal history of malignant neoplasm of prostate; Z95.5 Presence of coronary angioplasty implant and graft; Z79.4 Long term (current) use of insulin; Z79.01 Long term (current) use of anticoagulants
CPT/HCPCS: 33285; 36415; 70450; 80048; 80061; 80307; 80320; 83036; 83735; 84100; 84484; 85025; 85652; 86140; 87040; 90853; 93005; 93312; 93325; 99156; 99157; 99222; 99231; 99238; 99283; A9270-GY; C1764; G0480; G8978-GP-CI; G8979-GP-CI; G8980-GP-CI; J0360; J1200; J1650; J2250; J2310; J3010

== ENCOUNTER 2019-02-27 20:28 | Inpatient (IN) | payer MEDICARE ==
--- NOTE | 2019-02-27 21:13 | ED ---
Psychiatric Complaint - HPI Summary HPI Summary: A 58 y/o male presents to [facility] with a chief complaint of SI today. He says that he still has SI but cannot come with a good way to commit suicide. 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 He says that he feels tired and done. He says that he went to [facility] but has not heard from them. He reports EtOH use 4-5 hours ago. The only other complaint he has is left knee pain. 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 Medications Allergies/Adverse Reactions: Allergies Allergy/AdvReac Type Severity Reaction Status Date / Time Penicillins Allergy Unknown Unknown Verified 01/08/19 11:07 Reaction Details Home Medications: Home Medications NK [No Home Medications Reported] 02/27/19 [History Confirmed 02/27/19] PMH/Surg Hx/FS Hx/Imm Hx Endocrine/Hematology History: Reports: Hx Anticoagulant Therapy - 325MG PO ASPIRIN DAILY, Hx Diabetes, Other Endocrine/Hematological Disorders - obesity Denies: Hx Blood Disorders, Hx Blood Transfusions, Hx Thyroid Disease, Hx Anemia, Hx Unexplained Bleeding Cardiovascular History: Reports: Hx Angina, Hx Congestive Heart Failure, Hx Coronary Artery Disease, Hx Hypercholesterolemia, Hx Hypertension - does not take meds d/t cost, Hx Myocardial Infarction, Other Cardiovascular Problems/ Disorders - cardiac cath w/ stents Denies: Hx Pacemaker/ICD, Hx Peripheral Vascular Disease, Hx Syncope, Hx Valvular Heart Disease Respiratory History: Reports: Hx Pulmonary Edema, Hx Sleep Apnea, Other Respiratory Problems/Disorders - CURRENT SMOKER Denies: Hx Asthma, Hx Chronic Obstructive Pulmonary Disease (COPD), Hx Pneumonia GI History: Reports: Other GI Disorders - esophegal ulcers History: Reports: Hx Kidney Infection, Other Problems/Disorders - Prostate CA, TURP in 2011 Denies: Hx Chronic Renal Failure, Hx Renal Disease Musculoskeletal History: Reports: Hx Back Problems, Other Musculoskeletal History - ACL repair L knee Denies: Hx Arthritis, Hx Osteoporosis Sensory History: Reports: Hx Hearing Problem - Patient reports multiple ear surgeries Denies: Hx Contacts or Glasses, Hx Hearing Aid, Other Sensory Impairments Opthamlomology History: Denies: Hx Contacts or Glasses, Other Sensory Impairments Neurological History: Reports: Hx Migraine, Other Neuro Impairments/Disorders - 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 Denies: Hx Dementia, Hx Headaches, Hx Seizures, Hx Transient Ischemic Attacks (TIA) Psychiatric History: Reports: Hx Anxiety, Hx Depression, Hx Community Mental Health Tx, Other Psychiatric Issues/Disorders Denies: Hx Attention Deficit Hyperactivity Disorder, Hx Eating Disorder, Hx Panic Disorder, Hx Post Traumatic Stress Disorder, Hx Inpatient Treatment, Hx Schizophrenia, Hx Bipolar Disorder, Hx Suicide Attempt - thoughts only, Hx of Violent Episodes Against Others, Hx Substance Abuse - Cancer History Cancer Type, Location and Year: prostate cancer Hx Chemotherapy: No Hx Radiation Therapy: No Hx Palliative Cancer Treatment: No - Surgical History Surgery Procedure, Year, and Place: multiple tubes placed in ears. left knee scope. cardiac stents Hx Anesthesia Reactions: No - Immunization History Date of Tetanus Vaccine: Unknown Date of Influenza Vaccine: 2013 Infectious Disease History: No Infectious Disease History: Denies: Hx Hepatitis, Hx Human Immunodeficiency Virus (HIV), Hx Shingles, Hx Tuberculosis, Traveled Outside the [place] in Last 30 Days - Family History Known Family History: Positive: Unknown - PT WAS ADOPTED - Social History Alcohol Use: Weekly Alcohol Amount: 2-3 drinks/day Hx Substance Use: Yes Substance Use Type: Reports: None Substance Use Comment - Amount & Last Used: pt reports last use of cocaine and marijuana was several months ago Hx Tobacco Use: Yes Smoking Status (MU): Heavy Every Day Tobacco Smoker Type: Cigarettes Amount Used/How Often: 1 pack/day Length of Time of Smoking/Using Tobacco: 42 years Have You Smoked in the Last Year: Yes Review of Systems Negative: Fever Positive: Arthralgia - left knee pain Psychological: Other - positive: SI All Other Systems Reviewed And Are Negative: Yes Physical Exam - Summary Physical Exam Summary: Constitutional: Well-developed, Well-nourished, Alert. (-) Distressed Skin: Warm, Dry HENT: Normocephalic; Atraumatic Eyes: Conjunctiva normal Neck: Musculoskeletal ROM normal neck. (-) JVD, (-) Stridor, (-) Tracheal deviation Cardio: Rhythm regular, rate normal, Heart sounds normal; Intact distal pulses; The pedal pulses are 2+ and symmetric. Radial pulses are 2+ and symmetric. (-) Murmur Pulmonary/Chest wall: Effort normal. (-) Respiratory distress, (-) Wheezes, (-) Rales Abd: Soft, (-) tenderness, (-) Distension, (-) Guarding, (-) Rebound Musculoskeletal: (-) Edema Lymph: (-) Cervical adenopathy Neuro: Alert, Oriented x3 Psych: depressed and has SI Triage Information Reviewed: Yes Vital Signs On Initial Exam: Initial Vitals Temp Pulse Resp BP Pulse Ox 98.6 F 89 18 216/112 97 02/27/19 20:32 02/27/19 20:32 02/27/19 20:32 02/27/19 20:32 02/27/19 20:32 Vital Signs Reviewed: Yes Diagnostics - Vital Signs Vital Signs Temp Pulse Resp BP Pulse Ox 02/27/19 20:32 98.6 F 89 18 216/112 97 - Laboratory Result Diagrams: 02/27/19 21:44 02/27/19 21:44 Lab Statement: Any lab studies that have been ordered have been reviewed, and results considered in the medical decision making process. Course/Dx - Course Course Of Treatment: A 58 y/o male presents to [facility] with a chief complaint of SI today. The physical exam revealed that he was depressed and has SI. Blood work, chemistries and toxicology obtained and the patient has been cleared for [facility]. Per mental health fresh work wrapper layer, Dr. Pearson has decided that the patient will be a voluntary admit. Dx: major depressive disorder - Differential Dx/Clinical Impression Provider Diagnosis: Major depressive disorder - Physician Notifications Discussed Care Of Patient With: Zane Pearson Time Discussed With Above Provider: 22:53 Instructed by Provider To: Other - Per mental health fresh work wrapper layer, Dr. Pearson has decided that the patient will be a voluntary admit. Dx: major depressive disorder Discharge - Sign-Out/Discharge Documenting (check all that apply): Patient Departure - admit Patient Received Moderate/Deep Sedation with Procedure: No - Discharge Plan Condition: Fair Disposition: [facility]ATRIC FACILITY[facility] - Billing Disposition and Condition Condition: FAIR Disposition: Psychiatric Facility [facility] - Attestation Statements Document Initiated by Scribe: Yes Documenting Scribe: Enrique Roland Provider For Whom Filipe is Documenting (Include Credential): Melina Singh MD Scribe Attestation: Enrique Rodriguez, scribed for Melina Chopra MD on 02/28/19 at 0645. Scribe Documentation Reviewed: Yes Provider Attestation: The documentation as recorded by the Enrique breaux accurately reflects the service I personally performed and the decisions made by me, Melina Chopra MD Status of Scribe Document: Viewed
[2019-02-27 21:51] LABS: ABS Basophils 0.1 10^3/ul (0-0.2); ABS Eosinophils 0.3 10^3/ul (0-0.6); ABS Lymphocytes 4.1 10^3/ul (1.0-4.8); ABS Monocytes 0.8 10^3/ul (0-0.8); ABS Neutrophils 5.2 10^3/ul (1.5-7.7); Eosinophil % 3.1 %; Hematocrit 42 % (42-52); Hemoglobin 14.4 g/dL (14.0-18.0); Lymphocyte % 38.8 %; Mean Corpuscular HGB Conc 34 g/dL (31-36); Mean Corpuscular Hemoglobin 31 pg (27-31); Mean Corpuscular Volume 91 fL (80-94); Mean Platelet Volume 6.8 fL (7.4-10.4); Nucleated Red Blood Cells % 0.1; Platelet Count 310 10^3/uL (150-450); Red Blood Count 4.59 10^6 /uL (4.18-5.48); Red Cell Distribution Width 14 % (10-15); White Blood Count 10.5 10^3/uL (3.5-10.8)
[2019-02-27 22:08] LABS: ALT 37 U/L (7-52); AST 35 U/L (13-39); Albumin 3.9 g/dL (3.2-5.2); Albumin/Globulin Ratio 1.3 (1-3); Alkaline Phosphatase 71 U/L (34-104); Anion Gap 11 mmol/L (2-11); BUN/Creatinine Ratio 17.7 (8-20); Blood Urea Nitrogen 17 mg/dL (6-24); CO2 Carbon Dioxide 21 mmol/L (22-32); Chloride 105 mmol/L (101-111); EGFR African American 97.3 (>60); EGFR Non-African American 80.5 (>60); Globulin 3.1 g/dL (2-4); Glucose 234 mg/dL (70-100); Potassium 3.5 mmol/L (3.5-5.0); Sodium 137 mmol/L (135-145)
[2019-02-27 22:25] LABS: Acetaminophen < 15 mcg/mL; Alcohol 100 mg/dL (<10)
[2019-02-27 22:40] LABS: TSH (Thyroid Stimulating Horm) 2.49 mcIU/mL (0.34-5.60)
[2019-02-28] MEDS ORDERED: Nicotine* 2MG (FRUIT FLAVOR) GUM PO PRN (00:25)
[2019-02-28] MEDS ORDERED: Al Hydrox/Mg Hydrox/Simet LIQ* 30 ML UDC PO PRN (00:25)
[2019-02-28] MEDS ORDERED: Acetaminophen TAB* 325 MG PO ONE (00:36)
[2019-02-28] MEDS ORDERED: Metoprolol Tartrate TAB* 25 MG PO ONE (03:44)
[2019-02-28] MEDS ORDERED: Metoprolol Tartrate TAB* 25 MG ONE (03:45)
[2019-02-28] MEDS: Metoprolol Succinate XL TAB* 25 MG PO SCH (04:28)
--- NOTE | 2019-02-28 06:36 | CONS ---
CC: Dr. Jung; Dr. Jose Lyn CONSULTATION REPORT: DATE OF CONSULT: 02/28/19 REQUESTING PHYSICIAN: Zane Pearson MD REASON FOR CONSULTATION: Blood pressure control and diabetes control. HISTORY OF PRESENT ILLNESS: This is a 58-year-old male with past medical history of hypertension, type 2 diabetes with last A1c of 8.8%, coronary artery disease status post coronary artery bypass graft with 2 stenting, recently diagnosed stroke with gait abnormality, and major depressive syndrome, who is admitted to Inpatient Psychiatry for suicidal ideation and was also noted to be alcoholic. He also stopped all his medications. The patient currently denies any symptoms other than his left knee pain. PAST MEDICAL HISTORY: 1. Hypertension. 2. Type 2 diabetes with last A1c of 8.8%. 3. Coronary artery disease status post coronary artery bypass grafting with 2 stents. 4. Hyperlipidemia. 5. History of esophageal ulcer. 6. Obstructive sleep apnea, noncompliant with the CPAP. 7. Anxiety. 8. Major depressive disorder/PTSD with suicidal ideation. 9. History of alcohol abuse. 10. Former use of cocaine. 11. Ongoing smoking. 12. Chronic medication noncompliance. 13. History of stroke diagnosed recently, was started on Xarelto due to left atrial enlargement as that could be cardioembolic stroke. 14. History of prostate cancer status post transurethral resection of prostate. HOME MEDICATIONS: The patient is currently not taking any medications; however , per discharge from 01/18/19, the patient was to be on: 1. Hydroxyzine 50 mg as needed for anxiety. 2. Glipizide extended release 5 mg oral daily. 3. Xarelto 20 mg oral daily. 4. Minipress 5 mg p.o. q.h.s. 5. Remeron 15 mg p.o. q.h.s. 6. Toprol-XL 25 mg oral daily. 7. Glucophage 750 mg p.o. daily. 8. Lisinopril 10 mg oral daily. 9. Wellbutrin extended release 150 mg p.o. daily. 10. Lipitor 80 mg p.o. q.h.s. ALLERGIES: The patient is documented to be having allergies to PENICILLIN. FAMILY HISTORY: Unknown as he is adopted. SOCIAL HISTORY: The patient has a 43-pack year history of smoking; currently still smokes about a pack a day and a previous history of heavy alcohol use, which he cut down and again started today with multiple drinks of alcohol today as he was depressed and wanted to commit suicide. Previous history of cocaine use. The patient currently lives alone and his Eleanor unexpectedly in June 2018. REVIEW OF SYSTEMS: A 14-point review of systems did not reveal any new information other than what is stated in the HPI. PHYSICAL EXAMINATION: The patient is a well-developed male in the Psychiatric [place], in no apparent respiratory distress. Vital Signs: Temperature was documented at 97.7, heart rate 72, respirations are 20, saturating 100% on room air, BP was noted to be 191/92. Heart Examination: S1, S2. Regular rate and rhythm. Lungs: Clear to auscultation bilaterally. No wheezing, rhonchi, or rales. Abdomen is soft, nontender, nondistended. Extremities: No cyanosis, clubbing, or edema. DIAGNOSTIC STUDIES/LAB DATA: CBC was unremarkable. Comprehensive metabolic panel shows elevated random glucose at 234. Toxicology screen shows elevated serum alcohol level at 100. LFTs were all within normal limits. IMPRESSION: This is a 58-year-old male with hypertension, diabetes, dyslipidemia, coronary artery disease status post coronary artery bypass graft, recent stroke, on Xarelto came in due to major depressive episode with suicidal ideation and alcohol intoxication, consulted for BP and diabetes control. ASSESSMENT AND PLAN: 1. Uncontrolled blood pressure, secondary to medication noncompliance. We will restart the same exact medications that he was on per previous discharge including the Minipress 5 mg q.h.s. and Toprol-XL 25 mg oral daily and lisinopril 10 mg oral daily. 2. Diabetes. We will restart the same dosage of glipizide extended release 5 mg oral daily and Glucophage 750 mg oral daily. We will also add fingerstick monitoring a.c. and h.s. 3. History of dyslipidemia. If okay with Psychiatry, we will consider restarting his Lipitor, especially in light of his recent stroke. 4. History of recent stroke. Considered to be cardioembolic. Was started on Xarelto 20 mg p.o. q.h.s. on last admission, which we could restart if okay with Psychiatry as the patient's suicidal ideation if caused any injury, will cause extensive bleeding with any sign of trauma, so I am currently holding it off for now. 5. Regarding his major depression, anxiety and psychiatric conditions, per primary. 6. DVT prophylaxis. Encourage ambulation. [id number]/[facility] #: [id number] JODIE
[2019-02-28 08:40] LABS: HDL Cholesterol 46.5 mg/dL
[2019-02-28] MEDS: metFORMIN* 500 MG TAB PO SCH ×2 (08:46→17:37)
[2019-02-28] MEDS: Acetaminophen TAB* 325 MG PO PRN ×3 (08:46→16:35)
[2019-02-28] MEDS: Vitamin THERAPEUTIC TAB PO SCH (08:46)
[2019-02-28] MEDS: glipiZIDE TAB.XL* 5 MG PO SCH (08:46)
[2019-02-28] MEDS: Nicotine PATCH 21 MG/24 HR* PATCH TRANSDERM SCH (08:47)
[2019-02-28] MEDS: Lisinopril TAB* 10 MG PO SCH (11:33)
[2019-02-28] MEDS: BuPROPion XL* 150 MG TAB.XL PO SCH (12:35)
[2019-02-28] MEDS ORDERED: LORazepam TAB(*) 1 MG PO SCH (15:00)
[2019-02-28 16:19] LABS: Urine Appearance Cloudy; Urine Bacteria Absent (Absent); Urine Bilirubin Negative (Negative); Urine Blood Negative (Negative); Urine Color Yellow; Urine Glucose 3+(>=500 mg/dL) (Negative); Urine Ketones Negative (Negative); Urine Nitrite Negative (Negative); Urine Protein 2+(100 mg/dL) (Negative); Urine Red Blood Cell Trace(0-2/hpf) (Absent); Urine Specific Gravity 1.024 (1.010-1.030); Urine Urobilinogen Negative (Negative); Urine White Blood Cell Absent (Absent)
[2019-02-28 16:27] LABS: Urine Benzodiazepine Screen None Detected (None Detect); Urine Opiates Screen None Detected (None Detect)
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
[2019-02-28] MEDS: Rivaroxaban TAB(*) 20 MG TAB PO SCH (17:36)
[2019-02-28] MEDS: Prazosin CAP* 5 MG PO SCH (17:36)
[2019-02-28] MEDS: Atorvastatin* 80 MG TAB PO SCH (20:28)
[2019-02-28] MEDS: Nicotine Patch Removal NOTE PATCH OFF SCH (20:31)
[2019-02-28] MEDS ORDERED: Atorvastatin* 80 MG TAB PO ONE (21:00)
[2019-03-01] MEDS: Folic Acid TAB* 1 MG PO SCH (08:37)
[2019-03-01] MEDS: Acetaminophen TAB* 325 MG PO PRN ×3 (08:37→20:32)
[2019-03-01] MEDS: Nicotine PATCH 21 MG/24 HR* PATCH TRANSDERM SCH (08:37)
[2019-03-01] MEDS: glipiZIDE TAB.XL* 5 MG PO SCH (08:38)
[2019-03-01] MEDS: Thiamine TAB* 100 MG TAB PO SCH (08:38)
[2019-03-01] MEDS: metFORMIN* 500 MG TAB PO SCH ×2 (08:38→17:31)
[2019-03-01] MEDS: Metoprolol Succinate XL TAB* 25 MG PO SCH (08:38)
[2019-03-01] MEDS: Lisinopril TAB* 10 MG PO SCH (08:38)
[2019-03-01] MEDS: Vitamin THERAPEUTIC TAB PO SCH (08:38)
[2019-03-01] MEDS: BuPROPion XL* 150 MG TAB.XL PO SCH (08:39)
--- NOTE | 2019-03-01 11:54 | PN ---
Subjective - Subjective Date of Service: 03/01/19 Service Type: 97078 Hosp care 25 min moderate complexity Subjective: Patient reports adequate sleep last night. He denies alcohol cravings or physical withdrawal symptoms. He reports his alcohol use to be mild and "out of necessity" due to L knee pain. He denies need for substance use treatment. He reports that transportation issues prevent him from following through on medical care. He reports social isolation, financial strain and pain are precursors to suicidal ideation. Cook Starch spoke with DALY Tay at [facility]. She rpeorts she has been attempting to assist Jr with keeping appointments and identifying other housing options that are centrally located and/or on bus route. 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 Regarding orthopedics, he needs to show investment in medical appotininments then Dr Wyatt will consider surgery. Objective - General Observations Appearance: Unkempt Stature: Overweight Posture: Slumped Eye Contact: Average Behavior/Activity: Slowed - Interaction Observations Attitude Towards Examiner: Cooperative Stated Mood: Dysphoric Affect: Blunted Speech Pattern/Tone: Appropriate, Quiet Volume Thought Process: Circumstantial, Impoverished Perception: WNL Thought Content: Depressive, Self-Deprecatory Thought Process: Lethality: Passive Wish Hallucination Type: None Delusion Type: None - Cognitive Function Orientation: A&O x 4 Level of Consciousness: Alert Cognition: Impaired Attention/Concentration Estimated Intelligence: Borderline Range Insight: Mostly Blames Others for Problems Judgment Within Normal Limits: No Ability to Make Reasonable Decisions: Serverely Impaired - Medication Compliance Cooperative with Inpatient Medication Regimen: Yes - Group Participation Participates in Group Activities: Yes Assessment - Assessment Merits Inpatient Hospitalization: For Immediate Safety, For Stabilization Inpatient DSM-V Dx: F33.8 Clinical Impression: 58yo wm, , with history of depression and alcohol dependence, borderline intellectual functioning and multiple medical comorbidities who presented to ED self-referred due to SI. He reports hopelessness and helplessness, along with passive wish. He merits hospitalization for immediate safety and stabilization. Plan - Plan Treatment Plan: Name: JR PANG JR Birthdate: 1960 [id number] continue acute intensive psychiatric treatment. may decrease to q30min and allow staff pass. add gabapentin for pain. Obtain PT consult for L knee pain. Continued Medication Management: Start Medication Medications: Current Medications Acetaminophen (Tylenol Tab*) 650 mg PO Q4H PRN PRN Reason: PAIN or TEMP > 101 F Last Admin: 03/01/19 08:37 Dose: 650 mg Al Hydrox/Mg Hydrox/Simethicone (Maalox Plus*) 30 ml PO Q4H PRN PRN Reason: INDIGESTION Atorvastatin Calcium (Lipitor*) 80 mg PO BEDTIME [facility] Last Admin: 02/28/19 20:28 Dose: 80 mg Bupropion HCl (Wellbutrin Xl *) 150 mg PO DAILY [facility] Last Admin: 03/01/19 08:39 Dose: 150 mg Folic Acid (Folvite Tab*) 1 mg PO DAILY [facility] Last Admin: 03/01/19 08:37 Dose: 1 mg Glipizide (Glucotrol Xl*) 5 mg PO DAILY [facility] Last Admin: 03/01/19 08:38 Dose: 5 mg Lisinopril (Prinivil Tab*) 10 mg PO DAILY [facility] Last Admin: 03/01/19 08:38 Dose: 10 mg Lorazepam (Ativan Tab(*)) 0 - 6 mg PO .PER [facility] PROTOCOL [facility]; Protocol Metformin HCl (Glucophage*) 500 mg PO BID WITH MEALS [facility] Last Admin: 03/01/19 08:38 Dose: 500 mg Metoprolol Succinate (Toprol Xl Tab*) 25 mg PO 0900 [facility] Last Admin: 03/01/19 08:38 Dose: 25 mg Mirtazapine (Remeron Tab*) 15 mg PO BEDTIME [facility] Multivitamins (Theragran Tab*) 1 tab PO DAILY [facility] Last Admin: 03/01/19 08:38 Dose: 1 tab Nicotine (Nicotine Patch 21 Mg/24 Hr*) 1 patch TRANSDERM DAILY [facility] Last Admin: 03/01/19 08:37 Dose: 1 patch Nicotine Polacrilex (Nicotine Gum*) 2 mg PO Q2H PRN PRN Reason: CRAVINGS Pharmacy Profile Note (Nicotine Patch Removal Note*) 1 note PATCH OFF 2100 [facility] Last Admin: 02/28/19 20:31 Dose: 1 note Prazosin HCl (Minipress Cap*) 5 mg PO 1800 [facility] Last Admin: 02/28/19 17:36 Dose: 5 mg Rivaroxaban (Xarelto(*)) 20 mg PO QPM [facility] Last Admin: 02/28/19 17:36 Dose: 20 mg Thiamine HCl (Vitamin B-1 Tab*) 100 mg PO DAILY [facility] Last Admin: 03/01/19 08:38 Dose: 100 mg - Discharge Plan Discharge Plan: Inpatient Hospitalization
[2019-03-01] MEDS: Gabapentin CAP(*) 300 MG PO SCH ×2 (13:00→20:30)
[2019-03-01] MEDS: Rivaroxaban TAB(*) 20 MG TAB PO SCH (17:31)
[2019-03-01] MEDS: Prazosin CAP* 5 MG PO SCH (17:31)
--- NOTE | 2019-03-01 17:40 | PN ---
Hospitalist Progress Note Date of Service: 03/01/19 Consult Note: Our service was consulted for co medical management of htn and diabetes. 1. HTN: Home medications of Minipress, Toprol, and Lisinopril were restarted as patient was not compliant. Medications were restarted 02/28/19. Patient BP is responding well. I would continue to monitor routinely. Also if noted to be high or low, I would verify with manual blood pressure. Finally, given he was restarted on Lisinopril I would recommend a repeat BMP in one week to assess electrolytes and kidney function. 2. DIABETES: Once again patient had been noncompliant prior to admission, therefore, medications started as same from home including Glipizide and Glucophage. Continue to monitor FS BG routinely. Recommend lifestyle changed and follow up with PCP as outpatient. I would recommend repeat BMP in one week to assess kidney function. Also I would recommend a repeat Hemoglobin A1c in 3 months. 3. HLD: It was recommended by Dr Ken to restart Lipitor due to recent stroke if approved by psych. Kendra Rod NP has restarted this medication and I agree with this plan. 4. Hx of recent stroke: Once again Dr Ken recommended restarting Xarelto if approved by psych as patient has hx of recent suspected cardioembolic stroke. Kendra Rod NP has restarted this medication and I agree with this plan. Thank you for allowing us to participate in the care of this patient. We will continue to follow along with you.
[2019-03-01] MEDS: Mirtazapine TAB* 15 MG PO SCH (20:31)
[2019-03-01] MEDS: Atorvastatin* 80 MG TAB PO SCH (20:31)
[2019-03-01] MEDS: Nicotine Patch Removal NOTE PATCH OFF SCH (20:33)
[2019-03-02] MEDS: Gabapentin CAP(*) 300 MG PO SCH ×2 (08:58→20:38)
[2019-03-02] MEDS: Vitamin THERAPEUTIC TAB PO SCH (08:58)
[2019-03-02] MEDS: Folic Acid TAB* 1 MG PO SCH (08:58)
[2019-03-02] MEDS: BuPROPion XL* 150 MG TAB.XL PO SCH (08:59)
[2019-03-02] MEDS: Metoprolol Succinate XL TAB* 25 MG PO SCH (08:59)
[2019-03-02] MEDS: Thiamine TAB* 100 MG TAB PO SCH (08:59)
[2019-03-02] MEDS: Lisinopril TAB* 10 MG PO SCH (08:59)
[2019-03-02] MEDS: metFORMIN* 500 MG TAB PO SCH ×2 (08:59→17:36)
[2019-03-02] MEDS: glipiZIDE TAB.XL* 5 MG PO SCH (09:02)
[2019-03-02] MEDS: Nicotine PATCH 21 MG/24 HR* PATCH TRANSDERM SCH (09:04)
[2019-03-02] MEDS: Acetaminophen TAB* 325 MG PO PRN (11:20)
--- NOTE | 2019-03-02 12:41 | PN ---
Hospitalist Progress Note Date of Service: 03/02/19 Chart reviewed. 1. HTN: Blood pressure is well controlled with systolics in the 120s consistently. Continue prazosin, metoprolol, lisinopril. 2. DM2: Glucose is consistently <200. Continue glipizide and metformin. Decrease FS to daily. 3. HLD: Continue atorvastatin. 4: Recent CVA: Continue Xarelto. As previously recommended, repeat BMP next week to evaluate electrolytes and renal function. Medication compliance, a well-balanced diet, and appropriate outpatient follow up will be very important going forward. Thank you for this consultation. We will sign off at this time. Please call with any further questions or concerns.
--- NOTE | 2019-03-02 16:02 | PN ---
Subjective - Subjective Date of Service: 03/02/19 Service Type: 42753 Hosp care 15 min low complexity Subjective: Ute is seen in weekend coverage for NPP, Kendra Rod. He says that his spirits are improving. "I know I need to find a new place to live...Maggi is helping me with that." He is highly somatic, complaining of right knee pain and requesting hydrocodone. He is notified that his substance abuse history makes that particular medication ill-advised. He denies SI and has not been scoring on the [place] protocol. Objective - General Observations Appearance: Well Groomed Appears Stated Age: Yes Stature: Overweight Posture: WNL Eye Contact: Average Behavior/Activity: WNL - Interaction Observations Attitude Towards Examiner: Cooperative Stated Mood: Dysphoric Affect: Restricted Speech Pattern/Tone: Clear Thought Process: Goal Directed Thought Content: Preoccupation/Ruminations Hallucination Type: None Delusion Type: None - Cognitive Function Orientation: A&O x 4 Level of Consciousness: Awake, Alert, Appropriate Cognition: WNL Estimated Intelligence: Normal Insight: WNL - Medication Compliance Cooperative with Inpatient Medication Regimen: Yes - Group Participation Participates in Group Activities: Yes Assessment - Assessment Merits Inpatient Hospitalization: For Immediate Safety, For Stabilization Inpatient DSM-V Dx: F33.8 Clinical Impression: 58yo wm, , with history of depression and alcohol dependence, borderline intellectual functioning and multiple medical comorbidities who presented to ED self-referred due to SI. He reports hopelessness and helplessness, along with passive wish. He merits hospitalization for immediate safety and stabilization. Plan - Plan Treatment Plan: Name: UTE PANG JR Birthdate: 1960 [id number] continue acute intensive psychiatric treatment. may decrease to q30min and allow staff pass. add gabapentin for pain. Obtain PT consult for L knee pain. Will allow prn use of tramadol for knee pain. Continued Medication Management: Start Medication Medications: Current Medications Acetaminophen (Tylenol Tab*) 650 mg PO Q4H PRN PRN Reason: PAIN or TEMP > 101 F Last Admin: 03/02/19 11:20 Dose: 650 mg Al Hydrox/Mg Hydrox/Simethicone (Maalox Plus*) 30 ml PO Q4H PRN PRN Reason: INDIGESTION Atorvastatin Calcium (Lipitor*) 80 mg PO BEDTIME [facility] Last Admin: 03/01/19 20:31 Dose: 80 mg Bupropion HCl (Wellbutrin Xl *) 150 mg PO DAILY [facility] Last Admin: 03/02/19 08:59 Dose: 150 mg Folic Acid (Folvite Tab*) 1 mg PO DAILY [facility] Last Admin: 03/02/19 08:58 Dose: 1 mg Gabapentin (Neurontin Cap(*)) 300 mg PO BID [facility] Last Admin: 03/02/19 08:58 Dose: 300 mg Glipizide (Glucotrol Xl*) 5 mg PO DAILY [facility] Last Admin: 03/02/19 09:02 Dose: 5 mg Lisinopril (Prinivil Tab*) 10 mg PO DAILY [facility] Last Admin: 03/02/19 08:59 Dose: 10 mg Metformin HCl (Glucophage*) 500 mg PO BID WITH MEALS [facility] Last Admin: 03/02/19 08:59 Dose: 500 mg Metoprolol Succinate (Toprol Xl Tab*) 25 mg PO 0900 [facility] Last Admin: 03/02/19 08:59 Dose: 25 mg Mirtazapine (Remeron Tab*) 15 mg PO BEDTIME [facility] Last Admin: 03/01/19 20:31 Dose: 15 mg Multivitamins (Theragran Tab*) 1 tab PO DAILY [facility] Last Admin: 03/02/19 08:58 Dose: 1 tab Nicotine (Nicotine Patch 21 Mg/24 Hr*) 1 patch TRANSDERM DAILY [facility] Last Admin: 03/02/19 09:04 Dose: 1 patch Nicotine Polacrilex (Nicotine Gum*) 2 mg PO Q2H PRN PRN Reason: CRAVINGS Pharmacy Profile Note (Nicotine Patch Removal Note*) 1 note PATCH OFF 2100 [facility] Last Admin: 03/01/19 20:33 Dose: 1 note Prazosin HCl (Minipress Cap*) 5 mg PO 1800 [facility] Last Admin: 03/01/19 17:31 Dose: 5 mg Rivaroxaban (Xarelto(*)) 20 mg PO QPM [facility] Last Admin: 03/01/19 17:31 Dose: 20 mg Thiamine HCl (Vitamin B-1 Tab*) 100 mg PO DAILY [facility] Last Admin: 03/02/19 08:59 Dose: 100 mg Tramadol HCl (Ultram*) 50 mg PO Q8H PRN PRN Reason: PAIN - MODERATE - Discharge Plan Discharge Plan: Inpatient Hospitalization
[2019-03-02] MEDS: traMADol TAB* 50 MG PO PRN (17:36)
[2019-03-02] MEDS: Rivaroxaban TAB(*) 20 MG TAB PO SCH (19:14)
[2019-03-02] MEDS: Prazosin CAP* 5 MG PO SCH (19:14)
[2019-03-02] MEDS: Atorvastatin* 80 MG TAB PO SCH (20:38)
[2019-03-02] MEDS: Mirtazapine TAB* 15 MG PO SCH (20:38)
[2019-03-02] MEDS: Nicotine Patch Removal NOTE PATCH OFF SCH (20:40)
[2019-03-03] MEDS: Thiamine TAB* 100 MG TAB PO SCH (08:42)
[2019-03-03] MEDS: Gabapentin CAP(*) 300 MG PO SCH ×2 (08:42→20:23)
[2019-03-03] MEDS: BuPROPion XL* 150 MG TAB.XL PO SCH (08:42)
[2019-03-03] MEDS: Folic Acid TAB* 1 MG PO SCH (08:42)
[2019-03-03] MEDS: Vitamin THERAPEUTIC TAB PO SCH (08:42)
[2019-03-03] MEDS: Metoprolol Succinate XL TAB* 25 MG PO SCH (08:42)
[2019-03-03] MEDS: Lisinopril TAB* 10 MG PO SCH (08:42)
[2019-03-03] MEDS: glipiZIDE TAB.XL* 5 MG PO SCH (08:42)
[2019-03-03] MEDS: metFORMIN* 500 MG TAB PO SCH ×2 (08:42→16:48)
[2019-03-03] MEDS: Nicotine PATCH 21 MG/24 HR* PATCH TRANSDERM SCH (08:43)
[2019-03-03] MEDS: Acetaminophen TAB* 325 MG PO PRN ×2 (11:43→17:34)
[2019-03-03] MEDS: traMADol TAB* 50 MG PO PRN ×2 (12:32→20:24)
[2019-03-03] MEDS: Rivaroxaban TAB(*) 20 MG TAB PO SCH (17:34)
[2019-03-03] MEDS: Prazosin CAP* 5 MG PO SCH (17:34)
[2019-03-03] MEDS: Atorvastatin* 80 MG TAB PO SCH (20:23)
[2019-03-03] MEDS: Nicotine Patch Removal NOTE PATCH OFF SCH (20:24)
[2019-03-03] MEDS: Mirtazapine TAB* 15 MG PO SCH (20:24)
[2019-03-04] MEDS: Nicotine PATCH 21 MG/24 HR* PATCH TRANSDERM SCH (08:44)
[2019-03-04] MEDS: metFORMIN* 500 MG TAB PO SCH ×2 (08:46→16:48)
[2019-03-04] MEDS: Metoprolol Succinate XL TAB* 25 MG PO SCH (08:47)
[2019-03-04] MEDS: Thiamine TAB* 100 MG TAB PO SCH (08:47)
[2019-03-04] MEDS: Folic Acid TAB* 1 MG PO SCH (08:47)
[2019-03-04] MEDS: BuPROPion XL* 150 MG TAB.XL PO SCH (08:47)
[2019-03-04] MEDS: Gabapentin CAP(*) 300 MG PO SCH (08:48)
[2019-03-04] MEDS: Vitamin THERAPEUTIC TAB PO SCH (08:48)
[2019-03-04] MEDS: Lisinopril TAB* 10 MG PO SCH (08:49)
[2019-03-04] MEDS: glipiZIDE TAB.XL* 5 MG PO SCH (08:49)
[2019-03-04 09:19] VITALS: BP 151/78
[2019-03-04] MEDS: traMADol TAB* 50 MG PO PRN (12:32)
--- NOTE | 2019-03-04 14:49 | DCNOTE ---
Subjective - Subjective Service Types: 20166 Hosp DC Day Mgmt simple under 30 min Discharge Date: 03/04/19 Subjective: Patient reports improved mood and denies SI or passive wish. He states he is planning to abstain from alcohol use, indicating it typically worsens his situation. He reports desire to be discharged and is identifying actions he can take to avoid needing to be hospitalized again. He is encouraged to continue with [facility] and follow up appointments. He is also encouraged to utilize phone numbers and resources on discharge instructions. Objective - General Observations Appearance: Unkempt Stature: Overweight Posture: WNL Eye Contact: Average Behavior/Activity: WNL - Interaction Observations Attitude Towards Examiner: Cooperative Stated Mood: Euthymic Affect: Bright Speech Pattern/Tone: Clear, Appropriate, Normal Volume Thought Process: Coherent, Goal Directed Perception: WNL Thought Content: WNL Hallucination Type: Denies Delusion Type: Denies - Cognitive Function Orientation: A&O x 4 Level of Consciousness: Alert Cognition: WNL Estimated Intelligence: Borderline Range Insight: WNL Judgment Within Normal Limits: Yes - Medication Compliance Cooperative with Inpatient Medication Regimen: Yes - Group Participation Participates in Group Activities: Yes DC Assessment - Assessment Clinical Impression: 58yo wm, , with history of depression and alcohol dependence, borderline intellectual functioning and multiple medical comorbidities who presented to ED self-referred due to SI. We reinstated medications and patient has successfully detoxed from alcohol. He denies SI or passive wish. Merits Inpatient Hospitalization: No Clear for Discharge: Adequate Clinical Respons, Acceptable Safety Profile Inpatient DSM-V Dx: F33.8 Discharge Planning - Discharge Planning Discharge Plan: Outpatient Follow Up Outpatient Program: [facility] Recommendations for Continuing Care: Medication Management, Psychotherapy, Primary Care Followup Medications: Current Medications Acetaminophen (Tylenol Tab*) 650 mg PO Q4H PRN PRN Reason: PAIN or TEMP > 101 F Last Admin: 03/03/19 17:34 Dose: 650 mg Al Hydrox/Mg Hydrox/Simethicone (Maalox Plus*) 30 ml PO Q4H PRN PRN Reason: INDIGESTION Atorvastatin Calcium (Lipitor*) 80 mg PO BEDTIME [facility] Last Admin: 03/03/19 20:23 Dose: 80 mg Bupropion HCl (Wellbutrin Xl *) 150 mg PO DAILY [facility] Last Admin: 03/04/19 08:47 Dose: 150 mg Gabapentin (Neurontin Cap(*)) 300 mg PO BID [facility] Last Admin: 03/04/19 08:48 Dose: 300 mg Glipizide (Glucotrol Xl*) 5 mg PO DAILY [facility] Last Admin: 03/04/19 08:49 Dose: 5 mg Lisinopril (Prinivil Tab*) 10 mg PO DAILY [facility] Last Admin: 03/04/19 08:49 Dose: 10 mg Metformin HCl (Glucophage ER*) 750mg qeve [facility] Metoprolol Succinate (Toprol Xl Tab*) 25 mg PO 0900 [facility] Last Admin: 03/04/19 08:47 Dose: 25 mg Mirtazapine (Remeron Tab*) 15 mg PO BEDTIME [facility] Last Admin: 03/03/19 20:24 Dose: 15 mg Multivitamins (Theragran Tab*) 1 tab PO DAILY [facility] Last Admin: 03/04/19 08:48 Dose: 1 tab Prazosin HCl (Minipress Cap*) 5 mg PO 1800 [facility] Last Admin: 03/03/19 17:34 Dose: 5 mg Rivaroxaban (Xarelto(*)) 20 mg PO QPM [facility] Last Admin: 03/03/19 17:34 Dose: 20 mg Discharge Planning: Prescriptions provided for discharge [x] Yes [] No Follow up care details as per social work arrangements: [facility] Dr Jose Lyn, Primary Care Patient response to discharge plan: [x] eager for discharge [x] agreeable with discharge plan [] ambivalent about discharge [] disagrees with discharge today
[2019-03-04] MEDS: Acetaminophen TAB* 325 MG PO PRN (16:48)
[2019-03-04 16:57] LABS: Calcium 9.6 mg/dL (8.6-10.3); EGFR African American 61.5 (>60); EGFR Non-African American 50.8 (>60); Potassium 4.5 mmol/L (3.5-5.0)
[2019-03-04] MEDS: Rivaroxaban TAB(*) 20 MG TAB PO SCH (17:40)
[2019-03-04] MEDS: Prazosin CAP* 5 MG PO SCH (17:42)
--- NOTE | 2019-03-04 22:22 | DS ---
CC: [facility]; CAP; Dr. Jose Lyn * DISCHARGE SUMMARY: DATE OF ADMISSION: 02/27/19 DATE OF DISCHARGE: 03/04/19 SUPERVISING PSYCHIATRIST: Dr. Ben Jung.* (DICTATED BY ERNESTO ACEVES NP) DISCHARGE DIAGNOSES: 1. Major depressive disorder. 2. Posttraumatic stress disorder. 3. Alcohol use disorder. CONDITION AT THE TIME OF DISCHARGE: Improved. The patient denies suicidal ideation. He reports improved mood and improved sleep. He states he is planning to abstain from alcohol use indicating that it typically worsens his situation. He reports desire to be discharged today. He states he has been thinking of things he can due to avoid needing to be hospitalized again. He is receptive to therapeutic suggestions. He has been safe on all checks. He denies SI or passive wish. He successfully detoxed from alcohol. The patient is discharged to home. MENTAL STATUS EXAM: Jr is a 58-year-old male who appears slightly older than stated age. He is overweight, adequately groomed, wearing hospital scrubs. He is cooperative and makes good eye contact. He is alert and oriented x3. Eye contact is good. Speech is soft, articulate, and spontaneous. Mood is euthymic with bright affect. Thought process is logical and goal directed. Thought content is negative for passive wish or SI. He denies or HI. He denies auditory or visual hallucinations. Insight and judgment are fair. Fund of knowledge is adequate with an apparent low average intellect. INSTRUCTIONS GIVEN TO THE PATIENT: A. Medications changes: 1. Bupropion XL 150 mg p.o. daily. 2. Mirtazapine 15 mg p.o. q.h.s. 3. Gabapentin 300 mg p.o. b.i.d. for neuropathic pain as well as alcohol cravings. He will continue with the following medications through [facility]: 1. Lipitor 80 mg p.o. q.h.s. 2. Glipizide 5 mg p.o. daily. 3. Lisinopril 10 mg p.o. daily. 4. Glucophage ER 750 mg every evening. 5. Metoprolol succinate 25 mg p.o. daily. 6. Multivitamin 1 tab p.o. daily. 7. Prazosin 5 mg p.o. every evening. 8. Xarelto 20 mg every evening. B. Diet: Diabetic diet. C. Activity: Ambulation as tolerated. Tobacco cessation is declined by the patient. We are awaiting repeat BMP at this time. D. Followup care: The patient is scheduled to followup with [facility] and primary care with Dr. Jose Lyn. The patient is also involved with [facility] for care coordination. E. Substance use followup: The patient declined offer of referral for substance use treatment. He accepted gabapentin for alcohol use disorder. HOSPITAL COURSE: Part A: Reason for admission: The patient presented to the emergency department self-referred due to suicidal ideation. History of present illness: Jr is a 58-year-old white male, domiciled, mentally and physically disabled with a history of unspecified depressive disorder, alcohol dependence, and multiple medical comorbidities. He reports he drove himself to the hospital yesterday and that "it seems like my life is falling apart." He states he woke up, looking for a way to kill himself. He was last hospitalized in our unit in December of this year. He reports going to [facility] for an initial intake and that they were supposed to assign him a counselor but they never called back. The patient also states that he lost insurance on his truck due to a banking error and now cannot afford to reinstate the insurance. He is and his nearly 2 years ago. He states that last month he and a lot of the family went to the [place] to spread her ashes in a ceremony. He states that he did not think that the antidepressant that he was started on last December was working. He did not note a difference in mood and found himself crying often and therefore stopped taking it. He denies problems with sleep. He states that he typically watches TV all day. He denies hypersomnia. He endorses depressed mood , thoughts of suicide, decreased energy, anhedonia, and guilt. 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 He reports social isolation and decreased appetite. He reports difficulty eating as he does not have his own refrigerator and rents a room in a farmhouse on the top floor. 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 He denies prior suicide attempts. According to the prior record, the patient has been noncompliant with medical treatment and been overimbibing with alcohol in a passive suicide attempt. The patient reports barriers to following up with medical appointments and has been working with [facility] nurses trying to help him follow through on appointments. Part B: Psychiatric treatment rendered: The patient was admitted to adult behavioral services unit on voluntary status. Code status was full. He was placed on a 15-minute checks for safety. This was decreased to 30-minute observation and the patient was allowed on staff pass. We reinserted last known medications including Wellbutrin, Remeron, Xarelto, and Lipitor. The patient was seen by hospitalist services due to elevated blood pressure and diabetes management. He was compliant with diabetic management here in the hospital. His fingersticks were obtained with meals and at bedtime and these trended from upward of 195 to approximately 150s and 160s. Per recommendation of hospitalist service, we are awaiting a repeat BMP prior to the patient's discharge today. The patient was placed on WAM protocol, did not score and this was discontinued. The patient reported complaints of knee pain and recommendation to refrain from NSAIDs due to treatment for CVA with Xarelto. He requested hydrocodone and this was denied due to risk factor of substance abuse. The patient was notified that orthopedic surgeon has made recommendation that he show investment in medical appointments prior to rescheduling surgical repair. The patient was safe on all checks. He was in behavioral control. He denied suicidal ideation. He attended programming. He reported good sleep. He denied physical withdrawal symptoms of alcohol. As stated above, he reported desire to continue to abstain from alcohol. He was offered to continue hospitalization for another day, but he chose to be discharged this evening. Due to obligation to treat in least restrictive setting, discharge was agreed upon by treatment team. The patient was informed of phone numbers and resources to call if condition worsens. He was also strongly encouraged to follow up with outpatient appointments and to work with [facility] to continue doing so. ERNESTO ACEVES NP [id number]/[facility] #: [id number] JODIE
== END 2019-03-04 18:00 | disposition home or self-care (01) | DRG 885 ==
LOC: ED 20:28 → BSU 23:59
PROVIDERS: ADMIT Psychiatry & Neurology Psychiatry; ATTEND Psychiatry & Neurology Psychiatry
DX: F33.2 Major depressive disorder, recurrent severe without psychotic features (principal); R45.851 Suicidal ideations; F43.10 Post-traumatic stress disorder, unspecified; F10.20 Alcohol dependence, uncomplicated; Y90.5 Blood alcohol level of 100-119 mg/100 ml; I11.0 Hypertensive heart disease with heart failure; I50.9 Heart failure, unspecified; I25.10 Atherosclerotic heart disease of native coronary artery without angina pectoris; E11.9 Type 2 diabetes mellitus without complications; E78.5 Hyperlipidemia, unspecified; G47.33 Obstructive sleep apnea (adult) (pediatric); E78.00 Pure hypercholesterolemia, unspecified; F17.210 Nicotine dependence, cigarettes, uncomplicated; M25.561 Pain in right knee; E66.9 Obesity, unspecified; Z68.22 Body mass index [BMI] 22.0-22.9, adult; Z95.5 Presence of coronary angioplasty implant and graft; I25.2 Old myocardial infarction; Z95.1 Presence of aortocoronary bypass graft; Z79.84 Long term (current) use of oral hypoglycemic drugs; Z79.01 Long term (current) use of anticoagulants; Z79.899 Other long term (current) drug therapy; Z88.0 Allergy status to penicillin; Z86.73 Personal history of transient ischemic attack (TIA), and cerebral infarction without residual deficits; Z91.14 Patient's other noncompliance with medication regimen; Z91.19 Patient's noncompliance with other medical treatment and regimen; Z85.46 Personal history of malignant neoplasm of prostate
CPT/HCPCS: 36415; 80048; 80053; 80061; 80307; 80320; 80329; 81003; 81015; 83036; 84443; 85025; 99222; 99231; 99232; 99238; 99285; A9270-GY; G0480; G8978-GP-CI; G8979-GP-CI; G8980-GP-CI

== ENCOUNTER 2019-04-03 14:15 | Emergency (ER) | payer MEDICARE ==
--- OUTSIDE RECORDS SUMMARY | 2019-04-03 14:31 | XMS REPORT | Continuity of Care Document ---
:1960 External Reference #:[id number] Author Name Carmenza Bunch Care Team Providers Name Role Phone Anthony iRvas NP - Family Care Team Information Secondary History Teacher [phone] Mally Crespo MD - Internal Care Team Information Secondary History Teacher [phone] Medicine Jose Lyn MD - Hospitalist Care Team Information Secondary History Teacher [phone] Problems Active Problems Provider Date Perforation of tympanic membrane Yovani Julien M.D. Onset: 07/12/2012 Patient post percutaneous transluminal Margie Fatima D.O. Onset: 2012 coronary angioplasty Type 2 diabetes mellitus Martha Bates N.P. Onset: 10/29/2013 Coronary arteriosclerosis Martha Bates N.P. Onset: 10/29/2013 Hyperlipidemia Mally Crespo M.D. Onset: 01/16/2014 Localized, secondary osteoarthritis Estelita Wyatt M.D. Onset: 05/02/2018 Type II diabetes mellitus uncontrolled Jose Lyn MD Onset: 06/19/2018 Essential hypertension Jose Lyn MD Onset: 06/19/2018 Tobacco user Jose Lyn MD Onset: 06/19/2018 Obstructive sleep apnea syndrome Jose Lyn MD Onset: 06/19/2018 Chronic hepatitis C Jose Lyn MD Onset: 06/19/2018 Elevated levels of transaminase & lactic Jose Lyn MD Onset: 06/19/2018 acid dehydrogenase Preoperative cardiovascular examination Jose Lyn MD Onset: 06/19/2018 Posttraumatic stress disorder Jose Lyn MD Onset: 06/19/2018 Recurrent major depressive episodes Jose Lyn MD Onset: 09/04/2018 Cardiomyopathy, unspecified Jose Lyn MD Onset: 09/04/2018 Disappearance and of family member Jose Lyn MD Onset: 09/04/2018 Noncompliance with treatment Jose Lyn MD Onset: 09/04/2018 Cerebral artery occlusion Jose Lyn MD Onset: 01/21/2019 Abnormal gait Jose Lyn MD Onset: 01/21/2019 Major depressive disorder, single episode, Jose Lyn MD Onset: 01/21/2019 unspecified Social History Type Date Description Comments Sex Unknown Tobacco Use Start: Unknown Heavy tobacco smoker (more than 10 cigarettes/day) Smoking Status Reviewed: 01/21/19 Heavy tobacco smoker (more than 10 cigarettes/day) ETOH Use Occasionally consumes alcohol Recreational Drug Use Denies Drug Use Tobacco Use Start: Unknown Light tobacco smoker (10 or fewer cigarettes/day) Exercise Type/Frequency Exercises sporadically Allergies, Adverse Reactions, Alerts Active Allergies Reaction Severity Comments Date Penicillin 07/12/2012 Medications Active Medications SIG Qnty Indications Ordering Date Provider Aspirin 1 by mouth Jose Lyn MD 03/20/[address] every day Wellbutrin XL 2 by mouth Jose Lyn MD 03/20/2019 150mg every day Tablets ER 24HR Melatonin 1 tablet by Jose Lyn MD 01/21/2019 3mg Tablets mouth every night at bedtime. Nicotine take 1 patch 42units F17.210 Jose Lyn MD 01/21/2019 14mg/24HR daily. Patches 24HR Metoprolol Tartrate 1 by mouth 60tabs I10 Jose Lyn MD 06/20/2018 25mg daily Tablets Metformin HCL take 1 tab 60tabs E11.69 Jose Lyn MD 06/19/2018 850mg twice a day Tablets Ibuprofen 2 caps po bid 90caps Unknown 07/18/2016 200mg Capsules Agustín Microlet Lancets use one once 100units Martha Bates, 10/29/2013 daily as needed N.P. Misc dx code: DM type II Agustín Contour Blood Dx code DM type Martha Bates, 10/29/2013 Glucose Monitoring II N.P. System Device Agustín Contour Blood test once daily 50units Martha Bates, 10/29/2013 Glucose Test Strips Dx code DM type N.P. II Strips Accu-Check Glucose check 2-3 times 1units E11.69 Mally Crespo 2012 Monitor a day M.DLucien Device Thiamine HCL 1 by mouth Unknown 100mg every day Tablets Lisinopril 1 by mouth I10 Unknown 10mg Tablets every day Folic Acid take one Unknown 1mg Tablets capsule/tablet daily by mouth Multi For Him 50+ once a day Unknown Tablets Glipizide take one tablet Unknown 5mg Tablets by mouth once a day Gabapentin 1 by mouth two Unknown 300mg Capsules times a day Vistaril take one cap 30caps Jose Lyn MD 50mg Capsules daily as needed for panic attacks or sleep Minipress one tab at 30caps Jose Lyn MD 5mg Capsules night Remeron 1 tablet every 30tabs Jose Lyn MD 15mg Tablets night at bedtime Xarelto 1 by mouth Unknown 20mg Tablets every day Atorvastatin Calcium 1 by mouth 30tabs I25.10 Jose Lyn MD 80mg every day Tablets Acetaminophen 2 by mouth at Unknown 500mg night Tablets History Medications Lisinopril 1 by mouth every I10 Jose Lyn MD 01/21/2019 - 30mg Tablets day 01/21/2019 Lisinopril 2 by mouth every 60tabs I10 Jose Lyn MD 01/21/2019 - 20mg Tablets day 03/20/2019 Medications Administered in Office Medication SIG Qnty Indications Ordering Provider Date Depomedrol 40MG Estelita Wyatt M.D. 05/02/2018 Injection Depomedrol 80MG Estelita Wyatt M.D. 10/28/2013 Injection Immunizations CPT Code Status Date Vaccine Lot # [id number] Given 03/24/2013 Pneumonia Vaccine [id number] Given 03/24/2013 Influenza Virus Vaccine, Split, Preserv Free, Intradermal Use Vital Signs Date Vital Result Comment 01/21/2019 12:59pm Weight 214.00 lb Heart Rate 76 /min BP Systolic 168 mmHg BP Diastolic 94 mmHg Respiratory Rate 16 /min Body Temperature 99.1 F Pain Level 8 L knee O2 % BldC Oximetry 98 % 09/04/2018 12:12pm Weight 220.00 lb Heart Rate 68 /min BP Systolic 180 mmHg BP Diastolic 110 mmHg Respiratory Rate 18 /min Body Temperature 99.2 F Results Test Date Facility Test Result H/L Range Note CBC Auto 03/15/2019 [facility] White Blood 10.4 10^3/uL Normal 3.5-10.[address] [place] [address] [phone] Red Blood Count 4.48 10^6/uL Normal 4.18-5.48 Hemoglobin 14.0 g/dL Normal 14.0-18.0 Hematocrit 41 % Low 42-52 Mean Corpuscular Volume 91 fL Normal 80-94 Mean Corpuscular Hemoglobin 31 pg Normal 27-31 Mean Corpuscular HGB Conc 34 g/dL Normal 31-36 Red Cell Distribution Width 15 % Normal 10-15 Platelet Count 280 10^3/uL Normal 150-450 Mean Platelet Volume 7.3 fL Low 7.4-10.4 Abs Neutrophils 6.0 10^3/uL Normal 1.5-7.7 Abs Lymphocytes 3.1 10^3/uL Normal 1.0-4.8 Abs Monocytes 0.9 10^3/uL High 0-0.8 Abs Eosinophils 0.4 10^3/uL Normal 0-0.6 Abs Basophils 0.1 10^3/uL Normal 0-0.2 Abs Nucleated RBC 0.0 10^3/uL Granulocyte % 58.0 % Lymphocyte % 29.8 % Monocyte % 8.2 % Eosinophil % 3.4 % Basophil % 0.6 % Nucleated Red Blood Cells % 0.0 Laboratory test 03/15/2019 [facility] Troponin-I 0.01 <0.04 [address] (TnI) ng/[place] [address] [phone] Comp Metabolic 03/15/2019 [facility] Sodium 138 Normal 135- [address] mmol/[place] [address] [phone] Potassium 4.1 mmol/L Normal 3.5-5.0 Chloride 106 mmol/L Normal 101-111 Co2 Carbon Dioxide 25 mmol/L Normal 22-32 Anion Gap 7 mmol/L Normal 2-11 Glucose 107 mg/dL High 70-100 Blood Urea Nitrogen 19 mg/dL Normal 6-24 Creatinine 1.12 mg/dL Normal 0.67-1.17 BUN/Creatinine Ratio 17.0 Normal 8-20 Calcium 9.3 mg/dL Normal 8.6-10.3 Total Protein 7.1 g/dL Normal 6.4-8.9 Albumin 3.9 g/dL Normal 3.2-5.2 Globulin 3.2 g/dL Normal 2-4 Albumin/Globulin Ratio 1.2 Normal 1-3 Total Bilirubin 0.50 mg/dL Normal 0.2-1.0 Alkaline Phosphatase 75 U/L Normal 34-104 Alt 30 U/L Normal 7-52 Ast 32 U/L Normal 13-39 Egfr Non- 67.3 >60 Egfr 81.5 >60 2 Laboratory test 03/15/2019 [facility] Alcohol < 10 mg/dL Normal <[address] [place] [address] [phone] B-Type Natriuretic Peptide BNP 337 pg/mL High <=100 CBC Auto 02/27/2019 [facility] White Blood 10.5 10^3/uL Normal 3.5-10.[address] [place] [address] [phone] Red Blood Count 4.59 10^6/uL Normal 4.18-5.48 Hemoglobin 14.4 g/dL Normal 14.0-18.0 Hematocrit 42 % Normal 42-52 Mean Corpuscular Volume 91 fL Normal 80-94 Mean Corpuscular Hemoglobin 31 pg Normal 27-31 Mean Corpuscular HGB Conc 34 g/dL Normal 31-36 Red Cell Distribution Width 14 % Normal 10-15 Platelet Count 310 10^3/uL Normal 150-450 Mean Platelet Volume 6.8 fL Low 7.4-10.4 Abs Neutrophils 5.2 10^3/uL Normal 1.5-7.7 Abs Lymphocytes 4.1 10^3/uL Normal 1.0-4.8 Abs Monocytes 0.8 10^3/uL Normal 0-0.8 Abs Eosinophils 0.3 10^3/uL Normal 0-0.6 Abs Basophils 0.1 10^3/uL Normal 0-0.2 Abs Nucleated RBC 0.0 10^3/uL Granulocyte % 49.4 % Lymphocyte % 38.8 % Monocyte % 7.9 % Eosinophil % 3.1 % Basophil % 0.8 % Nucleated Red Blood Cells % 0.1 Comp Metabolic 02/27/2019 [facility] Sodium 137 mmol/L Normal 135-145 Panel [address] [place] [address] [phone] Potassium 3.5 mmol/L Normal 3.5-5.0 Chloride 105 mmol/L Normal 101-111 Co2 Carbon Dioxide 21 mmol/L Low 22-32 Anion Gap 11 mmol/L Normal 2-11 Glucose 234 mg/dL High 70-100 Blood Urea Nitrogen 17 mg/dL Normal 6-24 Creatinine 0.96 mg/dL Normal 0.67-1.17 BUN/Creatinine Ratio 17.7 Normal 8-20 Calcium 9.0 mg/dL Normal 8.6-10.3 Total Protein 7.0 g/dL Normal 6.4-8.9 Albumin 3.9 g/dL Normal 3.2-5.2 Globulin 3.1 g/dL Normal 2-4 Albumin/Globulin Ratio 1.3 Normal 1-3 Total Bilirubin 0.20 mg/dL Normal 0.2-1.0 Alkaline Phosphatase 71 U/L Normal 34-104 Alt 37 U/L Normal 7-52 Ast 35 U/L Normal 13-39 Egfr Non- 80.5 >60 Egfr 97.3 >60 3 Laboratory test 02/27/2019 [facility] Acetaminophen < 15 g/mL 4 finding [address] [place] [address] [phone] Alcohol 100 mg/dL High <10 Salicylate 3.80 mg/dL <30 TSH (Thyroid Stim Horm) 2.49 mcIU/mL Normal 0.34-5.60 Urine Drug 02/27/2019 [facility] Urine None Detected None Detect SCR ED & [address] [facility] [place] [address] Screen [phone] Urine Barbiturates Screen None Detected None Detect Urine Benzodiazepine Screen None Detected None Detect Urine Cannabinoids Screen Presumptive Posi <SEE NOTE> Abnormal None Detect 5 Urine Cocaine Screen None Detected None Detect Urine Opiates Screen None Detected None Detect Urine Phencyclidine Screen None Detected None Detect 6 Urinalysis Profile 02/27/2019 [facility] Urine Color Yellow [address] [place] [address] [phone] Urine Appearance Cloudy Urine Specific [place] 1.024 Normal 1.010-1.030 Urine pH 5.0 Normal 5-9 Urine Urobilinogen Negative Negative Urine Ketones Negative Negative Urine Protein 2+(100 mg/dL) Abnormal Negative Urine Leukocytes Negative Negative Urine Blood Negative Negative Urine Nitrite Negative Negative Urine Bilirubin Negative Negative Urine Glucose 3+(>=500 mg/dL) Abnormal Negative Urine White Blood Cell Absent Absent Urine Red Blood Cell Trace(0-2/hpf) Absent Urine Bacteria Absent Absent Urine Hyaline Casts Present Abnormal Absent CBC Auto 01/08/2019 [facility] White Blood 8.6 10^3/uL Normal 3.5-10.[address] [place] [address] [phone] Red Blood Count 4.96 10^6/uL Normal 4.18-5.48 Hemoglobin 15.6 g/dL Normal 14.0-18.0 Hematocrit 45 % Normal 42-52 Mean Corpuscular Volume 92 fL Normal 80-94 Mean Corpuscular Hemoglobin 31 pg Normal 27-31 Mean Corpuscular HGB Conc 34 g/dL Normal 31-36 Red Cell Distribution Width 13 % Normal 10-15 Platelet Count 302 10^3/uL Normal 150-450 Mean Platelet Volume 7.6 fL Normal 7.4-10.4 Abs Neutrophils 5.0 10^3/uL Normal 1.5-7.7 Abs Lymphocytes 2.6 10^3/uL Normal 1.0-4.8 Abs Monocytes 0.8 10^3/uL Normal 0-0.8 Abs Eosinophils 0.1 10^3/uL Normal 0-0.6 Abs Basophils 0.1 10^3/uL Normal 0-0.2 Abs Nucleated RBC 0.0 10^3/uL Granulocyte % 58.0 % Lymphocyte % 30.4 % Monocyte % 9.4 % Eosinophil % 1.5 % Basophil % 0.7 % Nucleated Red Blood Cells % 0.1 Laboratory test 01/08/2019 [facility] Troponin-I (TnI) 0.01 ng/ mL <0.04 [address] [place] [address] [phone] Alcohol < 10 mg/dL Normal <10 Urine Drug 01/08/2019 [facility] Urine None Detected None Detect SCR ED & [address] [place] [address] Screen [phone] Urine Barbiturates Screen None Detected None Detect Urine Benzodiazepine Screen None Detected None Detect Urine Cannabinoids Screen Presumptive Posi <SEE NOTE> Abnormal None Detect 8 Urine Cocaine Screen None Detected None Detect Urine Opiates Screen None Detected None Detect Urine Phencyclidine Screen None Detected None Detect 9 1 Troponin-I testing on Plasma Separator Tubes (PST) has a known false positive rate of 0.20-0.40%. All positive troponins reflex immediately to secondary confirmatory testing. Using the [employer] DxI 800 Access Immunoassay systems, the 99th percentile upper reference limit was demonstrated to be < 0.03 ng/mL. 2 Because ethnic data is not always readily available, this report includes an eGFR for both -Americans and non- Americans. The National Kidney Disease Education Program (NKDEP) does not endorse the use of the MDRD equation for patients that are not between the ages of 18 and 70, are , have extremes of body size, muscle mass, or nutritional status, or are non- or non-. According to the National Kidney Foundation, irrespective of diagnosis, the stage of the disease is based on the level of kidney function: Stage Description GFR(mL/min/1.73 m(2)) 1 Kidney damage with normal or decreased GFR 90 2 Kidney damage with mild decrease in GFR 60-89 3 Moderate decrease in GFR 30-59 4 Severe decrease in GFR 15-29 5 Kidney failure <15 (or dialysis) 3 Because ethnic data is not always readily available, this report includes an eGFR for both -Americans and non- Americans. The National Kidney Disease Education Program (NKDEP) does not endorse the use of the MDRD equation for patients that are not between the ages of 18 and 70, are , have extremes of body size, muscle mass, or nutritional status, or are non- or non-. According to the National Kidney Foundation, irrespective of diagnosis, the stage of the disease is based on the level of kidney function: Stage Description GFR(mL/min/1.73 m(2)) 1 Kidney damage with normal or decreased GFR 90 2 Kidney damage with mild decrease in GFR 60-89 3 Moderate decrease in GFR 30-59 4 Severe decrease in GFR 15-29 5 Kidney failure <15 (or dialysis) 4 Therapeutic concentration: <50 ug/mL Toxic concentration: >120 ug/mL 5 Presumptive Positive Presumptive positive results are unconfirmed. 6 The urine specimen was tested at the listed cutoffs: Drug class test level (ng/mL) Amphetamines 500 Barbiturates 200 Benzodiazepine metabolites 200 Cocaine metabolites 150 Cannabinoids 50 Opiates 300 Pcp 25 Specimen was received without chain of custody. Results should be used for medical purposes only. 7 Troponin-I testing on Plasma Separator Tubes (PST) has a known false positive rate of 0.20-0.40%. All positive troponins reflex immediately to secondary confirmatory testing. Using the [employer] DxTour Raiser Access Immunoassay systems, the 99th percentile upper reference limit was demonstrated to be < 0.03 ng/mL. 8 Presumptive Positive Presumptive positive results are unconfirmed. 9 The urine specimen was tested at the listed cutoffs: Drug class test level (ng/mL) Amphetamines 500 Barbiturates 200 Benzodiazepine metabolites 200 Cocaine metabolites 150 Cannabinoids 50 Opiates 300 Pcp 25 Specimen was received without chain of custody. Results should be used for medical purposes only. Procedures Date Code Description Status 03/19/2019 95510 Treadmill Interp/Report Only Completed 03/19/2019 75057 Stress Test Supervsn W/Out I/R Completed 03/18/2019 82713 ECHO Transthorasic Realtime 2D W Doppler & Color Flow Completed Hosp 01/10/2019 39536 Color Flow Doppler/Interp & Reprt Completed 01/10/2019 42690 Pulse Wave/Continuous-Interp.RPT Completed 01/10/2019 87893 Echocardiography, Transesophageal, Real Time W/Image 2D Completed W/W/O M-M 01/08/2019 58126 Insertion, Subcutaneous Cardiac Rhythm Monitor Completed 01/07/2019 57256 ECHO Transthorasic Realtime 2D W Doppler & Color Flow Completed Hosp 01/07/2019 10474 Treadmill Interp/Report Only Completed 01/07/2019 56407 Stress Test Supervsn W/Out I/R Completed 11/07/2011 82464276 Colonoscopy Completed Medical Devices Description No Information Available Encounters Type Date Location Provider Dx Diagnosis Office Visit 03/02/2019 [facility] Caitlin Flynn, E11.9 Type 2 diabetes 11:37a Assoc,pc [employer] HELPER mellitus without Hospitalists complications I10 Essential (primary) hypertension E78.5 Hyperlipidemia, unspecified Office Visit 03/01/2019 [facility] E11.9 Type 2 diabetes 11:37a Assoc,pc Shortle, COOPER HELPER mellitus without Hospitalists complications I10 Essential (primary) hypertension E78.5 Hyperlipidemia, unspecified Office Visit 02/28/2019 11:36a [facility] Marjorie Weekshn, I10 Essential Assocbatsheva M.D. (primary) Hospitalists hypertension E11.9 Type 2 diabetes mellitus without complications Office Visit 01/21/2019 1:00p [facility] Internal Jose Lyn MD I63.9 Cerebral Medicine - Suite infarction, R unspecified R26.81 Unsteadiness on feet I25.10 Athscl heart disease of [place] coronary artery w/o ang pctrs E11.9 Type 2 diabetes mellitus without complications I10 Essential (primary) hypertension F32.9 Major depressive disorder, single episode, unspecified E78.5 Hyperlipidemia, unspecified F17.210 Nicotine dependence, cigarettes, uncomplicated Z86.73 Prsnl hx of TIA (TIA), and cereb infrc w/o resid deficits Office Visit 01/17/2019 [facility] I63.9 Cerebral 11:09a Assoc,TITO Boyle infarction, Hospitalists unspecified R26.9 Unspecified abnormalities of gait and mobility Office Visit 01/11/2019 [facility] I63.9 Cerebral 11:44a Assocbatsheva M.D. infarction, Hospitalists unspecified R26.81 Unsteadiness on feet I25.10 Athscl heart disease of [place] coronary artery w/o ang pctrs R07.9 Chest pain, unspecified E11.9 Type 2 diabetes mellitus without complications I10 Essential (primary) hypertension F32.9 Major depressive disorder, single episode, unspecified E78.5 Hyperlipidemia, unspecified G47.30 Sleep apnea, unspecified Office Visit 01/10/2019 [facility] I63.40 Cerebral 7:00a Peace Wagoner MD infarction due to embolism of unsp cerebral artery Office Visit 01/10/2019 [facility] I63.9 Cerebral 11:44a Assoc,yung Veloz M.D. unspecified R26.81 Unsteadiness on feet I25.10 Athscl heart disease of [place] coronary artery w/o ang pctrs R07.9 Chest pain, unspecified E11.9 Type 2 diabetes mellitus without complications I10 Essential (primary) hypertension F32.9 Major depressive disorder, single episode, unspecified E78.5 Hyperlipidemia, unspecified G47.33 Obstructive sleep apnea (adult) (pediatric) Office Visit 01/09/2019 [facility] Rodriguez63.9 Cerebral 7:00a Clinic MD Ciaran infarction, unspecified R90.82 White matter disease, unspecified G47.30 Sleep apnea, unspecified [facility] 11:44a Assoc,batsheva Martin M.D. infarction, Hospitalists unspecified R26.81 Unsteadiness on feet R07.9 Chest pain, unspecified E11.9 Type 2 diabetes mellitus without complications I10 Essential (primary) hypertension F32.9 Major depressive disorder, single episode, unspecified E78.5 Hyperlipidemia, unspecified G47.33 Obstructive sleep apnea (adult) (pediatric) Office Visit 01/08/2019 [facility] I63.9 Cerebral 7:00a Clinic MD Ciaran infarction, unspecified R90.82 White matter disease, unspecified Office Visit 01/08/2019 10:36a [facility] Randi I63.40 Cerebral Assoc,pc Joshua, D.O. infarction due Hospitalists to embolism of unsp cerebral artery R07.9 Chest pain, unspecified F32.9 Major depressive disorder, single episode, unspecified [facility] Assoc,pc Joshua, D.O. infarction due Hospitalists to embolism of unsp cerebral artery I25.10 Athscl heart disease of [place] coronary artery w/o ang pctrs I10 Essential (primary) hypertension F32.9 Major depressive disorder, single episode, unspecified Office Visit 01/07/2019 10:36a [facility] Jose Lyn, R07.9 Chest pain, Assoc,batsheva HARDING unspecified Hospitalists F32.9 Major depressive disorder, single episode, unspecified R26.81 Unsteadiness on feet I25.10 Athscl heart disease of [place] coronary artery w/o ang pctrs E11.9 Type 2 diabetes mellitus without complications I10 Essential (primary) hypertension Z72.0 Tobacco use E78.5 Hyperlipidemia, unspecified Office Visit 01/07/2019 Orthopedic Estelita Edmundo, M17.12 Unilateral primary 2:05p [facility] osteoarthritis, left C.M.A. knee Office Visit 01/07/2019 Dano Landrum R06.02 Shortness of breath 12:32p [facility] Mayers Cma R07.9 Chest pain, unspecified I25.10 Athscl heart disease of [place] coronary artery w/o ang pctrs Z98.61 Coronary angioplasty status I51.9 Heart disease, unspecified Z72.0 Tobacco use Office 01/07/2019 [facility] Marcelo Macdonald M62.81 Muscle weakness Visit 7:00a [facility] Argueta (generalized) R29.6 Repeated falls Office Visit 01/06/2019 10:35a [facility] Jose Lyn, R07.9 Chest pain, Assoc,pc MD unspecified Hospitalists F32.9 Major depressive disorder, single episode, unspecified R26.81 Unsteadiness on feet I25.10 Athscl heart disease of [place] coronary artery w/o ang pctrs E11.9 Type 2 diabetes mellitus without complications I10 Essential (primary) hypertension Z72.0 Tobacco use E78.5 Hyperlipidemia, unspecified Office Visit 01/05/2019 10:35a [facility] Jose Lyn, R07.9 Chest pain, Assoc,pc unspecified Hospitalists F32.9 Major depressive disorder, single episode, unspecified R26.81 Unsteadiness on feet I25.10 Athscl heart disease of [place] coronary artery w/o ang pctrs E11.9 Type 2 diabetes mellitus without complications E78.5 Hyperlipidemia, unspecified W19.xxxA Unspecified fall, initial encounter Assessments Date Code Description Provider 03/19/2019 R07.9 Chest pain, unspecified Enrique Hathaway M.D., [facility], [facility] 03/18/2019 R07.9 Chest pain, unspecified Eugene Mayers M.D. 03/02/2019 E11.9 Type 2 diabetes mellitus without Caitlin Flynn, CO[employer] HELPER complications 03/02/2019 I10 Essential (primary) hypertension Caitlin Flynn, CO[employer] HELPER 03/02/2019 E78.5 Hyperlipidemia, unspecified Caitlin Flynn, CO[employer] HELPER 03/01/2019 E11.9 Type 2 diabetes mellitus without Usha Torres, CO[employer] HELPER complications 03/01/2019 I10 Essential (primary) hypertension Usha Torres, CO[employer] HELPER 03/01/2019 E78.5 Hyperlipidemia, unspecified Usha Torres, CO[employer] HELPER 02/28/2019 I10 Essential (primary) hypertension Marjorie Wu M.D. 02/28/2019 E11.9 Type 2 diabetes mellitus without Marjorie Wu M.D. complications 01/21/2019 I63.9 Cerebral infarction, unspecified Jose Lyn MD 01/21/2019 R26.81 Unsteadiness on feet Jose Lyn MD 01/21/2019 I25.10 Atherosclerotic heart disease of Joes Lyn MD [place] coronary artery with 01/21/2019 E11.9 Type 2 diabetes mellitus without Jose Lyn MD complications 01/21/2019 I10 Essential (primary) hypertension Jose Lyn MD 01/21/2019 F32.9 Major depressive disorder, single Jose Lyn MD episode, unspecified 01/21/2019 E78.5 Hyperlipidemia, unspecified Jose Lyn MD 01/21/2019 F17.210 Nicotine dependence, cigarettes, Jose Lyn MD uncomplicated 01/21/2019 Z86.73 Personal history of transient Jose Lyn MD ischemic attack (TIA), and cer 01/17/2019 I63.9 Cerebral infarction, unspecified TITO Reid 01/17/2019 R26.9 Unspecified abnormalities of gait TITO Reid and mobility 01/11/2019 I63.9 Cerebral infarction, unspecified Kirk Martin M.D. 01/11/2019 R26.81 Unsteadiness on feet Kirk Martin M.D. 01/11/2019 I25.10 Athscl heart disease of [place] Kirk Martin M.D. coronary artery w/o ang pctrs 01/11/2019 R07.9 Chest pain, unspecified Kirk Martin M.D. 01/11/2019 E11.9 Type 2 diabetes mellitus without Kirk Martin M.D. complications 01/11/2019 I10 Essential (primary) hypertension Kirk Martin M.D. 01/11/2019 F32.9 Major depressive disorder, single Kirk Momanuelallem, M.DLucien episode, unspecified 01/11/2019 E78.5 Hyperlipidemia, unspecified Kirk Monicolasem, M.DLucien 01/11/2019 G47.30 Sleep apnea, unspecified Kirk Moussallem, M.DLucien 01/10/2019 I63.40 Cerebral infarction due to embolism Jr Wagoner MD of unspecified cerebral artery 01/10/2019 I63.9 Cerebral infarction, unspecified Miquel Carrillo, DO [facility] 01/10/2019 I63.9 Cerebral infarction, unspecified Kirk Moussallem, M.DLucien 01/10/2019 R26.81 Unsteadiness on feet Ted Mane.Diallo 01/10/2019 I25.10 Athscl heart disease of [place] Kirk Martin M.D. coronary artery w/o ang pctrs 01/10/2019 R07.9 Chest pain, unspecified Kirk Guillermoem M.DLucien 01/10/2019 E11.9 Type 2 diabetes mellitus without Kirk Moussallem, Alfredo complications 01/10/2019 I10 Essential (primary) hypertension Kirk Martin M.D. 01/10/2019 F32.9 Major depressive disorder, single Kirk Moussallem M.DLucien episode, unspecified 01/10/2019 E78.5 Hyperlipidemia, unspecified Kirk Momanuelallem, M.DLucien 01/10/2019 G47.33 Obstructive sleep apnea (adult) Kirk Martin M.D. (pediatric) 01/09/2019 I63.9 Cerebral infarction, unspecified Jr Wagoner MD 01/09/2019 I63.9 Cerebral infarction, unspecified Kirk Veronica M.Diallo 01/09/2019 R90.82 White matter disease, unspecified Jr Wagoner MD 01/09/2019 R26.81 Unsteadiness on feet Ted Mane.Diallo 01/09/2019 G47.30 Sleep apnea, unspecified Jr Wagoner MD 01/09/2019 R07.9 Chest pain, unspecified Kirk Guillermoem Alfredo 01/09/2019 E11.9 Type 2 diabetes mellitus without Kirk Martin M.D. complications 01/09/2019 I10 Essential (primary) hypertension Kirk Martin M.D. 01/09/2019 F32.9 Major depressive disorder, single Kirk Martin M.D. episode, unspecified 01/09/2019 E78.5 Hyperlipidemia, unspecified Kirk Martin M.D. 01/09/2019 G47.33 Obstructive sleep apnea (adult) Kirk Martin M.D. (pediatric) 01/08/2019 I63.9 Cerebral infarction, unspecified Jr Wagoner MD 01/08/2019 I63.9 Cerebral infarction, unspecified Eugene Mayers M.D. 01/08/2019 R90.82 White matter disease, unspecified Jr Wagoner MD 01/08/2019 I63.40 Cerebral infarction due to embolism Randi Joshua, D.O. of unspecified cerebral artery 01/08/2019 I63.40 Cerebral infarction due to embolism Randi Joshua, D.O. 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 01/08/2019 I10 Essential (primary) hypertension Randi Joshua, D.O. 01/08/2019 F32.9 Major depressive disorder, single Randi Joshua, D.O. episode, unspecified 01/08/2019 F32.9 Major depressive disorder, single Randi Joshua, D.O. episode, unspecified 01/07/2019 M62.81 Muscle weakness (generalized) Marcelo Argueta M.D. 01/07/2019 R06.02 Shortness of breath Eugene Mayers M.D. 01/07/2019 R29.6 Repeated falls Marcelo Argueta M.D. 01/07/2019 R07.9 Chest pain, unspecified Eugene Mayers M.D. 01/07/2019 I25.10 Atherosclerotic heart disease of Eugene D. Brand, M.D. [place] coronary artery with 01/07/2019 Z98.61 Coronary angioplasty status Eugene Mayers M.D. 01/07/2019 I51.9 Heart disease, unspecified Eugene Mayers M.D. 01/07/2019 Z72.0 Tobacco use Eugene Mayers M.D. 01/07/2019 R07.9 Chest pain, unspecified Enrique Hathaway M.D., [facility], [facility] 01/07/2019 R07.9 Chest pain, unspecified Jose Lyn MD 01/07/2019 M17.12 Unilateral primary osteoarthritis, Estelita Wyatt M.D. left knee 01/07/2019 F32.9 Major depressive disorder, single Jose Lyn MD episode, unspecified 01/07/2019 R26.81 Unsteadiness on feet Jose Lyn MD 01/07/2019 I25.10 Athscl heart disease of [place] Jose Lyn MD coronary artery w/o ang pctrs 01/07/2019 E11.9 Type 2 diabetes mellitus without Jose Lyn MD complications 01/07/2019 I10 Essential (primary) hypertension Jose Lyn MD 01/07/2019 Z72.0 Tobacco use Jose Lyn MD 01/07/2019 E78.5 Hyperlipidemia, unspecified Jose Lyn MD 01/06/2019 R07.9 Chest pain, unspecified Jose Lyn MD 01/06/2019 F32.9 Major depressive disorder, single Jose Lyn MD episode, unspecified 01/06/2019 R26.81 Unsteadiness on feet Jose Lyn MD 01/06/2019 I25.10 Athscl heart disease of [place] Jose Lyn MD coronary artery w/o ang pctrs 01/06/2019 E11.9 Type 2 diabetes mellitus without Jose Lyn MD complications 01/06/2019 I10 Essential (primary) hypertension Jose Lyn MD 01/06/2019 Z72.0 Tobacco use Jose Lyn MD 01/06/2019 E78.5 Hyperlipidemia, unspecified Jose Lyn MD 01/05/2019 R07.9 Chest pain, unspecified Jose Lyn MD 01/05/2019 F32.9 Major depressive disorder, single Jose Lyn MD episode, unspecified 01/05/2019 R26.81 Unsteadiness on feet Jose Lyn MD 01/05/2019 I25.10 Athscl heart disease of [place] Jose Lyn MD coronary artery w/o ang pctrs 01/05/2019 E11.9 Type 2 diabetes mellitus without Jose Lyn MD complications 01/05/2019 E78.5 Hyperlipidemia, unspecified Jose Lyn MD 01/05/2019 W19.xxxA Unspecified fall, initial encounter Jose Lyn MD Plan of Treatment 01/21/2019 - Jose Lyn MDI63.9 Cerebral infarction, unspecifiedComments:Follow- up with Dr. Argueta Continue Xarelto given dilated left atria and suspected cardioembolic source. Linq device was implanted. Physical therapy referral. Continue atorvastatin 80mg. smoking cessationBP control.Follow up:4 weeks.R26.81 Unsteadiness on feetNew Therapy:Physical TiuulkjI99.10 Atherosclerotic heart disease of [place] coronary artery withE11.9 Type 2 diabetes mellitus without complicationsComments:Poorly controlled with BG 258. Increase the metformin to two pills a day. Establish with Dr. Morales us with your blood glucose readings next week.Referral:Raleigh Patel MD, [id number] Essential (primary) hypertensionNew Medication:Lisinopril 30 mg - 1 by mouth every dayLisinopril 20 mg - 2 by mouth every dayComments: Increase the lisinopril to 40mg daily (aka two 20mg pills daily) Please get blood pressure cuff. Goal is 140/90 or less. Please call us if consistently higher than this.F32.9 Major depressive disorder, single episode, unspecifiedComments:Continue wellbutrin, remeron and Prazosin. Establish with [facility] tomorrow.E78.5 Hyperlipidemia, unspecifiedComments:Continue statin.F17.210 Nicotine dependence, cigarettes, uncomplicatedNew Medication:Nicotine 14 mg/ 24HR - take 1 patch daily.Z86.73 Personal history of transient ischemic attack ( TIA), and cer Functional Status Description No Information Available Mental Status Description No Information Available Referrals Refer to Dr Reason for Referral Status Appt Date Raleigh Patel MD diabetic retinal exam Sent [address] [place] [address] [phone]
--- OUTSIDE RECORDS SUMMARY | 2019-04-03 14:31 | XMS REPORT | Continuity of Care Document ---
:1960 External Reference #:[id number] Author Name Carmenza Bunch Care Team Providers Name Role Phone Anthony Rivas NP - Family Care Team Information [employer] [phone] Mally Crespo MD - Internal Care Team Information [employer] [phone] Medicine Jose Lyn MD - Hospitalist Care Team Information [employer] [phone] Problems Active Problems Provider Date Perforation of [...] ER 24HR Melatonin 1 tablet by Jose Lny MD 01/21/2019 3mg Tablets mouth every night [...] CPT Code Status Date Vaccine Lot # [id number] Given 03/24/2013 Pneumonia Vaccine 19035 Given 03/24/2013 Influenza Virus Vaccine, Split, Preserv [...] Result H/L Range Note CBC Auto 03/15/2019 [facility] White Blood 10.4 10^3/uL Normal 3.5-10.[address] [place] [address] [phone] Red Blood Count 4.48 10^6/uL Normal 4.18-5.48 [...] Blood Cells % 0.0 Laboratory test 03/15/2019 [facility] Troponin-I 0.01 <0.04 [address] (TnI) ng/[place] [address] [phone] Comp Metabolic 03/15/2019 [facility] Sodium 138 Normal 135- [address] mmol/[place] [address] [phone] Potassium 4.1 mmol/L Normal 3.5-5.0 Chloride 106 [...] Egfr 81.5 >60 2 Laboratory test 03/15/2019 [facility] Alcohol < 10 mg/dL Normal <[address] [place] [address] [phone] B-Type Natriuretic Peptide BNP 337 pg/mL High <=100 CBC Auto 02/27/2019 [facility] White Blood 10.5 10^3/uL Normal 3.5-10.[address] [place] [address] [phone] Red Blood Count 4.59 10^6/uL Normal 4.18-5.48 [...] Blood Cells % 0.1 Comp Metabolic 02/27/2019 [facility] Sodium 137 mmol/L Normal 135-145 Panel [address] [place] [address] [phone] Potassium 3.5 mmol/L Normal 3.5-5.0 Chloride 105 [...] Egfr 97.3 >60 3 Laboratory test 02/27/2019 [facility] Acetaminophen < 15 g/mL 4 finding [address] [place] [address] [phone] Alcohol 100 mg/dL High <10 Salicylate 3.80 mg/dL <30 TSH (Thyroid Stim Horm) 2.49 mcIU/mL Normal 0.34-5.60 Urine Drug 02/27/2019 [facility] Urine None Detected None Detect SCR ED & [address] [facility] Amp[place] [address] Screen [phone] Urine Barbiturates Screen None Detected None Detect Urine Benzodiazepine Screen None Detected None Detect Urine Cannabinoids Screen Presumptive Posi <SEE NOTE> Abnormal None Detect 5 Urine Cocaine Screen None Detected None Detect Urine Opiates Screen None Detected None Detect Urine Phencyclidine Screen None Detected None Detect 6 Urinalysis Profile 02/27/2019 [facility] Urine Color Yellow [address] [place] [address] [phone] Urine Appearance Cloudy Urine Specific [place] 1.024 Normal 1.010-1.030 Urine pH 5.0 Normal [...] Casts Present Abnormal Absent CBC Auto 01/08/2019 [facility] White Blood 8.6 10^3/uL Normal 3.5-10.[address] [place] [address] [phone] Red Blood Count 4.96 10^6/uL Normal 4.18-5.48 [...] Blood Cells % 0.1 Laboratory test 01/08/2019 [facility] Troponin-I (TnI) 0.01 ng/ mL <0.04 [address] [place] [address] [phone] Alcohol < 10 mg/dL Normal <10 Urine Drug 01/08/2019 [facility] Urine None Detected None Detect SCR ED & [address] A[place]hetamine [place] [address] Screen [phone] Urine Barbiturates Screen None Detected None Detect [...] immediately to secondary confirmatory testing. Using the [employer] DxI 800 Access Immunoassay systems, the 99th [...] immediately to secondary confirmatory testing. Using the [employer] DxCompario Access Immunoassay systems, the 99th percentile upper [...] only. Procedures Date Code Description Status 03/19/2019 26319 Treadmill Interp/Report Only Completed 03/19/2019 85651 Stress Test Supervsn W/Out I/R Completed 03/18/2019 47363 ECHO Transthorasic Realtime 2D W Doppler & Color Flow Completed Hosp 01/10/2019 36912 Color Flow Doppler/Interp & Reprt Completed 01/10/2019 91915 Pulse Wave/Continuous-Interp.RPT Completed 01/10/2019 77115 Echocardiography, Transesophageal, Real Time W/Image 2D Completed W/W/O M-M 01/08/2019 82450 Insertion, Subcutaneous Cardiac Rhythm Monitor Completed 01/07/2019 00949 ECHO Transthorasic Realtime 2D W Doppler & Color Flow Completed Hosp 01/07/2019 67442 Treadmill Interp/Report Only Completed 01/07/2019 27696 Stress Test Supervsn W/Out I/R Completed 11/07/2011 69761204 Colonoscopy Completed Medical Devices Description No Information Available Encounters Type Date Location Provider Dx Diagnosis Office Visit 03/02/2019 [facility] Caitlin Flynn, E11.9 Type 2 diabetes 11:37a Assoc,pc AUDIT SPEC mellitus without Hospitalists complications I10 Essential (primary) hypertension E78.5 Hyperlipidemia, unspecified Office Visit 03/01/2019 [facility] E11.9 Type 2 diabetes 11:37a Assoc,pc Shortle, AUDIT SPEC mellitus without Hospitalists complications I10 Essential (primary) hypertension E78.5 Hyperlipidemia, unspecified Office Visit 02/28/2019 11:36a [facility] Marjorie Weekshn, I10 Essential Assocbatsheva M.D. (primary) Hospitalists hypertension E11.9 Type 2 diabetes mellitus without complications Office Visit 01/21/2019 1:00p [facility] Jose Lyn MD I63.9 Cerebral Medicine - Suite infarction, R unspecified R26.81 Unsteadiness on feet I25.10 Athscl heart disease of [place] coronary artery w/o ang pctrs E11.9 Type 2 diabetes mellitus without complications I10 Essential (primary) hypertension F32.9 Major depressive disorder, single episode, unspecified E78.5 Hyperlipidemia, unspecified F17.210 Nicotine dependence, cigarettes, uncomplicated Z86.73 Prsnl hx of TIA (TIA), and cereb infrc w/o resid deficits Office Visit 01/17/2019 [facility] I63.9 Cerebral 11:09a Assoc,TITO Boyle infarction, Hospitalists unspecified R26.9 Unspecified abnormalities of gait and mobility Office Visit 01/11/2019 [facility] I63.9 Cerebral 11:44a Assocbatsheva M.D. infarction, Hospitalists unspecified R26.81 Unsteadiness on feet I25.10 Athscl heart disease of [place] coronary artery w/o ang pctrs R07.9 Chest pain, unspecified E11.9 Type 2 diabetes mellitus without complications I10 Essential (primary) hypertension F32.9 Major depressive disorder, single episode, unspecified E78.5 Hyperlipidemia, unspecified G47.30 Sleep apnea, unspecified Office Visit 01/10/2019 [facility] I63.40 Cerebral 7:00a Peace Wagoner MD infarction due to embolism of unsp cerebral artery Office Visit 01/10/2019 [facility] I63.9 Cerebral 11:44a Assoc,yung Veloz M.D. unspecified R26.81 Unsteadiness on feet I25.10 Athscl heart disease of [place] coronary artery w/o ang pctrs R07.9 Chest pain, unspecified E11.9 Type 2 diabetes mellitus without complications I10 Essential (primary) hypertension F32.9 Major depressive disorder, single episode, unspecified E78.5 Hyperlipidemia, unspecified G47.33 Obstructive sleep apnea (adult) (pediatric) Office Visit 01/09/2019 [facility] Jr Rodriguez63.9 Cerebral 7:00a Clinic MD Ciaran infarction, unspecified R90.82 White matter disease, unspecified G47.30 Sleep apnea, unspecified [facility] 11:44a Assoc,batsheva Martin M.D. infarction, [...] matter disease, unspecified Office Visit 01/08/2019 10:36a [facility] Randi I63.40 Cerebral Assoc,pc Joshua, D.O. infarction due Hospitalists to embolism of unsp cerebral artery R07.9 Chest pain, unspecified F32.9 Major depressive disorder, single episode, unspecified [facility] Assoc,pc Joshua, D.O. infarction due Hospitalists to embolism of unsp cerebral artery I25.10 Athscl heart disease of [place] coronary artery w/o ang pctrs I10 Essential (primary) hypertension F32.9 Major depressive disorder, single episode, unspecified Office Visit 01/07/2019 10:36a [facility] Jose Lyn, R07.9 Chest pain, Assoc,batsheva HARDING unspecified Hospitalists F32.9 Major depressive disorder, single episode, unspecified R26.81 Unsteadiness on feet I25.10 Athscl heart disease of [place] coronary artery w/o ang pctrs E11.9 Type 2 diabetes mellitus without complications I10 Essential (primary) hypertension Z72.0 Tobacco use E78.5 Hyperlipidemia, unspecified Office Visit 01/07/2019 [facility] Estelita Edmundo, M17.12 Unilateral primary 2:05p [facility] osteoarthritis, left C.M.A. knee Office Visit 01/07/2019 Dano Landrum R06.02 Shortness of breath 12:32p [facility]o Mayers Cma R07.9 Chest pain, unspecified I25.10 Athscl heart disease of [place] coronary artery w/o ang pctrs Z98.61 Coronary angioplasty status I51.9 Heart disease, unspecified Z72.0 Tobacco use Office 01/07/2019 [facility] Marcelo Macdonald M62.81 Muscle weakness Visit 7:00a Clinic Alfredo Argueta (generalized) R29.6 Repeated falls Office Visit 01/06/2019 10:35a [facility] Jose Lyn, R07.9 Chest pain, Assoc,pc MD unspecified Hospitalists F32.9 Major depressive disorder, single episode, unspecified R26.81 Unsteadiness on feet I25.10 Athscl heart disease of [place] coronary artery w/o ang pctrs E11.9 Type 2 diabetes mellitus without complications I10 Essential (primary) hypertension Z72.0 Tobacco use E78.5 Hyperlipidemia, unspecified Office Visit 01/05/2019 10:35a [facility] Jose Lyn, R07.9 Chest pain, Assoc,pc unspecified Hospitalists F32.9 Major depressive disorder, single episode, unspecified R26.81 Unsteadiness on feet I25.10 Athscl heart disease of [place] coronary artery w/o ang pctrs E11.9 Type 2 diabetes mellitus without complications E78.5 Hyperlipidemia, unspecified W19.xxxA Unspecified fall, initial encounter Assessments Date Code Description Provider 03/19/2019 R07.9 Chest pain, unspecified Enrique Hathaway M.D., [facility] 03/18/2019 R07.9 Chest pain, unspecified Eugene Mayers M.D. 03/02/2019 E11.9 Type 2 diabetes mellitus without Caitlin Flynn, AUDIT SPEC complications 03/02/2019 I10 Essential (primary) hypertension Caitlin Flynn, AUDIT SPEC 03/02/2019 E78.5 Hyperlipidemia, unspecified Caitlin Flynn, AUDIT SPEC 03/01/2019 E11.9 Type 2 diabetes mellitus without Usha Torres, AUDIT SPEC complications 03/01/2019 I10 Essential (primary) hypertension Usha Torres, AUDIT SPEC 03/01/2019 E78.5 Hyperlipidemia, unspecified Usha Torres, AUDIT SPEC 02/28/2019 I10 Essential (primary) hypertension Marjorie Wu M.D. 02/28/2019 E11.9 Type 2 diabetes mellitus without Marjorie Wu M.D. complications 01/21/2019 I63.9 Cerebral infarction, unspecified Jose Lyn MD 01/21/2019 R26.81 Unsteadiness on feet Jose Lyn MD 01/21/2019 I25.10 Atherosclerotic heart disease of Jose Lyn MD [place] coronary artery with 01/21/2019 E11.9 Type 2 [...] M.D. 01/11/2019 I25.10 Athscl heart disease of [place] Kirk Martin M.D. coronary artery w/o ang [...] I63.9 Cerebral infarction, unspecified Miquel Carrillo, DO [facility] 01/10/2019 I63.9 Cerebral infarction, unspecified Kirk Moussallem, M.DLucien 01/10/2019 R26.81 Unsteadiness on feet Ted Mane.Diallo 01/10/2019 I25.10 Athscl heart disease of [place] Kirk Martin M.D. coronary artery w/o ang [...] Atherosclerotic heart disease of Randi Joshua, D.OLucien [place] coronary artery without angina pectoris 01/08/2019 R07.9 [...] heart disease of Eugene D. Brand, M.D. [place] coronary artery with 01/07/2019 Z98.61 Coronary angioplasty status Eugene Mayers M.D. 01/07/2019 I51.9 Heart disease, unspecified Eugene Mayers M.D. 01/07/2019 Z72.0 Tobacco use Eugene Mayers M.D. 01/07/2019 R07.9 Chest pain, unspecified Enrique Hathaway M.D., [facility] 01/07/2019 R07.9 Chest pain, unspecified Jose Lyn MD 01/07/2019 M17.12 Unilateral primary osteoarthritis, Estelita Wyatt M.D. left knee 01/07/2019 F32.9 Major depressive disorder, single Jose Lyn MD episode, unspecified 01/07/2019 R26.81 Unsteadiness on feet Jose Lyn MD 01/07/2019 I25.10 Athscl heart disease of [place] Jose Lyn MD coronary artery w/o ang [...] MD 01/06/2019 I25.10 Athscl heart disease of [place] Jose Lyn MD coronary artery w/o ang [...] MD 01/05/2019 I25.10 Athscl heart disease of [place] Jose Lyn MD coronary artery w/o ang [...] control.Follow up:4 weeks.R26.81 Unsteadiness on feetNew Therapy:Physical KdqpxkiS65.10 Atherosclerotic heart disease of [place] coronary artery withE11.9 Type 2 diabetes mellitus without complicationsComments:Poorly controlled with BG 258. Increase the metformin to two pills a day. Establish with Dr. Morales us with your blood glucose readings next week.Referral:Raleigh Patel MD, [id number] Essential (primary) hypertensionNew Medication:Lisinopril 30 mg - 1 by mouth every dayLisinopril 20 mg - 2 by mouth every dayComments: Increase the lisinopril to 40mg daily (aka two 20mg pills daily) Please get blood pressure cuff. Goal is 140/90 or less. Please call us if consistently higher than this.F32.9 Major depressive disorder, single episode, unspecifiedComments:Continue wellbutrin, remeron and Prazosin. Establish with [facility] tomorrow.E78.5 Hyperlipidemia, unspecifiedComments:Continue statin.F17.210 Nicotine dependence, cigarettes, uncomplicatedNew Medication:Nicotine 14 mg/ 24HR - take 1 patch daily.Z86.73 Personal history of transient ischemic attack ( TIA), and cer Functional Status Description No Information Available Mental Status Description No Information Available Referrals Refer to Dr Reason for Referral Status Appt Date Raleigh Patel MD diabetic retinal exam Sent [address] [place] [address] [phone]
--- OUTSIDE RECORDS SUMMARY | 2019-04-03 14:32 | XMS REPORT | Continuity of Care Document ---
:1960 External Reference #:[id number] Author Name Carmenaz Bunch Care Team Providers Name Role Phone Anthony Rivas NP - Family Care Team Information Pile Driver Operator [phone] Mally Crespo MD - Internal Care Team Information Pile Driver Operator Medicine Jose Lyn MD - Hospitalist Care Team Information Pile Driver Operator [phone] Problems Active Problems Provider Date Perforation of [...] Wyatt M.D. 05/02/2018 Injection Depomedrol 80MG Estelita yWatt M.D. 10/28/2013 Injection Immunizations CPT Code Status Date Vaccine Lot # [id number] Given 03/24/2013 Pneumonia Vaccine 89351 Given 03/24/2013 Influenza Virus Vaccine, Split, Preserv [...] Result H/L Range Note CBC Auto 03/15/2019 [facility] White Blood 10.4 10^3/uL Normal 3.5-10.[address] [place] [address] [phone] Red Blood Count 4.48 10^6/uL Normal 4.18-5.48 [...] Blood Cells % 0.0 Laboratory test 03/15/2019 [facility] Troponin-I 0.01 <0.04 [address] (TnI) ng/[place] [address] [phone] Comp Metabolic 03/15/2019 [facility] Sodium 138 Normal 135- [address] mmol/[place] [address] [phone] Potassium 4.1 mmol/L Normal 3.5-5.0 Chloride 106 [...] Egfr 81.5 >60 2 Laboratory test 03/15/2019 [facility] Alcohol < 10 mg/dL Normal <[address] [place] [address] [phone] B-Type Natriuretic Peptide BNP 337 pg/mL High <=100 CBC Auto 02/27/2019 [facility] White Blood 10.5 10^3/uL Normal 3.5-10.[address] [place] [address] [phone] Red Blood Count 4.59 10^6/uL Normal 4.18-5.48 [...] Blood Cells % 0.1 Comp Metabolic 02/27/2019 [facility] Sodium 137 mmol/L Normal 135-145 Panel [address] [place] [address] [phone] Potassium 3.5 mmol/L Normal 3.5-5.0 Chloride 105 [...] Egfr 97.3 >60 3 Laboratory test 02/27/2019 [facility] Acetaminophen < 15 g/mL 4 finding [address] [place] [address] [phone] Alcohol 100 mg/dL High <10 Salicylate 3.80 mg/dL <30 TSH (Thyroid Stim Horm) 2.49 mcIU/mL Normal 0.34-5.60 Urine Drug 02/27/2019 [facility] Urine None Detected None Detect SCR ED & [address] [facility] [place] [address] Screen [phone] Urine Barbiturates Screen None Detected None Detect Urine Benzodiazepine Screen None Detected None Detect Urine Cannabinoids Screen Presumptive Posi <SEE NOTE> Abnormal None Detect 5 Urine Cocaine Screen None Detected None Detect Urine Opiates Screen None Detected None Detect Urine Phencyclidine Screen None Detected None Detect 6 Urinalysis Profile 02/27/2019 [facility] Urine Color Yellow [address] [place] [address] [phone] Urine Appearance Cloudy Urine Specific [place] 1.024 Normal 1.010-1.030 Urine pH 5.0 Normal [...] Casts Present Abnormal Absent CBC Auto 01/08/2019 [facility] White Blood 8.6 10^3/uL Normal 3.5-10.[address] [place] [address] [phone] Red Blood Count 4.96 10^6/uL Normal 4.18-5.48 [...] Blood Cells % 0.1 Laboratory test 01/08/2019 [facility] Troponin-I (TnI) 0.01 ng/ mL <0.04 [address] [place] [address] [phone] Alcohol < 10 mg/dL Normal <10 Urine Drug 01/08/2019 [facility] Urine None Detected None Detect SCR ED & [address] [place] [address] Screen [phone] Urine Barbiturates Screen None Detected None Detect [...] immediately to secondary confirmatory testing. Using the [employer] DxI 800 Access Immunoassay systems, the 99th [...] immediately to secondary confirmatory testing. Using the [employer] DxTrilibis Access Immunoassay systems, the 99th percentile upper [...] only. Procedures Date Code Description Status 03/19/2019 42568 Treadmill Interp/Report Only Completed 03/19/2019 69758 Stress Test Supervsn W/Out I/R Completed 03/18/2019 83006 ECHO Transthorasic Realtime 2D W Doppler & Color Flow Completed Hosp 01/10/2019 47615 Color Flow Doppler/Interp & Reprt Completed 01/10/2019 43764 Pulse Wave/Continuous-Interp.RPT Completed 01/10/2019 85737 Echocardiography, Transesophageal, Real Time W/Image 2D Completed W/W/O M-M 01/08/2019 06570 Insertion, Subcutaneous Cardiac Rhythm Monitor Completed 01/07/2019 10426 ECHO Transthorasic Realtime 2D W Doppler & Color Flow Completed Hosp 01/07/2019 27659 Treadmill Interp/Report Only Completed 01/07/2019 17735 Stress Test Supervsn W/Out I/R Completed 11/07/2011 [id number] Colonoscopy Completed Medical Devices Description No Information Available Encounters Type Date Location Provider Dx Diagnosis Office Visit 03/02/2019 [facility] Caitlin Flynn, E11.9 Type 2 diabetes 11:37a Assoc,pc EDITORIAL CARTOONIST mellitus without Hospitalists complications I10 Essential (primary) hypertension E78.5 Hyperlipidemia, unspecified Office Visit 03/01/2019 [facility] E11.9 Type 2 diabetes 11:37a Assoc,pc Shortle, EDITORIAL CARTOONIST mellitus without Hospitalists complications I10 Essential (primary) hypertension E78.5 Hyperlipidemia, unspecified Office Visit 02/28/2019 11:36a [facility] Marjorie Weekshn, I10 Essential Assocbatsheva M.D. (primary) Hospitalists hypertension E11.9 Type 2 diabetes mellitus without complications Office Visit 01/21/2019 1:00p [facility] Jose Lyn MD I63.9 Cerebral Medicine - Suite infarction, R unspecified R26.81 Unsteadiness on feet I25.10 Athscl heart disease of [place] coronary artery w/o ang pctrs E11.9 Type 2 diabetes mellitus without complications I10 Essential (primary) hypertension F32.9 Major depressive disorder, single episode, unspecified E78.5 Hyperlipidemia, unspecified F17.210 Nicotine dependence, cigarettes, uncomplicated Z86.73 Prsnl hx of TIA (TIA), and cereb infrc w/o resid deficits Office Visit 01/17/[facility] I63.9 Cerebral 11:09a Assoc,TITO Boyle infarction, Hospitalists unspecified R26.9 Unspecified abnormalities of gait and mobility Office Visit 01/11/2019 [facility] I63.9 Cerebral 11:44a Assocbatsheva M.D. 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 unspecified R26.81 Unsteadiness on feet I25.10 Athscl heart disease of [place] coronary artery w/o ang pctrs R07.9 Chest pain, unspecified E11.9 Type 2 diabetes mellitus without complications I10 Essential (primary) hypertension F32.9 Major depressive disorder, single episode, unspecified E78.5 Hyperlipidemia, unspecified G47.33 Obstructive sleep apnea (adult) (pediatric) Office Visit 01/09/2019 [facility] Rodriguez63.9 Cerebral 7:00a Clinic MD Ciaran infarction, unspecified R90.82 White matter disease, unspecified G47.30 Sleep apnea, unspecified [facility] 11:44a Assoc,batsheva Martin M.D. infarction, [...] matter disease, unspecified Office Visit 01/08/2019 10:36a [facility] Randi I63.40 Cerebral Assoc,pc Joshua, D.O. infarction due Hospitalists to embolism of unsp cerebral artery R07.9 Chest pain, unspecified F32.9 Major depressive disorder, single episode, unspecified [facility],pc Joshua, D.O. infarction due Hospitalists to embolism of unsp cerebral artery I25.10 Athscl heart disease of [place] coronary artery w/o ang pctrs I10 Essential (primary) hypertension F32.9 Major depressive disorder, single episode, unspecified Office Visit 01/07/2019 10:36a [facility] Jose Lyn, R07.9 Chest pain, Assoc,batsheva HARDING unspecified Hospitalists F32.9 Major depressive disorder, single episode, unspecified R26.81 Unsteadiness on feet I25.10 Athscl heart disease of [place] coronary artery w/o ang pctrs E11.9 Type 2 diabetes mellitus without complications I10 Essential (primary) hypertension Z72.0 Tobacco use E78.5 Hyperlipidemia, unspecified Office Visit 01/07/2019 Orthopedic Estelita Edmundo, M17.12 Unilateral primary 2:05p [facility] osteoarthritis, left C.M.A. knee Office Visit 01/07/2019 Dano Landrum R06.02 Shortness of breath 12:32p [facility] Mayers Cma R07.9 Chest pain, unspecified I25.10 Athscl heart disease of [place] coronary artery w/o ang pctrs Z98.61 Coronary angioplasty status I51.9 Heart disease, unspecified Z72.0 Tobacco use Office 01/07/2019 [facility] Marcelo Macdonald M62.81 Muscle weakness Visit 7:00a [facility] Argueta (generalized) R29.6 Repeated falls Office Visit 01/06/2019 10:35a [facility] Jose Lyn, R07.9 Chest pain, Assoc,pc MD unspecified Hospitalists F32.9 Major depressive disorder, single episode, unspecified R26.81 Unsteadiness on feet I25.10 Athscl heart disease of [place] coronary artery w/o ang pctrs E11.9 Type 2 diabetes mellitus without complications I10 Essential (primary) hypertension Z72.0 Tobacco use E78.5 Hyperlipidemia, unspecified Office Visit 01/05/2019 10:35a [facility] Jose Lyn, R07.9 Chest pain, Assoc,pc unspecified Hospitalists F32.9 Major depressive disorder, single episode, unspecified R26.81 Unsteadiness on feet I25.10 Athscl heart disease of [place] coronary artery w/o ang pctrs E11.9 Type 2 diabetes mellitus without complications E78.5 Hyperlipidemia, unspecified W19.xxxA Unspecified fall, initial encounter Assessments Date Code Description Provider 03/19/2019 R07.9 Chest pain, unspecified Enrique Hathaway M.D., [facility], [facility] 03/18/2019 R07.9 Chest pain, unspecified Eugene Mayers M.D. 03/02/2019 E11.9 Type 2 diabetes mellitus without Caitlin Flynn, EDIT[employer]IAL CARTOONIST complications 03/02/2019 I10 Essential (primary) hypertension Caitlin Flynn, EDITORIAL CARTOONIST 03/02/2019 E78.5 Hyperlipidemia, unspecified Caitlin Flynn, EDIT[employer]IAL CARTOONIST 03/01/2019 E11.9 Type 2 diabetes mellitus without Usha Torres, EDITORIAL CARTOONIST complications 03/01/2019 I10 Essential (primary) hypertension Usha Torres, EDITORIAL CARTOONIST 03/01/2019 E78.5 Hyperlipidemia, unspecified Usha Torres, EDITORIAL CARTOONIST 02/28/2019 I10 Essential (primary) hypertension Marjorie Wu M.D. 02/28/2019 E11.9 Type 2 diabetes mellitus without Marjorie Wu M.D. complications 01/21/2019 I63.9 Cerebral infarction, unspecified Jose Lny MD 01/21/2019 R26.81 Unsteadiness on feet Jose Lyn MD 01/21/2019 I25.10 Atherosclerotic heart disease of Jose Lyn MD [place] coronary artery with 01/21/2019 E11.9 Type 2 [...] M.D. 01/11/2019 I25.10 Athscl heart disease of [place] Kirk Martin M.D. coronary artery w/o ang [...] I63.9 Cerebral infarction, unspecified Miquel Carrillo, DO [facility] 01/10/2019 I63.9 Cerebral infarction, unspecified Kirk Moussallem, M.DLucien 01/10/2019 R26.81 Unsteadiness on feet Ted Mane.Diallo 01/10/2019 I25.10 Athscl heart disease of [place] Kirk Martin M.D. coronary artery w/o ang pctrs 01/10/2019 R07.9 Chest pain, unspecified Kirk Guillermoem M.DLucien 01/10/2019 E11.9 Type 2 diabetes mellitus without Kirk Moussallem, Alfred[place] complications 01/10/2019 I10 Essential (primary) hypertension Kirk Martin M.D. 01/10/2019 F32.9 Major depressive disorder, single Kirk Moussallem M.DLuicen episode, unspecified 01/10/2019 E78.5 Hyperlipidemia, unspecified Kirk [...] Atherosclerotic heart disease of Randi Joshua, D.OLucien [place] coronary artery without angina pectoris 01/08/2019 R07.9 [...] heart disease of Eugene D. Brand, M.D. [place] coronary artery with 01/07/2019 Z98.61 Coronary angioplasty status Eugene Mayers M.D. 01/07/2019 I51.9 Heart disease, unspecified Eugene Mayers M.D. 01/07/2019 Z72.0 Tobacco use Eugene Mayers M.D. 01/07/2019 R07.9 Chest pain, unspecified Enrique Hathaway M.D., [facility], [facility] 01/07/2019 R07.9 Chest pain, unspecified Jose Lyn MD 01/07/2019 M17.12 Unilateral primary osteoarthritis, Estelita Wyatt M.D. left knee 01/07/2019 F32.9 Major depressive disorder, single Jose Lyn MD episode, unspecified 01/07/2019 R26.81 Unsteadiness on feet Jose Lyn MD 01/07/2019 I25.10 Athscl heart disease of [place] Jose Lyn MD coronary artery w/o ang [...] MD 01/06/2019 I25.10 Athscl heart disease of [place] Jose Lyn MD coronary artery w/o ang [...] MD 01/05/2019 I25.10 Athscl heart disease of [place] Jose Lyn MD coronary artery w/o ang [...] control.Follow up:4 weeks.R26.81 Unsteadiness on feetNew Therapy:Physical IqqjeqsT96.10 Atherosclerotic heart disease of [place] coronary artery withE11.9 Type 2 diabetes mellitus without complicationsComments:Poorly controlled with BG 258. Increase the metformin to two pills a day. Establish with Dr. Morales us with your blood glucose readings next week.Referral:Raleigh Patel MD, [id number] Essential (primary) hypertensionNew Medication:Lisinopril 30 mg - 1 by mouth every dayLisinopril 20 mg - 2 by mouth every dayComments: Increase the lisinopril to 40mg daily (aka two 20mg pills daily) Please get blood pressure cuff. Goal is 140/90 or less. Please call us if consistently higher than this.F32.9 Major depressive disorder, single episode, unspecifiedComments:Continue wellbutrin, remeron and Prazosin. Establish with [facility] tomorrow.E78.5 Hyperlipidemia, unspecifiedComments:Continue statin.F17.210 Nicotine dependence, cigarettes, uncomplicatedNew Medication:Nicotine 14 mg/ 24HR - take 1 patch daily.Z86.73 Personal history of transient ischemic attack ( TIA), and cer Functional Status Description No Information Available Mental Status Description No Information Available Referrals Refer to Dr Reason for Referral Status Appt Date Raleigh Patel MD diabetic retinal exam Sent [address] [place] [address] [phone]
--- OUTSIDE RECORDS SUMMARY | 2019-04-03 14:32 | XMS REPORT | Continuity of Care Document ---
:1960 External Reference #:[id number] Author Name Jersey Saldana M.D. (transmitted by agent of provider Carmenza Bunch ) Address [address] [place] [id number] Care Team Providers Name Role Phone Anthony Rivas NP - Family Care Team Information Merchandising Specialist [phone] Mally Crespo MD - Internal Care Team Information Merchandising Specialist [phone] Medicine Jose Lyn MD - Hospitalist Care Team Information Merchandising Specialist [phone] Problems Active Problems Provider Date Perforation of tympanic membrane Yovani Julien M.D. Onset: 07/12/2012 Patient post percutaneous transluminal Margie Fatima D.O. Onset: 2012 coronary angioplasty Type 2 diabetes mellitus Martha Bates, N.P. Onset: 10/29/2013 Coronary arteriosclerosis Martha Bates, N.P. Onset: 10/29/2013 Hyperlipidemia Mally Crespo M.D. [...] Medications SIG Qnty Indications Ordering Date Provider Melatonin 1 tablet by Jose Lyn MD 01/21/2019 3mg Tablets mouth every night at bedtime. Lisinopril 2 by mouth 60tabs I10 Jose Lyn MD 01/21/2019 20mg Tablets every day Nicotine take 1 patch 42units F17.210 Jose Lyn MD 01/21/2019 14mg/24HR daily. Patches 24HR Metoprolol Tartrate 1 by mouth 60tabs I10 Jose Lyn MD 06/20/2018 25mg daily Tablets Metformin HCL take 1 tab 60tabs E11.69 Jose Lyn MD 06/19/2018 850mg twice a day Tablets Ibuprofen 2 caps po bid 90caps Unknown 07/18/2016 200mg Capsules Agustín Contour Blood test once daily 50units Martha Bates, 10/29/2013 Glucose Test Strips Dx code DM type N.P. II Strips Agustín Contour Blood Dx code DM type Martha Bates, 10/29/2013 Glucose Monitoring II N.P. System Device Agustín Microlet Lancets use one once 100units Martha Bates, 10/29/2013 daily as needed N.P. Misc dx code: DM type II Accu-Check Glucose check 2-3 times 1units E11.69 Mally Crespo, 2012 Monitor a day Alfredo Device Multi For Him 50+ once a day Unknown Tablets Glipizide take one tablet Unknown 5mg Tablets by mouth once a day Gabapentin 1 by mouth two Unknown 300mg Capsules times a day Aspirin 81 1 by mouth 30tabs Jose Lyn MD 81mg Tablets every day DR [facility] take one cap 30celeste Lyn MD 50mg Capsules daily as needed for panic attacks or sleep Minipress one tab at 30celeste Lyn MD 5mg Capsules night Remeron 1 tablet every 30tabs Jose Lyn MD 15mg Tablets night at bedtime Wellbutrin XL 1 by mouth 30tabs Jose Lyn MD 150mg every day Tablets ER 24HR Xarelto 1 by mouth Unknown 20mg Tablets every day Atorvastatin Calcium 1 by mouth 30tabs I25.10 Jose Lyn MD 80mg every day Tablets Acetaminophen 2 by mouth at Unknown 500mg night Tablets History Medications Lisinopril 1 by mouth every I10 Jose Lyn MD 01/21/2019 - 01/21/2019 30mg Tablets day Medications Administered in Office Medication SIG Qnty Indications Ordering Provider Date Depomedrol 40MG Estelita Wyatt M.D. 05/02/2018 Injection Depomedrol 80MG Estelita Wyatt M.D. 10/28/2013 Injection Immunizations CPT Code Status Date Vaccine Lot # [id number] Given 03/24/2013 Pneumonia Vaccine [id number] Given 03/24/2013 Influenza Virus Vaccine, Split, Preserv [...] Result H/L Range Note CBC Auto 03/15/2019 [facility] White Blood 10.4 10^3/uL Normal 3.5-10.[address] [place] [address] [phone] Red Blood Count 4.48 10^6/uL Normal 4.18-5.48 [...] Blood Cells % 0.0 Laboratory test 03/15/2019 [facility] Troponin-I 0.01 <0.[address] (TnI) ng/[place] [address] [phone] Comp Metabolic 03/15/2019 [facility] Sodium 138 Normal 135- [address] mmol/[place] [address] [phone] Potassium 4.1 mmol/L Normal 3.5-5.0 Chloride 106 [...] Egfr 81.5 >60 2 Laboratory test 03/15/2019 [facility] Alcohol < 10 mg/dL Normal <[address] [place] [address] [phone] B-Type Natriuretic Peptide BNP 337 pg/mL High <=100 CBC Auto 02/27/2019 [facility] White Blood 10.5 10^3/uL Normal 3.5-10.[address] [place] [address] [phone] Red Blood Count 4.59 10^6/uL Normal 4.18-5.48 [...] Blood Cells % 0.1 Comp Metabolic 02/27/2019 [facility] Sodium 137 mmol/L Normal 135-145 Panel [address] [place] [address] [phone] Potassium 3.5 mmol/L Normal 3.5-5.0 Chloride 105 [...] Egfr 97.3 >60 3 Laboratory test 02/27/2019 [facility] Acetaminophen < 15 g/mL 4 finding [address] [place] [address] [phone] Alcohol 100 mg/dL High <10 Salicylate 3.80 mg/dL <30 TSH (Thyroid Stim Horm) 2.49 mcIU/mL Normal 0.34-5.60 Urine Drug 02/27/2019 [facility] Urine None Detected None Detect SCR ED & [address] [facility] [place] [address] Screen [phone] Urine Barbiturates Screen None Detected None Detect Urine Benzodiazepine Screen None Detected None Detect Urine Cannabinoids Screen Presumptive Posi <SEE NOTE> Abnormal None Detect 5 Urine Cocaine Screen None Detected None Detect Urine Opiates Screen None Detected None Detect Urine Phencyclidine Screen None Detected None Detect 6 Urinalysis Profile 02/27/2019 [facility] Urine Color Yellow [address] [place] [address] [phone] Urine Appearance Cloudy Urine Specific [place] 1.024 Normal 1.010-1.030 Urine pH 5.0 Normal [...] Casts Present Abnormal Absent CBC Auto 01/08/2019 [facility] White Blood 8.6 10^3/uL Normal 3.5-10.[address] [place] [address] [phone] Red Blood Count 4.96 10^6/uL Normal 4.18-5.48 [...] Blood Cells % 0.1 Laboratory test 01/08/2019 [facility] Troponin-I (TnI) 0.01 ng/ mL <0.04 [address] [place] [address] [phone] Alcohol < 10 mg/dL Normal <10 Urine Drug 01/08/2019 [facility] Urine None Detected None Detect SCR ED & [address] [place] [address] Screen [phone] Urine Barbiturates Screen None Detected None Detect [...] immediately to secondary confirmatory testing. Using the [employer] DxI 800 Access Immunoassay systems, the 99th [...] immediately to secondary confirmatory testing. Using the [employer] DxI 800 Access Immunoassay systems, the 99th [...] purposes only. Procedures Date Code Description Status 01/10/2019 56107 Color Flow Doppler/Interp & Reprt Completed 01/10/2019 44683 Pulse Wave/Continuous-Interp.RPT Completed 01/10/2019 93997 Echocardiography, Transesophageal, Real Time W/Image 2D Completed W/W/O M-M 01/08/2019 71126 Insertion, Subcutaneous Cardiac Rhythm Monitor Completed 01/07/2019 31281 ECHO Transthorasic Realtime 2D W Doppler & Color Flow Completed Hosp 01/07/2019 37095 Treadmill Interp/Report Only Completed 01/07/2019 74699 Stress Test Supervsn W/Out I/R Completed 11/07/2011 [id number] Colonoscopy Completed Medical Devices Description No Information Available Encounters Type Date Location Provider Dx Diagnosis [facility] Essential ( primary) 11:36a batsheva Saxena M.D. hypertension Hospitalists E11.9 Type 2 diabetes mellitus without complications Office Visit 01/21/2019 1:00p Telephone Quotation Clerk Internal Jose Lyn MD I63.9 Cerebral Medicine - Suite infarction, R unspecified R26.81 Unsteadiness on feet I25.10 [facility] heart disease of [place] coronary artery w/o ang pctrs E11.9 Type 2 diabetes mellitus without complications I10 Essential (primary) hypertension F32.9 Major depressive disorder, single episode, unspecified E78.5 Hyperlipidemia, unspecified F17.210 Nicotine dependence, cigarettes, uncomplicated Z86.73 Prsnl hx of TIA (TIA), and cereb infrc w/o resid deficits Office Visit 01/17/2019 [facility] I63.9 Cerebral 11:09a Assocbatsheva PA infarction, Hospitalists unspecified R26.9 Unspecified abnormalities of gait and mobility Office Visit 01/11/2019 [facility] I63. Cerebral 11:44a Assbatsheva suresh M.D. infarction, Hospitalists unspecified R26.81 Unsteadiness on feet I25.10 Athscl heart disease of [place] coronary artery w/o ang pctrs R07.9 Chest pain, unspecified E11.9 Type 2 diabetes mellitus without complications I10 Essential (primary) hypertension F32.9 Major depressive disorder, single episode, unspecified E78.5 Hyperlipidemia, unspecified G47.30 Sleep apnea, unspecified Office Visit 01/10/2019 [facility] I63.40 Cerebral 7:00a Clinic MD Ciaran infarction due to embolism of unsp cerebral artery Office Visit 01/10/2019 [facility] I63.9 Cerebral 11:44a Assbatsheva suresh infarction, M.D. unspecified R26.81 Unsteadiness on feet I25.10 Athscl heart disease of [place] coronary artery w/o ang pctrs R07.9 Chest pain, unspecified E11.9 Type 2 diabetes mellitus without complications I10 Essential (primary) hypertension F32.9 Major depressive disorder, single episode, unspecified E78.5 Hyperlipidemia, unspecified G47.33 Obstructive sleep apnea (adult) (pediatric) Office Visit 01/09/2019 [facility] I63.9 Cerebral 7:00a Clinic MD Ciaran infarction, unspecified R90.82 White matter disease, unspecified G47.30 Sleep apnea, unspecified Office Visit 01/09/2019 [facility] I63.9 Cerebral 11:44a Assbatsheva suresh M.D. infarction, Hospitalists unspecified R26.81 Unsteadiness on feet R07.9 Chest pain, unspecified E11.9 Type 2 diabetes mellitus without complications I10 Essential (primary) hypertension F32.9 Major depressive disorder, single episode, unspecified E78.5 Hyperlipidemia, unspecified G47.33 Obstructive sleep apnea (adult) (pediatric) Office Visit 01/08/2019 [facility] I63.9 Cerebral 7:00a Clinic MD Ciaran infarction, unspecified R90.82 White matter disease, unspecified Office Visit 01/08/2019 11:43a [facility] Randi I63.40 Cerebral Assoc,Dione Manley.O. infarction due Hospitalists to embolism of unsp cerebral artery I25.10 Athscl heart disease of [place] coronary artery w/o ang pctrs I10 Essential (primary) hypertension F32.9 Major depressive disorder, single episode, unspecified [facility] I[facility] Cerebral Assoc,Dione Manley.O. infarction due Hospitalists to embolism of unsp cerebral artery R07.9 Chest pain, unspecified F32.9 Major depressive disorder, single episode, unspecified Office 01/07/2019 [facility] Marcelo Macdonald M62.81 Muscle weakness Visit 7:00a Clinic Alfredo Argueta (generalized) R29.6 Repeated falls Office Visit 01/07/2019 12:32p [facility] Eugene Landrum R06.02 Shortness of Of Azalia Mayers M.D. breath R07.9 Chest pain, unspecified I25.10 Athscl heart disease of [place] coronary artery w/o ang pctrs Z98.61 Coronary angioplasty status I51.9 Heart disease, unspecified Z72.0 Tobacco use Office Visit 01/07/2019 Orthopedic Estelita M17.12 Unilateral primary 2:05p Services Of Tabby Wyatt M.D. osteoarthritis, left knee Office Visit 01/07/2019 [facility] Jose Lyn, R07.9 Chest pain, 10:36a Assoc,batsheva HARDING unspecified Hospitalists F32.9 Major depressive disorder, single episode, unspecified R26.81 Unsteadiness on feet I25.10 Athscl heart disease of [place] coronary artery w/o ang pctrs E11.9 Type 2 diabetes mellitus without complications I10 Essential (primary) hypertension Z72.0 Tobacco use E78.5 Hyperlipidemia, unspecified Office Visit 01/06/2019 10:35a [facility] Jose Lyn, R07.9 Chest pain, Assoc,pc unspecified Hospitalists F32.9 Major depressive disorder, single episode, unspecified R26.81 Unsteadiness on feet I25.10 Athscl heart disease of [place] coronary artery w/o ang pctrs E11.9 Type 2 diabetes mellitus without complications I10 Essential (primary) hypertension Z72.0 Tobacco use E78.5 Hyperlipidemia, unspecified Office Visit 01/05/2019 10:35a [facility] Jose Lyn, R07.9 Chest pain, Assoc,pc unspecified Hospitalists F32.9 Major depressive disorder, single episode, unspecified R26.81 Unsteadiness on feet I25.10 Athscl heart disease of [place] coronary artery w/o [facility] pctrs E11.9 Type 2 diabetes mellitus without complications E78.5 Hyperlipidemia, unspecified W19.xxxA Unspecified fall, initial encounter Assessments Date Code Description Provider 02/28/2019 I10 Essential (primary) hypertension Marjorie Wu M.D. 02/28/2019 E11.9 Type 2 diabetes mellitus without Marjorie Wu M.D. complications 01/21/2019 I63.9 Cerebral infarction, unspecified Jose Lyn MD 01/21/2019 R26.81 Unsteadiness on feet Jose Lyn MD 01/21/2019 I25.10 Atherosclerotic heart disease of Jose Lyn MD [place] coronary artery with 01/21/2019 E11.9 Type 2 [...] mobility 01/11/2019 I63.9 Cerebral infarction, unspecified Kirk Moussallem, M.D. 01/11/2019 R26.81 Unsteadiness on feet Kirk Moussallem, M.D. 01/11/2019 I25.10 [facility]scl heart disease of [place] Kirk Martin M.D. coronary artery w/o ang pctrs 01/11/2019 R07.9 Chest pain, unspecified Kirk Moussallem, M.D. 01/11/2019 E11.9 Type 2 diabetes mellitus without Kirk Moussallem, M.D. complications 01/11/2019 I10 Essential (primary) hypertension Kirk Momanuelallem, M.D. 01/11/2019 F32.9 Major depressive disorder, single Kirk Moussallem, M.D. episode, unspecified 01/11/2019 E78.5 Hyperlipidemia, unspecified Kirk Moussallem, M.D. 01/11/2019 G47.30 Sleep apnea, unspecified Kirk Moussallem, M.D. 01/10/2019 I63.40 Cerebral infarction due to embolism Jr Wagoner MD of unspecified cerebral artery 01/10/2019 I63.9 Cerebral infarction, unspecified Miquel Carrillo, DO [facility] 01/10/2019 I63.9 Cerebral infarction, unspecified Kirk Moussallem, M.D. 01/10/2019 R26.81 Unsteadiness on feet Kirk Moussallem, M.D. 01/10/2019 I25.10 Athscl heart disease of [place] Kirk Martin M.D. coronary artery w/o ang pctrs 01/10/2019 R07.9 Chest pain, unspecified Kirk Moussallem, M.D. 01/10/2019 E11.9 Type 2 diabetes mellitus without Kirk Moussallem, M.D. complications 01/10/2019 I10 Essential (primary) hypertension Kirk Momanuelallem, M.D. 01/10/2019 F32.9 Major depressive disorder, single Kirk Moussallem, M.D. episode, unspecified 01/10/2019 E78.5 Hyperlipidemia, unspecified Kirk Moussallem, M.D. 01/10/2019 G47.33 Obstructive sleep apnea (adult) Kirk Moussallem, M.D. (pediatric) 01/09/2019 I63.9 Cerebral infarction, unspecified Jr Wagoner MD 01/09/2019 I63.9 Cerebral infarction, unspecified Kirk Martin M.D. 01/09/2019 R90.82 White matter disease, unspecified Jr Wagoner MD 01/09/2019 R26.81 Unsteadiness on feet Kirk Martin M.D. 01/09/2019 G47.30 Sleep apnea, unspecified Jr Wagoner MD 01/09/2019 R07.9 Chest pain, unspecified Kirk Martin M.D. 01/09/2019 E11.9 Type 2 diabetes mellitus without [...] I63.40 Cerebral infarction due to embolism Randi Lewis D.O. of unspecified cerebral artery 01/08/2019 I63.40 Cerebral infarction due to embolism Randi Joshua, D.O. of unspecified cerebral artery 01/08/2019 I25.10 Atherosclerotic heart disease of Randi Lewis D.Trudi. [place] coronary artery without angina pectoris 01/08/2019 R07.9 Chest pain, unspecified Randi Joshua, D.O. 01/08/2019 I10 Essential (primary) hypertension Randi Lewis D.O. 01/08/2019 F32.9 Major depressive disorder, single Randi Lewis, D.OLucien episode, unspecified 01/08/2019 F32.9 Major depressive disorder, single Randi Lewis D.O. episode, unspecified 01/07/2019 M62.81 Muscle weakness (generalized) Marcelo Argueta M.D. 01/07/2019 R06.02 Shortness of breath Eugene Mayers M.D. 01/07/2019 R29.6 Repeated falls Marcelo Argueta M.D. 01/07/2019 R07.9 Chest pain, unspecified Eugene Mayers M.D. 01/07/2019 I25.10 Atherosclerotic heart disease of Eugene Mayers M.D. [place] coronary artery with 01/07/2019 Z98.61 Coronary angioplasty status Eugene Mayers M.D. 01/07/2019 I51.9 Heart disease, unspecified Eugene Mayers M.D. 01/07/2019 Z72.0 Tobacco use Eugene Mayers M.D. 01/07/2019 R07.9 Chest pain, unspecified nErique Hathaway M.D., [facility], [facility] 01/07/2019 R07.9 Chest pain, unspecified Jose Lyn MD 01/07/2019 M17.12 Unilateral primary osteoarthritis, Estelita Wyatt M.D. left knee 01/07/2019 F32.9 Major depressive disorder, single Jose Lyn MD episode, unspecified 01/07/2019 R26.81 Unsteadiness on feet Jose Lyn MD 01/07/2019 I25.10 [place]scl heart disease of [place] Jose Lyn MD coronary artery w/o ang [...] MD 01/06/2019 I25.10 [place]scl heart disease [place] Jose Lyn MD coronary artery w/o lai pctrs 01/06/2019 E11.9 Type 2 diabetes mellitus [...] MD 01/05/2019 I25.10 [place]scl heart disease of [place] Jose Lyn MD coronary artery w/o lai pctrs 01/05/2019 E11.9 Type 2 diabetes mellitus [...] control.Follow up:4 weeks.R26.81 Unsteadiness on feetNew Therapy:Physical TemutxzE58.10 Atherosclerotic heart disease of [place] coronary artery withE11.9 Type 2 diabetes mellitus without complicationsComments:Poorly controlled with BG 258. Increase the metformin to two pills a day. Establish with Dr. Morales us with your blood glucose readings next week.Referral:Raleigh Patel MD, [id number] Essential (primary) hypertensionNew Medication:Lisinopril 20 mg - 2 by mouth every dayLisinopril 30 mg - 1 by mouth every dayComments: Increase the lisinopril to 40mg daily (aka two 20mg pills daily) Please get blood pressure cuff. Goal is 140/90 or less. Please call us if consistently higher than this.F32.9 Major depressive disorder, single episode, unspecifiedComments:Continue wellbutrin, remeron and Prazosin. Establish with [facility] tomorrow.E78.5 Hyperlipidemia, unspecifiedComments:Continue statin.F17.210 Nicotine dependence, cigarettes, uncomplicatedNew Medication:Nicotine 14 mg/ 24HR - take 1 patch daily.Z86.73 Personal history of transient ischemic attack ( TIA), and cer Functional Status Description No Information Available Mental Status Description No Information Available Referrals Refer to Dr Reason for Referral Status Appt Date Raleigh Patel MD diabetic retinal exam Sent [address] [place] [address] [phone]
--- OUTSIDE RECORDS SUMMARY | 2019-04-03 14:32 | XMS REPORT | Continuity of Care Document ---
:1960 External Reference #:[id number] Author Name Jersey Saldana M.D. (transmitted by agent of provider Carmenza Bunch ) Address [address] [place] [id number] Care Team Providers Name Role Phone Anthony Rivas NP - Family Care Team Information Space Operations Officer [phone] Mally Crespo MD - Internal Care Team Information Space Operations Officer [phone] Medicine Jose Lyn MD - Hospitalist Care Team Information Space Operations Officer [phone] Problems Active Problems Provider Date Perforation of [...] CPT Code Status Date Vaccine Lot # [id number] Given 03/24/2013 Pneumonia Vaccine [id number] Given 03/24/2013 Influenza Virus Vaccine, Split, Preserv [...] Result H/L Range Note CBC Auto 03/15/2019 [facility] White Blood 10.4 10^3/uL Normal 3.5-10.[address] [place] [address] [phone] Red Blood Count 4.48 10^6/uL Normal 4.18-5.48 [...] Blood Cells % 0.0 Laboratory test 03/15/2019 [facility] Troponin-I 0.01 <0.[address] (TnI) ng/[place] [address] [phone] Comp Metabolic 03/15/2019 [facility] Sodium 138 Normal 135- [address] mmol/[place] [address] [phone] Potassium 4.1 mmol/L Normal 3.5-5.0 Chloride 106 [...] Egfr 81.5 >60 2 Laboratory test 03/15/2019 [facility] Alcohol < 10 mg/dL Normal <[address] [place] [address] [phone] B-Type Natriuretic Peptide BNP 337 pg/mL High <=100 CBC Auto 02/27/2019 [facility] White Blood 10.5 10^3/uL Normal 3.5-10.[address] [place] [address] [phone] Red Blood Count 4.59 10^6/uL Normal 4.18-5.48 [...] Blood Cells % 0.1 Comp Metabolic 02/27/2019 [facility] Sodium 137 mmol/L Normal 135-145 Panel [address] [place] [address] [phone] Potassium 3.5 mmol/L Normal 3.5-5.0 Chloride 105 [...] Egfr 97.3 >60 3 Laboratory test 02/27/2019 [facility] Acetaminophen < 15 g/mL 4 finding [address] [place] [address] [phone] Alcohol 100 mg/dL High <10 Salicylate 3.80 mg/dL <30 TSH (Thyroid Stim Horm) 2.49 mcIU/mL Normal 0.34-5.60 Urine Drug 02/27/2019 [facility] Urine None Detected None Detect SCR ED & [address] [facility] [place] [address] Screen [phone] Urine Barbiturates Screen None Detected None Detect Urine Benzodiazepine Screen None Detected None Detect Urine Cannabinoids Screen Presumptive Posi <SEE NOTE> Abnormal None Detect 5 Urine Cocaine Screen None Detected None Detect Urine Opiates Screen None Detected None Detect Urine Phencyclidine Screen None Detected None Detect 6 Urinalysis Profile 02/27/2019 [facility] Urine Color Yellow [address] [place] [address] [phone] Urine Appearance Cloudy Urine Specific [place] 1.024 Normal 1.010-1.030 Urine pH 5.0 Normal [...] Casts Present Abnormal Absent CBC Auto 01/08/2019 [facility] White Blood 8.6 10^3/uL Normal 3.5-10.[address] [place] [address] [phone] Red Blood Count 4.96 10^6/uL Normal 4.18-5.48 [...] Blood Cells % 0.1 Laboratory test 01/08/2019 [facility] Troponin-I (TnI) 0.01 ng/ mL <0.04 [address] [place] [address] [phone] Alcohol < 10 mg/dL Normal <10 Urine Drug 01/08/2019 [facility] Urine None Detected None Detect SCR ED & [address] A[place] [address] Screen [phone] Urine Barbiturates Screen None Detected None Detect [...] immediately to secondary confirmatory testing. Using the [employer] DxI 800 Access Immunoassay systems, the 99th [...] immediately to secondary confirmatory testing. Using the [employer] Y[employer] DxI 800 Access Immunoassay systems, the 99th [...] only. Procedures Date Code Description Status 01/10/2019 13643 Color Flow Doppler/Interp & Reprt Completed 01/10/2019 04482 Pulse Wave/Continuous-Interp.RPT Completed 01/10/2019 63914 Echocardiography, Transesophageal, Real Time W/Image 2D Completed W/W/O M-M 01/08/2019 69048 Insertion, Subcutaneous Cardiac Rhythm Monitor Completed 01/07/2019 64861 ECHO Transthorasic Realtime 2D W Doppler & Color Flow Completed Hosp 01/07/2019 80428 Treadmill Interp/Report Only Completed 01/07/2019 14981 Stress Test Supervsn W/Out I/R Completed 11/07/2011 44812493 Colonoscopy Completed Medical Devices Description No Information Available Encounters Type Date Location Provider Dx Diagnosis [facility] ( primary) 11:36a batsheva Saxena M.D. 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 Cerebral 11:44a Assbatsheva suresh M.D. 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 infarction, [...] matter disease, unspecified Office Visit 01/08/2019 11:43a [facility] Randi I63.40 Cerebral Assoc,Dione Manley.O. 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 infarction due Hospitalists to embolism of unsp cerebral artery R07.9 Chest pain, unspecified F32.9 Major depressive disorder, single episode, unspecified Office 01/07/2019 [facility] Marcelo Macdonald M62.81 Muscle weakness Visit 7:00a Clinic Alfredo Argueta (generalized) R29.6 Repeated falls Office Visit 01/07/2019 12:32p [facility] Eugene Landrum R06.02 Shortness of Of Azalia Mayers M.D. 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 E11.9 Type 2 diabetes mellitus without complications I10 Essential (primary) hypertension Z72.0 Tobacco use E78.5 Hyperlipidemia, unspecified Office Visit 01/06/2019 10:35a [facility] Jose Lyn, R07.9 Chest pain, Assoc,pc unspecified Hospitalists F32.9 Major depressive disorder, single episode, unspecified R26.81 Unsteadiness on feet 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 01/11/2019 I25.10 Athscl heart disease of ken[place] Kirk Martin M.D. coronary artery w/o ang [...] I63.9 Cerebral infarction, unspecified Miquel Carrillo, DO [facility] 01/10/2019 I63.9 Cerebral infarction, unspecified Kirk Moussallem, M.D. 01/10/2019 R26.81 Unsteadiness on feet Kirk Moussallem, M.D. 01/10/2019 I25.10 Athscl heart disease of kenaitze Kirk Martin M.D. coronary artery w/o ang [...] Atherosclerotic heart disease of Randi Lewis D.Trudi. kenaitze coronary artery without angina pectoris 01/08/2019 R07.9 [...] Atherosclerotic heart disease of Eugene Mayers M.D. kenaitze coronary artery with 01/07/2019 Z98.61 Coronary angioplasty status Eugene Mayers M.D. 01/07/2019 I51.9 Heart disease, unspecified Eugene Mayers M.D. 01/07/2019 Z72.0 Tobacco use Eugene Mayers M.D. 01/07/2019 R07.9 Chest pain, unspecified Enrique Hathaway M.D., [facility], [facility] 01/07/2019 R07.9 Chest pain, unspecified Jose Lyn MD 01/07/2019 M17.12 Unilateral primary osteoarthritis, Estelita Wyatt M.D. left knee 01/07/2019 F32.9 Major depressive disorder, single Jose Lyn MD episode, unspecified 01/07/2019 R26.81 Unsteadiness on feet Jose Lyn MD 01/07/2019 I25.10 Athscl heart disease of ken[place] Jose Lyn MD coronary artery w/o ang [...] MD 01/06/2019 I25.10 Athscl heart disease of ken[place]ze Jose Lyn MD coronary artery w/o lai [...] MD 01/05/2019 I25.10 Athscl heart disease of kenaitze Jose Lyn MD coronary artery w/o lai [...] control.Follow up:4 weeks.R26.81 Unsteadiness on feetNew Therapy:Physical OborqvnR85.10 Atherosclerotic heart disease of kenaitze coronary artery withE11.9 Type 2 diabetes mellitus without complicationsComments:Poorly controlled with BG 258. Increase the metformin to two pills a day. Establish with Dr. Morales us with your blood glucose readings next week.Referral:Raleigh Patel MD, [id number] Essential (primary) hypertensionNew Medication:Lisinopril 20 mg - 2 by mouth every dayLisinopril 30 mg - 1 by mouth every dayComments: Increase the lisinopril to 40mg daily (aka two 20mg pills daily) Please get blood pressure cuff. Goal is 140/90 or less. Please call us if consistently higher than this.F32.9 Major depressive disorder, single episode, unspecifiedComments:Continue wellbutrin, remeron and Prazosin. Establish with [facility] tomorrow.E78.5 Hyperlipidemia, unspecifiedComments:Continue statin.F17.210 Nicotine dependence, cigarettes, uncomplicatedNew Medication:Nicotine 14 mg/ 24HR - take 1 patch daily.Z86.73 Personal history of transient ischemic attack ( TIA), and cer Functional Status Description No Information Available Mental Status Description No Information Available Referrals Refer to Dr Reason for Referral Status Appt Date Raleigh Patel MD diabetic retinal exam Sent [address] [place] [address] [phone]
--- NOTE | 2019-04-03 16:18 | ED ---
Upper Extremity Pain - HPI Summary HPI Summary: Patient is a 58-year-old male who presents emergency department for left shoulder pain times several days. Patient states he fell a few weeks ago and injured left shoulder. Patient states pain was improving until a few days ago. Denies any new injuries. Pain is worse with moving and lifting. Denies chest pain, shortness of breath, neck pain, numbness, tingling or weakness. Symptoms are mild in severity. - History of Current Complaint Chief Complaint: EDShoulderClavicEstevan Stated Complaint: LEFT SHOULDER PAIN PER PT Time Seen by Provider: 04/03/19 15:26 Hx Obtained From: Patient - Allergies/Home Medications Allergies/Adverse Reactions: Allergies Allergy/AdvReac Type Severity Reaction Status Date / Time Penicillins Allergy Unknown Unknown Verified 03/15/19 13:55 Reaction Details PMH/Surg Hx/FS Hx/Imm Hx Previously Healthy: Yes Endocrine/Hematology History: Reports: Hx Anticoagulant Therapy - 325MG PO ASPIRIN DAILY, Hx Diabetes, Other Endocrine/Hematological Disorders - obesity Denies: Hx Blood Disorders, Hx Blood Transfusions, Hx Thyroid Disease, Hx Anemia, Hx Unexplained Bleeding Cardiovascular History: Reports: Hx Angina, Hx Congestive Heart Failure, Hx Coronary Artery Disease, Hx Hypercholesterolemia, Hx Hypertension - does not take meds d/t cost, Hx Myocardial Infarction, Other Cardiovascular Problems/ Disorders Denies: Hx Pacemaker/ICD, Hx Peripheral Vascular Disease, Hx Syncope, Hx Valvular Heart Disease Respiratory History: Reports: Hx Pulmonary Edema, Hx Sleep Apnea, Other Respiratory Problems/Disorders - CURRENT SMOKER Denies: Hx Asthma, Hx Chronic Obstructive Pulmonary Disease (COPD), Hx Pneumonia GI History: Reports: Other GI Disorders - esophogeal ulcers History: Reports: Hx Kidney Infection, Other Problems/Disorders - Prostate CA, TURP in 2011 Denies: Hx Chronic Renal Failure, Hx Renal Disease Musculoskeletal History: Reports: Hx Back Problems, Other Musculoskeletal History - ACL repair L knee Denies: Hx Arthritis, Hx Osteoporosis Sensory History: Reports: Hx Hearing Problem - Pt reports ear surgeries; a bit SAXMAN Denies: Hx Contacts or Glasses, Hx Hearing Aid, Other Sensory Impairments Opthamlomology History: Denies: Hx Contacts or Glasses, Other Sensory Impairments Neurological History: Reports: Hx Migraine, Other Neuro Impairments/Disorders - 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 Denies: Hx Dementia, Hx Headaches, Hx Seizures, Hx Transient Ischemic Attacks (TIA) Psychiatric History: Reports: Hx Anxiety, Hx Depression, Hx Post Traumatic Stress Disorder, Hx Inpatient Treatment - multiple admissions to [facility], Hx Community Mental Health Tx - previously, not at this time, Hx Suicide Attempt, Hx of Violent Episodes Against Others - registered level 2 sex offender, Hx Substance Abuse - ETOH, marijuana, cocaine Denies: Hx Attention Deficit Hyperactivity Disorder, Hx Eating Disorder, Hx Panic Disorder, Hx Schizophrenia, Hx Bipolar Disorder, Other Psychiatric Issues/ Disorders - Cancer History Cancer Type, Location and Year: prostate cancer Hx Chemotherapy: No Hx Radiation Therapy: No Hx Palliative Cancer Treatment: No - Surgical History Surgery Procedure, Year, and Place: multiple tubes placed in ears. left knee scope. cardiac stents. turp. loop recorder Hx Anesthesia Reactions: No - Immunization History Date of Tetanus Vaccine: Unknown Date of Influenza Vaccine: 2013 Infectious Disease History: No Infectious Disease History: Denies: Hx Hepatitis, Hx Human Immunodeficiency Virus (HIV), Hx of Known/ Suspected MRSA, Hx Shingles, Hx Tuberculosis, Traveled Outside the [place] in Last 30 Days - Family History Known Family History: Positive: Unknown - PT WAS ADOPTED, Non-Contributory - Social History Occupation: Unemployed Lives: With Family Alcohol Use: Weekly Alcohol Amount: 2 drinks 4 x week Hx Substance Use: Yes Substance Use Type: Reports: None Substance Use Comment - Amount & Last Used: pt reports last use of cocaine and marijuana was several months ago Hx Tobacco Use: Yes Smoking Status (MU): Heavy Every Day Tobacco Smoker Type: Cigarettes Amount Used/How Often: 1 pack/day Length of Time of Smoking/Using Tobacco: 42 years Have You Smoked in the Last Year: Yes Review of Systems Cardiovascular: Negative Respiratory: Negative Positive: Other - left shoulder pain Neurological: Negative All Other Systems Reviewed And Are Negative: Yes Physical Exam Triage Information Reviewed: Yes Vital Signs On Initial Exam: Initial Vitals Temp Pulse Resp BP Pulse Ox 97.5 F 88 16 164/92 94 04/03/19 14:18 04/03/19 14:18 04/03/19 14:18 04/03/19 14:18 04/03/19 14:18 Vital Signs Reviewed: Yes Appearance: Positive: Well-Appearing - Pt. sitting on chair in NAD. Skin: Positive: Warm, Dry Head/Face: Positive: Normal Head/Face Inspection Eyes: Positive: Normal, EOMI Musculoskeletal: Positive: Other - Pain to anterior left shoulder. Pain and limited ROM with abduction. Good radial pulse. 5/5 strength Neurological: Positive: Normal, CN Intact II-III Psychiatric: Positive: Affect/Mood Appropriate Diagnostics - Vital Signs Vital Signs Temp Pulse Resp BP Pulse Ox 04/03/19 14:18 97.5 F 88 16 164/92 94 - Laboratory Lab Statement: Any lab studies that have been ordered have been reviewed, and results considered in the medical decision making process. Course/Dx - Course Course Of Treatment: Patient with reproducible shoulder pain after injury. X- ray shows osteoarthritis without acute findings, reading per radiology. Will have patient follow orthopedics if pain persists for further evaluation. Ice and elevate intermittently. Tylenol or Motrin for pain as directed. Activity as tolerated. We'll return to the ear symptoms change or worsen. Patient understands and agrees with plan. - Diagnoses Differential Diagnosis/HQI/PQRI: Positive: Contusion, Fracture (Closed), Strain , Sprain Provider Diagnoses: Shoulder injury, Osteoarthritis Discharge ED - Sign-Out/Discharge Documenting (check all that apply): Patient Departure Patient Received Moderate/Deep Sedation with Procedure: No - Discharge Plan Condition: Good Disposition: HOME Patient Education Materials: Osteoarthritis (ED), Shoulder Pain (ED) Referrals: Jose Lyn MD [Primary Care Provider] - Margie Acosta MD [Medical Doctor] - Additional Instructions: Schedule a follow up appointment with orthopedics for further evaluation Tylenol or motrin for pain as directed Activity as tolerated Return to ER if symptoms change or worsen - Billing Disposition and Condition Condition: GOOD Disposition: Home - Attestation Statements Provider Attestation: I was available for consult. This patient was seen by the MONICA. The patient was not presented to, seen by, or examined by me. -Donald
[2019-04-03 18:40] VITALS: BP 161/88
== END 2019-04-03 17:15 | disposition home or self-care (01) ==
LOC: ED 14:15
DX: S49.92XA Unspecified injury of left shoulder and upper arm, initial encounter (principal); M19.012 Primary osteoarthritis, left shoulder; W19.XXXA Unspecified fall, initial encounter; Y92.9 Unspecified place or not applicable; E11.9 Type 2 diabetes mellitus without complications; E66.9 Obesity, unspecified; I25.119 Atherosclerotic heart disease of native coronary artery with unspecified angina pectoris; I11.0 Hypertensive heart disease with heart failure; I50.9 Heart failure, unspecified; E78.00 Pure hypercholesterolemia, unspecified; I25.2 Old myocardial infarction; F41.9 Anxiety disorder, unspecified; F43.10 Post-traumatic stress disorder, unspecified; F17.210 Nicotine dependence, cigarettes, uncomplicated; Z85.46 Personal history of malignant neoplasm of prostate; Z79.01 Long term (current) use of anticoagulants; Z79.82 Long term (current) use of aspirin; Z79.899 Other long term (current) drug therapy; Z88.0 Allergy status to penicillin
CPT/HCPCS: 99282

== ENCOUNTER 2020-04-23 02:24 | Inpatient (IN) ==
[2020-04-23 04:24] LABS: ABS Basophils 0.1 10^3/ul (0-0.2); ABS Eosinophils 0.2 10^3/ul (0-0.6); ABS Lymphocytes 2.9 10^3/ul (1.0-4.8); ABS Monocytes 0.9 10^3/ul (0-0.8); ABS Neutrophils 7.3 10^3/ul (1.5-7.7); Eosinophil % 1.6 %; Hematocrit 49 % (42-52); Hemoglobin 17.4 g/dL (14.0-18.0); Lymphocyte % 25.6 %; Mean Corpuscular HGB Conc 36 g/dL (31-36); Mean Corpuscular Hemoglobin 33 pg (27-31); Mean Corpuscular Volume 91 fL (80-94); Mean Platelet Volume 7.5 fL (7.4-10.4); Platelet Count 342 10^3/uL (150-450); Red Blood Count 5.35 10^6 /uL (4.18-5.48); Red Cell Distribution Width 13 % (10-15); White Blood Count 11.3 10^3/uL (3.5-10.8)
[2020-04-23] MEDS ORDERED: Ondansetron 4 mg VIAL 2 MG/ML 2 ml VIAL IV ONE ×2 (04:32→07:21)
[2020-04-23] MEDS ORDERED: Morphine 10 MG/ML VIAL (1 ml) IV ONE ×2 (04:32→05:59)
[2020-04-23 04:35] LABS: Alcohol, S < 10 mg/dL (<10)
[2020-04-23 04:36] LABS: ALT 23 U/L (7-52); AST 29 U/L (13-39); Albumin 4.1 g/dL (3.2-5.2); Alkaline Phosphatase 98 U/L (34-104); Anion Gap 8 mmol/L (2-11); BUN/Creatinine Ratio 14.6 (8-20); Blood Urea Nitrogen 15 mg/dL (6-24); CO2 Carbon Dioxide 27 mmol/L (22-32); Calcium 10.4 mg/dL (8.6-10.3); Chloride 99 mmol/L (101-111); EGFR African American 89.4 (>60); EGFR Non-African American 73.9 (>60); Glucose 240 mg/dL (70-100); Lipase 51 U/L (11.0-82.0); Potassium 3.9 mmol/L (3.5-5.0); Sodium 134 mmol/L (135-145); Total Protein 8.1 g/dL (6.4-8.9)
[2020-04-23 04:40] LABS: Troponin I 0.04 ng/mL (<0.03)
[2020-04-23] MEDS ORDERED: Iodixanol (CONTRAST) 320 MG/ML 100 ML SDV IV ONE (04:43)
[2020-04-23] MEDS ORDERED: Al Hydrox/Mg Hydrox/Simet LIQ 30 ML UDC PO ONE (06:19)
[2020-04-23 07:14] LABS: Troponin I 0.03 ng/mL (<0.03)
[2020-04-23] MEDS ORDERED: Famotidine IV 10 MG/ML 2 ml VIAL (20 mg) IV SLOW PU ONE (07:21)
[2020-04-23] MEDS ORDERED: Magnesium Sulfate 2 gm BAG 2 GM/50 ML BAG IVPB ONE (07:21)
[2020-04-23] MEDS ORDERED: Nitro 2% OINT (Nitroglycerin) 1 INCH/PAK TOPICAL ONE (07:40)
[2020-04-23] MEDS ORDERED: Dextrose 50% Syringe 50 ml 25 GM/50 ML SYRINGE IV PUSH PRN (07:43)
[2020-04-23] MEDS ORDERED: Lactated Ringers 1000 ml BAG 1,000 ML IV SCH (08:00)
[2020-04-23 08:01] LABS: Magnesium 1.7 mg/dL (1.9-2.7)
[2020-04-23] MEDS: Metoprolol Tartrate 5 mg VIAL 5 ml VIAL (1 mg/ml) IV SCH ×3 (08:20→20:48)
[2020-04-23] MEDS ORDERED: Magnesium Hydroxide LIQ 30 ML UDC PO PRN (08:22)
[2020-04-23] MEDS ORDERED: Ondansetron 4 mg VIAL 2 MG/ML 2 ml VIAL IV PRN (08:22)
[2020-04-23] MEDS ORDERED: Albuterol 2.5mg/3 ml (0.083%) NEB.SOLN INH PRN (08:22)
[2020-04-23] MEDS ORDERED: Morphine 2 MG/ML SYRINGE IV PRN (08:22)
[2020-04-23] MEDS ORDERED: Magnesium Sulfate IV 1GM/100ML 1 GM/100 ML BAG IV ONE (08:33)
[2020-04-23] MEDS ORDERED: Lorazepam PYXIS KEY PRN (08:34)
[2020-04-23] MEDS ORDERED: LORazepam 2 mg VIAL 1 ml IV PUSH PRN (08:34)
[2020-04-23] MEDS ORDERED: NS 0.9% 1000 ml BAG 1,000 ML IV SCH (08:45)
[2020-04-23 09:22] LABS: Urine Appearance Clear; Urine Bilirubin Negative (Negative); Urine Blood 1+ (Negative); Urine Color Yellow; Urine Glucose 2+(150 mg/dL) (Negative); Urine Ketones Trace (Negative); Urine Nitrite Negative (Negative); Urine Protein 3+(>=500 mg/dL) (Negative); Urine Urobilinogen Negative (Negative)
[2020-04-23 09:24] LABS: Urine Bacteria Absent (Absent); Urine Red Blood Cell Trace(0-2/hpf) (Absent); Urine White Blood Cell Trace(0-5/hpf) (Absent)
[2020-04-23] MEDS: Nicotine PATCH 21 MG/24 HR PATCH TRANSDERM SCH (11:07)
[2020-04-23] MEDS: Pantoprazole VIAL 40 MG VIAL IV SCH (11:07)
[2020-04-23] MEDS ORDERED: Perflutren Lipid Microsphere 3 ML VIAL ONE (11:31)
[2020-04-23] MEDS: Isosorbide Mononit ER 30mg TAB PO SCH (12:20)
[2020-04-23] MEDS ORDERED: Thiamine 100 MG/ML 2 ml VIAL (200 mg) IM ONE (13:02)
[2020-04-23] MEDS: Nicotine GUM 4MG FRUIT FLAVOR PO PRN ×2 (13:46→20:48)
[2020-04-23] MEDS ORDERED: LORazepam 2 mg VIAL 1 ml IV PUSH SCH ×2 (14:00→16:44)
[2020-04-23] MEDS ORDERED: Nicotine GUM 2MG FRUIT FLAVOR PO PRN (20:35)
[2020-04-24] MEDS: Metoprolol Tartrate 5 mg VIAL 5 ml VIAL (1 mg/ml) IV SCH ×2 (00:50→08:38)
[2020-04-24 07:10] LABS: ABS Basophils 0.1 10^3/ul (0-0.2); ABS Eosinophils 0.3 10^3/ul (0-0.6); ABS Lymphocytes 3.7 10^3/ul (1.0-4.8); ABS Monocytes 1.4 10^3/ul (0-0.8); ABS Neutrophils 9.1 10^3/ul (1.5-7.7); Eosinophil % 1.7 %; Hematocrit 43 % (42-52); Hemoglobin 15.3 g/dL (14.0-18.0); Lymphocyte % 25.5 %; Mean Corpuscular HGB Conc 35 g/dL (31-36); Mean Corpuscular Hemoglobin 33 pg (27-31); Mean Corpuscular Volume 92 fL (80-94); Mean Platelet Volume 7.8 fL (7.4-10.4); Platelet Count 301 10^3/uL (150-450); Red Cell Distribution Width 14 % (10-15); White Blood Count 14.5 10^3/uL (3.5-10.8)
[2020-04-24 07:31] LABS: BUN/Creatinine Ratio 17.4 (8-20); Calcium 8.9 mg/dL (8.6-10.3); EGFR African American 74.3 (>60); EGFR Non-African American 61.4 (>60); Magnesium 2.2 mg/dL (1.9-2.7)
[2020-04-24] MEDS: Isosorbide Mononit ER 30mg TAB PO SCH (08:40)
[2020-04-24] MEDS: Nicotine PATCH 21 MG/24 HR PATCH TRANSDERM SCH (08:41)
[2020-04-24] MEDS: Pantoprazole VIAL 40 MG VIAL IV SCH (08:41)
[2020-04-24] MEDS ORDERED: Influenza VAC *QUAD* 2020-21* 0.5 ML SYRINGE IM ONE (09:00)
[2020-04-24 19:43] LABS: HIV 4th Generation Nonreactive (Nonreactive)
[2020-04-24 21:02] LABS: Hepatitis C Antibody Reactive (Negative)
[2020-04-25 06:05] LABS: ABS Basophils 0.1 10^3/ul (0-0.2); ABS Eosinophils 0.3 10^3/ul (0-0.6); ABS Lymphocytes 2.1 10^3/ul (1.0-4.8); ABS Monocytes 1.1 10^3/ul (0-0.8); ABS Neutrophils 6.4 10^3/ul (1.5-7.7); Eosinophil % 2.6 %; Hematocrit 45 % (42-52); Hemoglobin 15.8 g/dL (14.0-18.0); Lymphocyte % 20.7 %; Mean Corpuscular HGB Conc 35 g/dL (31-36); Mean Corpuscular Hemoglobin 33 pg (27-31); Mean Corpuscular Volume 93 fL (80-94); Mean Platelet Volume 7.9 fL (7.4-10.4); Platelet Count 287 10^3/uL (150-450); Red Cell Distribution Width 13 % (10-15); White Blood Count 9.9 10^3/uL (3.5-10.8)
[2020-04-25 06:35] LABS: BUN/Creatinine Ratio 20.9 (8-20); Calcium 8.7 mg/dL (8.6-10.3); EGFR African American 78.8 (>60); EGFR Non-African American 65.1 (>60); Magnesium 2.2 mg/dL (1.9-2.7); Potassium 4.2 mmol/L (3.5-5.0)
[2020-04-25] MEDS: Isosorbide Mononit ER 30mg TAB PO SCH (08:18)
[2020-04-25] MEDS: Pantoprazole VIAL 40 MG VIAL IV SCH (08:19)
[2020-04-25] MEDS: Nicotine PATCH 21 MG/24 HR PATCH TRANSDERM SCH (08:19)
[2020-04-25] MEDS ORDERED: DULoxetine DR 30 mg CAP PO SCH (09:00)
[2020-04-25 11:49] VITALS: BP 142/80
[2020-04-27 16:50] LABS: Hepatitis B Surface Antigen Nonreactive (Nonreactive)
== END 2020-04-25 15:19 | disposition home health service (06) | DRG 445 ==
LOC: ED 02:24 → MEDTELE 08:20
PROVIDERS: ADMIT Internal Medicine; ATTEND Internal Medicine

== ENCOUNTER 2020-09-05 02:59 | Inpatient (IN) ==
[2020-09-05 03:37] LABS: ABS Basophils 0.1 10^3/ul (0-0.2); ABS Eosinophils 0.2 10^3/ul (0-0.6); ABS Lymphocytes 2.3 10^3/ul (1.0-4.8); ABS Monocytes 1.2 10^3/ul (0-0.8); ABS Neutrophils 6.8 10^3/ul (1.5-7.7); Eosinophil % 1.9 %; Hematocrit 49 % (42-52); Lymphocyte % 21.4 %; Mean Corpuscular HGB Conc 35 g/dL (31-36); Mean Corpuscular Hemoglobin 31 pg (27-31); Mean Corpuscular Volume 90 fL (80-94); Mean Platelet Volume 7.6 fL (7.4-10.4); Platelet Count 311 10^3/uL (150-450); Red Blood Count 5.45 10^6 /uL (4.18-5.48); Red Cell Distribution Width 14 % (10-15); White Blood Count 10.5 10^3/uL (3.5-10.8)
[2020-09-05 03:41] LABS: INR 1.02 (0.82-1.09)
[2020-09-05 03:51] LABS: Alcohol, S < 10 mg/dL (<10)
[2020-09-05 03:54] LABS: ALT 15 U/L (7-52); Albumin 3.7 g/dL (3.2-5.2); Alkaline Phosphatase 91 U/L (34-104); BUN/Creatinine Ratio 13.7 (8-20); Blood Urea Nitrogen 16 mg/dL (6-24); CO2 Carbon Dioxide 24 mmol/L (22-32); Chloride 102 mmol/L (101-111); Cholesterol 216 mg/dL; EGFR African American 76.9 (>60); EGFR Non-African American 63.6 (>60); Globulin 3.8 g/dL (2-4); Glucose 225 mg/dL (70-100); LDL Cholesterol 143 mg/dL; Sodium 133 mmol/L (135-145); Total Protein 7.5 g/dL (6.4-8.9); Triglycerides 173 mg/dL
[2020-09-05 03:58] LABS: Anion Gap 7 mmol/L (2-11); Troponin I 0.03 ng/mL (<0.03)
[2020-09-05] MEDS ORDERED: Iodixanol (CONTRAST) 320 MG/ML 100 ML SDV IV ONE (04:00)
[2020-09-05 05:05] LABS: Potassium Redraw 4.2 mmol/L (3.5-5.0)
[2020-09-05] MEDS ORDERED: Dextrose 50% Syringe 50 ml 25 GM/50 ML SYRINGE IV PUSH PRN (05:57)
[2020-09-05] MEDS: hydrALAZINE 20 mg/ml 1 ML Vial IV IV SLOW PU PRN ×2 (07:32→16:39)
[2020-09-05 07:44] LABS: Urine Appearance Clear; Urine Bilirubin Negative (Negative); Urine Blood Negative (Negative); Urine Color Yellow; Urine Glucose 1+(50 mg/dL) (Negative); Urine Ketones Negative (Negative); Urine Nitrite Negative (Negative); Urine Protein 3+(>=500 mg/dL) (Negative); Urine Specific Gravity 1.044 (1.010-1.030); Urine Urobilinogen Negative (Negative)
[2020-09-05 07:55] LABS: Urine Bacteria Absent (Absent); Urine Red Blood Cell Trace(0-2/hpf) (Absent); Urine Squamous Epithelial Cell Present (Absent); Urine White Blood Cell Trace(0-5/hpf) (Absent)
[2020-09-05 08:25] LABS: Urine Benzodiazepine Screen None Detected (None Detect); Urine Cannabinoids Screen Presumptive Positive (None Detect); Urine Opiates Screen None Detected (None Detect)
[2020-09-05] MEDS: Nicotine PATCH 21 MG/24 HR PATCH TRANSDERM SCH (09:57)
[2020-09-05 11:21] LABS: Troponin I 0.03 ng/mL (<0.03)
[2020-09-05] MEDS: Heparin 5000 UNITS/ML 1 mL VIAL SUBCUT SCH ×2 (13:53→20:54)
[2020-09-05] MEDS: Ondansetron 4 mg VIAL 2 MG/ML 2 ml VIAL IV PRN (16:32)
[2020-09-05] MEDS ORDERED: niCARdipine 0.1MG/ML IVPREMIX 20 MG/200 ML BAG IV SCH (20:00)
[2020-09-05] MEDS: niCARdipine 0.1MG/ML IVPREMIX 20 MG/200 ML BAG IV SCH (21:20)
[2020-09-06] MEDS: Ondansetron 4 mg VIAL 2 MG/ML 2 ml VIAL IV PRN (02:23)
[2020-09-06] MEDS ORDERED: Albuterol 2.5mg/3 ml (0.083%) NEB.SOLN INH PRN (04:16)
[2020-09-06 04:52] LABS: ABS Basophils 0.1 10^3/ul (0-0.2); ABS Lymphocytes 1.7 10^3/ul (1.0-4.8); ABS Monocytes 0.7 10^3/ul (0-0.8); ABS Neutrophils 10.2 10^3/ul (1.5-7.7); Eosinophil % 0.2 %; Hematocrit 50 % (42-52); Hemoglobin 17.2 g/dL (14.0-18.0); Lymphocyte % 13.5 %; Mean Corpuscular HGB Conc 34 g/dL (31-36); Mean Corpuscular Hemoglobin 31 pg (27-31); Mean Corpuscular Volume 90 fL (80-94); Mean Platelet Volume 7.7 fL (7.4-10.4); Nucleated Red Blood Cells % 0.1; Platelet Count 372 10^3/uL (150-450); Red Blood Count 5.59 10^6 /uL (4.18-5.48); Red Cell Distribution Width 14 % (10-15); White Blood Count 12.8 10^3/uL (3.5-10.8)
[2020-09-06 05:24] LABS: BUN/Creatinine Ratio 18.3 (8-20); Calcium 9.2 mg/dL (8.6-10.3); EGFR African American 88.1 (>60); EGFR Non-African American 72.8 (>60); Potassium 3.9 mmol/L (3.5-5.0)
[2020-09-06 05:26] LABS: INR 1.06 (0.82-1.09)
[2020-09-06] MEDS: niCARdipine 0.1MG/ML IVPREMIX 20 MG/200 ML BAG IV SCH ×2 (05:28→09:29)
[2020-09-06] MEDS: Heparin 5000 UNITS/ML 1 mL VIAL SUBCUT SCH ×3 (05:29→21:23)
[2020-09-06] MEDS: Nicotine PATCH 21 MG/24 HR PATCH TRANSDERM SCH (08:41)
[2020-09-07] MEDS: Heparin 5000 UNITS/ML 1 mL VIAL SUBCUT SCH (05:32)
[2020-09-07] MEDS: Nicotine PATCH 21 MG/24 HR PATCH TRANSDERM SCH ×2 (09:04→09:33)
[2020-09-07] MEDS ORDERED: Perflutren Lipid Microsphere 3 ML VIAL ONE (10:25)
[2020-09-07] MEDS ORDERED: Butalb/Acetamin/Caff TAB 325-50-40MG PO PRN (16:16)
[2020-09-07] MEDS: Enoxaparin 40 MG/0.4 ML SYR SUBCUT SCH (20:41)
[2020-09-08 06:38] LABS: Hematocrit 47 % (42-52); Hemoglobin 16.2 g/dL (14.0-18.0); Mean Corpuscular HGB Conc 34 g/dL (31-36); Mean Corpuscular Hemoglobin 31 pg (27-31); Mean Corpuscular Volume 91 fL (80-94); Mean Platelet Volume 7.5 fL (7.4-10.4); Platelet Count 361 10^3/uL (150-450); Red Blood Count 5.21 10^6 /uL (4.18-5.48); Red Cell Distribution Width 14 % (10-15); White Blood Count 12.8 10^3/uL (3.5-10.8)
[2020-09-08] MEDS: Nicotine PATCH 21 MG/24 HR PATCH TRANSDERM SCH (08:20)
[2020-09-08] MEDS: Lidocaine PATCH 5% PATCH TRANSDERM SCH (11:37)
[2020-09-08] MEDS ORDERED: Senna TAB 8.6 mg TAB PO PRN (16:08)
[2020-09-08] MEDS ORDERED: Insulin GLARGINE 100 un/ml 10 ml VIAL SUBCUT SCH (21:00)
[2020-09-08] MEDS ORDERED: Lidocaine Patch REMOVE PATCH PATCH OFF SCH (21:00)
[2020-09-08] MEDS: Butalb/Acetamin/Caff TAB 325-50-40MG PO SCH (21:17)
[2020-09-08] MEDS: Enoxaparin 40 MG/0.4 ML SYR SUBCUT SCH (21:18)
[2020-09-08] MEDS: Magnesium Hydroxide LIQ 30 ML UDC PO SCH (21:19)
[2020-09-09] MEDS: Butalb/Acetamin/Caff TAB 325-50-40MG PO SCH (09:01)
[2020-09-09] MEDS: Nicotine PATCH 21 MG/24 HR PATCH TRANSDERM SCH (09:02)
[2020-09-09] MEDS: Lidocaine PATCH 5% PATCH TRANSDERM SCH (09:03)
[2020-09-09] MEDS: Magnesium Hydroxide LIQ 30 ML UDC PO SCH (09:04)
[2020-09-09 15:37] VITALS: BP 142/75
== END 2020-09-09 16:45 | DRG 65 ==
LOC: ED 02:59 → MED 06:50 → ICU 19:31 → MEDTELE 09-06 20:45
PROVIDERS: ADMIT Internal Medicine; ATTEND Internal Medicine

== ENCOUNTER 2020-09-09 17:14 | Inpatient (IN) ==
[2020-09-09] MEDS ORDERED: Magnesium Hydroxide LIQ 30 ML UDC PO PRN (18:37)
[2020-09-09] MEDS ORDERED: Dextrose 50% Syringe 50 ml 25 GM/50 ML SYRINGE IV PUSH PRN (19:59)
[2020-09-09] MEDS ORDERED: Albuterol HFA INHALER 8 gm MDI INH PRN (20:47)
[2020-09-09] MEDS ORDERED: Lactulose 30 ml UDC PO SCH (21:00)
[2020-09-09] MEDS: Insulin GLARGINE 100 un/ml 10 ml VIAL SUBCUT SCH (21:19)
[2020-09-09] MEDS: Enoxaparin 40 MG/0.4 ML SYR SUBCUT SCH (21:19)
[2020-09-10] MEDS: Aspirin EC 81 mg TAB.EC (enteric coated) PO SCH (08:23)
[2020-09-10] MEDS: Nicotine PATCH 21 MG/24 HR PATCH TRANSDERM SCH (08:25)
[2020-09-10] MEDS: SPIRIVA Respimat (tiotropium) 2.5 mcg/inh Inhaler INH SCH (08:27)
[2020-09-10] MEDS: Enoxaparin 40 MG/0.4 ML SYR SUBCUT SCH (20:40)
[2020-09-10] MEDS: Insulin GLARGINE 100 un/ml 10 ml VIAL SUBCUT SCH (20:56)
[2020-09-11 07:18] LABS: ABS Basophils 0.1 10^3/ul (0-0.2); ABS Eosinophils 0.3 10^3/ul (0-0.6); ABS Lymphocytes 2.5 10^3/ul (1.0-4.8); ABS Monocytes 0.7 10^3/ul (0-0.8); ABS Neutrophils 6.8 10^3/ul (1.5-7.7); Eosinophil % 2.4 %; Hematocrit 51 % (42-52); Hemoglobin 17.4 g/dL (14.0-18.0); Mean Corpuscular HGB Conc 35 g/dL (31-36); Mean Corpuscular Hemoglobin 32 pg (27-31); Mean Corpuscular Volume 91 fL (80-94); Mean Platelet Volume 7.3 fL (7.4-10.4); Platelet Count 373 10^3/uL (150-450); Red Blood Count 5.54 10^6 /uL (4.18-5.48); Red Cell Distribution Width 14 % (10-15); White Blood Count 10.4 10^3/uL (3.5-10.8)
[2020-09-11 07:38] LABS: Albumin 3.8 g/dL (3.2-5.2); BUN/Creatinine Ratio 26.5 (8-20); Calcium 9.2 mg/dL (8.6-10.3); EGFR African American 94.4 (>60); Globulin 3.9 g/dL (2-4); Potassium 4.6 mmol/L (3.5-5.0); Total Bilirubin 0.6 mg/dL (0.2-1.0); Total Protein 7.7 g/dL (6.4-8.9)
[2020-09-11] MEDS: Aspirin EC 81 mg TAB.EC (enteric coated) PO SCH (09:44)
[2020-09-11] MEDS: Nicotine PATCH 21 MG/24 HR PATCH TRANSDERM SCH (10:20)
[2020-09-11] MEDS: SPIRIVA Respimat (tiotropium) 2.5 mcg/inh Inhaler INH SCH (11:14)
[2020-09-11] MEDS: Insulin GLARGINE 100 un/ml 10 ml VIAL SUBCUT SCH (21:19)
[2020-09-11] MEDS: Enoxaparin 40 MG/0.4 ML SYR SUBCUT SCH (21:19)
[2020-09-12] MEDS: Aspirin EC 81 mg TAB.EC (enteric coated) PO SCH (08:56)
[2020-09-12] MEDS: Nicotine PATCH 21 MG/24 HR PATCH TRANSDERM SCH (08:56)
[2020-09-12] MEDS: SPIRIVA Respimat (tiotropium) 2.5 mcg/inh Inhaler INH SCH (08:59)
[2020-09-12] MEDS: Enoxaparin 40 MG/0.4 ML SYR SUBCUT SCH (21:15)
[2020-09-12] MEDS: Insulin GLARGINE 100 un/ml 10 ml VIAL SUBCUT SCH (21:16)
[2020-09-13] MEDS: Aspirin EC 81 mg TAB.EC (enteric coated) PO SCH (07:34)
[2020-09-13] MEDS: SPIRIVA Respimat (tiotropium) 2.5 mcg/inh Inhaler INH SCH (07:35)
[2020-09-13] MEDS: Nicotine PATCH 21 MG/24 HR PATCH TRANSDERM SCH (07:36)
[2020-09-13] MEDS: HYDROcodone/ACETAMIN 5/325 mg TAB PO PRN (18:17)
[2020-09-13] MEDS: Enoxaparin 40 MG/0.4 ML SYR SUBCUT SCH (21:18)
[2020-09-13] MEDS: Insulin GLARGINE 100 un/ml 10 ml VIAL SUBCUT SCH (21:19)
[2020-09-14] MEDS: HYDROcodone/ACETAMIN 5/325 mg TAB PO PRN ×2 (01:39→14:00)
[2020-09-14] MEDS: Aspirin EC 81 mg TAB.EC (enteric coated) PO SCH (08:55)
[2020-09-14] MEDS: Nicotine PATCH 21 MG/24 HR PATCH TRANSDERM SCH (09:02)
[2020-09-14] MEDS: SPIRIVA Respimat (tiotropium) 2.5 mcg/inh Inhaler INH SCH (09:04)
[2020-09-14] MEDS: Insulin GLARGINE 100 un/ml 10 ml VIAL SUBCUT SCH (20:41)
[2020-09-14] MEDS: Enoxaparin 40 MG/0.4 ML SYR SUBCUT SCH (20:41)
[2020-09-15] MEDS: Nicotine PATCH 21 MG/24 HR PATCH TRANSDERM SCH (10:41)
[2020-09-15] MEDS: Aspirin EC 81 mg TAB.EC (enteric coated) PO SCH (10:42)
[2020-09-15] MEDS: SPIRIVA Respimat (tiotropium) 2.5 mcg/inh Inhaler INH SCH (10:43)
[2020-09-15] MEDS: HYDROcodone/ACETAMIN 5/325 mg TAB PO PRN ×2 (14:13→22:04)
[2020-09-15 18:01] LABS: ABS Basophils 0.1 10^3/ul (0-0.2); ABS Eosinophils 0.1 10^3/ul (0-0.6); ABS Lymphocytes 3.3 10^3/ul (1.0-4.8); ABS Monocytes 1.3 10^3/ul (0-0.8); ABS Neutrophils 10.3 10^3/ul (1.5-7.7); Hematocrit 51 % (42-52); Lymphocyte % 21.9 %; Mean Corpuscular HGB Conc 34 g/dL (31-36); Mean Corpuscular Hemoglobin 31 pg (27-31); Mean Corpuscular Volume 92 fL (80-94); Mean Platelet Volume 7.2 fL (7.4-10.4); Platelet Count 411 10^3/uL (150-450); Red Blood Count 5.52 10^6 /uL (4.18-5.48); Red Cell Distribution Width 14 % (10-15); White Blood Count 15.3 10^3/uL (3.5-10.8)
[2020-09-15 18:38] LABS: Albumin/Globulin Ratio 1.1 (1-3); BUN/Creatinine Ratio 22.7 (8-20); Calcium 9.3 mg/dL (8.6-10.3); EGFR African American 82.6 (>60); EGFR Non-African American 68.3 (>60); Globulin 3.7 g/dL (2-4); Potassium 4.3 mmol/L (3.5-5.0); Total Bilirubin 0.4 mg/dL (0.2-1.0); Total Protein 7.7 g/dL (6.4-8.9)
[2020-09-15] MEDS: Enoxaparin 40 MG/0.4 ML SYR SUBCUT SCH (21:48)
[2020-09-15] MEDS: Insulin GLARGINE 100 un/ml 10 ml VIAL SUBCUT SCH (21:50)
[2020-09-15] MEDS: Senna TAB 8.6 mg TAB PO PRN (21:52)
[2020-09-15 23:56] LABS: Urine Appearance Clear; Urine Bilirubin Negative (Negative); Urine Blood Negative (Negative); Urine Color Yellow; Urine Glucose Negative (Negative); Urine Ketones Negative (Negative); Urine Nitrite Negative (Negative); Urine Protein 3+(>=500 mg/dL) (Negative); Urine Specific Gravity 1.023 (1.010-1.030); Urine Urobilinogen Negative (Negative)
[2020-09-16 00:15] LABS: Urine Bacteria Absent (Absent); Urine Red Blood Cell Absent (Absent); Urine White Blood Cell Absent (Absent)
[2020-09-16] MEDS: Aspirin EC 81 mg TAB.EC (enteric coated) PO SCH (09:37)
[2020-09-16] MEDS: SPIRIVA Respimat (tiotropium) 2.5 mcg/inh Inhaler INH SCH (09:49)
[2020-09-16] MEDS: Nicotine PATCH 21 MG/24 HR PATCH TRANSDERM SCH (09:52)
[2020-09-16] MEDS: HYDROcodone/ACETAMIN 5/325 mg TAB PO PRN ×2 (10:25→16:55)
[2020-09-16] MEDS: Enoxaparin 40 MG/0.4 ML SYR SUBCUT SCH (21:18)
[2020-09-16] MEDS: Insulin GLARGINE 100 un/ml 10 ml VIAL SUBCUT SCH (21:19)
[2020-09-16] MEDS: Senna TAB 8.6 mg TAB PO PRN (21:29)
[2020-09-17] MEDS: HYDROcodone/ACETAMIN 5/325 mg TAB PO PRN ×3 (00:16→16:44)
[2020-09-17] MEDS: Nicotine PATCH 21 MG/24 HR PATCH TRANSDERM SCH (08:08)
[2020-09-17] MEDS: Aspirin EC 81 mg TAB.EC (enteric coated) PO SCH (08:12)
[2020-09-17] MEDS: SPIRIVA Respimat (tiotropium) 2.5 mcg/inh Inhaler INH SCH (11:22)
[2020-09-17] MEDS: Enoxaparin 40 MG/0.4 ML SYR SUBCUT SCH (20:51)
[2020-09-17] MEDS: Insulin GLARGINE 100 un/ml 10 ml VIAL SUBCUT SCH (20:52)
[2020-09-18 06:14] LABS: ABS Basophils 0.1 10^3/ul (0-0.2); ABS Eosinophils 0.2 10^3/ul (0-0.6); ABS Lymphocytes 2.7 10^3/ul (1.0-4.8); ABS Neutrophils 9.9 10^3/ul (1.5-7.7); Eosinophil % 1.6 %; Hematocrit 45 % (42-52); Hemoglobin 15.5 g/dL (14.0-18.0); Lymphocyte % 19.4 %; Mean Corpuscular HGB Conc 34 g/dL (31-36); Mean Corpuscular Hemoglobin 31 pg (27-31); Mean Corpuscular Volume 91 fL (80-94); Mean Platelet Volume 7.2 fL (7.4-10.4); Platelet Count 381 10^3/uL (150-450); Red Blood Count 4.99 10^6 /uL (4.18-5.48); Red Cell Distribution Width 14 % (10-15)
[2020-09-18 06:36] LABS: Albumin 3.4 g/dL (3.2-5.2); BUN/Creatinine Ratio 22.1 (8-20); EGFR African American 80.1 (>60); EGFR Non-African American 66.2 (>60); Globulin 3.5 g/dL (2-4); Potassium 4.9 mmol/L (3.5-5.0); Total Bilirubin 0.4 mg/dL (0.2-1.0); Total Protein 6.9 g/dL (6.4-8.9)
[2020-09-18] MEDS: Aspirin EC 81 mg TAB.EC (enteric coated) PO SCH (08:15)
[2020-09-18] MEDS: Nicotine PATCH 21 MG/24 HR PATCH TRANSDERM SCH (09:18)
[2020-09-18] MEDS: HYDROcodone/ACETAMIN 5/325 mg TAB PO PRN ×2 (09:21→14:40)
[2020-09-18] MEDS: SPIRIVA Respimat (tiotropium) 2.5 mcg/inh Inhaler INH SCH (13:04)
[2020-09-18] MEDS: Insulin GLARGINE 100 un/ml 10 ml VIAL SUBCUT SCH (20:18)
[2020-09-18] MEDS: Enoxaparin 40 MG/0.4 ML SYR SUBCUT SCH (20:19)
[2020-09-19] MEDS: SPIRIVA Respimat (tiotropium) 2.5 mcg/inh Inhaler INH SCH (08:28)
[2020-09-19] MEDS: Aspirin EC 81 mg TAB.EC (enteric coated) PO SCH (08:37)
[2020-09-19] MEDS: HYDROcodone/ACETAMIN 5/325 mg TAB PO PRN ×2 (08:38→15:13)
[2020-09-19] MEDS: Nicotine PATCH 21 MG/24 HR PATCH TRANSDERM SCH (11:12)
[2020-09-19 16:08] LABS: Urine Appearance Cloudy; Urine Bilirubin Negative (Negative); Urine Blood 2+ (Negative); Urine Color Yellow; Urine Glucose Negative (Negative); Urine Ketones Negative (Negative); Urine Nitrite Negative (Negative); Urine Protein 2+(100 mg/dL) (Negative); Urine Specific Gravity 1.025 (1.010-1.030); Urine Urobilinogen Negative (Negative)
[2020-09-19 16:10] LABS: Urine Bacteria 1+ (Absent); Urine Red Blood Cell 3+(>10/hpf) (Absent); Urine White Blood Cell 3+(>20/hpf) (Absent)
[2020-09-19] MEDS: Enoxaparin 40 MG/0.4 ML SYR SUBCUT SCH (22:09)
[2020-09-19] MEDS: Insulin GLARGINE 100 un/ml 10 ml VIAL SUBCUT SCH (22:09)
[2020-09-20] MEDS: Aspirin EC 81 mg TAB.EC (enteric coated) PO SCH (07:55)
[2020-09-20] MEDS: HYDROcodone/ACETAMIN 5/325 mg TAB PO PRN ×3 (07:57→21:20)
[2020-09-20] MEDS: Nicotine PATCH 21 MG/24 HR PATCH TRANSDERM SCH (07:59)
[2020-09-20] MEDS: SPIRIVA Respimat (tiotropium) 2.5 mcg/inh Inhaler INH SCH (10:44)
[2020-09-20] MEDS: Insulin GLARGINE 100 un/ml 10 ml VIAL SUBCUT SCH (21:21)
[2020-09-20] MEDS: Enoxaparin 40 MG/0.4 ML SYR SUBCUT SCH (21:22)
[2020-09-20] MEDS: D5NS 0.9% 1000 ml BAG 1,000 ML IV SCH (22:33)
[2020-09-21] MEDS: HYDROcodone/ACETAMIN 5/325 mg TAB PO PRN ×3 (07:38→20:15)
[2020-09-21] MEDS: Aspirin EC 81 mg TAB.EC (enteric coated) PO SCH (07:40)
[2020-09-21] MEDS: SPIRIVA Respimat (tiotropium) 2.5 mcg/inh Inhaler INH SCH (07:42)
[2020-09-21] MEDS: Nicotine PATCH 21 MG/24 HR PATCH TRANSDERM SCH (07:42)
[2020-09-21] MEDS: D5NS 0.9% 1000 ml BAG 1,000 ML IV SCH (12:01)
[2020-09-21] MEDS ORDERED: Sulfamethox/Trimethoprim DS TAB 800/160 mg PO ONE (16:16)
[2020-09-21] MEDS: Enoxaparin 40 MG/0.4 ML SYR SUBCUT SCH (20:16)
[2020-09-21] MEDS: Sulfamethox/Trimethoprim DS TAB 800/160 mg PO SCH (20:17)
[2020-09-21] MEDS: Insulin GLARGINE 100 un/ml 10 ml VIAL SUBCUT SCH (20:42)
[2020-09-22 06:35] LABS: ABS Basophils 0.1 10^3/ul (0-0.2); ABS Eosinophils 0.2 10^3/ul (0-0.6); ABS Lymphocytes 2.6 10^3/ul (1.0-4.8); ABS Monocytes 0.7 10^3/ul (0-0.8); ABS Neutrophils 5.6 10^3/ul (1.5-7.7); Eosinophil % 2.2 %; Hematocrit 43 % (42-52); Hemoglobin 15.1 g/dL (14.0-18.0); Lymphocyte % 28.5 %; Mean Corpuscular HGB Conc 35 g/dL (31-36); Mean Corpuscular Hemoglobin 32 pg (27-31); Mean Corpuscular Volume 90 fL (80-94); Mean Platelet Volume 7.1 fL (7.4-10.4); Nucleated Red Blood Cells % 0.1; Platelet Count 343 10^3/uL (150-450); Red Cell Distribution Width 14 % (10-15); White Blood Count 9.2 10^3/uL (3.5-10.8)
[2020-09-22] MEDS: Nicotine PATCH 21 MG/24 HR PATCH TRANSDERM SCH (09:53)
[2020-09-22] MEDS: Aspirin EC 81 mg TAB.EC (enteric coated) PO SCH (09:55)
[2020-09-22] MEDS: HYDROcodone/ACETAMIN 5/325 mg TAB PO PRN ×2 (10:02→18:12)
[2020-09-22] MEDS: Sulfamethox/Trimethoprim DS TAB 800/160 mg PO SCH (10:31)
[2020-09-22] MEDS: SPIRIVA Respimat (tiotropium) 2.5 mcg/inh Inhaler INH SCH (10:33)
[2020-09-22] MEDS: Insulin GLARGINE 100 un/ml 10 ml VIAL SUBCUT SCH (20:59)
[2020-09-22] MEDS: Enoxaparin 40 MG/0.4 ML SYR SUBCUT SCH (20:59)
[2020-09-23] MEDS: HYDROcodone/ACETAMIN 5/325 mg TAB PO PRN ×3 (08:21→21:20)
[2020-09-23] MEDS: Aspirin EC 81 mg TAB.EC (enteric coated) PO SCH (09:11)
[2020-09-23] MEDS: SPIRIVA Respimat (tiotropium) 2.5 mcg/inh Inhaler INH SCH (09:13)
[2020-09-23] MEDS: Nicotine PATCH 21 MG/24 HR PATCH TRANSDERM SCH (09:16)
[2020-09-23] MEDS: Insulin GLARGINE 100 un/ml 10 ml VIAL SUBCUT SCH (21:23)
[2020-09-23] MEDS: Enoxaparin 40 MG/0.4 ML SYR SUBCUT SCH (21:30)
[2020-09-24] MEDS: Aspirin EC 81 mg TAB.EC (enteric coated) PO SCH (09:35)
[2020-09-24] MEDS: HYDROcodone/ACETAMIN 5/325 mg TAB PO PRN ×2 (09:45→16:42)
[2020-09-24] MEDS: SPIRIVA Respimat (tiotropium) 2.5 mcg/inh Inhaler INH SCH (09:46)
[2020-09-24] MEDS: Nicotine PATCH 21 MG/24 HR PATCH TRANSDERM SCH (09:47)
[2020-09-24] MEDS: Insulin GLARGINE 100 un/ml 10 ml VIAL SUBCUT SCH (20:48)
[2020-09-24] MEDS: Enoxaparin 40 MG/0.4 ML SYR SUBCUT SCH (20:49)
[2020-09-25 06:08] VITALS: BP 140/60
[2020-09-25] MEDS: HYDROcodone/ACETAMIN 5/325 mg TAB PO PRN ×2 (06:24→11:15)
[2020-09-25 07:09] LABS: ABS Basophils 0.1 10^3/ul (0-0.2); ABS Eosinophils 0.2 10^3/ul (0-0.6); ABS Lymphocytes 2.7 10^3/ul (1.0-4.8); ABS Monocytes 0.8 10^3/ul (0-0.8); ABS Neutrophils 4.7 10^3/ul (1.5-7.7); Eosinophil % 2.3 %; Hematocrit 46 % (42-52); Hemoglobin 15.6 g/dL (14.0-18.0); Lymphocyte % 32.1 %; Mean Corpuscular HGB Conc 34 g/dL (31-36); Mean Corpuscular Hemoglobin 31 pg (27-31); Mean Corpuscular Volume 91 fL (80-94); Mean Platelet Volume 6.9 fL (7.4-10.4); Platelet Count 375 10^3/uL (150-450); Red Blood Count 5.02 10^6 /uL (4.18-5.48); Red Cell Distribution Width 14 % (10-15); White Blood Count 8.5 10^3/uL (3.5-10.8)
[2020-09-25 07:29] LABS: Albumin 3.6 g/dL (3.2-5.2); Calcium 9.4 mg/dL (8.6-10.3); EGFR African American 87.2 (>60); Globulin 3.6 g/dL (2-4); Potassium 4.6 mmol/L (3.5-5.0); Total Bilirubin 0.4 mg/dL (0.2-1.0); Total Protein 7.2 g/dL (6.4-8.9)
[2020-09-25] MEDS: Nicotine PATCH 21 MG/24 HR PATCH TRANSDERM SCH (09:07)
[2020-09-25] MEDS: Aspirin EC 81 mg TAB.EC (enteric coated) PO SCH (09:07)
[2020-09-25] MEDS: SPIRIVA Respimat (tiotropium) 2.5 mcg/inh Inhaler INH SCH (11:19)
== END 2020-09-25 14:30 | DRG 57 ==
LOC: PMRU 18:43
PROVIDERS: ADMIT Physical Medicine & Rehabilitation; ATTEND Physical Medicine & Rehabilitation

== ENCOUNTER 2020-12-24 13:38 | Inpatient (IN) ==
[2020-12-24] MEDS ORDERED: NS 0.9% 1000 ml BAG 1,000 ML IV ONE (13:39)
[2020-12-24] MEDS ORDERED: Iodixanol (CONTRAST) 320 MG/ML 100 ML SDV IV ONE (13:51)
[2020-12-24 14:07] LABS: ABS Basophils 0.1 10^3/ul (0-0.2); ABS Eosinophils 0.2 10^3/ul (0-0.6); ABS Lymphocytes 2.6 10^3/ul (1.0-4.8); ABS Neutrophils 5.3 10^3/ul (1.5-7.7); Hematocrit 35 % (42-52); Hemoglobin 11.9 g/dL (14.0-18.0); Lymphocyte % 28.4 %; Mean Corpuscular HGB Conc 34 g/dL (31-36); Mean Corpuscular Hemoglobin 31 pg (27-31); Mean Corpuscular Volume 91 fL (80-94); Mean Platelet Volume 6.7 fL (7.4-10.4); Platelet Count 409 10^3/uL (150-450); Red Blood Count 3.86 10^6 /uL (4.18-5.48); Red Cell Distribution Width 16 % (10-15); White Blood Count 9.2 10^3/uL (3.5-10.8)
[2020-12-24 14:13] LABS: INR 1.12 (0.82-1.09)
[2020-12-24] MEDS ORDERED: Alteplase (100 mg Vial) 100 mg VIAL IV ONE ×2 (14:22)
[2020-12-24 14:24] LABS: ALT 8 U/L (7-52); AST 15 U/L (13-39); Albumin 3.3 g/dL (3.2-5.2); Alkaline Phosphatase 74 U/L (35-149); Anion Gap 5 mmol/L (2-11); Blood Urea Nitrogen 34 mg/dL (6-24); CO2 Carbon Dioxide 27 mmol/L (22-32); Calcium 8.6 mg/dL (8.6-10.3); Chloride 99 mmol/L (101-111); Cholesterol 92 mg/dL; EGFR African American 47.7 (>60); EGFR Non-African American 39.4 (>60); Globulin 3.3 g/dL (2-4); Glucose 115 mg/dL (70-100); HDL Cholesterol 29.8 mg/dL; LDL Cholesterol 42 mg/dL; Potassium 3.8 mmol/L (3.5-5.0); Sodium 131 mmol/L (135-145); Total Protein 6.6 g/dL (6.4-8.9); Triglycerides 100 mg/dL
[2020-12-24 14:37] LABS: Alcohol, S 14 mg/dL (<10)
[2020-12-24 16:02] LABS: Troponin I 0.09 ng/mL (<0.03)
[2020-12-24 17:49] LABS: Troponin I 0.11 ng/mL (<0.03)
[2020-12-24] MEDS ORDERED: Senna/Docusate 8.6/50 mg (NF) TAB PO PRN (19:18)
[2020-12-24] MEDS ORDERED: Senna TAB 8.6 mg TAB PO PRN (19:33)
[2020-12-24 20:31] LABS: Urine Appearance Turbid; Urine Bilirubin Negative (Negative); Urine Blood 3+ (Negative); Urine Color Yellow; Urine Glucose Negative (Negative); Urine Ketones Negative (Negative); Urine Nitrite Positive (Negative); Urine Protein 2+(100 mg/dL) (Negative); Urine Specific Gravity 1.039 (1.002-1.030); Urine Urobilinogen Negative (Negative)
[2020-12-24] MEDS: DULoxetine DR 20 mg CAP PO SCH (20:34)
[2020-12-24 20:35] LABS: Urine Bacteria 1+ (Absent); Urine Red Blood Cell 3+(>10/hpf) (Absent); Urine White Blood Cell 3+(>20/hpf) (Absent)
[2020-12-24] MEDS: NS 0.9% 1000 ml BAG 1,000 ML IV SCH (20:37)
[2020-12-24 20:53] LABS: Troponin I 0.11 ng/mL (<0.03)
[2020-12-25] MEDS: NS 0.9% 1000 ml BAG 1,000 ML IV SCH (04:53)
[2020-12-25 05:06] LABS: ABS Basophils 0.1 10^3/ul (0-0.2); ABS Eosinophils 0.2 10^3/ul (0-0.6); ABS Lymphocytes 2.6 10^3/ul (1.0-4.8); ABS Monocytes 0.9 10^3/ul (0-0.8); ABS Neutrophils 5.7 10^3/ul (1.5-7.7); Eosinophil % 2.4 %; Hematocrit 34 % (42-52); Hemoglobin 11.7 g/dL (14.0-18.0); Lymphocyte % 27.1 %; Mean Corpuscular HGB Conc 34 g/dL (31-36); Mean Corpuscular Hemoglobin 31 pg (27-31); Mean Corpuscular Volume 91 fL (80-94); Mean Platelet Volume 6.7 fL (7.4-10.4); Platelet Count 434 10^3/uL (150-450); Red Blood Count 3.78 10^6 /uL (4.18-5.48); Red Cell Distribution Width 15 % (10-15); White Blood Count 9.6 10^3/uL (3.5-10.8)
[2020-12-25 05:30] LABS: ALT 7 U/L (7-52); AST 15 U/L (13-39); Albumin 3.1 g/dL (3.2-5.2); Alkaline Phosphatase 72 U/L (35-149); Anion Gap 5 mmol/L (2-11); Blood Urea Nitrogen 26 mg/dL (6-24); CO2 Carbon Dioxide 23 mmol/L (22-32); Calcium 8.5 mg/dL (8.6-10.3); Chloride 106 mmol/L (101-111); EGFR African American 80.9 (>60); EGFR Non-African American 66.9 (>60); Globulin 3.2 g/dL (2-4); Glucose 95 mg/dL (70-100); Magnesium 1.9 mg/dL (1.9-2.7); Phosphorus 3.4 mg/dL (2.5-5.0); Potassium 3.9 mmol/L (3.5-5.0); Sodium 134 mmol/L (135-145); Total Protein 6.3 g/dL (6.4-8.9)
[2020-12-25 05:33] LABS: Troponin I 0.07 ng/mL (<0.03)
[2020-12-25] MEDS ORDERED: NS 0.9% 1000 ml BAG 1,000 ML IV SCH (06:21)
[2020-12-25] MEDS: Lidocaine PATCH 5% PATCH TRANSDERM SCH (08:34)
[2020-12-25] MEDS: DULoxetine DR 20 mg CAP PO SCH ×2 (08:34→21:27)
[2020-12-25] MEDS ORDERED: LIDOCAINE 4% TOPICAL SCH (09:00)
[2020-12-25] MEDS ORDERED: Dextrose 50% Syringe 50 ml 25 GM/50 ML SYRINGE IV PUSH PRN (10:09)
[2020-12-25] MEDS: Enoxaparin 40 MG/0.4 ML SYR SUBCUT SCH (16:45)
[2020-12-25] MEDS: Lidocaine Patch REMOVE PATCH PATCH OFF SCH (21:30)
[2020-12-26 08:48] LABS: Hematocrit 37 % (42-52); Hemoglobin 12.4 g/dL (14.0-18.0); Mean Corpuscular HGB Conc 34 g/dL (31-36); Mean Corpuscular Hemoglobin 31 pg (27-31); Mean Corpuscular Volume 92 fL (80-94); Mean Platelet Volume 7.1 fL (7.4-10.4); Platelet Count 441 10^3/uL (150-450); Red Blood Count 3.98 10^6 /uL (4.18-5.48); Red Cell Distribution Width 15 % (10-15)
[2020-12-26 09:17] LABS: Albumin 3.3 g/dL (3.2-5.2); Albumin/Globulin Ratio 0.9 (1-3); Calcium 8.8 mg/dL (8.6-10.3); EGFR African American 109.8 (>60); EGFR Non-African American 90.7 (>60); Globulin 3.6 g/dL (2-4); Potassium 3.9 mmol/L (3.5-5.0); Total Bilirubin 0.6 mg/dL (0.2-1.0); Total Protein 6.9 g/dL (6.4-8.9)
[2020-12-26] MEDS: Lidocaine PATCH 5% PATCH TRANSDERM SCH (10:41)
[2020-12-26] MEDS: DULoxetine DR 20 mg CAP PO SCH ×2 (10:42→20:18)
[2020-12-26] MEDS ORDERED: Albuterol HFA INHALER 8 gm MDI INH PRN (14:43)
[2020-12-26] MEDS: Enoxaparin 40 MG/0.4 ML SYR SUBCUT SCH (17:04)
[2020-12-26] MEDS: oxyCODONE/Acetamin 5/325 mg TAB PO PRN (18:05)
[2020-12-26] MEDS: Lidocaine Patch REMOVE PATCH PATCH OFF SCH (20:28)
[2020-12-27] MEDS: oxyCODONE/Acetamin 5/325 mg TAB PO PRN ×3 (06:36→21:02)
[2020-12-27 07:06] LABS: ABS Basophils 0.1 10^3/ul (0-0.2); ABS Eosinophils 0.2 10^3/ul (0-0.6); ABS Lymphocytes 2.5 10^3/ul (1.0-4.8); ABS Neutrophils 6.5 10^3/ul (1.5-7.7); Eosinophil % 2.4 %; Hematocrit 36 % (42-52); Hemoglobin 12.5 g/dL (14.0-18.0); Lymphocyte % 24.1 %; Mean Corpuscular HGB Conc 35 g/dL (31-36); Mean Corpuscular Hemoglobin 31 pg (27-31); Mean Corpuscular Volume 90 fL (80-94); Mean Platelet Volume 6.8 fL (7.4-10.4); Platelet Count 435 10^3/uL (150-450); Red Cell Distribution Width 15 % (10-15); White Blood Count 10.4 10^3/uL (3.5-10.8)
[2020-12-27 07:26] LABS: EGFR African American 119.3 (>60); EGFR Non-African American 98.6 (>60); Potassium 3.9 mmol/L (3.5-5.0)
[2020-12-27] MEDS: Lidocaine PATCH 5% PATCH TRANSDERM SCH (10:07)
[2020-12-27] MEDS: DULoxetine DR 20 mg CAP PO SCH ×2 (10:07→21:02)
[2020-12-27] MEDS: Enoxaparin 40 MG/0.4 ML SYR SUBCUT SCH (16:46)
[2020-12-27] MEDS: Lidocaine Patch REMOVE PATCH PATCH OFF SCH (21:13)
[2020-12-28] MEDS: oxyCODONE/Acetamin 5/325 mg TAB PO PRN ×2 (05:56→12:40)
[2020-12-28 06:09] LABS: ABS Basophils 0.1 10^3/ul (0-0.2); ABS Eosinophils 0.3 10^3/ul (0-0.6); ABS Lymphocytes 2.3 10^3/ul (1.0-4.8); ABS Neutrophils 7.5 10^3/ul (1.5-7.7); Eosinophil % 2.7 %; Hematocrit 37 % (42-52); Hemoglobin 12.2 g/dL (14.0-18.0); Lymphocyte % 20.7 %; Mean Corpuscular HGB Conc 34 g/dL (31-36); Mean Corpuscular Hemoglobin 30 pg (27-31); Mean Corpuscular Volume 91 fL (80-94); Mean Platelet Volume 7.2 fL (7.4-10.4); Platelet Count 423 10^3/uL (150-450); Red Blood Count 4.03 10^6 /uL (4.18-5.48); Red Cell Distribution Width 15 % (10-15); White Blood Count 11.2 10^3/uL (3.5-10.8)
[2020-12-28 06:28] LABS: EGFR African American 93.3 (>60); EGFR Non-African American 77.1 (>60); Potassium 3.9 mmol/L (3.5-5.0)
[2020-12-28] MEDS: DULoxetine DR 20 mg CAP PO SCH ×2 (08:27→20:24)
[2020-12-28] MEDS: Lidocaine PATCH 5% PATCH TRANSDERM SCH (08:28)
[2020-12-28] MEDS: Enoxaparin 40 MG/0.4 ML SYR SUBCUT SCH (17:03)
[2020-12-28] MEDS: Lidocaine Patch REMOVE PATCH PATCH OFF SCH (20:25)
[2020-12-28] MEDS ORDERED: Prochlorperazine 5 mg/ml 2 ml VIAL (10 mg) IV PRN (23:01)
[2020-12-29 06:10] LABS: Hematocrit 36 % (42-52); Hemoglobin 12.5 g/dL (14.0-18.0); Mean Corpuscular HGB Conc 34 g/dL (31-36); Mean Corpuscular Hemoglobin 31 pg (27-31); Mean Corpuscular Volume 91 fL (80-94); Mean Platelet Volume 6.8 fL (7.4-10.4); Platelet Count 437 10^3/uL (150-450); Red Blood Count 3.99 10^6 /uL (4.18-5.48); Red Cell Distribution Width 15 % (10-15); White Blood Count 13.1 10^3/uL (3.5-10.8)
[2020-12-29 06:25] LABS: Calcium 9.2 mg/dL (8.6-10.3); EGFR African American 95.5 (>60); EGFR Non-African American 78.9 (>60)
[2020-12-29] MEDS: Lidocaine PATCH 5% PATCH TRANSDERM SCH (08:49)
[2020-12-29 13:26] VITALS: BP 96/74
[2020-12-29] MEDS: DULoxetine DR 20 mg CAP PO SCH (14:03)
[2020-12-29 14:40] LABS: Urine Appearance Turbid; Urine Bilirubin Negative (Negative); Urine Blood 3+ (Negative); Urine Color Yellow; Urine Glucose Negative (Negative); Urine Ketones 1+ (Negative); Urine Nitrite Negative (Negative); Urine Protein 2+(100 mg/dL) (Negative); Urine Specific Gravity 1.017 (1.002-1.030); Urine Urobilinogen Negative (Negative)
[2020-12-29 14:57] LABS: Urine Bacteria 2+ (Absent); Urine Red Blood Cell 3+(>10/hpf) (Absent); Urine White Blood Cell 3+(>20/hpf) (Absent)
== END 2020-12-29 15:20 ==
LOC: ED 13:38 → ICU 16:52 → MEDTELE 12-25 16:07
PROVIDERS: ADMIT Surgery Surgical Critical Care; ATTEND Hospitalist